=== PATIENT | male | born 1965 | race American Indian/Alaskan Native ===

== ENCOUNTER 2019-11-30 18:06 | Emergency (ER) | payer MEDICARE ==
[~2019-11-30] VITALS: Ht 172.7 cm; Wt 68.0 kg
[~2019-11-30 18:06] MED LIST: BP MED; BUPR150T2 PO; CHLO25 PO; GABA300 PO; HYDACE5 PO; HYDCHL25 PO; LISI20 PO; MULVITMIND PO; TRAZ100 PO; [UNRECOGNIZED DRUG - CODE] PO
== END 2019-12-01 01:19 | disposition home or self-care (01) ==
LOC: ER 18:06
DX: S01.511A Laceration without foreign body of lip, initial encounter (principal); I10 Essential (primary) hypertension; Z79.899 Other long term (current) drug therapy; F17.210 Nicotine dependence, cigarettes, uncomplicated; Y04.0XXA Assault by unarmed brawl or fight, initial encounter
CPT/HCPCS: 12011; 70450; 72125; 99284-25; A9270-GY

== ENCOUNTER 2020-11-27 14:16 | Inpatient (IN) | payer MEDICARE ==
[~2020-11-27] VITALS: Ht 172.7 cm; Wt 87.4 kg
[2020-11-27 15:21] LABS: BASOPHILS PERCENT AUTO 1 % (0-2); EOSINOPHILS ABSOLUTE AUTO 0.33 K/mm3 (0.00-0.68); EOSINOPHILS PERCENT AUTO 4 % (0-6); IMMATURE GRAN ABSOLUTE AUTO 0.01 K/mm3 (0.00-0.10); IMMATURE GRAN PERCENT AUTO 0 % (0-1); LYMPHOCYTES ABSOLUTE AUTO 1.11 K/mm3 (0.84-5.20); LYMPHOCYTES PERCENT AUTO 12 % (21-46); MONOCYTES PERCENT AUTO 7 % (4-13); Mean Corpuscular HGB 32.1 pg (26.0-34.0); Mean Corpuscular HGB Conc 31.8 g/dL (31.5-36.5); Mean Corpuscular Volume 101 fL (80-100); NEUTROPHILS ABSOLUTE AUTO 6.89 K/mm3 (1.96-9.15); NEUTROPHILS PERCENT AUTO 76 % (41-73); Platelet Count 264 K/mm3 (150-400); RDW Coefficient Variation 14.7 % (11.7-14.2); RDW Standard Deviation 54.6 fL (35.1-46.3); Red Blood Cell Count 4.36 M/mm3 (4.30-5.90); White Blood Cell Count 9.04 K/mm3 (4.00-11.30)
[2020-11-27 15:38] LABS: International Normalized Ratio 1.04; Prothrombin Time Results 11.2 Sec (9.7-11.5)
[2020-11-27 15:50] LABS: Albumin, Blood 2.9 g/dL (3.4-5.0); Albumin/Globulin Ratio 0.9 (0.8-1.8); Bilirubin, Total 0.5 mg/dL (0.1-1.0); Bun/Creatinine Ratio 13.8 (12.0-20.0); Calcium, Blood 8.2 mg/dL (8.5-10.1); Creatinine, Blood 3.54 mg/dL (0.60-1.20); Globulin, Blood 3.4 g/dL (2.2-4.0); Total Protein, Blood 6.3 g/dL (6.4-8.2); Troponin I 0.097 ng/mL (0.000-0.040)
--- NOTE | 2020-11-28 00:07 | NUR ---
ADMIT NOTE REPORT FROM DIRK, EMERGENCY RN. PT BROUGHT TO ROOM VIA GURNEY. PT STOOD IN HALLWAY AND AMBULATED TO THE BED, SLIGHTLY UNSTEADY. PT ORIENTED TO ROOM AND UNIT. CALL LIGHT WITHIN REACH.
--- NOTE | 2020-11-28 04:54 | NUR ---
SHIFT SUMMARY PT ADMITTED LAST NIGHT FOR NEW DIAGNOSIS CHF. PT IS FULL CODE. PLAN FOR DIURESIS AND RE-EVALUATION. PT HAS AN ECHO ORDERED FOR TODAY. PT HAD CONTINUED HIGH BP, HX OF HTN WITHOUT MANAGEMENT AND POLYSUBSTANCE ABUSE. PT MEDICATED WITH HYDRALAZINE PER EMAR; IMPROVEMENT IN BP. PT LIVES ALONE. HX OF NONCOMPLIANCE WITH HOME MEDICATIONS. POSSIBLE DEVELOPMENTAL DELAY REPORTED BY FRIEND OVER PHONE TO ER.
--- NOTE | 2020-11-28 05:00 | NUR ---
CTA/PRINTED CIRCUIT LAYOUT TAPER I HAVE ASSESSED THIS PT. I HAVE READ THE PRINTED CIRCUIT LAYOUT TAPER'S DOCUMENTATION AND I AGREE. THE SHIFT SUMMARY IS IN PRINTED CIRCUIT LAYOUT TAPER'S NOTES
[2020-11-28 09:06] LABS: BASOPHILS ABSOLUTE AUTO 0.07 K/mm3 (0.00-0.23); BASOPHILS PERCENT AUTO 1 % (0-2); EOSINOPHILS ABSOLUTE AUTO 0.23 K/mm3 (0.00-0.68); EOSINOPHILS PERCENT AUTO 3 % (0-6); Hematocrit 42.6 % (37.0-53.0); Hemoglobin 13.7 g/dL (13.5-17.5); IMMATURE GRAN ABSOLUTE AUTO 0.02 K/mm3 (0.00-0.10); IMMATURE GRAN PERCENT AUTO 0 % (0-1); LYMPHOCYTES ABSOLUTE AUTO 0.87 K/mm3 (0.84-5.20); LYMPHOCYTES PERCENT AUTO 12 % (21-46); MONOCYTES ABSOLUTE AUTO 0.31 K/mm3 (0.16-1.47); MONOCYTES PERCENT AUTO 4 % (4-13); Mean Corpuscular HGB 32.1 pg (26.0-34.0); Mean Corpuscular HGB Conc 32.2 g/dL (31.5-36.5); Mean Corpuscular Volume 100 fL (80-100); Mean Platelet Volume 10.3 fL (9.1-12.4); NEUTROPHILS ABSOLUTE AUTO 5.68 K/mm3 (1.96-9.15); NEUTROPHILS PERCENT AUTO 79 % (41-73); Platelet Count 254 K/mm3 (150-400); RDW Coefficient Variation 14.6 % (11.7-14.2); RDW Standard Deviation 54.3 fL (35.1-46.3); Red Blood Cell Count 4.27 M/mm3 (4.30-5.90); White Blood Cell Count 7.18 K/mm3 (4.00-11.30)
[2020-11-28 09:38] LABS: Albumin, Blood 2.7 g/dL (3.4-5.0); Albumin/Globulin Ratio 0.8 (0.8-1.8); Bilirubin, Total 0.8 mg/dL (0.1-1.0); Bun/Creatinine Ratio 13.5 (12.0-20.0); Calcium, Blood 8.3 mg/dL (8.5-10.1); Creatinine, Blood 3.77 mg/dL (0.60-1.20); Globulin, Blood 3.3 g/dL (2.2-4.0); Potassium, Blood 3.9 mmol/L (3.5-5.5); Troponin I 0.07 ng/mL (0.000-0.040)
--- NOTE | 2020-11-28 10:09 | NUR ---
Echocardiogram completed.
--- NOTE | 2020-11-28 17:58 | NUR ---
Per admit trigger, I met with Mr. Ryan to offer information about advanced care planning. He has no family or friends locally. Two sisters in [place]. He does not read or write. We completed a POLST reflecting his wishes to be DNR if there is no pulse, breath, and unresponsive. Limited interventions. No intubation. POLST waiting physician signature and fax to [place] registry.
--- NOTE | 2020-11-28 19:43 | NUR ---
SHIFT SUMMARY PT TOOK A SHOWER THIS MORNING. REPORTS INCREASED DYSPNEA WITH ACTIVITY. UP IN CHAIR ON AND OFF THROUGH DAY. DENIES PAIN OR NAUSEA. TRIES TO KEEP FEET ELEVATED. NO WITHDRAWAL SYMPTOMS NOTED THROUGH DAY. ECHO COMPLETED.
--- NOTE | 2020-11-29 04:50 | NUR ---
SHIFT SUMMARY: PATIENT IS A&OX4, REPORTS DRINKING DAILY AND METH USE, BOTH LAST USED 11/27/20. THIS EVENING PATIENT SUDDENLY BECAME ANXIOUS AND SLIGHTLY DISORIENTED WITH SLIGHT TREMORE AND SKIN IS MOIST. SCORING 6 ON THE CIWA SCALE. PATIENT REPORTS DRINKING NIGHTLY TO INDUCE SLEEP, TO TREAT INSOMNIA. LIBRIUM WAS GIVEN WITH GOOD EFFECT. THE NEXT CIWA WAS 4. NEEDS ASSISTANCE OF 1, GAIT IS UNSTEADY. BED ALARM IS ON FOR SAFETY.
[2020-11-29 08:16] LABS: Albumin, Blood 2.9 g/dL (3.4-5.0); Anion Gap 7 mmol/L (6-16); Blood Urea Nitrogen 66 mg/dL (8-24); Bun/Creatinine Ratio 14.5 (12.0-20.0); CO2, Blood 26 mmol/L (21-32); Calcium, Blood 8.5 mg/dL (8.5-10.1); Chloride, Blood 109 mmol/L (98-108); Creatinine, Blood 4.56 mg/dL (0.60-1.20); Glomerular Filtration Rate 14 (60-); Glucose, Blood 96 mg/dL (70-99); Magnesium, Blood 1.9 mg/dL (1.6-2.4); Phosphorus, Blood 5.2 mg/dL (2.5-4.9); Potassium, Blood 4.6 mmol/L (3.5-5.5); Sodium, Blood 142 mmol/L (136-145)
[2020-11-29 08:35] LABS: BASOPHILS ABSOLUTE AUTO 0.09 K/mm3 (0.00-0.23); BASOPHILS PERCENT AUTO 1 % (0-2); EOSINOPHILS ABSOLUTE AUTO 0.18 K/mm3 (0.00-0.68); EOSINOPHILS PERCENT AUTO 2 % (0-6); Hematocrit 45.7 % (37.0-53.0); Hemoglobin 14.6 g/dL (13.5-17.5); IMMATURE GRAN ABSOLUTE AUTO 0.02 K/mm3 (0.00-0.10); IMMATURE GRAN PERCENT AUTO 0 % (0-1); LYMPHOCYTES ABSOLUTE AUTO 1.75 K/mm3 (0.84-5.20); LYMPHOCYTES PERCENT AUTO 19 % (21-46); MONOCYTES ABSOLUTE AUTO 0.57 K/mm3 (0.16-1.47); MONOCYTES PERCENT AUTO 6 % (4-13); Mean Corpuscular HGB 31.5 pg (26.0-34.0); Mean Corpuscular HGB Conc 31.9 g/dL (31.5-36.5); Mean Corpuscular Volume 99 fL (80-100); Mean Platelet Volume 10.6 fL (9.1-12.4); NEUTROPHILS ABSOLUTE AUTO 6.45 K/mm3 (1.96-9.15); NEUTROPHILS PERCENT AUTO 71 % (41-73); Platelet Count 303 K/mm3 (150-400); RDW Coefficient Variation 14.4 % (11.7-14.2); RDW Standard Deviation 51.9 fL (35.1-46.3); Red Blood Cell Count 4.64 M/mm3 (4.30-5.90); White Blood Cell Count 9.06 K/mm3 (4.00-11.30)
[2020-11-29 08:53] LABS: Bun/Creatinine Ratio 14.6 (12.0-20.0); Calcium, Blood 8.5 mg/dL (8.5-10.1); Creatinine, Blood 4.53 mg/dL (0.60-1.20); Potassium, Blood 4.6 mmol/L (3.5-5.5)
[2020-11-29 08:56] LABS: Thyroid Stimulating Hormone 2.33 uIU/mL (0.360-4.800)
--- NOTE | 2020-11-29 19:13 | NUR ---
SHIFT SUMMARY BILL WAS ANXIOUS AND A BIT CONFUSED THIS SHIFT, GOT PO LIBRIUM TWICE FOR MILD WITHDRAWL SYMPTOMS. SBA, BA ON, SET IT OFF SEVERAL TIMES. BLE EDEMA, ELEVATED LEGS IN BED. CONTINENT IN URINAL. HAD A BM IN TOILET. DR DIA CONSULTED AND CAME TO BS. CHANGED TO DNR PER POLST. CALL LIGHT IN REACH, REPORT GIVEN TO NIGHT NURSE
[2020-11-30 04:46] LABS: Hematocrit 45.8 % (37.0-53.0); Hemoglobin 14.5 g/dL (13.5-17.5)
[2020-11-30 05:12] LABS: Albumin, Blood 2.8 g/dL (3.4-5.0); Anion Gap 9 mmol/L (6-16); Blood Urea Nitrogen 74 mg/dL (8-24); Bun/Creatinine Ratio 15.8 (12.0-20.0); CO2, Blood 23 mmol/L (21-32); Calcium, Blood 8.1 mg/dL (8.5-10.1); Chloride, Blood 106 mmol/L (98-108); Creatinine, Blood 4.69 mg/dL (0.60-1.20); Glomerular Filtration Rate 14 (60-); Glucose, Blood 89 mg/dL (70-99); Phosphorus, Blood 5.9 mg/dL (2.5-4.9); Potassium, Blood 4.2 mmol/L (3.5-5.5); Sodium, Blood 138 mmol/L (136-145)
--- NOTE | 2020-11-30 05:41 | NUR ---
PT MEDICATED FOR CIWA OF 6 THIS SHIFT, ANXIOUS, INSISTING TO GO DOWNSTAIRS BY HIMSELF TO VENDING MACHINE. SNACKS GIVEN. PT PUT ON HIS CLOTHES THIS AM BECAUSE HE IS TIRED OF WEARING "A DRESS". REPORT WILL BE GIVEN TO ONCOMING SHIFT.
[2020-11-30 10:01] LABS: SARS-Cov-2 (COVID-19) PCR, MMC NEGATIVE (NEGATIVE)
--- NOTE | 2020-11-30 11:45 | NUR ---
HANDOFF DONE AT BS FOR PT TO GO TO OR FOR HD CATH PLACEMENT. PT EDUCATED ON PROS AND CONS IF HE DECIDES HE WANTS THIS, HE HAS DECIDED THAT HE WANTS TO HAVE DIALYSIS HE ISN'T READY TO
--- NOTE | 2020-11-30 18:37 | NUR ---
SHIFT SUMMARY BILL DECIDED THAT HE DID WANT DIALYSIS AFTER ALL. HAD HD CATH PLACED IN R CHEST WALL. PT LEFT FLOOR AROUND NOON, RETURNED AROUND 2PM. DIALYSIS IN ROOM IMMEDIATELY AFTERWARDS. TOLERATED DIALYSIS WELL. GOT LIBRIUM X1 THIS SHIFT DUE TO ANXIETY AND CONFUSION. DEFINITELY HAS (BASELINE?) CONFUSION AND FORGETFULNESS. CONTINENT IN URINAL. HAD U/S LIVER THIS MORNING. CALL LIGHT IN REACH, BA ON. PT SETS OFF BA REGULARLY. WCTM
[2020-12-01 04:59] LABS: BASOPHILS ABSOLUTE AUTO 0.04 K/mm3 (0.00-0.23); BASOPHILS PERCENT AUTO 0 % (0-2); EOSINOPHILS ABSOLUTE AUTO 0.01 K/mm3 (0.00-0.68); EOSINOPHILS PERCENT AUTO 0 % (0-6); Hematocrit 43.1 % (37.0-53.0); Hemoglobin 14.2 g/dL (13.5-17.5); IMMATURE GRAN ABSOLUTE AUTO 0.04 K/mm3 (0.00-0.10); IMMATURE GRAN PERCENT AUTO 0 % (0-1); LYMPHOCYTES ABSOLUTE AUTO 0.75 K/mm3 (0.84-5.20); LYMPHOCYTES PERCENT AUTO 6 % (21-46); MONOCYTES ABSOLUTE AUTO 0.65 K/mm3 (0.16-1.47); MONOCYTES PERCENT AUTO 5 % (4-13); Mean Corpuscular HGB 31.3 pg (26.0-34.0); Mean Corpuscular HGB Conc 32.9 g/dL (31.5-36.5); Mean Corpuscular Volume 95 fL (80-100); Mean Platelet Volume 10.8 fL (9.1-12.4); NEUTROPHILS ABSOLUTE AUTO 10.51 K/mm3 (1.96-9.15); NEUTROPHILS PERCENT AUTO 88 % (41-73); Platelet Count 282 K/mm3 (150-400); RDW Coefficient Variation 13.7 % (11.7-14.2); RDW Standard Deviation 48.1 fL (35.1-46.3); Red Blood Cell Count 4.53 M/mm3 (4.30-5.90)
--- NOTE | 2020-12-01 05:01 | NUR ---
PT IS ALERT,TIMES OF CONFUSION, CIWA SCORES 4-6, LIBRIUM GIVEN. PT RECIEVED DIALYSIS CATH YESTERDAY. PRESSURE DRESSING TO RIGHT SIDE OF NECK. PT HAS BEEN ANXIOUS THIS SHIFT, WAKING OFTEN AND SETTING OFF BED ALARM.
[2020-12-01 05:34] LABS: Albumin, Blood 2.3 g/dL (3.4-5.0); Anion Gap 9 mmol/L (6-16); Blood Urea Nitrogen 69 mg/dL (8-24); CO2, Blood 23 mmol/L (21-32); Calcium, Blood 7.6 mg/dL (8.5-10.1); Chloride, Blood 105 mmol/L (98-108); Creatinine, Blood 4.31 mg/dL (0.60-1.20); Glomerular Filtration Rate 15 (60-); Glucose, Blood 125 mg/dL (70-99); Magnesium, Blood 1.9 mg/dL (1.6-2.4); Phosphorus, Blood 6.2 mg/dL (2.5-4.9); Potassium, Blood 4.1 mmol/L (3.5-5.5); Sodium, Blood 137 mmol/L (136-145)
[2020-12-01 08:08] LABS: HBSAG SCREEN Negative (Negative); HEP A AB, IGM Negative (Negative); HEP B CORE AB, IGM Negative (Negative); HEP C VIRUS AB 6.9 (0.0-0.9)
--- NOTE | 2020-12-01 12:05 | NUR ---
ARRIVAL TO ROOM 348 RECIEVED REPORT FROM MARTÍN CELESTIN PRIOR TO PATIENT GOING TO DIALYSIS. ARRIVED TO ROOM AFTER DIALYSIS VIA BED WITH ALL BELONGINGS FROM PREVIOUS ROOM. PATIENT IS A&OX4, COOPERATIVE BUT SEEMS EASILY IRRITABLE. PATIENT ORIENTED TO NEW ROOM, CALL LIGHT IN REACH, BED IN LOW POSITION.
--- NOTE | 2020-12-01 18:14 | NUR ---
SHIFT SUMMARY PATIENT IS ALERT BUT HAS PERIODS OF CONFUSION. PATIENT CONTINUES TO BE IRRITTED BY BED ALARM IN PLACE BUT IS REMINDED TO CALL FOR HELP WHEN GETTING UP. DRESSING OVER DIALYSIS PORT IS CLEAN DRY AND INTACT. PATIENT HAS BEEN RESTING THE MAJORITY OF THE SHIFT BUT WAKES EASILY. FAMILY MEMBER AT THE BEDSIDE.
[2020-12-02 05:00] LABS: BASOPHILS ABSOLUTE AUTO 0.07 K/mm3 (0.00-0.23); BASOPHILS PERCENT AUTO 1 % (0-2); EOSINOPHILS ABSOLUTE AUTO 0.18 K/mm3 (0.00-0.68); EOSINOPHILS PERCENT AUTO 2 % (0-6); Hematocrit 41.3 % (37.0-53.0); Hemoglobin 13.4 g/dL (13.5-17.5); IMMATURE GRAN ABSOLUTE AUTO 0.03 K/mm3 (0.00-0.10); IMMATURE GRAN PERCENT AUTO 0 % (0-1); LYMPHOCYTES ABSOLUTE AUTO 2.21 K/mm3 (0.84-5.20); LYMPHOCYTES PERCENT AUTO 23 % (21-46); MONOCYTES ABSOLUTE AUTO 0.84 K/mm3 (0.16-1.47); MONOCYTES PERCENT AUTO 9 % (4-13); Mean Corpuscular HGB 31.2 pg (26.0-34.0); Mean Corpuscular HGB Conc 32.4 g/dL (31.5-36.5); Mean Corpuscular Volume 96 fL (80-100); NEUTROPHILS ABSOLUTE AUTO 6.27 K/mm3 (1.96-9.15); NEUTROPHILS PERCENT AUTO 65 % (41-73); Platelet Count 241 K/mm3 (150-400); RDW Standard Deviation 49.6 fL (35.1-46.3); Red Blood Cell Count 4.29 M/mm3 (4.30-5.90)
--- NOTE | 2020-12-02 05:12 | NUR ---
PAID SEARCH MARKETING ANALYST SUMMARY PATIENT IS A/OX3-4. MOST RECENT CIWA SCORE OF 2. PT HAD PERMACATH PLACED IN RIGHT CHEST YESTERDAY AND C/O MILD DISCOMFORT/ANNOYANCE AROUND HIS RIGHT NECK. PM CARDIAC MEDS HELD D/T SBP <100 AND PULSE <60. THIS AM, PT SBP IMPROVED. PT PULSE UP AND DOWN BETWEEN 32-61. DOCTOR HAKAN NOTIFIED AND TELEMETRY ORDERED. PT DENIES ANY CP OR SOB. VITALS OTHERWISE STABLE. NO APPARENT DISTRESS, BRADYCARDIA IS ASYMPTOMATIC, PT STATES "ITS BECAUSE IM LAYING IN BED, USUALLY I AM UP AND MOVING". CALL LIGHT IN REACH, BED LOW, ALARM ACTIVE. WILL CONTINUE TO MONITOR
--- NOTE | 2020-12-02 05:16 | NUR ---
I AGREE WITH JANAY GALLEGO STUDENT NURSE DOCUMENTATION. CASI THOMAS RN
[2020-12-02 05:24] LABS: Albumin, Blood 2.4 g/dL (3.4-5.0); Albumin/Globulin Ratio 0.8 (0.8-1.8); Bilirubin, Direct 0.1 mg/dL (0.0-0.3); Bilirubin, Indirect 0.2 mg/dL (0.1-0.7); Bilirubin, Total 0.3 mg/dL (0.1-1.0); Bun/Creatinine Ratio 13.4 (12.0-20.0); Calcium, Blood 7.3 mg/dL (8.5-10.1); Creatinine, Blood 4.09 mg/dL (0.60-1.20); Globulin, Blood 2.9 g/dL (2.2-4.0); Magnesium, Blood 2.1 mg/dL (1.6-2.4); Phosphorus, Blood 5.7 mg/dL (2.5-4.9); Potassium, Blood 3.5 mmol/L (3.5-5.5); Total Protein, Blood 5.3 g/dL (6.4-8.2)
--- NOTE | 2020-12-02 06:22 | NUR ---
EARLIER PT VOICED CONCERNS RE DIALYSIS PORT AND OF NECK ACCESS POINT AND DRESSING. AGREED TO SPEAK WITH MD THIS AM. DR DIA IN TO SEE PT. NURSE NOTIFIED MD OF PT CONCERNS. MD ACKNOWLEDGED AND TO ADDRESS IT.
--- NOTE | 2020-12-02 18:31 | NUR ---
ciwa score of 1, a+o, follows directions and stays in bed unless he calls, eager to go back home, reading directions is a challenge for him, nurse reviewed instructions written and given to pt by other staff to assist him to understand and comply, matt metz (states he feels sob but 02 level was above 90 each time he commented even after a walk to the end of the gillespie), will continue to monitor and treat until share bsr with noc nurse and pt
--- NOTE | 2020-12-02 23:47 | NUR ---
I HAVE READ AND AGREE WITH DOCUMENTATION OF JANAY GALLEGO NURSE STUDENT. CASI THOMAS RN
--- NOTE | 2020-12-03 03:14 | NUR ---
WELL SERVICE DERRICK WORKER SUMMARY RESTING QUIETLY WITH FEW INTERRUPTIONS. WITHDRAWL CHECKS REMAIN LOW (LAST ONE WAS "0". VERBALIZED QUESTIONS RE MEDIPORT AND NECK ACCESS POINT - NO NOTED ABNORMALITIES OF SAID AREAS. NO NOTED ACUTE DISTRESS. CALL LIGHT IN REACH
[2020-12-03 05:24] LABS: BASOPHILS ABSOLUTE AUTO 0.06 K/mm3 (0.00-0.23); BASOPHILS PERCENT AUTO 1 % (0-2); EOSINOPHILS ABSOLUTE AUTO 0.37 K/mm3 (0.00-0.68); EOSINOPHILS PERCENT AUTO 5 % (0-6); Hematocrit 42.8 % (37.0-53.0); Hemoglobin 13.5 g/dL (13.5-17.5); IMMATURE GRAN ABSOLUTE AUTO 0.03 K/mm3 (0.00-0.10); IMMATURE GRAN PERCENT AUTO 0 % (0-1); LYMPHOCYTES ABSOLUTE AUTO 1.79 K/mm3 (0.84-5.20); LYMPHOCYTES PERCENT AUTO 22 % (21-46); MONOCYTES ABSOLUTE AUTO 0.85 K/mm3 (0.16-1.47); MONOCYTES PERCENT AUTO 10 % (4-13); Mean Corpuscular HGB 31.6 pg (26.0-34.0); Mean Corpuscular HGB Conc 31.5 g/dL (31.5-36.5); Mean Corpuscular Volume 100 fL (80-100); Mean Platelet Volume 10.9 fL (9.1-12.4); NEUTROPHILS ABSOLUTE AUTO 5.14 K/mm3 (1.96-9.15); NEUTROPHILS PERCENT AUTO 62 % (41-73); Platelet Count 220 K/mm3 (150-400); RDW Standard Deviation 51.8 fL (35.1-46.3); Red Blood Cell Count 4.27 M/mm3 (4.30-5.90); White Blood Cell Count 8.24 K/mm3 (4.00-11.30)
[2020-12-03 05:54] LABS: Albumin, Blood 2.5 g/dL (3.4-5.0); Anion Gap 4 mmol/L (6-16); Blood Urea Nitrogen 39 mg/dL (8-24); Bun/Creatinine Ratio 10.5 (12.0-20.0); CO2, Blood 29 mmol/L (21-32); Calcium, Blood 7.5 mg/dL (8.5-10.1); Chloride, Blood 104 mmol/L (98-108); Creatinine, Blood 3.72 mg/dL (0.60-1.20); Glomerular Filtration Rate 18 (60-); Glucose, Blood 95 mg/dL (70-99); Magnesium, Blood 1.9 mg/dL (1.6-2.4); Phosphorus, Blood 4.4 mg/dL (2.5-4.9); Potassium, Blood 4.4 mmol/L (3.5-5.5); Sodium, Blood 137 mmol/L (136-145)
--- NOTE | 2020-12-03 16:47 | NUR ---
SHIFT SUMMARY NO ACUTE CHANGES NOTED TO PT THIS SHIFT, PT A&O4, ABLE TO MAKE NEEDS KNOWN. PLEASANT AND COOPERATIVE TO CARE. MEDICATED FOR A MILD HEADACHE THIS SHIFT PER EMAR. NO C/O CP, SOB, OR N&V. PT HAD FIRST PART OF STRESS TODAY ORDERED. PT CALM AND RESTED IN BED AT THIS TIME. BED AT LOWEST POSITION. CALL LIGHT WITHIN REACH.
--- NOTE | 2020-12-04 04:04 | NUR ---
CLEANING MANAGER SUMMARY PT A/OX4. ADMITTED FOR ACUTE EXACERBATION OF CHF. PT DID HAVE ELEVATED BP TONIGHT, MEDICATED PER EMAR AND NOW VSS. NPO SINCE 0000. CHEMICAL STRESS TEST IN AM. NO ACUTE CHANGES. PLAN IS DISCHARGE TODAY AFTER DIALYSIS PENDING STRESS TEST. WILL CONTINUE TO MONITOR.
[2020-12-04 05:17] LABS: BASOPHILS ABSOLUTE AUTO 0.06 K/mm3 (0.00-0.23); BASOPHILS PERCENT AUTO 1 % (0-2); EOSINOPHILS ABSOLUTE AUTO 0.34 K/mm3 (0.00-0.68); EOSINOPHILS PERCENT AUTO 4 % (0-6); Hematocrit 41.1 % (37.0-53.0); Hemoglobin 13.1 g/dL (13.5-17.5); IMMATURE GRAN ABSOLUTE AUTO 0.03 K/mm3 (0.00-0.10); IMMATURE GRAN PERCENT AUTO 0 % (0-1); LYMPHOCYTES ABSOLUTE AUTO 1.35 K/mm3 (0.84-5.20); LYMPHOCYTES PERCENT AUTO 17 % (21-46); MONOCYTES ABSOLUTE AUTO 0.79 K/mm3 (0.16-1.47); MONOCYTES PERCENT AUTO 10 % (4-13); Mean Corpuscular HGB 31.8 pg (26.0-34.0); Mean Corpuscular HGB Conc 31.9 g/dL (31.5-36.5); Mean Corpuscular Volume 100 fL (80-100); Mean Platelet Volume 11.2 fL (9.1-12.4); NEUTROPHILS ABSOLUTE AUTO 5.61 K/mm3 (1.96-9.15); NEUTROPHILS PERCENT AUTO 69 % (41-73); Platelet Count 206 K/mm3 (150-400); RDW Coefficient Variation 13.6 % (11.7-14.2); RDW Standard Deviation 50.3 fL (35.1-46.3); Red Blood Cell Count 4.12 M/mm3 (4.30-5.90); White Blood Cell Count 8.18 K/mm3 (4.00-11.30)
--- NOTE | 2020-12-04 05:31 | NUR ---
I AGREE WITH DOCUMENTATION OF GUERO GALLEGO STUDENT NURSE. CASI THOMAS RN
[2020-12-04 05:45] LABS: Albumin, Blood 2.6 g/dL (3.4-5.0); Anion Gap 6 mmol/L (6-16); Blood Urea Nitrogen 47 mg/dL (8-24); Bun/Creatinine Ratio 11.8 (12.0-20.0); CO2, Blood 29 mmol/L (21-32); Calcium, Blood 8.1 mg/dL (8.5-10.1); Chloride, Blood 101 mmol/L (98-108); Creatinine, Blood 3.98 mg/dL (0.60-1.20); Glomerular Filtration Rate 17 (60-); Glucose, Blood 92 mg/dL (70-99); Phosphorus, Blood 4.3 mg/dL (2.5-4.9); Potassium, Blood 4.4 mmol/L (3.5-5.5); Sodium, Blood 136 mmol/L (136-145)
--- NOTE | 2020-12-04 06:24 | NUR ---
PT VOICED CONCERNS RE NECK DISCOMFORT RE SURGICAL SITE. NO NOTED DISTRESS OF AREA, BUT WAS INSTRUCTED THAT MD WOULD ASSESS IT IN THE AM. DR DIA DOING ROUNDS, WAS NOTIFIED OF PT CONCERNS - MD WENT IN TO SEE PT. VERBALIZED NOTHING TO BE CONCERNED ABOUT. SEE MD NOTATIONS FOR DETAILS
--- NOTE | 2020-12-04 17:13 | NUR ---
SHIFT SUMMARY NO ACUTE CHANGES NOTED TO PT THIS SHIFT. A&OX4, ABLE TO MAKE NEEDS KNOWN, PLEASANT AND COOPERATIVE TO CARE. PT MEDICATED FOR A MINOR NECK ACHE PER EMAR. NO C/O CP, SOB, OR N&V. PT HAD SECOND PART OF STRESS TEST THIS SHIFT. PT ALSO HAD DIALYSIS TREATMENT TODAY. PT REQUESTED A HOME WELFARE CHECK D/T PERSONAL CONCERNS.KAMLA RNNAIL PROFESSIONAL PROVIDED ASSISTANCE TO PT IN REGARDS TO HIS CONCERNS. BED AT LOWEST POSITION. CALL LIGHT WITHIN REACH.
[2020-12-05 05:16] LABS: BASOPHILS ABSOLUTE AUTO 0.07 K/mm3 (0.00-0.23); BASOPHILS PERCENT AUTO 1 % (0-2); EOSINOPHILS ABSOLUTE AUTO 0.38 K/mm3 (0.00-0.68); EOSINOPHILS PERCENT AUTO 5 % (0-6); Hematocrit 44.4 % (37.0-53.0); IMMATURE GRAN ABSOLUTE AUTO 0.04 K/mm3 (0.00-0.10); IMMATURE GRAN PERCENT AUTO 1 % (0-1); LYMPHOCYTES ABSOLUTE AUTO 1.23 K/mm3 (0.84-5.20); LYMPHOCYTES PERCENT AUTO 15 % (21-46); MONOCYTES ABSOLUTE AUTO 0.92 K/mm3 (0.16-1.47); MONOCYTES PERCENT AUTO 11 % (4-13); Mean Corpuscular HGB 31.4 pg (26.0-34.0); Mean Corpuscular HGB Conc 31.5 g/dL (31.5-36.5); Mean Corpuscular Volume 100 fL (80-100); Mean Platelet Volume 10.8 fL (9.1-12.4); NEUTROPHILS ABSOLUTE AUTO 5.49 K/mm3 (1.96-9.15); NEUTROPHILS PERCENT AUTO 68 % (41-73); Platelet Count 211 K/mm3 (150-400); RDW Coefficient Variation 13.6 % (11.7-14.2); RDW Standard Deviation 49.9 fL (35.1-46.3); Red Blood Cell Count 4.46 M/mm3 (4.30-5.90); White Blood Cell Count 8.13 K/mm3 (4.00-11.30)
--- NOTE | 2020-12-05 05:21 | NUR ---
SHIFT SUMMARY- PT. A&O, PLEASANT AND COOPEARTIVE WITH CARE. NO S/S OF ALCOHOL WITHDRAWAL NOTED THIS SHIFT. PT. SLEPT T/O THE NIGHT, NO APPARENT DISTRESS NOTED. USES URINAL AT THE BEDSIDE AND ALSO AMBULATES TO BATHROOM PRN. PERFORMED PVR BLADDER SCAN PER ORDER WITH RESULT OF 187. NO COMPLAINTS OF PAIN OR DISCOMFORT DURING THE NIGHT. PT. ANTICIPATING D/C TO HOME TODAY. CALL LIGHT WITHIN REACH AND SIDE RAILS UPX2. WILL CONT TO MONITOR.
[2020-12-05 05:43] LABS: Albumin, Blood 2.8 g/dL (3.4-5.0); Anion Gap 4 mmol/L (6-16); Blood Urea Nitrogen 38 mg/dL (8-24); Bun/Creatinine Ratio 11.4 (12.0-20.0); CO2, Blood 31 mmol/L (21-32); Calcium, Blood 8.4 mg/dL (8.5-10.1); Chloride, Blood 104 mmol/L (98-108); Creatinine, Blood 3.33 mg/dL (0.60-1.20); Glomerular Filtration Rate 20 (60-); Glucose, Blood 100 mg/dL (70-99); Phosphorus, Blood 4.3 mg/dL (2.5-4.9); Potassium, Blood 4.8 mmol/L (3.5-5.5); Sodium, Blood 139 mmol/L (136-145)
[2020-12-05] MEDS ORDERED: ACET325 PO (09:22)
[2020-12-05] MEDS ORDERED: BUME2 PO (09:23)
[2020-12-05] MEDS ORDERED: BENMENLOZ MT (09:23)
[2020-12-05] MEDS ORDERED: Calcium Acetat667 MG PO (09:24)
[2020-12-05] MEDS ORDERED: HYDRA25 PO (09:26)
[2020-12-05] MEDS ORDERED: METO50 PO (09:26)
--- NOTE | 2020-12-05 12:11 | NUR ---
DISCHARGE PT DISCHARGED TO HOME. THIS RN EXPLAINED DISCHARGE INSTRUCTIONS AND MEDICATIONS TO PT AND HE REPORTS HE UNDERSTANDS. MEDICATIONS FAXED TO [facility]. PT TRANSFERRED VIA WHEELCHAIR TO TRANSPORTATION VEHICLE. PT TRANSFERRED TO [facility] FOR INTAKE AND DIALYSIS. BELONGINGS WITH PT.
== END 2020-12-05 10:50 | disposition home or self-care (01) | DRG 673 ==
LOC: ER 14:16 → MEDS 20:01
PROVIDERS: Family Medicine; Internal Medicine; Internal Medicine Nephrology; Physician Assistant; Surgery; ADMIT Internal Medicine
PROC: 02HV33Z Insertion of Infusion Device into Superior Vena Cava, Percutaneous Approach (ICD-10-PCS; 2020-11-30)
PROC: B5181ZA Fluoroscopy of Superior Vena Cava using Low Osmolar Contrast, Guidance (ICD-10-PCS; 2020-11-30)
PROC: 5A1D70Z Performance of Urinary Filtration, Intermittent, Less than 6 Hours Per Day (ICD-10-PCS; 2020-11-30)
PROC: 0JH63XZ Insertion of Tunneled Vascular Access Device into Chest Subcutaneous Tissue and Fascia, Percutaneous Approach (ICD-10-PCS; principal; 2020-11-30 14:30)
DX: N17.0 Acute kidney failure with tubular necrosis (principal); I50.21 Acute systolic (congestive) heart failure; I42.6 Alcoholic cardiomyopathy; I42.7 Cardiomyopathy due to drug and external agent; Q61.3 Polycystic kidney, unspecified; I13.2 Hypertensive heart and chronic kidney disease with heart failure and with stage 5 chronic kidney disease, or end stage renal disease; F17.210 Nicotine dependence, cigarettes, uncomplicated; G62.9 Polyneuropathy, unspecified; Z66 Do not resuscitate; I16.0 Hypertensive urgency; N18.6 End stage renal disease; Z20.822 Contact with and (suspected) exposure to COVID-19; F15.10 Other stimulant abuse, uncomplicated; F10.20 Alcohol dependence, uncomplicated; D63.1 Anemia in chronic kidney disease; E83.39 Other disorders of phosphorus metabolism; E88.09 Other disorders of plasma-protein metabolism, not elsewhere classified; R45.1 Restlessness and agitation; Z91.14 Patient's other noncompliance with medication regimen; Z87.11 Personal history of peptic ulcer disease; Z71.51 Drug abuse counseling and surveillance of drug abuser; Z79.899 Other long term (current) drug therapy
CPT/HCPCS: 36415; 71046; 76705; 76770; 78452; 80048; 80053; 80069; 80074; 82248; 83735; 83880; 84100; 84443; 84484; 84550; 85014; 85018; 85025; 85610; 86317; 93005; 93010; 93017; 93306; 96374; 99285-25; A9270; A9500; C1750; J0360; J0690; J1100; J1644; J1650; J1940; J2250; J2370; J2405; J2704; J2785; J3010; J7120; U0004

== ENCOUNTER 2020-12-31 12:07 | Inpatient (IN) | payer MEDICARE ==
[~2020-12-31] VITALS: Ht 170.2 cm; Wt 80.0 kg
[~2020-12-31 12:07] MED LIST changes: +ACET325 PO; +BENMENLOZ MT; +BUME2 PO; +Calcium Acetat667 MG PO; +HYDRA25 PO; +METO50 PO
[2020-12-31 13:01] LABS: BASOPHILS ABSOLUTE AUTO 0.08 K/mm3 (0.00-0.23); BASOPHILS PERCENT AUTO 1 % (0-2); EOSINOPHILS ABSOLUTE AUTO 0.21 K/mm3 (0.00-0.68); EOSINOPHILS PERCENT AUTO 3 % (0-6); Hematocrit 45.7 % (37.0-53.0); Hemoglobin 14.5 g/dL (13.5-17.5); IMMATURE GRAN ABSOLUTE AUTO 0.01 K/mm3 (0.00-0.10); IMMATURE GRAN PERCENT AUTO 0 % (0-1); LYMPHOCYTES ABSOLUTE AUTO 1.21 K/mm3 (0.84-5.20); LYMPHOCYTES PERCENT AUTO 17 % (21-46); MONOCYTES ABSOLUTE AUTO 0.59 K/mm3 (0.16-1.47); MONOCYTES PERCENT AUTO 8 % (4-13); Mean Corpuscular HGB 30.5 pg (26.0-34.0); Mean Corpuscular HGB Conc 31.7 g/dL (31.5-36.5); Mean Corpuscular Volume 96 fL (80-100); Mean Platelet Volume 10.3 fL (9.1-12.4); NEUTROPHILS PERCENT AUTO 71 % (41-73); Platelet Count 206 K/mm3 (150-400); RDW Coefficient Variation 13.5 % (11.7-14.2); RDW Standard Deviation 48.4 fL (35.1-46.3); Red Blood Cell Count 4.75 M/mm3 (4.30-5.90)
[2020-12-31 13:05] LABS: Calcium, Ionized (POC) 1.11 mmol/L (1.10-1.46); Chloride (POC) 114 mmol/L (98-108); Creatinine (POC) 4.8 mg/dL (0.8-1.3); Glucose (ISTAT POC) 85 mg/dL (70-99); Potassium (POC) 4.5 mmol/L (3.5-5.5); Sodium (POC) 141 mmol/L (135-148); Total CO2 (POC) 15 mmol/L (21-32)
[2020-12-31 13:26] LABS: Albumin, Blood 3.4 g/dL (3.4-5.0); Albumin/Globulin Ratio 0.9 (0.8-1.8); Bilirubin, Total 0.6 mg/dL (0.1-1.0); Bun/Creatinine Ratio 14.6 (12.0-20.0); Calcium, Blood 8.3 mg/dL (8.5-10.1); Creatinine, Blood 4.24 mg/dL (0.60-1.20); Globulin, Blood 3.9 g/dL (2.2-4.0); Potassium, Blood 4.5 mmol/L (3.5-5.5); Total Protein, Blood 7.3 g/dL (6.4-8.2)
[2020-12-31 13:47] LABS: Source, Urine Clean Catch
[2020-12-31 13:50] LABS: Bilirubin, Urine Neg (Neg); Blood, Urine 2+ (Neg); Glucose Qualitative, Urine Neg (Neg); Ketones, Urine Neg (Neg); Leukocyte Esterase, Urine Neg (Neg); Nitrite, Urine Neg (Neg); Protein, Urine 3+ (Neg); Urobilinogen, Urine NORM (Normal)
[2020-12-31 14:01] LABS: Appearance, Urine Clear (Clear); Color, Urine Pale Yellow (P-Yellow)
[2020-12-31 14:02] LABS: Bacteria Mod /hpf; Red Blood Cells, Urine Not Seen /hpf (0-2); Squamous Epithelial Cells Not Seen /hpf (Few); White Blood Cells, Urine 0-2 /hpf (0-5)
[2020-12-31] MEDS ORDERED: METO50 PO (14:03)
[2020-12-31] MEDS ORDERED: BUMETANIDE2 M3 PO (14:03)
[2020-12-31] MEDS ORDERED: HYDRA25 PO (14:04)
[2020-12-31 14:06] LABS: U Amphetamine Screen DETECTED; U Barbituate Screen Not Detected; U Benzodiazapine Screen Not Detected; U Buprenorphine Screen Not Detected; U Cannabinoids Screen DETECTED; U Cocaine Screen Not Detected; U Methadone Screen Not Detected; U Methamphetamine Screen DETECTED; U Opiates Screen Not Detected; U Oxycodone Screen Not Detected; U Phencyclidine Screen Not Detected; U Propoxyphene Screen Not Detected
[2020-12-31 15:16] LABS: SARS-Cov-2 (COVID-19) PCR, MMC NEGATIVE (NEGATIVE)
--- NOTE | 2020-12-31 21:24 | NUR ---
2129 DR DIA INFORMED THIS RN THAT PT WILL NOT GET DIALYSIS TONIGHT BUT IN THE AM.
--- NOTE | 2021-01-01 04:35 | NUR ---
SUMMARY PT HAS NO NEW ISSUES NOTED. PT HAS SLEPT T/O SHIFT. PT IS TO HAVE DIALYSIS THIS AM. PT DENIES PAIN OR SOB. PT CURRENTLY SLEEPING AND IN NO DISTRESS. CALL LIGHT IN REACH.
[2021-01-01 06:08] LABS: Albumin, Blood 3.1 g/dL (3.4-5.0); Anion Gap 7 mmol/L (6-16); Blood Urea Nitrogen 63 mg/dL (8-24); CO2, Blood 22 mmol/L (21-32); Calcium, Blood 8.4 mg/dL (8.5-10.1); Chloride, Blood 110 mmol/L (98-108); Glomerular Filtration Rate 16 (60-); Glucose, Blood 91 mg/dL (70-99); Phosphorus, Blood 6.2 mg/dL (2.5-4.9); Potassium, Blood 5.3 mmol/L (3.5-5.5); Sodium, Blood 139 mmol/L (136-145)
--- NOTE | 2021-01-01 18:53 | NUR ---
SHIFT SUMMARY PT IS AO. PT DENIES PAIN, N/V, SOB. PT IS INDEPENDENT IN ROOM. PLAN IS FOR DIALYSIS TONIGHT AND ESTABLISHING PT WITH DARCIEITA. PT APPETITE IS GOOD. PLAN IS TO GET PT DIALYSIS TONIGHT. PT HAD A VISITOR THIS RACHELLE AND VISITOR RETRIEVED KEYS TO PT'S HOUSE TO TAKE CARE OF THE DOG. PT IS IN ROOM, CALL LIGHT IN REACH, DIALYSIS AT THE BEDSIDE FLUSHING THE PERMACATH.
--- NOTE | 2021-01-01 20:38 | NUR ---
TO ROOM 327 TO EVALUATE FOR DIALYSIS TX PER ORDERS FROM DR DIA. PT HAS HISTORY OF NONCOMPLIANCE, HAD DIALYSIS CVC PLACE NOVEMBER 2020 IN ACUTE SETTING AT THIS FACILITY. PT HAS NOT FOLLOWED UP WITH NEPHROLOGY OR CHRONIC CENTER PLANNED. CATHETER EVALUATION SHOWS ORIGINAL DRESSING FROM SURGICAL PLACEMENT. VERY CRUSTED OVER WITH DRIED BLOOD AT CATHETER INSERTION SITE AND AROUND OCCLUCIVE DRESSING. CLEANED WITH CHLORAPREP AND NEW DRESSING PLACED. UNABLE TO PULL OR PUSH EITHER LUMEN. DARK BLODD NOTED TO CLAMPS, FEELS SOLID. ATTEMPTED TO FLUSH MULTIPLE TIMES. ACTIVASE NOT USED I WAS UNABLE TO GET ANYTHING TO MOVE. DR DIA NOTIFIED. PEANUT SEPARATOR AND PRIMARY RN NOTIFIED OF DR'S ORDERS AND SURGICAL CONSULT FOR LINE REPLACEMENT WITH DR CONDE IN AM. DISCUSSED WITH PATIENT THE IMPORTANCE OF COMPLIANCE WITH HIS TX PLAN AND WEB PRESS OPERATOR. HE STATES HE WILL BE MORE DILIGENT IN THE FUTURE. AUTUMN RESENDIZ
[2021-01-02 05:08] LABS: BASOPHILS ABSOLUTE AUTO 0.06 K/mm3 (0.00-0.23); BASOPHILS PERCENT AUTO 1 % (0-2); EOSINOPHILS ABSOLUTE AUTO 0.38 K/mm3 (0.00-0.68); EOSINOPHILS PERCENT AUTO 5 % (0-6); Hematocrit 48.7 % (37.0-53.0); IMMATURE GRAN ABSOLUTE AUTO 0.01 K/mm3 (0.00-0.10); IMMATURE GRAN PERCENT AUTO 0 % (0-1); LYMPHOCYTES ABSOLUTE AUTO 1.07 K/mm3 (0.84-5.20); LYMPHOCYTES PERCENT AUTO 15 % (21-46); MONOCYTES ABSOLUTE AUTO 0.47 K/mm3 (0.16-1.47); MONOCYTES PERCENT AUTO 6 % (4-13); Mean Corpuscular HGB 30.8 pg (26.0-34.0); Mean Corpuscular HGB Conc 32.9 g/dL (31.5-36.5); Mean Corpuscular Volume 94 fL (80-100); Mean Platelet Volume 10.7 fL (9.1-12.4); NEUTROPHILS ABSOLUTE AUTO 5.38 K/mm3 (1.96-9.15); NEUTROPHILS PERCENT AUTO 73 % (41-73); Platelet Count 235 K/mm3 (150-400); RDW Coefficient Variation 13.4 % (11.7-14.2); RDW Standard Deviation 46.4 fL (35.1-46.3); White Blood Cell Count 7.37 K/mm3 (4.00-11.30)
--- NOTE | 2021-01-02 05:34 | NUR ---
SUMMARY NO NEW ISSUES NOTED. DIALYSIS NURSE TRIED TO ACCESS PT PERMA CATH AND UNABLE. ORDER FOR CONSULT FROM DR CONDE TO ASSESS PT PERMACATH. PT SLEPT T/O SHIFT W/O COMPLAINT. PT CURRENTLY SLEEPING IN NO DISTRESS. CALL LIGHT IN REACH.
[2021-01-02 05:44] LABS: Anion Gap 9 mmol/L (6-16); Blood Urea Nitrogen 69 mg/dL (8-24); Bun/Creatinine Ratio 15.2 (12.0-20.0); CO2, Blood 20 mmol/L (21-32); Chloride, Blood 107 mmol/L (98-108); Creatinine, Blood 4.54 mg/dL (0.60-1.20); Glomerular Filtration Rate 14 (60-); Glucose, Blood 92 mg/dL (70-99); Phosphorus, Blood 5.9 mg/dL (2.5-4.9); Potassium, Blood 4.3 mmol/L (3.5-5.5); Sodium, Blood 136 mmol/L (136-145)
--- NOTE | 2021-01-02 18:26 | NUR ---
SHIFT SUMMARY- PT IS A/O, PLESANT AND COOPERATIVE. HE IS EATING AND DRINKING WELL. HE IS AMBULATING INDEPENDENTLY. HE WENT TO THE SURVEY SUPERVISOR TO HAVE HIS DIALYSIS PORT REPLACED. HIS BED IS IN THE LOW POSITION AND CALL LIGHT IS GABY MAC.
--- NOTE | 2021-01-03 04:35 | NUR ---
SUMMARY PT HAD NO COMPLAINTS. PT NEW CATH SITE IS C/D/I. PT HAS BEEN RESTING AND SLEEPING T/O SHIFT. PT CURRENTLY SLEEPING IN NO DISTRESS. CALL LIGHT IN REACH.
[2021-01-03 05:02] LABS: BASOPHILS ABSOLUTE AUTO 0.07 K/mm3 (0.00-0.23); BASOPHILS PERCENT AUTO 1 % (0-2); EOSINOPHILS ABSOLUTE AUTO 0.29 K/mm3 (0.00-0.68); EOSINOPHILS PERCENT AUTO 3 % (0-6); Hematocrit 46.2 % (37.0-53.0); IMMATURE GRAN ABSOLUTE AUTO 0.03 K/mm3 (0.00-0.10); IMMATURE GRAN PERCENT AUTO 0 % (0-1); LYMPHOCYTES PERCENT AUTO 12 % (21-46); MONOCYTES ABSOLUTE AUTO 0.67 K/mm3 (0.16-1.47); MONOCYTES PERCENT AUTO 8 % (4-13); Mean Corpuscular HGB 30.4 pg (26.0-34.0); Mean Corpuscular HGB Conc 32.5 g/dL (31.5-36.5); Mean Corpuscular Volume 94 fL (80-100); Mean Platelet Volume 10.6 fL (9.1-12.4); NEUTROPHILS ABSOLUTE AUTO 6.45 K/mm3 (1.96-9.15); NEUTROPHILS PERCENT AUTO 76 % (41-73); Platelet Count 214 K/mm3 (150-400); RDW Coefficient Variation 13.5 % (11.7-14.2); RDW Standard Deviation 46.4 fL (35.1-46.3); Red Blood Cell Count 4.94 M/mm3 (4.30-5.90); White Blood Cell Count 8.51 K/mm3 (4.00-11.30)
[2021-01-03 05:40] LABS: Anion Gap 10 mmol/L (6-16); Blood Urea Nitrogen 80 mg/dL (8-24); Bun/Creatinine Ratio 15.4 (12.0-20.0); CO2, Blood 22 mmol/L (21-32); Calcium, Blood 7.9 mg/dL (8.5-10.1); Chloride, Blood 108 mmol/L (98-108); Creatinine, Blood 5.19 mg/dL (0.60-1.20); Glomerular Filtration Rate 12 (60-); Glucose, Blood 94 mg/dL (70-99); Magnesium, Blood 2.1 mg/dL (1.6-2.4); Phosphorus, Blood 6.9 mg/dL (2.5-4.9); Potassium, Blood 4.5 mmol/L (3.5-5.5); Sodium, Blood 140 mmol/L (136-145)
--- NOTE | 2021-01-03 18:40 | NUR ---
SHIFT SUMMARY- PT IS A/O, PLESANT AND COOPERATIVE. HE IS EATING AND DRINKING WELL. HE HAD DIALYSIS THIS MORNING AND TOLERATED WELL. HE IS AMBULATING TO THE RESTROOM. HE HAD A FRIEND VISIT THIS AFTERNOON. HIS BED IS IN THE LOW POSITION AND CALL LIGHT IS WITIN REACH.
--- NOTE | 2021-01-03 19:10 | NUR ---
ASSUMED CARE RECEIVED REPORT FROM MARTÍN MATUTE. PT RESTING, IN NAD. NO ACUTE NEEDS ASSESSED AT THIS TIME. CALL LIGHT AND POSSESSIONS IN REACH.
--- NOTE | 2021-01-03 21:54 | NUR ---
SPOKE TO DR. SHORE REGARDING PT'S C/O CONSTIPATION. ORDERS RECEIVED.
--- NOTE | 2021-01-04 04:24 | NUR ---
UROLOGY TEACHER SUMMARY PT A&OX4, HAND SENIOR FINANCIAL EQUALLY STRONG BILATERALLY. INDEPENDENT IN ROOM. ABLE TO MAKE NEEDS KNOWN APPROPRIATELY. VS REVIEWED,WNL. PT HAS BEEN SLEEPING T/O NIGHT, NO ACUTE CHANGES IN CONDITION TO REPORT OVERNIGHT. HDY PERMACATH TO RCW C/D/I, MINIMAL EDEMA NOTED ABOVE SITE, PT REPORTS "IT FEELS BRUISED" WHEN PALPATED. NO BLEEDING OR OOZING FROM SITE NOTED. PAIN MANAGED WITH PRN TYLENOL, WITH GOOD RELIEF. EDEMA IMPROVED THIS AM. PT DENIES NEEDS AT THIS TIME. CALL LIGHT, POSSESSIONS IN REACH, BED IN LOW POSITION. WILL CONTINUE TO PROVIDE CARE NEEDED UNTIL REPORT GIVEN TO ONCOMING RN.
[2021-01-04 04:47] LABS: Hematocrit 45.5 % (37.0-53.0); Hemoglobin 14.9 g/dL (13.5-17.5)
[2021-01-04 05:11] LABS: Albumin, Blood 3.1 g/dL (3.4-5.0); Anion Gap 7 mmol/L (6-16); Blood Urea Nitrogen 68 mg/dL (8-24); Bun/Creatinine Ratio 13.8 (12.0-20.0); CO2, Blood 26 mmol/L (21-32); Calcium, Blood 8.4 mg/dL (8.5-10.1); Chloride, Blood 105 mmol/L (98-108); Creatinine, Blood 4.94 mg/dL (0.60-1.20); Glomerular Filtration Rate 13 (60-); Glucose, Blood 138 mg/dL (70-99); Magnesium, Blood 2.2 mg/dL (1.6-2.4); Phosphorus, Blood 5.7 mg/dL (2.5-4.9); Potassium, Blood 3.9 mmol/L (3.5-5.5); Sodium, Blood 138 mmol/L (136-145)
[2021-01-04 07:10] LABS: HBSAG SCREEN Negative (Negative); HEP A AB, IGM Negative (Negative); HEP B CORE AB, IGM Negative (Negative); HEP C VIRUS AB 6.6 (0.0-0.9)
--- NOTE | 2021-01-04 18:28 | NUR ---
SHIFT SUMMARY: NO ACUTE EVENTS TO REPORT THIS SHIFT. PT A&O; CALM AND COOPERATIVE WITH CARE. NO C/O PAIN. INDEPENDENT IN ROOM. NO DIALYSIS TODAY. AWAITING ROUTING EQUIPMENT TENDER CONSULT TO ARRANGE OUTPATIENT DIALYSIS. ENEDINA.
--- NOTE | 2021-01-04 19:10 | NUR ---
ASSUMED CARE RECEIVED REPORT FROM MARTÍN BRAND. PT RESTING, IN NAD. NO ACUTE NEEDS ASSESSED AT THIS TIME.
--- NOTE | 2021-01-04 23:45 | NUR ---
DR. DIA IN TO SEE PT. PLAN IS FOR HDY IN THE AM.
--- NOTE | 2021-01-05 04:03 | NUR ---
DRY CELL ASSEMBLY SUPERVISOR SUMMARY PT RESTING AFTER AMBULATING IN HALLWAY, IN NAD. VS REVIEWED,WNL; BP'S STABLE. NO ACUTE EVENTS NOTED OVERNIGHT. HDY PERMACATH TO RCW REMAINS INTACT, SWELLING TO SITE IMPROVED, NO DRAINAGE NOTED. PAIN MANAGED WITH MEDS PER EMAR. PT SLEPT ON AND OFF T/O NIGHT. NO ACUTE NEEDS ASSESSED AT THIS TIME. CALL LIGHT, POSSESSIONS IN REACH, BED IN LOW AND LOCKED POSITION. WILL CONTINUE TO PROVIDE CARE UNTIL REPORT GIVEN TO ONCOMING RN.
[2021-01-05 05:14] LABS: BASOPHILS ABSOLUTE AUTO 0.08 K/mm3 (0.00-0.23); BASOPHILS PERCENT AUTO 1 % (0-2); EOSINOPHILS ABSOLUTE AUTO 0.35 K/mm3 (0.00-0.68); EOSINOPHILS PERCENT AUTO 4 % (0-6); Hematocrit 45.7 % (37.0-53.0); Hemoglobin 15.1 g/dL (13.5-17.5); IMMATURE GRAN ABSOLUTE AUTO 0.02 K/mm3 (0.00-0.10); IMMATURE GRAN PERCENT AUTO 0 % (0-1); LYMPHOCYTES ABSOLUTE AUTO 1.27 K/mm3 (0.84-5.20); LYMPHOCYTES PERCENT AUTO 16 % (21-46); MONOCYTES ABSOLUTE AUTO 0.57 K/mm3 (0.16-1.47); MONOCYTES PERCENT AUTO 7 % (4-13); Mean Corpuscular HGB 31.1 pg (26.0-34.0); Mean Corpuscular Volume 94 fL (80-100); Mean Platelet Volume 10.6 fL (9.1-12.4); NEUTROPHILS ABSOLUTE AUTO 5.67 K/mm3 (1.96-9.15); NEUTROPHILS PERCENT AUTO 71 % (41-73); Platelet Count 207 K/mm3 (150-400); RDW Coefficient Variation 13.3 % (11.7-14.2); RDW Standard Deviation 46.2 fL (35.1-46.3); Red Blood Cell Count 4.85 M/mm3 (4.30-5.90); White Blood Cell Count 7.96 K/mm3 (4.00-11.30)
[2021-01-05 05:51] LABS: Anion Gap 10 mmol/L (6-16); Blood Urea Nitrogen 72 mg/dL (8-24); Bun/Creatinine Ratio 14.3 (12.0-20.0); CO2, Blood 23 mmol/L (21-32); Calcium, Blood 8.3 mg/dL (8.5-10.1); Chloride, Blood 102 mmol/L (98-108); Creatinine, Blood 5.04 mg/dL (0.60-1.20); Glomerular Filtration Rate 13 (60-); Glucose, Blood 153 mg/dL (70-99); Magnesium, Blood 2.2 mg/dL (1.6-2.4); Phosphorus, Blood 5.7 mg/dL (2.5-4.9); Potassium, Blood 3.8 mmol/L (3.5-5.5); Sodium, Blood 135 mmol/L (136-145)
--- NOTE | 2021-01-05 17:58 | NUR ---
SHIFT SUMMARY NO ACUTE CHANGES NOTED TO PT THIS SHIFT. A&OX4, ABLE TO MAKE NEEDS KNOWN, PLEASANT AND COOPERATIVE TO CARE. NO C/O PAIN OR ANY DISCOMFORT. PT HAD DIALYSIS THIS SHIFT. PERMACATH TO RUW AREA INTACT, DRESSING C/D/I. BED AT LOWEST POSITION. CALL LIGHT WITHIN REACH.
--- NOTE | 2021-01-05 19:10 | NUR ---
ASSUMED CARE RECEIVED REPORT FROM MARTÍN KLINE. PT RESTING, IN NAD. NO ACUTE NEEDS ASSESSED AT THIS TIME. CALL LIGHT, POSSESSIONS IN REACH. PT INDEPENDENT.
--- NOTE | 2021-01-06 04:31 | NUR ---
FRAME GATE MORTISER OPERATOR SUMMARY PT A&O, INDEPENDENT IN ROOM. NO ACUTE CHANGES TO REPORT OVERNIGHT, PT SLEPT ON AND OFF T/O. AMBULATED IN HALLWAY. MEDICATED X1 FOR PAIN TO RCW PERMACATH; CARLINE C/D/I, NO BLEEDING FROM SITE NOTED. VS REVIEWED,WNL. NO ACUTE NEEDS ASSESSED AT THIS TIME. CALL LIGHT, POSSESSIONS IN REACH, WILL CONTINUE TO PROVIDE CARE NEEDED UNTIL REPORT GIVEN TO ONCOMING RN.
[2021-01-06 05:23] LABS: BASOPHILS ABSOLUTE AUTO 0.07 K/mm3 (0.00-0.23); BASOPHILS PERCENT AUTO 1 % (0-2); EOSINOPHILS ABSOLUTE AUTO 0.32 K/mm3 (0.00-0.68); EOSINOPHILS PERCENT AUTO 4 % (0-6); Hematocrit 46.5 % (37.0-53.0); Hemoglobin 15.2 g/dL (13.5-17.5); IMMATURE GRAN ABSOLUTE AUTO 0.02 K/mm3 (0.00-0.10); IMMATURE GRAN PERCENT AUTO 0 % (0-1); LYMPHOCYTES ABSOLUTE AUTO 1.41 K/mm3 (0.84-5.20); LYMPHOCYTES PERCENT AUTO 18 % (21-46); MONOCYTES ABSOLUTE AUTO 0.76 K/mm3 (0.16-1.47); MONOCYTES PERCENT AUTO 10 % (4-13); Mean Corpuscular HGB 30.2 pg (26.0-34.0); Mean Corpuscular HGB Conc 32.7 g/dL (31.5-36.5); Mean Corpuscular Volume 92 fL (80-100); Mean Platelet Volume 10.8 fL (9.1-12.4); NEUTROPHILS ABSOLUTE AUTO 5.15 K/mm3 (1.96-9.15); NEUTROPHILS PERCENT AUTO 67 % (41-73); Platelet Count 232 K/mm3 (150-400); RDW Coefficient Variation 13.2 % (11.7-14.2); RDW Standard Deviation 45.1 fL (35.1-46.3); Red Blood Cell Count 5.04 M/mm3 (4.30-5.90); White Blood Cell Count 7.73 K/mm3 (4.00-11.30)
[2021-01-06 05:54] LABS: Albumin, Blood 3.1 g/dL (3.4-5.0); Albumin/Globulin Ratio 0.8 (0.8-1.8); Bilirubin, Direct 0.1 mg/dL (0.0-0.3); Bilirubin, Indirect 0.3 mg/dL (0.1-0.7); Bilirubin, Total 0.4 mg/dL (0.1-1.0); Bun/Creatinine Ratio 11.4 (12.0-20.0); Calcium, Blood 8.7 mg/dL (8.5-10.1); Creatinine, Blood 4.64 mg/dL (0.60-1.20); Globulin, Blood 3.9 g/dL (2.2-4.0); Magnesium, Blood 2.3 mg/dL (1.6-2.4); Phosphorus, Blood 5.6 mg/dL (2.5-4.9); Potassium, Blood 3.7 mmol/L (3.5-5.5)
--- NOTE | 2021-01-06 18:16 | NUR ---
SHIFT SUMMARY PT AxOx4. PATIENT HAD DIALYSIS TODAY. PT WAS VERY EAGER TO LEAVE UPON ARRIVAL BACK TO ROOM FROM DIALYSIS. PT STATED HIS PAI GOW DEALER TOLD HIM HE WOULD BE LEAVING TODAY AND DISCUSSED GOING AMA SEVERAL TIMES, INCLUDING WALKING OUT OF HIS ROOM AND WANDERING THE HALLS. PT IS VERY FRUSTRATED HE WAS NOT DISCHARGED TODAY. THERAPEUTIC COMMUNICATION PROVIDED. PT MORE RELAXED NOW. VITALS REVIEWED. PT CURRENTLY RESTING IN BED WITH CALL LIGHT IN REACH. DENIES ANY NEEDS AT THIS TIME.
[2021-01-07 06:23] LABS: BASOPHILS PERCENT AUTO 1 % (0-2); EOSINOPHILS ABSOLUTE AUTO 0.37 K/mm3 (0.00-0.68); EOSINOPHILS PERCENT AUTO 5 % (0-6); Hematocrit 49.1 % (37.0-53.0); IMMATURE GRAN ABSOLUTE AUTO 0.03 K/mm3 (0.00-0.10); IMMATURE GRAN PERCENT AUTO 0 % (0-1); LYMPHOCYTES ABSOLUTE AUTO 1.78 K/mm3 (0.84-5.20); LYMPHOCYTES PERCENT AUTO 22 % (21-46); MONOCYTES ABSOLUTE AUTO 0.77 K/mm3 (0.16-1.47); MONOCYTES PERCENT AUTO 10 % (4-13); Mean Corpuscular HGB 30.2 pg (26.0-34.0); Mean Corpuscular HGB Conc 32.6 g/dL (31.5-36.5); Mean Corpuscular Volume 93 fL (80-100); Mean Platelet Volume 11.1 fL (9.1-12.4); NEUTROPHILS ABSOLUTE AUTO 5.09 K/mm3 (1.96-9.15); NEUTROPHILS PERCENT AUTO 63 % (41-73); Platelet Count 239 K/mm3 (150-400); RDW Coefficient Variation 13.2 % (11.7-14.2); RDW Standard Deviation 45.1 fL (35.1-46.3); White Blood Cell Count 8.14 K/mm3 (4.00-11.30)
[2021-01-07 06:37] LABS: Albumin, Blood 3.4 g/dL (3.4-5.0); Anion Gap 6 mmol/L (6-16); Blood Urea Nitrogen 51 mg/dL (8-24); CO2, Blood 28 mmol/L (21-32); Calcium, Blood 8.9 mg/dL (8.5-10.1); Chloride, Blood 98 mmol/L (98-108); Creatinine, Blood 5.12 mg/dL (0.60-1.20); Glomerular Filtration Rate 12 (60-); Glucose, Blood 103 mg/dL (70-99); Magnesium, Blood 2.3 mg/dL (1.6-2.4); Potassium, Blood 4.2 mmol/L (3.5-5.5); Sodium, Blood 132 mmol/L (136-145)
--- NOTE | 2021-01-07 07:44 | NUR ---
SHIFT SUMMARY: AOX3, INDEPENDENT. VS WNL, AFEBRILE. MILD EDEMA TO BLE. SOME CRAMPING TO BILATERAL FEET LAST NIGHT. GAVE TYLENOL. PATIENT SLEPT WELL T/O NIGHT. NO ACUTE CHANGES. AWAITING TO BE DISCHARGED TODAY. REPORT GIVEN TO DAYSHIFT. CALL LIGHT IN REACH.
[2021-01-07] MEDS ORDERED: ALBU90OI INH (11:22)
[2021-01-07] MEDS ORDERED: ACET325 PO (11:22)
[2021-01-07] MEDS ORDERED: BISA10S PR (11:23)
[2021-01-07] MEDS ORDERED: DOCU100 PO (11:33)
[2021-01-07] MEDS ORDERED: CLON.1 PO (11:33)
[2021-01-07] MEDS ORDERED: MIRALAX17 GM PO (11:34)
[2021-01-07] MEDS ORDERED: SENN187 PO (11:34)
--- NOTE | 2021-01-07 15:32 | NUR ---
PATIENT DISCHARGE: PATIENT DISCHARGED TO HOME THIS SHIFT. MEDICATION RECONCILIATION COMPLETED; MED LIST FAXED TO [facility] IN [place]. DISCHARGE EDUCATION COMPLETED WITH PATIENT. PATIENT INDEPENDENT; PT REFUSED WHEELCHAIR TRANSPORT TO EXIT; PATIENT DEPARTED MEDICAL FLOOR AT 1532. PATIENT DEPARTED [facility] VIA PRIVATE AUTO.
== END 2021-01-07 15:30 | disposition home or self-care (01) | DRG 291 ==
LOC: ER 12:07 → MEDS 12:08
PROVIDERS: Emergency Medicine; Family Medicine; Internal Medicine Nephrology; Physician Assistant; ADMIT Hospitalist
PROC: 0JH63XZ Insertion of Tunneled Vascular Access Device into Chest Subcutaneous Tissue and Fascia, Percutaneous Approach (ICD-10-PCS; 2021-01-02)
PROC: 02HV33Z Insertion of Infusion Device into Superior Vena Cava, Percutaneous Approach (ICD-10-PCS; 2021-01-02)
PROC: 5A1D70Z Performance of Urinary Filtration, Intermittent, Less than 6 Hours Per Day (ICD-10-PCS; principal; 2021-01-05)
DX: I13.2 Hypertensive heart and chronic kidney disease with heart failure and with stage 5 chronic kidney disease, or end stage renal disease (principal); N18.6 End stage renal disease; I50.23 Acute on chronic systolic (congestive) heart failure; N25.81 Secondary hyperparathyroidism of renal origin; E87.2 Acidosis; N39.0 Urinary tract infection, site not specified; J44.1 Chronic obstructive pulmonary disease with (acute) exacerbation; E87.1 Hypo-osmolality and hyponatremia; I42.8 Other cardiomyopathies; E83.39 Other disorders of phosphorus metabolism; F17.210 Nicotine dependence, cigarettes, uncomplicated; Z20.822 Contact with and (suspected) exposure to COVID-19; Z66 Do not resuscitate; F10.10 Alcohol abuse, uncomplicated; F12.10 Cannabis abuse, uncomplicated; D63.1 Anemia in chronic kidney disease; K04.7 Periapical abscess without sinus; J32.9 Chronic sinusitis, unspecified; F19.10 Other psychoactive substance abuse, uncomplicated; E88.09 Other disorders of plasma-protein metabolism, not elsewhere classified; F15.10 Other stimulant abuse, uncomplicated; Z99.2 Dependence on renal dialysis; Z95.828 Presence of other vascular implants and grafts; Z79.899 Other long term (current) drug therapy; Z91.15 Patient's noncompliance with renal dialysis; Z71.51 Drug abuse counseling and surveillance of drug abuser; Z71.6 Tobacco abuse counseling; Z71.41 Alcohol abuse counseling and surveillance of alcoholic
CPT/HCPCS: 36415; 36558; 36589; 76770; 76937; 77001; 80047; 80053; 80069; 80074; 81001; 82248; 82947; 83735; 84100; 84145; 85014; 85018; 85025; 86317; 87086; 93005; 93010; 94760; 96372; 99285-25; A9270; C1750; C1769; J1644; J7040; U0004

== ENCOUNTER 2021-10-25 07:15 | Inpatient (IN) | payer MEDICARE ==
[~2021-10-25] VITALS: Ht 172.7 cm; Wt 88.0 kg
[~2021-10-25 07:15] MED LIST changes: +ALBU90OI INH; +BISA10S PR; +BUMETANIDE2 M3 PO; +CLON.1 PO; +DOCU100 PO; +MIRALAX17 GM PO; +SENN187 PO
[2021-10-25 07:39] LABS: BASOPHILS ABSOLUTE AUTO 0.04 K/mm3 (0.00-0.23); BASOPHILS PERCENT AUTO 0 % (0-2); EOSINOPHILS ABSOLUTE AUTO 0.05 K/mm3 (0.00-0.68); EOSINOPHILS PERCENT AUTO 1 % (0-6); Hematocrit 36.4 % (37.0-53.0); Hemoglobin 11.2 g/dL (13.5-17.5); IMMATURE GRAN ABSOLUTE AUTO 0.03 K/mm3 (0.00-0.10); IMMATURE GRAN PERCENT AUTO 0 % (0-1); LYMPHOCYTES ABSOLUTE AUTO 0.46 K/mm3 (0.84-5.20); LYMPHOCYTES PERCENT AUTO 4 % (21-46); MONOCYTES PERCENT AUTO 6 % (4-13); Mean Corpuscular HGB 30.4 pg (26.0-34.0); Mean Corpuscular HGB Conc 30.8 g/dL (31.5-36.5); Mean Corpuscular Volume 99 fL (80-100); Mean Platelet Volume 10.4 fL (9.1-12.4); NEUTROPHILS ABSOLUTE AUTO 9.67 K/mm3 (1.96-9.15); NEUTROPHILS PERCENT AUTO 88 % (41-73); Platelet Count 250 K/mm3 (150-400); RDW Coefficient Variation 14.8 % (11.7-14.2); RDW Standard Deviation 53.7 fL (35.1-46.3); Red Blood Cell Count 3.69 M/mm3 (4.30-5.90); White Blood Cell Count 10.95 K/mm3 (4.00-11.30)
[2021-10-25 07:54] LABS: Source, Urine Clean Catch
[2021-10-25 07:56] LABS: Albumin, Blood 2.8 g/dL (3.4-5.0); Albumin/Globulin Ratio 0.8 (0.8-1.8); Bilirubin, Total 0.3 mg/dL (0.1-1.0); Bun/Creatinine Ratio 12.6 (12.0-20.0); Calcium, Blood 5.9 mg/dL (8.5-10.1); Creatinine, Blood 7.38 mg/dL (0.60-1.20); Globulin, Blood 3.3 g/dL (2.2-4.0); Potassium, Blood 5.3 mmol/L (3.5-5.5); Total Protein, Blood 6.1 g/dL (6.4-8.2)
[2021-10-25 08:13] LABS: Bilirubin, Urine Neg (Neg); Blood, Urine 3+ (Neg); Glucose Qualitative, Urine Neg (Neg); Ketones, Urine Neg (Neg); Leukocyte Esterase, Urine 2+ (Neg); Nitrite, Urine Neg (Neg); Protein, Urine 3+ (Neg); Specific Gravity, Urine 1.015 (1.003-1.022); Urobilinogen, Urine NORM (Normal)
[2021-10-25 08:24] LABS: U Amphetamine Screen Not Detected; U Barbituate Screen Not Detected; U Benzodiazapine Screen Not Detected; U Buprenorphine Screen Not Detected; U Cannabinoids Screen Not Detected; U Cocaine Screen Not Detected; U Methadone Screen Not Detected; U Methamphetamine Screen Not Detected; U Opiates Screen Not Detected; U Oxycodone Screen Not Detected; U Phencyclidine Screen Not Detected; U Propoxyphene Screen Not Detected
[2021-10-25 08:25] LABS: Appearance, Urine Clear (Clear); Color, Urine Yellow (P-Yellow)
[2021-10-25 08:28] LABS: Bacteria Few /hpf; Squamous Epithelial Cells Rare /hpf (Few)
--- NOTE | 2021-10-25 18:32 | NUR ---
DIALYSIS WENT TO PT'S ROOM TO DO DIALYSIS. UNABLE TO ASPIRATE THE LUMENS ON EITHER SIDE. THEY ARE BOTH PACKED WITH DRY CLOTTED BLOOD. Janessa KENT CHECKED THEM WELL AND AGREES WE CAN'T USE THEM OR PACK WITH ACTIVASE. CALLED DR DIA WHO WANTED THE FLOOR RN TO CALL HIM. NOTIFIED HER OF HIS REQUEST.
--- NOTE | 2021-10-25 19:31 | NUR ---
SHIFT SUMMARY: NO ACUTE EVENTS. PERMACATH FOUND TO BE CLOTTED OFF WHEN HD RN EVALUATED; SURGERY CONSULT PLACED FOR NEW PERMACATH TOMORROW MORNING. NO EVENTS ON TELEMETRY, SR. 2+ BLE EDEMA. GETTING UP INDEPENDENTLY TO BR, ASKED HIM TO USE URINAL FOR STRICT I&O, HAS BEEN EDUCATED ABOUT THAT AND FLUID RESTRICTION. DENIES PAIN. DYSPNEIC ON EXERTION. KEEPS ASKING FOR SNACKS; EDUCATED ABOUT SALT INTAKE AND VOLUME OVERLOAD. WILL BE NPO AT [place].
[2021-10-26 04:50] LABS: BASOPHILS ABSOLUTE AUTO 0.05 K/mm3 (0.00-0.23); BASOPHILS PERCENT AUTO 1 % (0-2); EOSINOPHILS ABSOLUTE AUTO 0.13 K/mm3 (0.00-0.68); EOSINOPHILS PERCENT AUTO 1 % (0-6); Hematocrit 37.1 % (37.0-53.0); Hemoglobin 11.5 g/dL (13.5-17.5); IMMATURE GRAN ABSOLUTE AUTO 0.03 K/mm3 (0.00-0.10); IMMATURE GRAN PERCENT AUTO 0 % (0-1); LYMPHOCYTES ABSOLUTE AUTO 0.49 K/mm3 (0.84-5.20); LYMPHOCYTES PERCENT AUTO 5 % (21-46); MONOCYTES ABSOLUTE AUTO 0.72 K/mm3 (0.16-1.47); MONOCYTES PERCENT AUTO 7 % (4-13); Mean Corpuscular HGB 30.3 pg (26.0-34.0); Mean Corpuscular Volume 98 fL (80-100); Mean Platelet Volume 10.5 fL (9.1-12.4); NEUTROPHILS ABSOLUTE AUTO 8.96 K/mm3 (1.96-9.15); NEUTROPHILS PERCENT AUTO 86 % (41-73); Platelet Count 249 K/mm3 (150-400); RDW Coefficient Variation 14.7 % (11.7-14.2); White Blood Cell Count 10.38 K/mm3 (4.00-11.30)
[2021-10-26 05:13] LABS: Albumin, Blood 2.8 g/dL (3.4-5.0); Albumin/Globulin Ratio 0.8 (0.8-1.8); Bilirubin, Total 0.4 mg/dL (0.1-1.0); Bun/Creatinine Ratio 13.3 (12.0-20.0); Calcium, Blood 6.2 mg/dL (8.5-10.1); Creatinine, Blood 7.67 mg/dL (0.60-1.20); Globulin, Blood 3.7 g/dL (2.2-4.0); Magnesium, Blood 1.6 mg/dL (1.6-2.4); Phosphorus, Blood 7.3 mg/dL (2.5-4.9); Potassium, Blood 4.5 mmol/L (3.5-5.5); Total Protein, Blood 6.5 g/dL (6.4-8.2)
--- NOTE | 2021-10-26 05:36 | NUR ---
SHIFT SUMMARY: NO ACUTE CHANGES. 500ML VOIDED AFTER BUMEX. CIWA SCORES ARE 3, O AND 0. PATIENT REQUESTED SLEEP AIDE AND TYLENOL FOR A HEAD ACHE. GRANT GLAZIER ARTIST WAS NOTIFIED AND ORDERS FOR TYLENOL AND MELATONIN WERE OBTAINED. MEDS WERE GIVEN WITH GOOD EFFECT.
--- NOTE | 2021-10-26 06:20 | NUR ---
IV PLACEMENT: PATIENT HAS A FIELD START SL IN LEFT AC. NEW SITE WAS ATTEMPTED X2 WITH NO SUCCESS.
[2021-10-26 10:26] LABS: Influenza A, PCR NEGATIVE (NEGATIVE); Influenza B, PCR NEGATIVE (NEGATIVE); Resp Syncytial Virus, PCR NEGATIVE (NEGATIVE); SARS-Cov-2 (COVID-19) PCR, MMC NEGATIVE (NEGATIVE)
--- NOTE | 2021-10-26 17:31 | NUR ---
DAY SHIFT SUMMARY 56 YR OLD MALE PT ADMITED FOR FLUID OVERLOAD. PT WENT FOR PLACEMENT OF NEW PERMACATH TODAY. PERMACATH PLACED AND DIALYSIS PERFORMED. PT ON RA, INDEPENDENT IN ROOM. SHOWERED TODAY. CALL LIGHT WITHIN REACH AND ABLE TO CALL APPROPRIATELY.
[2021-10-27 05:22] LABS: Hematocrit 35.4 % (37.0-53.0); Hemoglobin 11.4 g/dL (13.5-17.5)
[2021-10-27 05:54] LABS: Albumin, Blood 2.6 g/dL (3.4-5.0); Anion Gap 10 mmol/L (6-16); Blood Urea Nitrogen 81 mg/dL (8-24); Bun/Creatinine Ratio 12.8 (12.0-20.0); CO2, Blood 24 mmol/L (21-32); Calcium, Blood 6.6 mg/dL (8.5-10.1); Chloride, Blood 106 mmol/L (98-108); Creatinine, Blood 6.33 mg/dL (0.60-1.20); Glomerular Filtration Rate 9 (60-); Glucose, Blood 132 mg/dL (70-99); Magnesium, Blood 1.7 mg/dL (1.6-2.4); Phosphorus, Blood 7.2 mg/dL (2.5-4.9); Potassium, Blood 4.4 mmol/L (3.5-5.5); Sodium, Blood 140 mmol/L (136-145)
--- NOTE | 2021-10-27 07:54 | NUR ---
SHIFT SUMMARY: PATIENT REPORTED HAND CRAMPS THAT STARTED SUDDENLY AFTER DIALYSIS. TYLENOL AND IV FENTANYL WERE GIVEN PER MAR WITH POOR EFFECT. PATIENT REPORTS ASPERCREAM WORKS FOR HIM AND IS WHAT HE USES AT HOME. DR SHORE WAS NOTIFIED AND ORDER ASPERCREM QID PRN WAS OBTAING. MED WAS GIVE WITH GOOD EFFFECT. PATIENT SCORED 4,9,0 ON ETOH WITHDRAWL SCALE, ATIVAN WAS GIVEN FOR SCOR OF 9 WITH GOOD EFFECT. PATIENT IS COMPLAINING TO DR DIA ABOUT RENAL DIET AND RESTRICTIVE CHOICES. ORDER IS GIVEN TO CHANGE DIET TO REGULAR WITH 1500 FLUID RESTRICTION.
--- NOTE | 2021-10-27 12:23 | NUR ---
1130 AM TODAY. PATIENT HAS CIWA OF 14. TREMORS OBVIOUS FROM DOORWAY OF DIALYSIS ROOM. PATIENT AGITATED AND UNABLE TO HOLD STILL. COMPLAINS OF HEADACHE. HAS FLIGHT OF IDEAS. PATIENT IS DIAPHORETIC CLOTHING IS DAMP. HE COMPLAINS OF PAIN AND CRAMPING TO HIS HANDS. HE REQUESTS NARCOTICS FOR CRAMPING. HE APPEARS AGITATED AND ANXIOUS. PER CIWA PATIENT IS PROVIDED 4MG ATIVAN. RECHECK ON PATIENT IS HE IS SLEEPING SOUNDLY DURING DIALYSIS AND NO FURTHER BEHAVIORS ARE NOTED. SYSTOLIC BP IS 156 AT THIS TIME.
--- NOTE | 2021-10-27 18:04 | NUR ---
SHIFT SUMMARY; PATIENT HAD ELEVATED CIWA JUST PRIOR TO GOING TO DIALYSIS TODAY. AT DIALYSIS HE HAS TROUBLE HOLDING STILL AND IS UNABLE TO COOPERATIVE WITH CARE HE IS TREMULOUS AND ANXIOUS. HE COMPLAINS OF HEADACHE PRIOR TO GOING TO DIALYSIS AND HIS HANDS ARE CRAMPING. CIWA SCORE IS 14. ATIVAN IS PROVIDED IV TO SPIKE AND HE IS ABLE TO RELAX AND DIALSYSIS IS PERFORMED WITH NO FURTHER DIFFICULTIES. RETURNED TO ROOM AND SLEPT FOR AN ADDITIONAL HOUR BEFORE HE WAKES AND IS EATING LUNCH. EDMUNDOMarileeNET OUT OF BED REPEATEDLY THIS AFTERNOON. COMPLAINS THAT "SOMEONE TOOK MY WALLET" THIS RN AND JUAN CARLOS R PROGRAMMER ASSIST PATIENT WITH LOOKING FOR WALLET. DIALYSIS IS CALLED AND NURSING AGRICULTURAL SCIENCES PROFESSOR ALBIN GOES TO DIALYSIS TO CHECK FOR WALLET WITHOUT SUCCESS. SINCE DIALYSIS PATIENTS VITAL SIGNS HAVE BEEN WITHIN NORMAL LIMITS. B/P 128/83 HR 73 NON FEBRILE AT 97.7
--- NOTE | 2021-10-28 04:23 | NUR ---
SHIFT SUMMARY ADMITTED FOR VOLUME OVERLOAD. FULL CODE. PLAN IS FOR DC HOME WHEN READY FOR DC. HE WILL NEED OUTPT DIALYSIS. Q4 CIWAS ARE 2 OR LESS THIS SHIFT. HE IS COOPERATIVE WITH CARE. STRICT I&O'S. 1500 ML FLUID RESTRICTION. DAILY WEIGHTS. TELEMETRY: NSR @ [address] DIA IS RENAL CONSULT. RIGHT CHEST HAS A PORT. RENAL DIET, HE HAS A GOOD APPETITE. 1+ EDEMA BLE. INDEPENDENT - BRP. HE IS ABLE TO MAKE HIS NEEDS KNOWN. RA.
[2021-10-28 05:30] LABS: Hematocrit 33.3 % (37.0-53.0); Hemoglobin 10.4 g/dL (13.5-17.5)
[2021-10-28 05:56] LABS: Albumin, Blood 2.5 g/dL (3.4-5.0); Anion Gap 7 mmol/L (6-16); Blood Urea Nitrogen 60 mg/dL (8-24); CO2, Blood 28 mmol/L (21-32); Calcium, Blood 6.5 mg/dL (8.5-10.1); Chloride, Blood 104 mmol/L (98-108); Creatinine, Blood 5.44 mg/dL (0.60-1.20); Glomerular Filtration Rate 11 (60-); Glucose, Blood 93 mg/dL (70-99); Magnesium, Blood 1.6 mg/dL (1.6-2.4); Phosphorus, Blood 5.1 mg/dL (2.5-4.9); Sodium, Blood 139 mmol/L (136-145)
--- NOTE | 2021-10-28 15:36 | NUR ---
Akua tells me about his drug and alcohol addiction and about how it is killing him. He talks about his poor choice of friends and his inability to take good care of himself. We explore sources of menaing and value, the importance of self-care of spirit, mind and body. We discuss the value of a clean slate and building a support system of people who are where he wants to be in life and character. I hear confession, reinforce helpful attitudes and practices and provide therapeutic listening, gentle certified substance abuse counselor and prayer. Patient responds well and shows signs of catharsis and a new resolve. I will contiue t remain available to patient and family.
--- NOTE | 2021-10-28 16:27 | NUR ---
SHIFT SUMMARY PT ADMITTED FOR FLUID OVERLOAD. AOX4. PT RECIEVED DIALYSIS TODAY AND WAS INFORMED HE WILL NEED OUTPATIENT DIALYSIS. HE HAS A JOSE LUIS PERMA CATHETER. PT HAS +1 BLE. PT HAD TWO FRIENDS THAT VISITED HIM TODAY, CLAIMING THEY LIVED WITH HIM EVEN THOUGH THE PT STATES HE LIVES ALONE. HE ALLEGEDLY LOST HIS WALLET, IT COULD POTENTIALLY BE IN LAUNDR[place]. LAUNDRY WAS ALERTED AND IS GOING TO LET US KNOW IF THEY FIND IT. HE IS ON TELE SR 77. CASE MANAGEMENT JUST SPOKE WITH THE PT AND MENTIONED THE POSSIBILITY OF HOME HEALTH. PT IS ON STRICT 1000ML FLUID RESTRICTION. WILL CONTINUE TO MONITOR VITAL SIGNS UNTIL NOC SHIFT TRANSFER.
--- NOTE | 2021-10-29 03:50 | NUR ---
SHIFT SUMMARY ADMITTED FOR FLUID OVERLOAD. FULL CODE. PLAN IS FOR DC HOME W/HH AND OUTPT DIALYSIS. HE HAS BEEN RECEIVING DIALYSIS HERE. RT CHEST PERMACATH. OLD RIGHT ARM FISTULA. CIWAS Q4 ARE 2 OR LESS. HE IS INDEPENDENT IN THE ROOM. HX OF MULTISUBSTANCE ABUSE AND NONCOMPLIANCE W/MEDS AND DIALYSIS. TELEMETRY: NSR @ [address] DIA IS RENAL CONSULT.
[2021-10-29 05:24] LABS: Hemoglobin 10.6 g/dL (13.5-17.5)
[2021-10-29 05:45] LABS: Albumin, Blood 2.6 g/dL (3.4-5.0); Anion Gap 5 mmol/L (6-16); Blood Urea Nitrogen 49 mg/dL (8-24); CO2, Blood 33 mmol/L (21-32); Calcium, Blood 6.9 mg/dL (8.5-10.1); Chloride, Blood 104 mmol/L (98-108); Creatinine, Blood 4.88 mg/dL (0.60-1.20); Glomerular Filtration Rate 12 (60-); Glucose, Blood 155 mg/dL (70-99); Magnesium, Blood 1.7 mg/dL (1.6-2.4); Phosphorus, Blood 3.5 mg/dL (2.5-4.9); Potassium, Blood 4.1 mmol/L (3.5-5.5); Sodium, Blood 142 mmol/L (136-145)
[2021-10-29 09:11] LABS: HBSAG SCREEN Negative (Negative); HCV AB 6.5 (0.0-0.9); HEP A AB, IGM Negative (Negative); HEP B CORE AB, IGM Negative (Negative); HEPATITIS C QUANTITATION HCV Not Detected IU/mL (.)
--- NOTE | 2021-10-29 19:47 | NUR ---
SHIFT SUMMARY PT A/O X3; PLEASANT AND COOPERATIVE WITH CARE. PT CONTINUES TO WAIT FOR AN OUTPATIENT DIALYSIS CHAIR UPON DISCHARGE. PT ABLE TO AMBULATE WELL ON HIS OWN. CIWAS HAVE BEEN NEGATIVE FOR THE ENTIRE SHIFT. VSS. REPORT GIVEN TO DERRICK RESENDIZ.
--- NOTE | 2021-10-30 05:11 | NUR ---
SHIFT SUMMARY ADMITTED FOR FLUID OVERLOAD. FULL CODE. PLAN IS FOR DC HOME W/HH, OUTPT DIALYSIS. DR. DIA IS CONSULT. HTN NOTED, CALLED HOSPITALIST FOR PRN RX, SEE EMAR. TELEMETRY: NSR @ 92 BPM. OLD RT ARM FISTULA. RT CHEST PORT. BLE EDEMA 1+, IMPROVING. STRICT I&O'S, DAILY WT'S. RA. INDEPENDENT.
[2021-10-30 05:28] LABS: Hematocrit 33.8 % (37.0-53.0); Hemoglobin 10.6 g/dL (13.5-17.5)
--- NOTE | 2021-10-30 05:43 | NUR ---
CALLED HOSPITALIST INFORMED HIM OF PT'S NOTED HTN. NEW MEDICATION PRN IN EMAR FOR HTN
[2021-10-30 05:56] LABS: Albumin, Blood 2.8 g/dL (3.4-5.0); Anion Gap 8 mmol/L (6-16); Blood Urea Nitrogen 59 mg/dL (8-24); Bun/Creatinine Ratio 10.1 (12.0-20.0); CO2, Blood 29 mmol/L (21-32); Chloride, Blood 107 mmol/L (98-108); Creatinine, Blood 5.82 mg/dL (0.60-1.20); Glomerular Filtration Rate 10 (60-); Glucose, Blood 122 mg/dL (70-99); Magnesium, Blood 1.8 mg/dL (1.6-2.4); Potassium, Blood 3.8 mmol/L (3.5-5.5); Sodium, Blood 144 mmol/L (136-145)
--- NOTE | 2021-10-30 16:40 | NUR ---
SHIFT SUMMARY PATIENT IS ALERT AND ORIENTED X3, PLEASANT WITH MILD COGNITIVE DELAY. PATIENT HAD DIALYSIS AT BEDSIDE TODAY. PATIENT COMPLAINED OF COUGH AND SORE THROAT. THROAT LOZENGES ORDERED. APPEARED TO HELP SOME. 1000ML FLUID RESTRICTION STILL IN PLACE. NO ACUTE CHANGES. CALL LIGHT WITHIN REACH. BED IN LOWEST POSITION.
[2021-10-31 05:24] LABS: Hematocrit 31.9 % (37.0-53.0); Hemoglobin 9.8 g/dL (13.5-17.5)
--- NOTE | 2021-10-31 05:29 | NUR ---
PT IS A/OX3. INDEPENDENT IN ROOM. PT ACCIDENTALLY PULLED PIV OUT AND A NEW 20G WAS PLACED IN HIS LEFT FOREARM. PERMACATH DRESSING IS CDI. HE DID NOT REACH HIS FLUID RESTRICTION OF 1000ML. HE DOES USE HIS CALL LIGHT FOR NEEDS. PER PIANO BUILDER: SR/86.
[2021-10-31 05:56] LABS: Albumin, Blood 2.6 g/dL (3.4-5.0); Anion Gap 6 mmol/L (6-16); Blood Urea Nitrogen 43 mg/dL (8-24); Bun/Creatinine Ratio 8.2 (12.0-20.0); CO2, Blood 32 mmol/L (21-32); Calcium, Blood 6.5 mg/dL (8.5-10.1); Chloride, Blood 104 mmol/L (98-108); Creatinine, Blood 5.24 mg/dL (0.60-1.20); Glomerular Filtration Rate 11 (60-); Glucose, Blood 97 mg/dL (70-99); Magnesium, Blood 1.6 mg/dL (1.6-2.4); Phosphorus, Blood 3.4 mg/dL (2.5-4.9); Sodium, Blood 142 mmol/L (136-145)
--- NOTE | 2021-10-31 18:10 | NUR ---
SHIFT SUMMARY PATIENT ALERT AND ORIENTED, PLEASANT AND COOPERATIVE WITH CARE. CALLS APPROPRIATELY. PATIENT MEDICATED X1 WITH PRN HYDRALIZINE. PRN CEPACOL GIVEN. INDEPENDENT IN THE ROOM. PATIENT WORKED WITH OCCUPATIONAL THERAPY. WALKED ABOUT THE CHILDS. THE PATIENT HAD VISITORS TODAY WHICH SEEMED TO HELP MAKE THEM HAPPIER. BED IN LOWEST POSITION. CALL LIGHT WITHIN REACH.
--- NOTE | 2021-11-01 04:37 | NUR ---
SHIFT SUMMARY: PT IS A/OX3. RA. NO TELE. INDEPEDENT W/ FWW. HE HAS TRACE EDEMA BLE. NO C/O PAIN. HE DID NOT REACH HIS FLUID RESTRICTION THIS NOC SHIFT. HE HAS BEEN COMPLAINT WITH ALL CARE AND WE'LL CONTINUE TO MONITOR.
[2021-11-01 05:25] LABS: Hematocrit 33.8 % (37.0-53.0); Hemoglobin 10.3 g/dL (13.5-17.5)
[2021-11-01 05:50] LABS: Albumin, Blood 2.7 g/dL (3.4-5.0); Anion Gap 5 mmol/L (6-16); Blood Urea Nitrogen 52 mg/dL (8-24); Bun/Creatinine Ratio 8.6 (12.0-20.0); CO2, Blood 33 mmol/L (21-32); Calcium, Blood 6.7 mg/dL (8.5-10.1); Chloride, Blood 105 mmol/L (98-108); Creatinine, Blood 6.03 mg/dL (0.60-1.20); Glomerular Filtration Rate 10 (60-); Glucose, Blood 88 mg/dL (70-99); Magnesium, Blood 1.8 mg/dL (1.6-2.4); Phosphorus, Blood 3.4 mg/dL (2.5-4.9); Potassium, Blood 4.1 mmol/L (3.5-5.5); Sodium, Blood 143 mmol/L (136-145)
--- NOTE | 2021-11-01 17:27 | NUR ---
PATIENT HAD DIALYSIS THIS AM. HE STATES THAT NEXT WEEK, HE WILL BE ABLE TO LEAVE A DIALYSIS BED HAS OPENED. HE HAS BEEN IN A PLEASANT MOOD TODAY AND IS VERY POLITE. HE HAS HAD NO COMPLAINTS AND SAYS THAT DIALYSIS HELPED HIM TO FEEL BETTER THAN HE DID.
--- NOTE | 2021-11-02 05:08 | NUR ---
SHIFT SUMMARY PATIENT RESTED ON AND OFF THROGUHOUT NIGHT, VSS ON RA, REPORTING A HEADACHE, PRN TYLENOL ADMINISTERED, DENIES SHORTNESS OF BREATH, REPOISITIONING SELF IN BED, PATIENT UP WALKING THE HALLS AT TIMES, TOLERATING AMBULATION WELL, DIALYSIS PORT TO RIGHT CHEST WALL WNL, PRN COUGH DROP GIVEN PER PATIENT REQUEST
[2021-11-02 05:43] LABS: Hematocrit 34.7 % (37.0-53.0); Hemoglobin 10.5 g/dL (13.5-17.5)
[2021-11-02 06:10] LABS: Albumin, Blood 2.6 g/dL (3.4-5.0); Anion Gap 5 mmol/L (6-16); Blood Urea Nitrogen 42 mg/dL (8-24); Bun/Creatinine Ratio 8.5 (12.0-20.0); CO2, Blood 32 mmol/L (21-32); Calcium, Blood 7.3 mg/dL (8.5-10.1); Chloride, Blood 103 mmol/L (98-108); Creatinine, Blood 4.92 mg/dL (0.60-1.20); Glomerular Filtration Rate 12 (60-); Glucose, Blood 110 mg/dL (70-99); Magnesium, Blood 1.9 mg/dL (1.6-2.4); Phosphorus, Blood 3.7 mg/dL (2.5-4.9); Potassium, Blood 4.4 mmol/L (3.5-5.5); Sodium, Blood 140 mmol/L (136-145)
--- NOTE | 2021-11-02 13:42 | NUR ---
Pt resting in bed with his eyes closed. Pt wakes to gentle verbal stimuli but keeps his eyes closed. Pt denies pain and dyspnea at this time. Pt states being tired. Pt does not engage in conversation well and appears somewhat withdrawn. He does express concerns about needing a ride when he is D/C from the hospital to obtain shoes and clothes. Ended visit to allow Pt to rest. Spoke with Primary RN Radha and discussed case. Palliative Care will remain available.
--- NOTE | 2021-11-02 18:29 | NUR ---
PATIENT HAD SOME SOB TODAY- FEELING LIKE HE "JUST NEEDS SOME FRESH AIR". RT CAME AND PROVIDED A BREATHING TREATMENT. LUNGS DID HAVE TIGHT SOUNDS-WHEEZING. THIS AFTERNOON WHEN I WENT TO BRING HIM MEDICATION HE WASN'T IN HIS ROOM. WE PAGED OVERHEAD FOR HIM TO RETURN, AND HE DID. THE SLUBBER FRAME CHANGER'S THOUGHT HE HAD SOMETHING IN HIS POCKET AND WHEN i ASKED HE SAID "ITS JUST MY MONEY". I ASKED HIM IF HE ATE ANYTHING WHEN HE WAS ON HIS WALK IN THE HALLWAY AND HE SAID "I FOUND A [employer], THAT I ATE". HE WAS IN A BETTER MOOD AFTER HIS 'WALK'. NO OTHER CONCERNS TODAY.
--- NOTE | 2021-11-03 03:54 | NUR ---
SHIFT SUMMARY PATIENT RESTED THROUGHOUT THE SHIFT, VSS ON RA, DENIES SHORTNESS OF BREATH, REPORTING PAIN TO HIS LEFT FOOT STATES IT IS CHRONIC PRN TYLENOL ADMINISTERED, PERMACATH TO RIGHT CHEST WALL WNL, PATIENT UP WALKING IN THE HALLS X1 THIS SHIFT, MINIMAL REQUESTS NOTED
[2021-11-03 05:39] LABS: Hematocrit 34.3 % (37.0-53.0); Hemoglobin 10.5 g/dL (13.5-17.5)
[2021-11-03 06:22] LABS: Albumin, Blood 2.8 g/dL (3.4-5.0); Anion Gap 9 mmol/L (6-16); Blood Urea Nitrogen 59 mg/dL (8-24); Bun/Creatinine Ratio 10.4 (12.0-20.0); CO2, Blood 28 mmol/L (21-32); Calcium, Blood 7.3 mg/dL (8.5-10.1); Chloride, Blood 102 mmol/L (98-108); Creatinine, Blood 5.66 mg/dL (0.60-1.20); Glomerular Filtration Rate 10 (60-); Glucose, Blood 111 mg/dL (70-99); Phosphorus, Blood 4.2 mg/dL (2.5-4.9); Potassium, Blood 4.6 mmol/L (3.5-5.5); Sodium, Blood 139 mmol/L (136-145)
--- NOTE | 2021-11-03 08:46 | NUR ---
pt sitting in bed eating breakfast, a/ox3, pleasant and cooperative with care, follows commands well, denies pain at this time, lungs have ins/exp wheezing t/o, no cough noted, currently on r/a, hrr, 2+ edema noted to left foot and trace to right, he reports much better, iv site is clear and patent, perma cath to right chest wall, btx4, abd flat soft nontender, does void, skin c/w/d, faby uribe, will be having dialysis today at 0900, call light in reach.
--- NOTE | 2021-11-03 18:02 | NUR ---
pt had dialysis this am, doing ok, up in room adlib, states he feels good. no acute changes this shift. call light in reach.
--- NOTE | 2021-11-03 19:30 | NUR ---
RECEIVED BEDSIDE REPORT FROM MARTÍN CHURCH. PT IN BED. NO NEEDS AT THIS TIME. CALL LT IN REACH.
--- NOTE | 2021-11-04 00:42 | NUR ---
PT AWAKE. OUT AMBULATING AT TIMES OR SITTING IN CHAIR IN ROOM. NO NEEDS AT THIS TIME. CALL LT IN REACH.
--- NOTE | 2021-11-04 02:15 | NUR ---
PT RESTING QUIETLY IN BED. CALL LT IN REACH.
--- NOTE | 2021-11-04 04:03 | NUR ---
SHIFT SUMMARY: NO ACUTE CHANGES. PT UP AND DOWN DURING SHIFT. AMBULATING IN CHILDS AT TIMES. NO COMPLAINTS. ON RA. NO TELE. LAST HEMODIALYSIS YESTERDAY, 11/03/21. PLAN IS TO DISCHARGE WHEN A CHAIR IS OPENED UP AT [facility]. WILL CONTINUE TO PROVIDE CARE UNTIL SHIFT REPORT TO ONCOMING NURSE. CALL LT IN REACH.
--- NOTE | 2021-11-04 04:31 | NUR ---
PT RESTING QUIETLY AT THIS TIME. CALL LT IN REACH.
[2021-11-04 06:18] LABS: Hematocrit 33.5 % (37.0-53.0); Hemoglobin 10.1 g/dL (13.5-17.5)
[2021-11-04 06:53] LABS: Albumin, Blood 2.6 g/dL (3.4-5.0); Anion Gap 7 mmol/L (6-16); Blood Urea Nitrogen 47 mg/dL (8-24); Bun/Creatinine Ratio 9.5 (12.0-20.0); CO2, Blood 33 mmol/L (21-32); Calcium, Blood 7.8 mg/dL (8.5-10.1); Chloride, Blood 100 mmol/L (98-108); Creatinine, Blood 4.93 mg/dL (0.60-1.20); Glomerular Filtration Rate 12 (60-); Glucose, Blood 123 mg/dL (70-99); Phosphorus, Blood 4.2 mg/dL (2.5-4.9); Potassium, Blood 4.2 mmol/L (3.5-5.5); Sodium, Blood 140 mmol/L (136-145)
--- NOTE | 2021-11-04 08:00 | NUR ---
pt up in halls this am, a/ox3, pleasant and cooperative with care, follows commands well, denies pain, reports he feels pretty good, lungs have exp wheeze t/o, he feels it's improved, on r/a, no cough noted, hrr, 2+ edema noted to left le, and 1+ to right le, iv site is clear and patent, btx4, abd flat soft nontender, voids without diff, skin c/w/d, maew, gait noted to be steady, up ad lotus, faby, call light in reach.
[2021-11-04] MEDS ORDERED: CALCIUM ACETAT667 MG PO (14:17)
[2021-11-04] MEDS ORDERED: METO5 PO (14:18)
[2021-11-04] MEDS ORDERED: Nicoderm Cq1 EAC1 TOP (14:18)
--- NOTE | 2021-11-04 15:15 | NUR ---
PT DISCHARGED TO HOME, WENT OVER ALL DISCHARGE INSTRUCTIONS, HE VERBALIZED UNDERSTANDING, IV REMOVED INTACT, LEFT VIA TAXI, WHEELCHAIR WITH YARDER IN ATTENDENCE.
== END 2021-11-04 17:18 | disposition home or self-care (01) | DRG 673 ==
LOC: ER 07:15 → MEDS 13:32
PROVIDERS: Emergency Medicine; Internal Medicine Nephrology; Surgery; ADMIT Internal Medicine
PROC: 02PY33Z Removal of Infusion Device from Great Vessel, Percutaneous Approach (ICD-10-PCS; 2021-10-26)
PROC: 02HV33Z Insertion of Infusion Device into Superior Vena Cava, Percutaneous Approach (ICD-10-PCS; 2021-10-26)
PROC: B5181ZA Fluoroscopy of Superior Vena Cava using Low Osmolar Contrast, Guidance (ICD-10-PCS; 2021-10-26)
PROC: 0JH63XZ Insertion of Tunneled Vascular Access Device into Chest Subcutaneous Tissue and Fascia, Percutaneous Approach (ICD-10-PCS; 2021-10-26)
PROC: 5A1D70Z Performance of Urinary Filtration, Intermittent, Less than 6 Hours Per Day (ICD-10-PCS; principal; 2021-10-26 12:15)
DX: T82.49XA Other complication of vascular dialysis catheter, initial encounter (principal); N18.6 End stage renal disease; I42.8 Other cardiomyopathies; I13.0 Hypertensive heart and chronic kidney disease with heart failure and stage 1 through stage 4 chronic kidney disease, or unspecified chronic kidney disease; I50.22 Chronic systolic (congestive) heart failure; N17.9 Acute kidney failure, unspecified; N25.81 Secondary hyperparathyroidism of renal origin; D63.1 Anemia in chronic kidney disease; Z20.822 Contact with and (suspected) exposure to COVID-19; E83.51 Hypocalcemia; E87.70 Fluid overload, unspecified; J06.0 Acute laryngopharyngitis; E87.5 Hyperkalemia; E88.09 Other disorders of plasma-protein metabolism, not elsewhere classified; F15.10 Other stimulant abuse, uncomplicated; Z79.899 Other long term (current) drug therapy; Z99.2 Dependence on renal dialysis; F17.210 Nicotine dependence, cigarettes, uncomplicated; F10.10 Alcohol abuse, uncomplicated
CPT/HCPCS: 0241U; 36415; 71045; 77001; 80053; 80069; 80074; 81001; 83735; 84100; 84484; 84550; 85014; 85018; 85025; 86317; 87086; 93005; 93010; 93306; 94760; 96374; 97110; 97161; 97166; 97530; 97535; 99285-25; A9270; C1750; J0360; J0610; J0690; J1100; J1644; J2060; J2405; J2704; J3010

== ENCOUNTER 2022-10-15 21:01 | Emergency (ER) | payer MEDICARE ==
[~2022-10-15] VITALS: Ht 175.3 cm; Wt 90.7 kg
[~2022-10-15 21:01] MED LIST changes: +CALCIUM ACETAT667 MG PO; +METO5 PO; +Nicoderm Cq1 EAC1 TOP
== END 2022-10-15 22:28 | disposition home or self-care (01) ==
LOC: ER 21:01
DX: S63.287A Dislocation of proximal interphalangeal joint of left little finger, initial encounter (principal); W01.0XXA Fall on same level from slipping, tripping and stumbling without subsequent striking against object, initial encounter; I12.9 Hypertensive chronic kidney disease with stage 1 through stage 4 chronic kidney disease, or unspecified chronic kidney disease; N18.9 Chronic kidney disease, unspecified; Z87.891 Personal history of nicotine dependence; Z79.899 Other long term (current) drug therapy
CPT/HCPCS: 73140

== ENCOUNTER 2023-04-02 17:18 | Inpatient (IN) | payer MEDICARE ==
[~2023-04-02] VITALS: Ht 172.7 cm; Wt 72.0 kg
[2023-04-02 18:06] LABS: Hematocrit 26.7 % (37.0-53.0); Hemoglobin 8.7 g/dL (13.5-17.5); Mean Corpuscular HGB 31.1 pg (26.0-34.0); Mean Corpuscular HGB Conc 32.6 g/dL (31.5-36.5); Mean Corpuscular Volume 95 fL (80-100); Mean Platelet Volume 11.7 fL (9.1-12.4); NRBC ABSOLUTE 0.08 K/mm3 (0.00-0.02); NRBC Auto 0.6 /100 WBC (0.0-0.2); Platelet Count 248 K/mm3 (150-400); RDW Coefficient Variation 15.9 % (11.7-14.2); RDW Standard Deviation 55.4 fL (35.1-46.3); White Blood Cell Count 14.53 K/mm3 (4.00-11.30)
[2023-04-02 18:41] LABS: BASOPHILS PERCENT MAN 0 % (0-2); EOSINOPHILS PERCENT MAN 0 % (0-6); LYMPHOCYTES ABSOLUTE MAN 0.58 K/mm3 (0.84-5.20); LYMPHOCYTES PERCENT MAN 4 % (21-46); MONOCYTES ABSOLUTE MAN 1.16 K/mm3 (0.16-1.47); MONOCYTES PERCENT MAN 8 % (4-13); NEUTROPHILS ABSOLUTE MAN 12.78 K/mm3 (1.96-9.15); SEG NEUTROPHILS PERCENT MAN 88 % (41-73); TOTAL CELLS COUNTED 100
[2023-04-02 18:47] LABS: Albumin, Blood 3.7 g/dL (3.4-5.0); Albumin/Globulin Ratio 1.1 (0.8-1.8); Bilirubin, Total 0.5 mg/dL (0.1-1.0); Bun/Creatinine Ratio 9.5 (12.0-20.0); Globulin, Blood 3.5 g/dL (2.2-4.0); Total Protein, Blood 7.2 g/dL (6.4-8.2)
[2023-04-02 18:55] LABS: Calcium, Blood 5.2 mg/dL (8.5-10.1); Creatinine, Blood 21.9 mg/dL (0.60-1.20); Potassium, Blood 6.8 mmol/L (3.5-5.5)
[2023-04-02 19:34] LABS: Influenza A, PCR NEGATIVE (NEGATIVE); Influenza B, PCR NEGATIVE (NEGATIVE); Resp Syncytial Virus, PCR NEGATIVE (NEGATIVE); SARS-Cov-2 (COVID-19) PCR, MMC NEGATIVE (NEGATIVE)
[2023-04-03] VITALS (28 sets, daily range): BP systolic 98–215; BP diastolic 74–153
[2023-04-03 01:09] LABS: Source, Urine Clean Catch
[2023-04-03 01:19] LABS: Bilirubin, Urine Neg (Neg); Blood, Urine 5+ (Neg); Glucose Qualitative, Urine 1+ (Neg); Ketones, Urine 1+ (Neg); Leukocyte Esterase, Urine 3+ (Neg); Nitrite, Urine Neg (Neg); Protein, Urine 4+ (Neg); Specific Gravity, Urine 1.015 (1.003-1.022); Urobilinogen, Urine NORM (Normal)
[2023-04-03 01:27] LABS: Appearance, Urine Turbid (Clear); Color, Urine Brown (P-Yellow)
[2023-04-03 01:30] LABS: Amorphous Light (0-Heavy); Bacteria Many /hpf; Red Blood Cells, Urine 25-50 /hpf (0-2); Squamous Epithelial Cells Mod /hpf (Few); White Blood Cells, Urine 50-100 /hpf (0-5)
[2023-04-03 01:41] LABS: U Amphetamine Screen DETECTED; U Barbituate Screen Not Detected; U Benzodiazapine Screen Not Detected; U Buprenorphine Screen Not Detected; U Cannabinoids Screen Not Detected; U Cocaine Screen Not Detected; U Methadone Screen Not Detected; U Methamphetamine Screen DETECTED; U Opiates Screen Not Detected; U Oxycodone Screen Not Detected; U Phencyclidine Screen Not Detected; U Propoxyphene Screen Not Detected
--- NOTE | 2023-04-03 05:43 | NUR ---
UPDATE ROUNDING, PT LETHARGIC. MINIMALLY RESPONDS TO VERBAL STIMULI. PT MOVING AROUND, THE RN STERNAL RUBBED PT W/LITTLE RESPONSE. CBG CHECKED, SHOWED 21. RESIDENT AND HOISTING ENGINE OPERATOR NOTIFIED. 1 SYRINGE OF 50 ML DEXTROSE GIVEN. RECHECK OF CBG SHOWED 148. PT A LITTLE MORE RESPONSIVE, FOLLOWING SOME COMMANDS AND RESPONDING TO VERBAL AND TACTILE STIMULI. WILL CONTINUE TO MONITOR AND UPDATE ONCOMING RN
--- NOTE | 2023-04-03 06:28 | NUR ---
SHIFT SUMMARY PT ARRIVED TO PCU AT 0125, PT LETHARGIC BUT ABLE TO VERBALIZE HE IS AT THE HOSPITAL [place] D/T MISSING DIALYSIS. PT FALLING ASLEEP DURING INTERACTION BUT AWAKENS WHEN NAME IS CALLED. PT DENIES CP OR PRESSURE AND SOB; ALTHOUGH PT IS NOTABLY SOB. SPO2 95% ON RA. VSS. DIALYSIS NURSE IN TO START DIALYSIS AT 0200 AND COMPLETED AT 0400. PT VERY LETHARGIC AFTERWARDS, RESPONDING SOME TO VERBAL STIMULI BUT NOTICEABLY MORE OBTUNDED. CBG SHOWED 21; SEE NURSING NOTE. MEDICATIONS GIVEN PER EMAR. PT RECEIVED FULL BED BATH AND CHANGE WHEN ARRIVED TO PCU. ORIENTED TO ROOM. CALL LIGHT IN REACH ALTHOUGH PT NOT USING OR NOT ABLE TO VERBALIZE NEEDS WELL. SEE ADMIT ASSESSMENT FOR OTHER DETAILS. PT NOT ABLE TO PARTICIPATE OR ANSWER MANY ASSESSMENT QUESTIONS D/T AMS. WILL UPDATE ONCOMING RN
[2023-04-03 06:59] LABS: BASOPHILS ABSOLUTE AUTO 0.01 K/mm3 (0.00-0.23); BASOPHILS PERCENT AUTO 0 % (0-2); EOSINOPHILS PERCENT AUTO 0 % (0-6); Hematocrit 27.1 % (37.0-53.0); Hemoglobin 9.4 g/dL (13.5-17.5); IMMATURE GRAN ABSOLUTE AUTO 0.09 K/mm3 (0.00-0.10); IMMATURE GRAN PERCENT AUTO 1 % (0-1); LYMPHOCYTES ABSOLUTE AUTO 0.07 K/mm3 (0.84-5.20); LYMPHOCYTES PERCENT AUTO 1 % (21-46); MONOCYTES ABSOLUTE AUTO 0.42 K/mm3 (0.16-1.47); MONOCYTES PERCENT AUTO 3 % (4-13); Mean Corpuscular HGB 30.9 pg (26.0-34.0); Mean Corpuscular HGB Conc 34.7 g/dL (31.5-36.5); Mean Platelet Volume 11.5 fL (9.1-12.4); NEUTROPHILS ABSOLUTE AUTO 13.63 K/mm3 (1.96-9.15); NEUTROPHILS PERCENT AUTO 96 % (41-73); NRBC ABSOLUTE 0.11 K/mm3 (0.00-0.02); NRBC Auto 0.8 /100 WBC (0.0-0.2); Platelet Count 226 K/mm3 (150-400); RDW Coefficient Variation 15.5 % (11.7-14.2); RDW Standard Deviation 50.7 fL (35.1-46.3); Red Blood Cell Count 3.04 M/mm3 (4.30-5.90); White Blood Cell Count 14.22 K/mm3 (4.00-11.30)
[2023-04-03 07:04] LABS: Mean Corpuscular Volume 89 fL (80-100)
[2023-04-03 07:12] LABS: Magnesium, Blood 1.9 mg/dL (1.6-2.4)
[2023-04-03 07:27] LABS: BASOPHILS PERCENT MAN 0 % (0-2); EOSINOPHILS PERCENT MAN 0 % (0-6); LYMPHOCYTES ABSOLUTE MAN 0.14 K/mm3 (0.84-5.20); LYMPHOCYTES PERCENT MAN 1 % (21-46); MONOCYTES ABSOLUTE MAN 0.42 K/mm3 (0.16-1.47); MONOCYTES PERCENT MAN 3 % (4-13); NEUTROPHILS ABSOLUTE MAN 13.65 K/mm3 (1.96-9.15); SEG NEUTROPHILS PERCENT MAN 96 % (41-73); TOTAL CELLS COUNTED 100
[2023-04-03 08:18] LABS: Albumin, Blood 3.5 g/dL (3.4-5.0); Anion Gap 16 mmol/L (6-16); Blood Urea Nitrogen 132 mg/dL (8-24); Bun/Creatinine Ratio 8.1 (12.0-20.0); CO2, Blood 17 mmol/L (21-32); Calcium, Blood 7.2 mg/dL (8.5-10.1); Chloride, Blood 101 mmol/L (98-108); Glomerular Filtration Rate 3 (60-); Glucose, Blood 68 mg/dL (70-99); Phosphorus, Blood 8.9 mg/dL (2.5-4.9); Potassium, Blood 3.3 mmol/L (3.5-5.5); Sodium, Blood 134 mmol/L (136-145)
[2023-04-03 09:18] LABS: PO2 Arterial 97.1 mmHg (80-100); pH Blood Arterial 7.17 (7.35-7.45)
--- NOTE | 2023-04-03 19:00 | NUR ---
PT SUMMARY: PT HAS BEEN LETHARGIC ALL MORNING ONLY RESPONSIVE TO VERBAL STIMULI ASLEEP MOST OF THE SHIFT, PT WAS MONITORED ALL SHIFT FOR NEURO CHANGES PER DR DIA TO ORDER HEAD CT IF PT NEURO HASNT IMPROVED, AT 1430 PT STARTED WAKING UP ABLE TO STATE NAME KNOWS WHERE HE'S AT, AWARE OF SURROUNDINGS BUT STILL LETHARGIC AND VERY WEAK. CBG Q1 CHECKS PT WAS LOW ON THE 30'S AT THE BEGINNING OF THE SHIFT D10 WITH NAHCO3 GTT ORDERED TO TITRATE UP TO 100MLS/HR TO KEEP CBG >100'S, CURRENTLY AT 75MLS. DR DIA ORDERED TO DIALYZE PT FOR 2-3 HRS BRIDAL STYLIST SALES CONSULTANT CURRENTLY IN THE ROOM RUNNING THE PT. DURING DIALYSIS PT STARTED FEELING NAUSEATED AND RESTLESS IN BED ZOFRAN AND ATIVAN WAS GIVEN CIWA CURRENTLY AT 8. PT REMAINED NPO, ORAL CARE AND SUCTION PRN AT THE BEDSIDE PT KEEPS COUGHING UP PINK/YELLOW SPUTUM THEN PT WOULD SPIT ON HIS BED/GOWN, PT WAS REDIRECTED TO SPIT IN THE SPIT BAG, PT HAS ONE INCONTINENT SMALL VOID THIS MORNING, [facility] PT. VITALS HRR SR 80'S, SBP 140-150'S, SATS ABOVE 93% ON 2L OF O2, AFEBRILE. ABG PH AT 7.17 TREATED WITH 1 AMP OF NAHCO3 AND GTT. NO OTHER CONCERNS AT THIS TIME. PT RESTING IN BED, BED ALARM ON FOR SAFETY, CALL LIGHTS IN REACH WILL REPORT TO ONCOMING SHIFT
[2023-04-04] VITALS (20 sets, daily range): BP systolic 70–137; BP diastolic 45–106
[2023-04-04 04:10] LABS: BASOPHILS ABSOLUTE AUTO 0.02 K/mm3 (0.00-0.23); BASOPHILS PERCENT AUTO 0 % (0-2); EOSINOPHILS PERCENT AUTO 0 % (0-6); Hematocrit 27.7 % (37.0-53.0); Hemoglobin 9.7 g/dL (13.5-17.5); IMMATURE GRAN ABSOLUTE AUTO 0.11 K/mm3 (0.00-0.10); IMMATURE GRAN PERCENT AUTO 1 % (0-1); LYMPHOCYTES ABSOLUTE AUTO 0.11 K/mm3 (0.84-5.20); LYMPHOCYTES PERCENT AUTO 1 % (21-46); MONOCYTES ABSOLUTE AUTO 1.26 K/mm3 (0.16-1.47); MONOCYTES PERCENT AUTO 7 % (4-13); Mean Corpuscular HGB 30.8 pg (26.0-34.0); Mean Corpuscular Volume 88 fL (80-100); Mean Platelet Volume 11.4 fL (9.1-12.4); NEUTROPHILS PERCENT AUTO 92 % (41-73); NRBC ABSOLUTE 0.09 K/mm3 (0.00-0.02); NRBC Auto 0.5 /100 WBC (0.0-0.2); Platelet Count 231 K/mm3 (150-400); RDW Coefficient Variation 15.1 % (11.7-14.2); RDW Standard Deviation 48.4 fL (35.1-46.3); Red Blood Cell Count 3.15 M/mm3 (4.30-5.90)
[2023-04-04 04:35] LABS: Magnesium, Blood 1.8 mg/dL (1.6-2.4)
[2023-04-04 04:42] LABS: Anion Gap 14 mmol/L (6-16); Blood Urea Nitrogen 98 mg/dL (8-24); Bun/Creatinine Ratio 7.7 (12.0-20.0); CO2, Blood 23 mmol/L (21-32); Chloride, Blood 98 mmol/L (98-108); Glomerular Filtration Rate 4 (60-); Glucose, Blood 159 mg/dL (70-99); Phosphorus, Blood 8.3 mg/dL (2.5-4.9); Potassium, Blood 4.1 mmol/L (3.5-5.5); Sodium, Blood 135 mmol/L (136-145)
--- NOTE | 2023-04-04 06:38 | NUR ---
SHIFT SUMMARY PT LETHARGIC MOST OF THE SHIFT, RESPONDS TO TACTILE AND PAIN STIMULI. SPEECH MUMBLED WHEN PT ATTEMPTS TO ANSWER QUESTIONS. PT NOT OPENING EYES FOR MOST OF THE SHIFT. AROUND 0400, PT BECAME MUCH MORE ALERT AND ORIENTED' PT OPENING EYES, ABLE TO CLEARLY ANSWER QUESTIONS, ORIENTED TO PERSON, PLACE AND SELF. UNABLE TO RECALL WHY HE IS AT THE HOSPITAL. PT REORIENTED. VSS; AFEBRILE, RA - 3 L VIA NC D/T OCCASSIONAL DESAT 85 - 88 % WHEN SLEEPING. BP AND HR STABLE. D10 W/SODIUM CHLORIDE INFUSING AT 50 MLS/HR. Q2 CBG 130 - 150'S. PT REPOSITIONING INDEPENDENTLY, OCCASSIONALLY NEEDS BOOSTED. ATTENDS IN PLACE PT IS INCONTINENT AT THIS POINT, CHANGED PRN. PT DID NOT VOID THIS SHIFT. ONE SMALL BM THIS SHIFT. ORAL CARE COMPLETED. WILL UPDATE ONCOMING RN
--- NOTE | 2023-04-04 16:58 | NUR ---
PT SUMMARY: NO ACUTE CHANGE FOR THE SHIFT, PT HAD DIALYSIS TODAY TOOK 2L OUT, PT WAS VERY LETHARGIC AFTER THE TREATMENT SLEPT MOST OF THE SHIFT, ABLE TO WAKE UP WITH VERBAL STIMULI, DIET RESUMED SOFT RENAL DIET ABLE TO TOLERATE. NO COUGHING EPISODES. CBG CHECKS SWITCHED TO PRN NOW LAST WAS 180, D10 GTT DC'D. VITALS HRR SR 70'S, SBP 130'S WAS LOW DURING DIALYSIS AT 80-90'S CAME BACK UP POST TX. SATS ABOVE 90% ON 2L OF O2, AFEBRILE. NO URINE OUTPUT FOR THE SHIFT, CIWA STABLE AT 5. PT FOLLOWING COMMANDS AND ANSWERING QUESTIONS. PHYSICAL THERAPY ORDERED. NO OTHER ISSUES FOR THE SHIFT, WILL REPORT TO ONCOMING SHIFT
--- NOTE | 2023-04-04 17:56 | NUR ---
ASSUMPTION OF CARE THIS RN ASSUMED CARE OF PT AT 1645, REPORT FROM MARTÍN WARNER. PT APPEARS TO BE SLEEPING, BUT AWAKENED WHEN THIS RN WENT INTO ROOM. PT OPENING EYES AND KEEPING THEM OPEN DURING CONVERSATION, PT TRACKING. PT RESPONDING TO QUESTIONS; A&O X3. PT THINKS HE WAS IN "[place]", ABLE TO IDENTIFY HE IS AT [facility], ORIENTED TO SELF AND PERSON. UNABLE TO IDENTIFY MONTH AND YEAR OR SITUATION. PT REORIENTED. VSS. CBG 133. PT DENIES ANY NEEDS AT THIS TIME. CALL LIGHT IN REACH AND PT ORIENTED ON HOW TO USE CALL LIGHT IF HAS ANY NEEDS. PT VERBALIZES UNDERSTANDING. PT SITTING UP IN BED, EATING DINNER. TOLERATING WELL.
[2023-04-05] VITALS: BP 129/96
[2023-04-05 04:27] LABS: BASOPHILS ABSOLUTE AUTO 0.02 K/mm3 (0.00-0.23); BASOPHILS PERCENT AUTO 0 % (0-2); EOSINOPHILS PERCENT AUTO 0 % (0-6); Hematocrit 29.5 % (37.0-53.0); IMMATURE GRAN ABSOLUTE AUTO 0.14 K/mm3 (0.00-0.10); IMMATURE GRAN PERCENT AUTO 1 % (0-1); LYMPHOCYTES ABSOLUTE AUTO 0.13 K/mm3 (0.84-5.20); LYMPHOCYTES PERCENT AUTO 1 % (21-46); MONOCYTES ABSOLUTE AUTO 0.94 K/mm3 (0.16-1.47); MONOCYTES PERCENT AUTO 5 % (4-13); Mean Corpuscular HGB 30.8 pg (26.0-34.0); Mean Corpuscular HGB Conc 33.9 g/dL (31.5-36.5); Mean Corpuscular Volume 91 fL (80-100); Mean Platelet Volume 11.6 fL (9.1-12.4); NEUTROPHILS ABSOLUTE AUTO 16.82 K/mm3 (1.96-9.15); NEUTROPHILS PERCENT AUTO 93 % (41-73); NRBC ABSOLUTE 0.06 K/mm3 (0.00-0.02); NRBC Auto 0.3 /100 WBC (0.0-0.2); Platelet Count 245 K/mm3 (150-400); RDW Coefficient Variation 15.6 % (11.7-14.2); Red Blood Cell Count 3.25 M/mm3 (4.30-5.90); White Blood Cell Count 18.05 K/mm3 (4.00-11.30)
[2023-04-05 04:30] VITALS: BP 143/94
[2023-04-05 04:55] LABS: Magnesium, Blood 2.1 mg/dL (1.6-2.4)
[2023-04-05 05:19] LABS: Albumin, Blood 3.1 g/dL (3.4-5.0); Anion Gap 11 mmol/L (6-16); Blood Urea Nitrogen 71 mg/dL (8-24); Bun/Creatinine Ratio 7.3 (12.0-20.0); CO2, Blood 24 mmol/L (21-32); Calcium, Blood 6.6 mg/dL (8.5-10.1); Chloride, Blood 99 mmol/L (98-108); Creatinine, Blood 9.76 mg/dL (0.60-1.20); Glomerular Filtration Rate 6 (60-); Glucose, Blood 134 mg/dL (70-99); Phosphorus, Blood 7.6 mg/dL (2.5-4.9); Potassium, Blood 4.1 mmol/L (3.5-5.5); Sodium, Blood 134 mmol/L (136-145)
--- NOTE | 2023-04-05 06:57 | NUR ---
SHIFT SUMMARY PT MUCH MORE ALERT THIS SHIFT, PT ORIENTED TO SELF, PERSON AND PLACE. PT TALKATIVE AND LAUGHING AT TIMES. VSS. CBG STABLE. NO EVENTS OVERNIGHT. PT DID REPORT SOME NAUSEA, DECLINED MEDICATION. NO EMESIS. PT STATES OVERALL HE "JUST DOESNT FEEL WELL". PT DID REPORT DESIRE TO STOP DRINKING AND SMOKING. PT STILL COUGHING UP SPUTUM. PT RESTING NOW. CALL LIGHT IN REACH, PT NOT USING IT BUT ABLE TO VERBALIZE HOW TO USE IT. PT NOT EATING MUCH OR DRINKING MUCH WATER, PT ENCOURAGED TO INTAKE MORE. WILL UPDATE ONCOMING RN
[2023-04-05 07:54] VITALS: BP 148/98
[2023-04-05 11:11] VITALS: BP 133/86
[2023-04-05 15:19] VITALS: BP 146/88
--- NOTE | 2023-04-05 17:23 | NUR ---
PT SUMMARY: PT TRANSITIONED TO MED NO TELE. VITALS HAS BEEN STABLE SATS ABOVE 95% ON RA. PT ABLE TO WORK WITH PHYSICAL THERAPIST, SBA FOR TRANSFERS VIA WALKER. PT HAS BEEN UP IN THE RECLINER MSOT OF THE SHIFT, RECEIVED A BED BATH. HAS SMALL AMOUNT OF INCONTINENT VOID, DIALYSIS SCHEDULE FOR TOMORROW PER INSPECTOR OUTSIDE STEAM DISTRIBUTION. PT STILL COUGHING UP PINK YELLOW MUCUS SPITTING ON HIS GOWN AND FLOOR, PT INSTRUCTED TO SPIT IN THE SPIT BAG. PT DENIES ANY PAIN HAS OCCASIONAL LEG CRAMPS THAT GOES AWAY ON ITS OWN. TOLERATING FOOD. SUBASSEMBLY ASSEMBLER WORKING ON GETTING PT BACK ON OUTPT DIALYSIS. NO OTHER ISSUES AT THIS TIME, PT IN BED RESTING CALL LIGHTS IN REACH WILL REPORT TO ONCOMING SHIFT
[2023-04-05 20:00] VITALS: BP 151/102
--- NOTE | 2023-04-05 23:02 | NUR ---
ASSUMPTION OF CARE NOTE THIS RN ASSUMED CARE OF PT AT 190, REPORT FROM MARTÍN WARNER. PT AWAKE IN ROOM, FINISHING HIS DINNER. PT ATE ALL OF HIS TRAY PLUS A SMALL SNACK. PT TOLERATING PO INTAKE WELL, TOLERATING WATER WELL TOO. PT &O X3; UNABLE TO RECALL DATE/TIME AND FULL SITUATION. PT SPEECH MUCH CLEARER AND RESPONSES ARE APPROPRIATE TO CONVERSATION. VSS. PT LS COARSE, WHEEZES THROUGHOUT, BUT BREATHING AND LS MUCH IMPROVED FROM PREVIOUS. PT STILL HAVING PRODUCTIVE COUGH BUT SEEMS TO BE LESSENING SOME. PT NOT PRODUCING URINE; DIALYSIS PT. ATTENDS IN PLACE PT IS INCONTINENT OF STOOL AT THIS TIME; ATTEND DRY. EDUCATION ABOUT DIALYSIS AND IMPORTANCE OF DISCUSSED. PT VERBALIZES UNDERSTANDING. PT DENIES OTHER NEEDS OR CONCERNS AT THIS TIME.
[2023-04-06] VITALS (16 sets, daily range): BP systolic 116–172; BP diastolic 76–110
[2023-04-06 05:39] LABS: Hematocrit 30.4 % (37.0-53.0); Hemoglobin 10.2 g/dL (13.5-17.5)
[2023-04-06 06:12] LABS: Magnesium, Blood 1.9 mg/dL (1.6-2.4)
[2023-04-06 06:24] LABS: Albumin, Blood 3.1 g/dL (3.4-5.0); Anion Gap 11 mmol/L (6-16); Blood Urea Nitrogen 95 mg/dL (8-24); CO2, Blood 25 mmol/L (21-32); Calcium, Blood 6.1 mg/dL (8.5-10.1); Chloride, Blood 94 mmol/L (98-108); Glucose, Blood 105 mg/dL (70-99); Phosphorus, Blood 6.5 mg/dL (2.5-4.9); Potassium, Blood 3.7 mmol/L (3.5-5.5); Sodium, Blood 130 mmol/L (136-145)
[2023-04-06 06:25] LABS: Bun/Creatinine Ratio 8.5 (12.0-20.0); Glomerular Filtration Rate 5 (60-)
--- NOTE | 2023-04-06 06:28 | NUR ---
SHIFT SUMMARY PT REAMINS A&O X3. MUCH MORE INTERACTIVE AND CONVERSANT. VSS. NO EVENTS OVERNIGHT. PT EATING WELL AND TOLERATING PO INTAKE WELL. NO CP OR PRESSURE. NO N/V. PT ON RA THIS SHIFT, SPO2 MAINTAINED >94%. PT AMBULATING INTO RESTROOM W/FWW AND GAIT BELT, PT STEADY ON FEET AND TOLERATING AMBULATING WELL. PT STILL HAS PRODUCTIVE COUGH BUT SEEMS TO BE IMPROVING. WILL UPDATE ONCOMING RN.
[2023-04-06 09:09] LABS: Vancomycin, Random 20.8 ug/mL
--- NOTE | 2023-04-06 09:49 | NUR ---
ASSUMPTION OF CARE ASSUMED CARE AT APPROX 0700. PT AOX3, IRRITABLE THIS MORNING, BUT COOPERATIVE W/ CARE. VSS. MEDICAL STATUS, NO TELEMETRY. ELEVATED BP, DIALYSIS SCHEDULED FOR TODAY. ON RM AIR, SATS >90%. PT TOLERATING PO INTAKE, NO NAUSEA/VOMITING. MORNING MEDICATIONS GIVEN PER EMAR. PT TRANSFERRED TO DIALYSIS AROUND 0830 VIA BED. PT TRANSFERRED TO ROOM ON MEDICAL FLOOR. REPORT GIVEN TO ACCEPTING RN. PERSONAL BELONGINGS TRANSFERRED TO . PT WILL BE TRANSFERRED TO NEW FOLLOWING DIALYSIS COMPLETION.
--- NOTE | 2023-04-06 12:05 | NUR ---
TRANSFER SUMMARY: PT TRANSFERRED FROM PCU TO ROOM 306 AFTER DIALYSIS SESSION. PT ALERT AND ORIENTED X 4, STANDBY ASSIST. PT ORIENTED TO ROOM AND CALL LIGHT. BED ALARM SET AND IN LOW POSITION. PT DENIES ANY PAIN, NAUSEA STATING "I FEEL BETTER NOW". PT REQUESTS A SANDWICH AND ICE WATER. PROVIDED HIS REQUEST. PT HAD LARGE SOFT BROWN BM.
--- NOTE | 2023-04-06 18:17 | NUR ---
SHIFT SUMMARY: PT IS ADMITTED FOR PHARYNGITIS. IS ALERT AND ABLE TO MAKE NEEDS KNOWN. WAS TRANSFERRED TO MEDICAL FLOOR FROM PCU AFTER DIALYSIS. DIALYSIS REPORTED 2L OFF. VITALS STABLE WITH A ELEVATED BP. BUT REVIEW THIS IS BASELINE FOR HIM. DURING CONVERSATION WITH HIM HE STATED THAT HE WANTED SUGAR TO HELP WITH HIS CRAVING FOR ETOH. IV TO LEFT AC INTACT WITH DRESSING CLEAN, DRY AND INTACT. WORKED WITH PT.
[2023-04-07 00:07] LABS: HEP B CORE AB, TOT Negative (Negative)
[2023-04-07 03:08] VITALS: BP 138/100
--- NOTE | 2023-04-07 04:47 | NUR ---
SHIFT SUMMARY JOHNNY WAS ALERT AND ORIENTED TO SELF PLACE AND SITUATION AT THE START OF THE SHIFT. TOWARDS 0345 HE BEGAN TO BECOME AGITATED, PACKING HIS THINGS AND WASHING CLOTHES IN THE SINK. SPENT SOME TIME WITH HIM TO CALM HIM DOWN AND GET HIM BACK INTO BED, HE WAS DIFFICULT TO DIRECT. NO ACUTE CHANGES THIS SHIFT, HE IS CURRENTLY RESTING IN BED AT A LOW POSITION WITH THE BED ALARM ON AND THE CALL LIGHT IN REACH.
[2023-04-07 05:12] LABS: Hematocrit 33.8 % (37.0-53.0); Hemoglobin 11.2 g/dL (13.5-17.5)
[2023-04-07 06:16] LABS: Magnesium, Blood 1.8 mg/dL (1.6-2.4)
[2023-04-07 06:26] LABS: Albumin, Blood 3.1 g/dL (3.4-5.0); Anion Gap 10 mmol/L (6-16); Blood Urea Nitrogen 79 mg/dL (8-24); Bun/Creatinine Ratio 8.7 (12.0-20.0); CO2, Blood 26 mmol/L (21-32); Calcium, Blood 6.2 mg/dL (8.5-10.1); Chloride, Blood 95 mmol/L (98-108); Creatinine, Blood 9.09 mg/dL (0.60-1.20); Glomerular Filtration Rate 6 (60-); Glucose, Blood 102 mg/dL (70-99); Phosphorus, Blood 3.9 mg/dL (2.5-4.9); Potassium, Blood 3.3 mmol/L (3.5-5.5); Sodium, Blood 131 mmol/L (136-145)
--- NOTE | 2023-04-07 06:33 | NUR ---
CRITICAL VALUE MORNING LABS RESULTS SHOW AN CREATINE OF 9.09, REPORT FROM LAB AT 0620, DR. SALTER NOTIFIED AT 0630. CRITICAL VALUE IS AN IMPROVEMENT FROM 11.20 YESTERDAY
[2023-04-07 08:26] VITALS: BP 156/100
[2023-04-07 16:11] VITALS: BP 158/105
--- NOTE | 2023-04-07 17:23 | NUR ---
SHIFT SUMMARY: PT IS ADMITTED FOR PHARYNGITIS. IS ALERT AND ABLE TO MAKE NEEDS KNOWN. IV TO LEFT AC INTACT WITH DRESSING CLEAN, DRY AND INTACT. VITALS STABLE BUT REMAIN WITH A ELEVATED BP AROUND 150/100. TYPEWRITER ASSEMBLER REPORTED CRIT. LAB IN REPORT OF CREATININE 9.09. VALERIE NOTE FOUND NOTIFYING DR. SALTER. DR DIA DID FOLLOW UP NOTE.
--- NOTE | 2023-04-07 17:54 | NUR ---
THIS LN WAS NOTIFIED BY A PCU NURSE THAT PT WAS IN THERE UNIT ABOUT 1745. PT INFORMED THAT NURSE THAT HE WAS LOOKING FOR LICORICE. THIS LN WAS ALSO NOTIFIED THAT PT WAS NOT ABLE TO BE TALKED INTO STAYING ON THE UNIT UNTIL SOMEONE FROM MEDICAL COULD COME HELP HIM AND WAS TOLD THAT HE MIGHT BE HEADED DOWN TO THE VENDING MACHINE. THIS LN FOUND PT AT THE VENDING MACHINE IN THE [place]. PT WAS ABLE TO BE REDIRECTED BACK TO MEDICAL UNIT AFTER HE GOT THE ITEMS HE WANTED.
[2023-04-07 19:49] VITALS: BP 121/83
[2023-04-07 20:09] LABS: HBV IU/ML HBV DNA not detected IU/mL (.)
[2023-04-07] MEDS ORDERED: LOSA50 PO (21:55)
[2023-04-07] MEDS ORDERED: CALCIUM ACETAT667 M2 PO (21:55)
[2023-04-08] VITALS (16 sets, daily range): BP systolic 121–145; BP diastolic 65–106
--- NOTE | 2023-04-08 04:17 | NUR ---
SHIFT SUMMARY JOHNNY WAS ALERT AND FULLY ORIENTED THIS SHIFT. HE WAS COOPERATIVE WITH CARE, AND LESS IMPULSIVE / LABILE COMPARED TO PREVIOUS NIGHT. NO ACUTE CHANGES IN CONDITION THIS SHIFT. PT HAS BEEN INDEPENDENT IN ROOM AND IS CURRENTLY RESTING IN BED AT A LOWERED POSITION WITH THE BED ALARM IN PLACE AND THE CALL LIGHT IN REACH WHICH HE HAS BEEN USING APPROPRIATELY.
[2023-04-08 07:31] LABS: Hematocrit 33.4 % (37.0-53.0); Hemoglobin 10.8 g/dL (13.5-17.5)
[2023-04-08 07:43] LABS: Magnesium, Blood 1.6 mg/dL (1.6-2.4)
[2023-04-08 07:50] LABS: Anion Gap 12 mmol/L (6-16); Blood Urea Nitrogen 92 mg/dL (8-24); CO2, Blood 24 mmol/L (21-32); Chloride, Blood 96 mmol/L (98-108); Glucose, Blood 106 mg/dL (70-99); Phosphorus, Blood 4.7 mg/dL (2.5-4.9); Potassium, Blood 3.5 mmol/L (3.5-5.5); Sodium, Blood 132 mmol/L (136-145)
[2023-04-08 07:52] LABS: Bun/Creatinine Ratio 8.3 (12.0-20.0); Calcium, Blood 5.7 mg/dL (8.5-10.1); Glomerular Filtration Rate 5 (60-)
[2023-04-08 15:12] LABS: HBSAG SCREEN Negative (Negative); HCV AB Reactive (Non Reactive); HEP A AB, IGM Negative (Negative); HEP B CORE AB, IGM Negative (Negative); HEPATITIS C QUANTITATION HCV Not Detected IU/mL (.)
--- NOTE | 2023-04-08 18:32 | NUR ---
SHIFT SUMMARY: JOHNNY IS A&OX4. VSS, NO ACUTE EVENTS THIS SHIFT. PT'S CALCIUM WAS 5.7 THIS AM, CALCIUM REPLACED, LABS ORDERED FOR AM. PT IS A ONE-PERSON STANDBY ASSIST IN THE ROOM. DENIES PAIN, REPORTS TOLERATING PO INTAKE WELL, AND DENIES ANY DIFFICULTIES WITH ELIMINATION. IV TO LEFT FOREARM PATENT, SALINE LOCKED. PERMACATH TO RIGHT UPPER CHEST WALL. PT DID RECEIVE DIALYSIS THIS AM. HE IS SITTING UP IN BED WITH THE CALL LIGHT IN REACH. WCTM UNTIL REPORT IS GIVEN TO ENERGY RATER RN.
[2023-04-09 04:56] VITALS: BP 134/96
[2023-04-09 05:35] LABS: Hematocrit 32.7 % (37.0-53.0); Hemoglobin 10.5 g/dL (13.5-17.5)
[2023-04-09 06:06] LABS: Magnesium, Blood 1.7 mg/dL (1.6-2.4)
[2023-04-09 06:17] LABS: Albumin, Blood 2.8 g/dL (3.4-5.0); Anion Gap 9 mmol/L (6-16); Blood Urea Nitrogen 75 mg/dL (8-24); Bun/Creatinine Ratio 8.4 (12.0-20.0); CO2, Blood 25 mmol/L (21-32); Calcium, Blood 6.3 mg/dL (8.5-10.1); Chloride, Blood 96 mmol/L (98-108); Creatinine, Blood 8.89 mg/dL (0.60-1.20); Glomerular Filtration Rate 6 (60-); Glucose, Blood 99 mg/dL (70-99); Potassium, Blood 3.8 mmol/L (3.5-5.5); Sodium, Blood 130 mmol/L (136-145)
--- NOTE | 2023-04-09 06:23 | NUR ---
SHIFT SUMMARY NO MAJOR EVENTS OVERNIGHT. PT REFUSED TO ALLOW CREAM RIPENER TO REMOVE OLD NICOTINE PATCH, PT ALSO REFUSED PLACEMENT OF A NEW NICOTINE PATCH. NO C/O PAIN. FIRE SAFETY REVIEWED, NO IGNITION SOURCES
[2023-04-09 08:53] VITALS: BP 125/87
[2023-04-09 16:15] VITALS: BP 129/90
--- NOTE | 2023-04-09 17:41 | NUR ---
SHIFT SUMMARY PT IS ALERT AND ORIENTED X4. CALM AND COOPERATIVE. ABLE TO EXPRESS NEEDS. LIKELY TO DISCHARGE TOMORROW, [facility]. NO ACUTE CHANGES. BED IS IN THE LOWEST POSITION WITH CALL LIGHT IN REACH
[2023-04-09 20:05] VITALS: BP 111/80
[2023-04-10] VITALS (20 sets, daily range): BP systolic 91–156; BP diastolic 41–99
--- NOTE | 2023-04-10 04:08 | NUR ---
SHIFT SUMMARY ADMITTED FOR TOXIC METABOLIC ENCEPHALOPATHY. FULL CODE. 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 PLAN IS FOR DC HOME AFTER DIALYSIS, IF OUTPT DIALYSIS IS SET UP. HE IS A&O X4. INDEPENDENT W/FWW. ON RA. ON A RENAL DIET. DIALYSIS CATHETER IN RIGHT CHEST. DR. DIA IS RENAL CONSULT. HE IS COOPERATIVE WITH CARE. NO NEW CONCERNS THIS SHIFT.
[2023-04-10 05:28] LABS: Hematocrit 28.7 % (37.0-53.0); Hemoglobin 9.2 g/dL (13.5-17.5); Mean Corpuscular HGB 30.4 pg (26.0-34.0); Mean Corpuscular HGB Conc 32.1 g/dL (31.5-36.5); Mean Corpuscular Volume 95 fL (80-100); Mean Platelet Volume 11.4 fL (9.1-12.4); Platelet Count 243 K/mm3 (150-400); RDW Coefficient Variation 14.6 % (11.7-14.2); RDW Standard Deviation 50.6 fL (35.1-46.3); Red Blood Cell Count 3.03 M/mm3 (4.30-5.90); White Blood Cell Count 15.32 K/mm3 (4.00-11.30)
[2023-04-10 06:03] LABS: BAND PERCENT MAN 1 % (0-8); BASOPHILS PERCENT MAN 0 % (0-2); EOSINOPHILS PERCENT MAN 2 % (0-6); LYMPHOCYTES ABSOLUTE MAN 1.22 K/mm3 (0.84-5.20); LYMPHOCYTES PERCENT MAN 8 % (21-46); METAMYELOCYTE ABSOLUTE MAN 0.61 K/mm3 (0.00-0.00); METAMYELOCYTE PERCENT MAN 4 % (0-0); MONOCYTES ABSOLUTE MAN 0.61 K/mm3 (0.16-1.47); MONOCYTES PERCENT MAN 4 % (4-13); NEUTROPHILS ABSOLUTE MAN 12.56 K/mm3 (1.96-9.15); SEG NEUTROPHILS PERCENT MAN 81 % (41-73); TOTAL CELLS COUNTED 100
[2023-04-10 06:16] LABS: Magnesium, Blood 1.6 mg/dL (1.6-2.4)
[2023-04-10 06:18] LABS: Albumin, Blood 2.7 g/dL (3.4-5.0); Anion Gap 12 mmol/L (6-16); Blood Urea Nitrogen 108 mg/dL (8-24); CO2, Blood 22 mmol/L (21-32); Chloride, Blood 96 mmol/L (98-108); Glucose, Blood 87 mg/dL (70-99); Phosphorus, Blood 4.7 mg/dL (2.5-4.9); Potassium, Blood 4.2 mmol/L (3.5-5.5); Sodium, Blood 130 mmol/L (136-145)
[2023-04-10 06:27] LABS: Bun/Creatinine Ratio 10.5 (12.0-20.0); Glomerular Filtration Rate 5 (60-)
[2023-04-10] MEDS ORDERED: CALCITRIOL0.5 MC1 PO (15:23)
[2023-04-10] MEDS ORDERED: DOXY100 PO (15:27)
[2023-04-10] MEDS ORDERED: Nicoderm Cq1 EAC1 TOP (15:28)
[2023-04-10] MEDS ORDERED: VISBIOME 112.51 EACH PO (15:28)
--- NOTE | 2023-04-10 18:24 | NUR ---
DISCHARGED HOME. FRIEND AT BEDSIDE. ALERT AND ORIENTED X4. DIALYSIS TODAY. PT HAS INTAKE APPOINTMENT SET AT [facility]. DISCUSSED DISCHARGE INSTRUCTION WITH PT AND FRIEND. NO QUESTIONS OR CONCERNS AT THIS TIME. INDEPENDENT WITH FWW
== END 2023-04-10 18:13 | disposition home or self-care (01) | DRG 871 ==
LOC: ER 17:18 → PCU 17:19 → MEDS 17:19 → PCU 04-03 01:13 → MEDS 04-06 10:01
PROVIDERS: Emergency Medicine; Family Medicine; Hospitalist; Internal Medicine Nephrology; Physician Assistant; ADMIT Internal Medicine
PROC: HZ2ZZZZ Detoxification Services for Substance Abuse Treatment (ICD-10-PCS; principal; 2023-04-02)
PROC: 3E03329 Introduction of Other Anti-infective into Peripheral Vein, Percutaneous Approach (ICD-10-PCS; 2023-04-03)
PROC: 4A033R1 Measurement of Arterial Saturation, Peripheral, Percutaneous Approach (ICD-10-PCS; 2023-04-03)
PROC: 5A1D70Z Performance of Urinary Filtration, Intermittent, Less than 6 Hours Per Day (ICD-10-PCS; 2023-04-04)
DX: A41.02 Sepsis due to Methicillin resistant Staphylococcus aureus (principal); G92.8 Other toxic encephalopathy; N17.0 Acute kidney failure with tubular necrosis; N18.6 End stage renal disease; I13.2 Hypertensive heart and chronic kidney disease with heart failure and with stage 5 chronic kidney disease, or end stage renal disease; E87.1 Hypo-osmolality and hyponatremia; E87.20 Acidosis, unspecified; N39.0 Urinary tract infection, site not specified; I50.20 Unspecified systolic (congestive) heart failure; I42.8 Other cardiomyopathies; Z20.822 Contact with and (suspected) exposure to COVID-19; R65.20 Severe sepsis without septic shock; E87.6 Hypokalemia; J02.8 Acute pharyngitis due to other specified organisms; F10.10 Alcohol abuse, uncomplicated; F15.10 Other stimulant abuse, uncomplicated; D72.828 Other elevated white blood cell count; I34.0 Nonrheumatic mitral (valve) insufficiency; I07.1 Rheumatic tricuspid insufficiency; D63.1 Anemia in chronic kidney disease; E88.09 Other disorders of plasma-protein metabolism, not elsewhere classified; E66.9 Obesity, unspecified; E11.22 Type 2 diabetes mellitus with diabetic chronic kidney disease; E11.649 Type 2 diabetes mellitus with hypoglycemia without coma; E87.5 Hyperkalemia; E83.39 Other disorders of phosphorus metabolism; E83.51 Hypocalcemia; E87.70 Fluid overload, unspecified; F17.210 Nicotine dependence, cigarettes, uncomplicated; Z79.899 Other long term (current) drug therapy; Z91.158 Patient's noncompliance with renal dialysis for other reason; Z99.2 Dependence on renal dialysis; Z71.6 Tobacco abuse counseling; Z23 Encounter for immunization; Z68.29 Body mass index [BMI] 29.0-29.9, adult
CPT/HCPCS: 0241U; 36415; 36600; 70491; 71045; 71260; 80053; 80069; 80074; 80202; 81001; 82330; 82374; 82803; 82947; 83605; 83735; 83970; 84132; 85014; 85018; 85025; 85730; 86317; 86704; 87040; 87081; 87147; 87430; 87517; 93005; 93010; 94760; 94762; 96374-59; 96375-59; 97110; 97116; 97162; 99285-25; A9270; C8929; J0295; J0612; J0881; J1644; J1815; J2060; J2405; J2930; J2997; J3370; J3411; J7050; J7131; J7799; Q9957; Q9967

== ENCOUNTER 2023-05-05 15:23 | Emergency (ER) | payer MEDICARE ==
[~2023-05-05] VITALS: Ht 172.7 cm; Wt 81.7 kg
[~2023-05-05 15:23] MED LIST changes: +CALCITRIOL0.5 MC1 PO; +CALCIUM ACETAT667 M2 PO; +DOXY100 PO; +LOSA50 PO; +VISBIOME 112.51 EACH PO
[2023-05-05] MEDS ORDERED: CYCL10 PO (15:52)
[2023-05-05 17:15] VITALS: BP 105/79
== END 2023-05-05 18:28 | disposition home or self-care (01) ==
LOC: ER 15:23
DX: M62.830 Muscle spasm of back (principal); W18.30XA Fall on same level, unspecified, initial encounter; I10 Essential (primary) hypertension; F17.210 Nicotine dependence, cigarettes, uncomplicated; Z79.899 Other long term (current) drug therapy
CPT/HCPCS: 96372; 99283-25; A9270; J1885

== ENCOUNTER 2023-05-30 08:58 | Inpatient (IN) | payer MEDICARE ==
[2023-05-30] VITALS (12 sets, daily range): BP systolic 111–160; BP diastolic 79–98
[~2023-05-30] VITALS: Ht 172.7 cm; Wt 73.5 kg
[~2023-05-30 08:58] MED LIST changes: +CYCL10 PO
[2023-05-30] MEDS ORDERED: CATAPRES0.1 MG PO (09:25)
[2023-05-30] MEDS ORDERED: LOSA50 PO (09:25)
[2023-05-30 09:35] LABS: BASOPHILS ABSOLUTE AUTO 0.08 K/mm3 (0.00-0.23); BASOPHILS PERCENT AUTO 0 % (0-2); EOSINOPHILS ABSOLUTE AUTO 0.02 K/mm3 (0.00-0.68); EOSINOPHILS PERCENT AUTO 0 % (0-6); Hematocrit 34.9 % (37.0-53.0); IMMATURE GRAN ABSOLUTE AUTO 0.12 K/mm3 (0.00-0.10); IMMATURE GRAN PERCENT AUTO 1 % (0-1); LYMPHOCYTES ABSOLUTE AUTO 0.58 K/mm3 (0.84-5.20); LYMPHOCYTES PERCENT AUTO 3 % (21-46); MONOCYTES ABSOLUTE AUTO 0.76 K/mm3 (0.16-1.47); MONOCYTES PERCENT AUTO 3 % (4-13); Mean Corpuscular HGB 29.3 pg (26.0-34.0); Mean Corpuscular HGB Conc 31.5 g/dL (31.5-36.5); Mean Corpuscular Volume 93 fL (80-100); Mean Platelet Volume 9.1 fL (9.1-12.4); NEUTROPHILS ABSOLUTE AUTO 21.94 K/mm3 (1.96-9.15); NEUTROPHILS PERCENT AUTO 93 % (41-73); Platelet Count 604 K/mm3 (150-400); RDW Standard Deviation 50.4 fL (35.1-46.3); Red Blood Cell Count 3.76 M/mm3 (4.30-5.90)
[2023-05-30 10:03] LABS: Albumin, Blood 3.3 g/dL (3.4-5.0); Anion Gap 13 mmol/L (6-16); Blood Urea Nitrogen 81 mg/dL (8-24); Bun/Creatinine Ratio 7.3 (12.0-20.0); CO2, Blood 23 mmol/L (21-32); Chloride, Blood 98 mmol/L (98-108); Glomerular Filtration Rate 5 (60-); Glucose, Blood 94 mg/dL (70-99); Phosphorus, Blood 7.6 mg/dL (2.5-4.9); Potassium, Blood 6.3 mmol/L (3.5-5.5); Sodium, Blood 134 mmol/L (136-145)
[2023-05-30 10:54] LABS: Influenza A, PCR NEGATIVE (NEGATIVE); Influenza B, PCR NEGATIVE (NEGATIVE); Resp Syncytial Virus, PCR NEGATIVE (NEGATIVE); SARS-Cov-2 (COVID-19) PCR, MMC NEGATIVE (NEGATIVE)
--- NOTE | 2023-05-30 18:04 | NUR ---
SHIFT SUMMARY; ASSUMED CARE FROM ED. TRANSFERS FROM [facility] TO BED WITH SBA. A/A/OX4. L/S DIM T/O. PT STATES HE MISSED DIALYSIS WEDNESDAY AND NOW IS SOB. SPEAKING FULL SENTENCES. DIALYSIS COMPLETED TODAY, TOLERATED WELL. SLEEPY IN AFTERNOON, VSS, USES URINAL AT BEDSIDE AND REPOSITIONS SELF IN BED. WILL CONTINUE TO MONITOR AND TREAT UNTIL CHANGE OF SHIFT.
[2023-05-31] VITALS (23 sets, daily range): BP systolic 81–119; BP diastolic 55–86
[2023-05-31 04:04] LABS: Hematocrit 27.1 % (37.0-53.0); Hemoglobin 8.3 g/dL (13.5-17.5)
[2023-05-31 04:33] LABS: Magnesium, Blood 2.1 mg/dL (1.6-2.4)
[2023-05-31 04:36] LABS: Albumin, Blood 2.5 g/dL (3.4-5.0); Anion Gap 11 mmol/L (6-16); Blood Urea Nitrogen 58 mg/dL (8-24); Bun/Creatinine Ratio 6.6 (12.0-20.0); CO2, Blood 29 mmol/L (21-32); Calcium, Blood 7.9 mg/dL (8.5-10.1); Chloride, Blood 95 mmol/L (98-108); Creatinine, Blood 8.81 mg/dL (0.60-1.20); Glomerular Filtration Rate 6 (60-); Glucose, Blood 109 mg/dL (70-99); Phosphorus, Blood 8.8 mg/dL (2.5-4.9); Potassium, Blood 4.9 mmol/L (3.5-5.5); Sodium, Blood 135 mmol/L (136-145)
--- NOTE | 2023-05-31 06:04 | NUR ---
EOS: A/OX 3-4. PATINET IN A VERY DECLINED MEDICAL EDUCATION, BLOOD CULTURES + BLOOD PRESSURE MINORLY SOFT, CREAT 8.81, PHOS 8.8. Hgb DROPPED FROM 11.0 TO 8.3 K+ 4.9 Mg 2.1 NA 135. PATIENT DENIES CHEST PAIN, HAD A SINGLE EPISODE OF NAUSEA TREATED WITH 4mg OF IV ODANSETRON, NO ISSUES SINCE. CBG 99 AT 0000, RECKING THIS AM. DENIES CHEST PAIN PRESSURE OR SOB. ONLY ENDORSES GENERALIZED ABD PAIN. FEBRILE AT TIMES, REQUIRING TYLENOL 650 Q6. WILL CONTINUE TO MONITOR INTAKE 250mL, NO BM BOWEL CARE MEDS STARTED.
--- NOTE | 2023-05-31 06:20 | NUR ---
SPOKE WITH ROUNDING RECORDER GRAVITY PROSPECTING, DR. DIA, HE WILL BE ORDERING CT ABD WITH CONTRAST, BLOOD CULTURE ORDER TO BE PUT IN BY RN FOR DIALYSIS TO DRAW, ORDERS PLACED, NO FURTHER CONCERNS.
[2023-05-31 11:52] LABS: Vancomycin, Random 15.3 ug/mL
--- NOTE | 2023-05-31 18:10 | NUR ---
SHIFT SUMMARY; ASSUMED CARE AT 0700. A/A/OX4 DURING SHIFT. GENERAL APPEARANCE IMPROVED FROM PREVIOUS SHIFT. ABX PER EMAR, DIALYSIS TODAY. NAPS ON AND OFF IN AFTERNOON BUT EASILY ARROUSABLE. PLEASANT AND COOPERATIVE WITH CARE. NO ACUTE CHANGES, WILL CONTINUE TO MONITOR AND TREAT UNTIL CHANGE OF SHIFT.
--- NOTE | 2023-05-31 21:47 | NUR ---
PT ALERT AND ORIENTED X 3, COOPERATIVE WITH CARE AND ABLE TO MAKE NEEDS KNOWN. PT ON RA AND MAINTAINING 02 SATURATION ABOVE 92%, HE DENIES SOB. HR SR 90'S, BP SOFT AND MD NOTIFIED AND ORDERS PLACED, PT DENIES CHEST PAIN/PRESSURE. PT COMPLAINS OF 5/10 LOWER ABD PAIN, MEDICATED PER EMAR AND PAIN DOWN TO 4/10, PT SAID PAIN IS BETTER WHEN HE ISN'T MOVING AROUND. BILATERAL SEQUENTIAL DEVICES ON BLE, PT TOLERATING WELL. IV TO L AC AND R AC PATENT, FLUSHED, AND SALINE LOCKED. DRESSING TO DIALYSIS PORT OF R CHEST C/D/I. PT SLEEPING IN BED, CALL LIGHT WITHIN REACH.
[2023-06-01] VITALS (27 sets, daily range): BP systolic 90–123; BP diastolic 60–82
[2023-06-01 03:36] LABS: Hematocrit 25.1 % (37.0-53.0); Hemoglobin 7.9 g/dL (13.5-17.5)
[2023-06-01 04:10] LABS: Albumin, Blood 2.1 g/dL (3.4-5.0); Anion Gap 9 mmol/L (6-16); Blood Urea Nitrogen 54 mg/dL (8-24); Bun/Creatinine Ratio 7.9 (12.0-20.0); CO2, Blood 26 mmol/L (21-32); Calcium, Blood 7.6 mg/dL (8.5-10.1); Chloride, Blood 99 mmol/L (98-108); Creatinine, Blood 6.84 mg/dL (0.60-1.20); Glomerular Filtration Rate 9 (60-); Glucose, Blood 127 mg/dL (70-99); Magnesium, Blood 2.1 mg/dL (1.6-2.4); Phosphorus, Blood 7.1 mg/dL (2.5-4.9); Potassium, Blood 5.2 mmol/L (3.5-5.5); Sodium, Blood 134 mmol/L (136-145)
--- NOTE | 2023-06-01 04:38 | NUR ---
SHIFT SUMMARY PT CONTINUES TO BE ALERT AND ORIENTED X 3, COOPERATIVE WITH CARE AND ABLE TO MAKE NEEDS KNOWN. PT ON RA AND MAINTAINING 02 SATURATION ABOVE 92%, DENIES SOB. HR 80'S-90'S, SOFT BP THROUGHOUT SHIFT, MD WAS NOTIFIED AND ORDERS GIVEN, PT MEDICATED PER EMAR, PT DENIES CHEST PAIN/PRESSURE/DIZZINESS. PT'S ABDOMEN CONTINUES TO BE DISTENDED, CONTINUES TO HAVE LOWER ABD PAIN WHICH WORSENS WHEN HE MOVES AROUND. PT GAVE HIMSELF A BATH WITH BATH WIPES. IV TO L FA AND R AC PATENT, FLUSHED, AND SALINE LOCKED. PT HAS BEEN SLEEPING THE MAJORITY OF THE NIGHT, CALL LIGHT WITHIN REACH.
[2023-06-01 06:49] LABS: Percent Saturation 7.4 % (20.0-50.0)
[2023-06-01 12:32] LABS: U Amphetamine Screen Not Detected; U Barbituate Screen Not Detected; U Benzodiazapine Screen Not Detected; U Buprenorphine Screen Not Detected; U Cannabinoids Screen Not Detected; U Cocaine Screen Not Detected; U Methadone Screen Not Detected; U Methamphetamine Screen Not Detected; U Opiates Screen Not Detected; U Oxycodone Screen Not Detected; U Phencyclidine Screen Not Detected
[2023-06-01 15:31] LABS: BASOPHILS ABSOLUTE AUTO 0.06 K/mm3 (0.00-0.23); BASOPHILS PERCENT AUTO 0 % (0-2); EOSINOPHILS ABSOLUTE AUTO 0.32 K/mm3 (0.00-0.68); EOSINOPHILS PERCENT AUTO 2 % (0-6); Hematocrit 25.5 % (37.0-53.0); Hemoglobin 7.9 g/dL (13.5-17.5); IMMATURE GRAN ABSOLUTE AUTO 0.06 K/mm3 (0.00-0.10); IMMATURE GRAN PERCENT AUTO 0 % (0-1); LYMPHOCYTES ABSOLUTE AUTO 0.46 K/mm3 (0.84-5.20); LYMPHOCYTES PERCENT AUTO 3 % (21-46); MONOCYTES ABSOLUTE AUTO 0.57 K/mm3 (0.16-1.47); MONOCYTES PERCENT AUTO 4 % (4-13); Mean Corpuscular HGB 28.9 pg (26.0-34.0); Mean Corpuscular Volume 93 fL (80-100); Mean Platelet Volume 9.7 fL (9.1-12.4); NEUTROPHILS ABSOLUTE AUTO 11.97 K/mm3 (1.96-9.15); NEUTROPHILS PERCENT AUTO 89 % (41-73); Platelet Count 450 K/mm3 (150-400); RDW Coefficient Variation 14.9 % (11.7-14.2); RDW Standard Deviation 50.6 fL (35.1-46.3); Red Blood Cell Count 2.73 M/mm3 (4.30-5.90); White Blood Cell Count 13.44 K/mm3 (4.00-11.30)
--- NOTE | 2023-06-01 17:06 | NUR ---
SHIFT SUMMARY; ASSUMED CARE AT 0700, A/A/OX4, PLEASANT AND COOPERATIVE WITH CARE. DIALYSIS TODAY AND PERMICATH PULLED AFTER DIALYSIS. DRESSING TO LEFT CHEST WALL C/D/I. ABX PER EMAR. MOVES SELF ON GURNEY, SAT IN RECLINER FOR DINNER, VSS, PLAN FOR NPO AFTER MIDNIGHT FOR POSSIBLE NEW PERMICATH TOMORROW. WILL CONTINUE TO MONTIOR AND TREAT UNTIL CHANGE OF SHIFT.
--- NOTE | 2023-06-01 22:23 | NUR ---
ASSUMPTION OF CARE THIS RN ASSUMED CARE AT APPROX 1915. PATIENT IS ALERT AND ORIENTED X4. CAN BE FORGETFUL AT TIMES. IS ABLE TO COMMUNICATE NEEDS EFFECTIVELY. COOPERATIVE WITH CARE. IS A STAND BY ASSIST WITH FWW TO RESTROOM. SMALL UNMEASURED VOID. SMALL BM. REPORTS SOME DIFFICULTY WITH PASSING BM, REQUESTING CUP OF COFFEE. DECAF COFFEE PROVIDED. VSS. TELEMETRY SHOWING SINUS 90's. BP STABLE. DENIES CHEST PAIN OR PRESSURE. ON ROOM AIR, SATS >90%. PERMACATH REMOVED TODAY, 06/01. TEGADERM DRESSING OVER R UPPER CHEST SITE, IS C/D/I. NO DRAINAGE NOTED. CALL LIGHT IN REACH.
[2023-06-02 02:27] LABS: Hematocrit 26.1 % (37.0-53.0); Hemoglobin 8.2 g/dL (13.5-17.5)
[2023-06-02 02:50] LABS: Albumin, Blood 2.1 g/dL (3.4-5.0); Anion Gap 11 mmol/L (6-16); Blood Urea Nitrogen 58 mg/dL (8-24); Bun/Creatinine Ratio 8.4 (12.0-20.0); CO2, Blood 26 mmol/L (21-32); Calcium, Blood 7.8 mg/dL (8.5-10.1); Chloride, Blood 96 mmol/L (98-108); Creatinine, Blood 6.87 mg/dL (0.60-1.20); Glomerular Filtration Rate 9 (60-); Glucose, Blood 107 mg/dL (70-99); Magnesium, Blood 2.1 mg/dL (1.6-2.4); Phosphorus, Blood 5.6 mg/dL (2.5-4.9); Potassium, Blood 4.9 mmol/L (3.5-5.5); Sodium, Blood 133 mmol/L (136-145)
[2023-06-02 03:54] VITALS: BP 108/76
--- NOTE | 2023-06-02 04:07 | NUR ---
SHIFT SUMMARY NO ACUTE CHANGES SINCE PREVIOUS ASSUMPTION OF CARE NOTE. PATIENT SLEPT THROUGHOUT, EASILY AROUSABLE TO VERBAL STIMULI. ABLE TO REPOSITION HIMSELF IN BED. VS REMAIN STABLE. TELEMETRY CONTINUING TO SHOW SINUS 90's. BP STABLE. REMAINS ON ROOM AIR, SATS >90%. X1 SMALL UNMEASURED VOID THIS SHIFT, IS A DIALYSIS PATIENT. X1 BM THIS SHIFT. HAS BEEN NPO SINCE MIDNIGHT FOR POSSIBLE PERMACATH PLACEMENT. PERMACATH REMOVAL SITE REMAINS WNL, TEGADERM DRESSING C/D/I WITHOUT DRAINAGE. CALL LIGHT IN REACH. WILL REPORT TO ONCOMING RN.
--- NOTE | 2023-06-02 08:30 | NUR ---
INITIAL ASSESSMENT: Patient is lying in bed after taking a shower. He is alert and oriented x3. He denies pain at this time. HRR, SR in the 80s, blood pressure is 125 systolic-midodrine held per MD orders. LS DIM T/O, his biox is high 90s on RA. BT+, pt states he is having some slight abd pain. PPP, trace edema to BLE. Dr. Martinez and Darrel have rounded on the patient, he will have a perma cath placed once his second set of blood cultures come back. Patient has been down graded to medical status. AM meds given with a sip of water. Patient denies needs at this time. Call light in reach.
[2023-06-02 15:28] VITALS: BP 103/71
--- NOTE | 2023-06-02 16:23 | NUR ---
NOTE PT REPORT RECEIVED FROM SABI RESENDIZ. PT RESTING WITH EYES CLOSED AND EASY BREATHING. CONTINUE CARE.
[2023-06-02 19:47] VITALS: BP 110/73
[2023-06-03 00:21] VITALS: BP 129/77
[2023-06-03 05:10] VITALS: BP 140/92
[2023-06-03 05:48] LABS: Magnesium, Blood 2.2 mg/dL (1.6-2.4)
--- NOTE | 2023-06-03 05:54 | NUR ---
SHIFT SUMMARY NOC PT A/O X 4. PLEASANT AND COOPERATIVE WITH CARE. PT HAD PERM CATH IN [facility] REMOVED ON 06/01/23 FOR SUSPECTED INFECTION, BLOOD CULTURES ARE PENDING WITH NO GROWTH ON FIRST DAY PT RECEIVING UNASYN FOR COVERAGE.PT ON 1L FLUID RESTRICTION. PT HGB 8.2 YESTERDAY. PT ABLE TO AMBULATED IN HALLWAY WITH FWW INDEPENDENTLY. PT IS CURRENTLY RESTING WITH BED IN LOWEST POSITION, AND CALL LIGHT WITHIN REACH.
[2023-06-03 06:00] LABS: Albumin, Blood 2.2 g/dL (3.4-5.0); Anion Gap 10 mmol/L (6-16); Blood Urea Nitrogen 74 mg/dL (8-24); Bun/Creatinine Ratio 8.2 (12.0-20.0); CO2, Blood 27 mmol/L (21-32); Chloride, Blood 95 mmol/L (98-108); Creatinine, Blood 9.04 mg/dL (0.60-1.20); Glomerular Filtration Rate 6 (60-); Glucose, Blood 114 mg/dL (70-99); Phosphorus, Blood 6.4 mg/dL (2.5-4.9); Potassium, Blood 5.2 mmol/L (3.5-5.5); Sodium, Blood 132 mmol/L (136-145)
[2023-06-03 07:16] VITALS: BP 142/84
[2023-06-03 15:33] VITALS: BP 129/83
--- NOTE | 2023-06-03 17:21 | NUR ---
SHIFT SUMMARY PT AOX4, SBA TO THE BR WITH THE FWW. C/O LLQ PAIN, PROVIDER NOTIFIED. NEW ORDERS OBTAINED AND MEDICATED PER THE EMAR. FLUID RESTRICTION OF 1000 STILL INTACT, PT IS COMPLIANT. HE CALLS WELL AND MAKES HIS NEEDS KNOWN. WAITING ON NEGATIVE CULTURES FOR A NEW PERMA CATH PLACEMENT. CALL LIGHT WITHIN REACH, BED IN THE LOWEST POSITION. WILL REPORT TO ONCOMING NURSE.
[2023-06-03 19:13] VITALS: BP 118/81
--- NOTE | 2023-06-04 00:05 | NUR ---
HOSPITALIST NOTIFIED. HOSPITALIST CALLED-PATIENT C/O SOB, AND PAIN IN THE ABDOMEN-ABDOMEN IS DISTENDED AND FIRM TO PALPATION, EXPIRATORY WHEEZES HEARD IN LUNGS. DOCTOR JOIE ADVISED HE WILL PUT IN ORDER FOR PAIN MED, AND TO MONITOR ABDOMINAL DISTENTION-IF IT BECOMES RIGID IN ONE TO TWO HOURS TO NOTIFY HOSPITALIST.
[2023-06-04 00:20] VITALS: BP 115/82
[2023-06-04 03:29] VITALS: BP 138/94
--- NOTE | 2023-06-04 04:21 | NUR ---
SHIFT SUMMARY PATIENT HAS HAD ABDOMINAL PAIN TONIGHT THAT HAS BEEN HARD TO CONTROL, NEW ORDER FOR PAIN MEDS-SEE EMAR. PATIENT ABDOMEN IS DISTENDED, TENDER WITH GUARDING TO THE LOWER/UNDER SIDE OF ABDOMEN. PATIENT DOWN FOR CT OF ABDOMEN THIS MORNING. PATIENT USING THE URINAL INDEPENDENTLY, UP TO THE BATHROOM WITH 1 PERSON SBA AND FWW. PATIENT IS PLEASANT, AND COOPERATIVE WITH CARE. PATIENT IS ABLE TO MAKE HIS NEEDS KNOWN, AND CALLS APPROPRIATELY. BED IS LOCKED IN THE LOWEST POSITION WITH CALL LIGHT IN REACH.
[2023-06-04 05:21] LABS: Hematocrit 27.5 % (37.0-53.0); Hemoglobin 8.6 g/dL (13.5-17.5)
[2023-06-04 05:56] LABS: Magnesium, Blood 2.4 mg/dL (1.6-2.4)
[2023-06-04 06:00] LABS: Albumin, Blood 2.2 g/dL (3.4-5.0); Anion Gap 13 mmol/L (6-16); Blood Urea Nitrogen 87 mg/dL (8-24); Bun/Creatinine Ratio 8.4 (12.0-20.0); CO2, Blood 25 mmol/L (21-32); Calcium, Blood 8.2 mg/dL (8.5-10.1); Chloride, Blood 96 mmol/L (98-108); Glomerular Filtration Rate 5 (60-); Glucose, Blood 97 mg/dL (70-99); Phosphorus, Blood 7.9 mg/dL (2.5-4.9); Potassium, Blood 5.1 mmol/L (3.5-5.5); Sodium, Blood 134 mmol/L (136-145)
[2023-06-04 08:19] VITALS: BP 152/91
[2023-06-04 15:05] VITALS: BP 117/75
--- NOTE | 2023-06-04 18:12 | NUR ---
SHIFT SUMMARY PT AOX4, INDENPENDENTIN THE ROOM. MEDICATED FOR PAIN PER THE EMAR, PT STATES MORE RELIEF TODAY THAN YESTERDAY. PLAN IS FOR NEW PERMA CATH PLACEMENT ON WEDNESDAY. PT IS COMPLIANT WITH FLUID RESTRICTION. CALL LIGHT WITHIN REACH, BED IN THE LOWEST POSITION. WILL REPORT TO ONCOMING NURSE.
[2023-06-04 19:59] VITALS: BP 143/89
[2023-06-05 00:38] VITALS: BP 152/93
[2023-06-05 03:02] VITALS: BP 143/91
[2023-06-05 05:10] LABS: Hematocrit 26.5 % (37.0-53.0); Hemoglobin 8.1 g/dL (13.5-17.5)
--- NOTE | 2023-06-05 05:11 | NUR ---
SHIFT SUMMARY NO ACUTE CHANGES. PATIENT IS A/O X4. PATIENT C/O PAIN-MEDICATED PER EMAR. PATIENT SLEEPING ON AND OFF T/O SHIFT, INDEPENDENT IN ROOM. CALLS APPROPRIATELY AND ABLE TO MAKE NEEDS KNOWN. PATIENT IS LOOKING FORWARD TO PLACEMENT OF NEW DIALYSIS CATHETER ON WEDNESDAY AND TO GET BACK TO HIS NORMAL ROUTINE. PATIENT IS COOPERATIVE WITH CARE. BED IS LOCKED IN THE LOWEST POSITION WITH CALL LIGHT IN REACH. NO S/S OF DISTRESS NOTED.
[2023-06-05 05:48] LABS: Magnesium, Blood 2.5 mg/dL (1.6-2.4)
[2023-06-05 06:01] LABS: Albumin, Blood 2.2 g/dL (3.4-5.0); Anion Gap 16 mmol/L (6-16); Blood Urea Nitrogen 101 mg/dL (8-24); Bun/Creatinine Ratio 8.5 (12.0-20.0); CO2, Blood 21 mmol/L (21-32); Calcium, Blood 8.1 mg/dL (8.5-10.1); Chloride, Blood 96 mmol/L (98-108); Glomerular Filtration Rate 4 (60-); Glucose, Blood 90 mg/dL (70-99); Phosphorus, Blood 8.6 mg/dL (2.5-4.9); Potassium, Blood 5.5 mmol/L (3.5-5.5); Sodium, Blood 133 mmol/L (136-145)
[2023-06-05 07:52] VITALS: BP 145/90
[2023-06-05 16:12] VITALS: BP 147/93
--- NOTE | 2023-06-05 19:31 | NUR ---
SHIFT SUMMARY PATIENT WITH PAIN TODAY, MEDICATED AT REQUEST OF PATIENT PER EMAR. HE REPORTS NO BM TODAY OR YESTERDAY BUT STATES HE IS PASSING GAS. ABDOMEN DISTENDED. PAIN MEDICATIONS RELIEVED PAIN DOWN TO 4/10. BED IN LOW POSITION. CALL LIGHT IN REACH. PATIENT CALLS APPROPRIATELY.
[2023-06-05 20:00] VITALS: BP 130/89
--- NOTE | 2023-06-06 02:21 | NUR ---
SHIFT SUMMERY, PT RESTING IN BED, PT SLEEPING INTERMITANTLY. AWAKE MUCH OF THE TIME WATCHING TV. PT CALM AND COOPERATIVE. CALL LIGHT IN REACH.
[2023-06-06 02:55] VITALS: BP 123/81
[2023-06-06 05:55] LABS: Hematocrit 26.8 % (37.0-53.0); Hemoglobin 8.4 g/dL (13.5-17.5)
[2023-06-06 07:02] LABS: Magnesium, Blood 2.3 mg/dL (1.6-2.4)
[2023-06-06 07:20] LABS: Albumin, Blood 2.2 g/dL (3.4-5.0); Anion Gap 18 mmol/L (6-16); Blood Urea Nitrogen 112 mg/dL (8-24); CO2, Blood 21 mmol/L (21-32); Calcium, Blood 8.3 mg/dL (8.5-10.1); Chloride, Blood 94 mmol/L (98-108); Glucose, Blood 96 mg/dL (70-99); Potassium, Blood 5.2 mmol/L (3.5-5.5); Sodium, Blood 133 mmol/L (136-145)
[2023-06-06 07:21] LABS: Bun/Creatinine Ratio 8.7 (12.0-20.0); Glomerular Filtration Rate 4 (60-); Phosphorus, Blood 10.5 mg/dL (2.5-4.9)
[2023-06-06 07:41] VITALS: BP 143/93
[2023-06-06 15:34] VITALS: BP 156/94
--- NOTE | 2023-06-06 18:03 | NUR ---
PT IS AOX4 AND COOPERTIVE OF CARE. NO ACUTE CHANGES. PT IN AMBULATING AROUND WITH WALKER IN ROOM. ABLE TO MAKE NEEDS KNOWN. NO DISTRESS NOTED AT THIS TIME WILL CONTINUE TO MONITOR.
[2023-06-06 19:58] VITALS: BP 127/81
[2023-06-06 23:22] VITALS: BP 154/91
[2023-06-07] VITALS (12 sets, daily range): BP systolic 125–161; BP diastolic 85–98
--- NOTE | 2023-06-07 04:05 | NUR ---
SHIFT SUMMARY PATIENT IS ALERT AND ORIENTED. PATIENT HAS HAD NO ACUTE EVENTS THIS SHIFT. VITAL SIGNS REVIEWED. PATIENT HAS BEEN IND IN ROOM WITH WALKER. PATIENT IS ABLE TO MAKE NEEDS KNOWN. PATIENT HAS TOLERATING FLUID RESTRICTION WELL. PATIENT HAS NOT COMPLAINED OF PAIN, NAUSEA, SOB OR VOMITTING. BED IN LOCKED AND LOWEST POSITION. CALL LIGHT IN PLACE. WILL MONITOR UNTIL SHIFT CHANGE.
[2023-06-07 05:01] LABS: Hematocrit 26.2 % (37.0-53.0); Hemoglobin 8.2 g/dL (13.5-17.5)
[2023-06-07 05:28] LABS: Magnesium, Blood 2.5 mg/dL (1.6-2.4)
[2023-06-07 06:11] LABS: Albumin, Blood 2.3 g/dL (3.4-5.0); Anion Gap 16 mmol/L (6-16); Blood Urea Nitrogen 116 mg/dL (8-24); CO2, Blood 24 mmol/L (21-32); Calcium, Blood 7.9 mg/dL (8.5-10.1); Chloride, Blood 96 mmol/L (98-108); Glucose, Blood 119 mg/dL (70-99); Potassium, Blood 4.9 mmol/L (3.5-5.5); Sodium, Blood 136 mmol/L (136-145)
[2023-06-07 06:14] LABS: Bun/Creatinine Ratio 8.7 (12.0-20.0); Glomerular Filtration Rate 4 (60-); Phosphorus, Blood 11.2 mg/dL (2.5-4.9)
--- NOTE | 2023-06-07 18:35 | NUR ---
SUMMARY- AAOX4, X1 ASSIST TO BSC W/WALKER. PT DID WELL IN DIALYSIS THIS EVENING. PT WAS IRRITABLE AND ASKED TO LEAVE AMA THIS MORNING, BUT CALMED DOWN AND WAS COOPERATIVE WITH CARE LATER THIS AFTERNOON. NO COMPLAINTS OF PAIN THIS SHIFT.
[2023-06-08] VITALS (16 sets, daily range): BP systolic 85–139; BP diastolic 60–97
--- NOTE | 2023-06-08 04:26 | NUR ---
SHIFT SUMMARY JOHNNY IS ALERT AND ORIENTED X3-4 AT START OF SHIFT AND IS COOPERATIVE WITH CARE. PT DENIES SOB, AND C/P/PRESSURE. PT HAD NO COMPLAINTS TONIGHT AND MOOD SEEMS IMPROVED FROM WHAT WAS REPORTED AT SHIFT CHANGE. NO ACUTE EVENTS TONIGHT, NO NOTABLE CHANGES IN CONDITION. PT IS ABLE TO AMBULATE WITH SUPERVISION. PT RESTING IN BED AT LOWEST POSITION WITH CALL LIGHT IN REACH.
[2023-06-08 05:45] LABS: Hematocrit 27.3 % (37.0-53.0); Hemoglobin 8.5 g/dL (13.5-17.5)
[2023-06-08 06:40] LABS: Magnesium, Blood 2.2 mg/dL (1.6-2.4)
[2023-06-08 06:51] LABS: Albumin, Blood 2.3 g/dL (3.4-5.0); Anion Gap 13 mmol/L (6-16); Blood Urea Nitrogen 77 mg/dL (8-24); Bun/Creatinine Ratio 7.5 (12.0-20.0); CO2, Blood 25 mmol/L (21-32); Calcium, Blood 8.2 mg/dL (8.5-10.1); Chloride, Blood 99 mmol/L (98-108); Glomerular Filtration Rate 5 (60-); Glucose, Blood 99 mg/dL (70-99); Sodium, Blood 137 mmol/L (136-145)
[2023-06-08 06:52] LABS: Phosphorus, Blood 8.9 mg/dL (2.5-4.9)
[2023-06-08] MEDS ORDERED: LEVFLO500 PO (13:49)
[2023-06-08] MEDS ORDERED: MIDO5 PO (13:52)
[2023-06-08] MEDS ORDERED: ENTRESTO 24 MG1 EACH PO (13:53)
--- NOTE | 2023-06-08 16:21 | NUR ---
1405- PT WAS DISCHARGED IN STABLE CONDITION. PT IS TAKING THE BUS TO GET PRESCRIPTIONS AND A RIDE HOME. PT VERBALIZED HE IS GOING TO TAKE THE BUS TO GET TO ALL OF HIS FOLLOW-UP APPOINTMENTS AND DIALYSIS. PT LEFT WITH ALL BELONGINGS.
== END 2023-06-08 14:05 | disposition home or self-care (01) | DRG 314 ==
LOC: ER 08:58 → PCU 11:28 → MEDS 05-31 10:36 → PCU 05-31 10:36 → MEDS 06-02 10:36
PROVIDERS: Family Medicine; Internal Medicine; Internal Medicine Nephrology; Student in an Organized Health Care Education/Training Program; ADMIT Internal Medicine
PROC: 0JPV3XZ Removal of Tunneled Vascular Access Device from Upper Extremity Subcutaneous Tissue and Fascia, Percutaneous Approach (ICD-10-PCS; principal; 2023-06-01)
PROC: 05PYX3Z Removal of Infusion Device from Upper Vein, External Approach (ICD-10-PCS; 2023-06-01)
PROC: 5A1D70Z Performance of Urinary Filtration, Intermittent, Less than 6 Hours Per Day (ICD-10-PCS; 2023-06-03)
PROC: 0JH63XZ Insertion of Tunneled Vascular Access Device into Chest Subcutaneous Tissue and Fascia, Percutaneous Approach (ICD-10-PCS; 2023-06-07)
PROC: 02HV33Z Insertion of Infusion Device into Superior Vena Cava, Percutaneous Approach (ICD-10-PCS; 2023-06-07)
PROC: B5181ZA Fluoroscopy of Superior Vena Cava using Low Osmolar Contrast, Guidance (ICD-10-PCS; 2023-06-07)
DX: T82.7XXA Infection and inflammatory reaction due to other cardiac and vascular devices, implants and grafts, initial encounter (principal); A41.9 Sepsis, unspecified organism; N18.6 End stage renal disease; I13.2 Hypertensive heart and chronic kidney disease with heart failure and with stage 5 chronic kidney disease, or end stage renal disease; E87.1 Hypo-osmolality and hyponatremia; I50.22 Chronic systolic (congestive) heart failure; Y84.1 Kidney dialysis as the cause of abnormal reaction of the patient, or of later complication, without mention of misadventure at the time of the procedure; E87.5 Hyperkalemia; D63.1 Anemia in chronic kidney disease; E83.39 Other disorders of phosphorus metabolism; E88.09 Other disorders of plasma-protein metabolism, not elsewhere classified; F10.11 Alcohol abuse, in remission; N28.89 Other specified disorders of kidney and ureter; E66.9 Obesity, unspecified; K42.9 Umbilical hernia without obstruction or gangrene; E11.22 Type 2 diabetes mellitus with diabetic chronic kidney disease; B95.2 Enterococcus as the cause of diseases classified elsewhere; K57.30 Diverticulosis of large intestine without perforation or abscess without bleeding; F17.210 Nicotine dependence, cigarettes, uncomplicated; Y90.0 Blood alcohol level of less than 20 mg/100 ml; F15.91 Other stimulant use, unspecified, in remission; Z98.890 Other specified postprocedural states; Z11.52 Encounter for screening for COVID-19; Z79.4 Long term (current) use of insulin; Z99.2 Dependence on renal dialysis; Z79.899 Other long term (current) drug therapy; Z86.14 Personal history of Methicillin resistant Staphylococcus aureus infection; Z68.27 Body mass index [BMI] 27.0-27.9, adult
CPT/HCPCS: 0241U; 36415; 36558; 36589; 71046; 71260; 74176; 74177; 76937; 77001; 80069; 80202; 82533; 82728; 82947; 83540; 83550; 83605; 83735; 83880; 84484; 85014; 85018; 85025; 85379; 87040; 87070; 87077; 87186; 93005; 93010; 93308; 93321; 94644; 94664; 96374; 96375; 99152; 99153; 99285-25; A9270; C1750; C1769; C1894; J0295; J0878; J0881; J1644; J1815; J2250; J2405; J2543; J2916; J3010; J3370; J7030; J7040; J7050; J7799; Q9967

== ENCOUNTER 2024-03-06 12:20 | Emergency (ER) | payer MEDICARE ==
[~2024-03-06] VITALS: Ht 172.7 cm; Wt 79.4 kg
[~2024-03-06 12:20] MED LIST changes: +AMOX-CLAV 250-1 EACH PO; +Acetaminophen650 M1 PO; +B-COMPLEX WITH1 EACH PO; +CATAPRES0.1 MG PO; +ENTRESTO 24 MG1 EACH PO; +LEVFLO500 PO; +LOKELMA10 GM PO; +METO25ER PO; +MIDO5 PO
[2024-03-06] MEDS ORDERED: Alteplase Recombinant 2 MG / Vial IV ONE ×2 (12:35→13:00)
--- NOTE | 2024-03-06 13:57 | NUR ---
PUBLICATIONS EDITOR CALLED IN TO ER 27 FOR PT WITH NON FUNCTIONING DIALYSIS CATHETER. INSTILLED CATHFLOW/ACTIVASE INTO EACH LUMEN IN EFFORT TO REGAIN PATENCEY. NEW DISINFECTING CAPS APPLIED TO EACH LUMEN. SOLUTION TO DWELL UNTIL NEXT DIALYSIS TREATMENT.
[2024-03-06 14:25] VITALS: BP 163/107
== END 2024-03-06 14:25 | disposition home or self-care (01) ==
LOC: ER 12:20
DX: T82.49XA Other complication of vascular dialysis catheter, initial encounter (principal); I13.2 Hypertensive heart and chronic kidney disease with heart failure and with stage 5 chronic kidney disease, or end stage renal disease; N18.6 End stage renal disease; I50.20 Unspecified systolic (congestive) heart failure; F17.210 Nicotine dependence, cigarettes, uncomplicated; Y73.8 Miscellaneous gastroenterology and urology devices associated with adverse incidents, not elsewhere classified; Z79.899 Other long term (current) drug therapy
CPT/HCPCS: 36593; 99283; J2997

== ENCOUNTER 2024-03-20 12:52 | Inpatient (IN) | payer MEDICARE ==
[~2024-03-20] VITALS: Ht 172.7 cm; Wt 73.2 kg
[2024-03-20] VITALS (13 sets, daily range): BP systolic 166–216; BP diastolic 102–136
[2024-03-20 15:32] LABS: BASOPHILS ABSOLUTE AUTO 0.06 K/mm3 (0.00-0.23); BASOPHILS PERCENT AUTO 1 % (0-2); EOSINOPHILS ABSOLUTE AUTO 0.25 K/mm3 (0.00-0.68); EOSINOPHILS PERCENT AUTO 5 % (0-6); Hematocrit 41.6 % (37.0-53.0); Hemoglobin 14.2 g/dL (13.5-17.5); IMMATURE GRAN ABSOLUTE AUTO 0.01 K/mm3 (0.00-0.10); IMMATURE GRAN PERCENT AUTO 0 % (0-1); LYMPHOCYTES ABSOLUTE AUTO 0.62 K/mm3 (0.84-5.20); LYMPHOCYTES PERCENT AUTO 12 % (21-46); MONOCYTES ABSOLUTE AUTO 0.49 K/mm3 (0.16-1.47); MONOCYTES PERCENT AUTO 10 % (4-13); Mean Corpuscular HGB 31.5 pg (26.0-34.0); Mean Corpuscular HGB Conc 34.1 g/dL (31.5-36.5); Mean Corpuscular Volume 92 fL (80-100); Mean Platelet Volume 10.2 fL (9.1-12.4); NEUTROPHILS ABSOLUTE AUTO 3.69 K/mm3 (1.96-9.15); NEUTROPHILS PERCENT AUTO 72 % (41-73); Platelet Count 239 K/mm3 (150-400); RDW Coefficient Variation 14.6 % (11.7-14.2); RDW Standard Deviation 49.6 fL (35.1-46.3); Red Blood Cell Count 4.51 M/mm3 (4.30-5.90); White Blood Cell Count 5.12 K/mm3 (4.00-11.30)
[2024-03-20 15:59] LABS: Albumin/Globulin Ratio 0.8 (0.8-1.8); Bilirubin, Total 0.5 mg/dL (0.1-1.0); Bun/Creatinine Ratio 5.5 (12.0-20.0); Calcium, Blood 6.4 mg/dL (8.5-10.1); Creatinine, Blood 19.8 mg/dL (0.60-1.20); Potassium, Blood 4.9 mmol/L (3.5-5.5)
[2024-03-20] MEDS ORDERED: Ondansetron HCl 2 MG / ML 2ML Vial IV PRN (18:15)
[2024-03-20] MEDS ORDERED: Acetaminophen 325 MG TABLET PO PRN (18:15)
[2024-03-20] MEDS ORDERED: Alteplase Recombinant 2 MG / Vial IV PRN (20:00)
[2024-03-20] MEDS ORDERED: Sacubitril/Valsartan 24 MG-26 MG Tab PO SCH (21:00)
[2024-03-20] MEDS ORDERED: CloNIDine 0.1 MG Tab PO SCH (21:00)
[2024-03-20] MEDS ORDERED: CloNIDine 0.1 MG Tab PO ONE (23:15)
[2024-03-21] VITALS (15 sets, daily range): BP systolic 113–180; BP diastolic 85–131
[2024-03-21 04:20] LABS: Hematocrit 44.7 % (37.0-53.0); Hemoglobin 14.8 g/dL (13.5-17.5)
[2024-03-21 05:01] LABS: Magnesium, Blood 2.9 mg/dL (1.6-2.4)
[2024-03-21 05:10] LABS: Albumin, Blood 3.1 g/dL (3.4-5.0); Anion Gap 22 mmol/L (3-11); Blood Urea Nitrogen 92 mg/dL (8-24); Bun/Creatinine Ratio 5.5 (12.0-20.0); CO2, Blood 21 mmol/L (21-32); Calcium, Blood 7.8 mg/dL (8.5-10.1); Chloride, Blood 97 mmol/L (98-108); Glomerular Filtration Rate 3 (60-); Glucose, Blood 95 mg/dL (70-99); Phosphorus, Blood 11.3 mg/dL (2.5-4.9); Potassium, Blood 5.2 mmol/L (3.5-5.5); Sodium, Blood 135 mmol/L (136-145)
--- NOTE | 2024-03-21 07:43 | NUR ---
SHIFT SUMMARY: "TIBURCIO" IS A&OX4. BLOOD PRESSURE ELEVATED, DR. DIA AWARE. PT REPORTS THAT HE HAS CONSISTENTLY HIGH BLOOD PRESSURE. HE WAS TOLERATING PO INTAKE WELL UNTIL BEING MADE NPO AT 0230 IN CASE PT IS TAKEN FOR A PERMACATH REPLACEMENT. CONSULT WAS SENT FOR DR. CONDE. HE IS INDEPENDENT IN THE ROOM. PT REPORTS THAT HE STILL MAKES URINE AND HAD A BOWEL MOVEMENT YESTERDAY. TELE SR IN THE 80'S. HE UP TO THE SHOWER, PERMACATH AND IV TO RIGHT HAND COVERED. REPORT WAS GIVEN TO DAY SHIFT RN.
[2024-03-21] MEDS ORDERED: Alteplase Recombinant 2 MG / Vial IV PRN (08:05)
[2024-03-21] MEDS ORDERED: Sevelamer Carbonate 800 MG Tab PO SCH (08:30)
[2024-03-21] MEDS ORDERED: Calcium Acetate 667 MG Gel Cap PT SCH (08:30)
[2024-03-21] MEDS ORDERED: CloNIDine 0.1 MG Tab PO SCH (09:00)
[2024-03-21] MEDS ORDERED: Metoprolol Succinate 25 MG TABCR PO SCH (09:00)
[2024-03-21] MEDS ORDERED: Sodium Zirconium Cyclosilicate 10 GM Packet PO SCH (09:00)
[2024-03-21] MEDS ORDERED: Heparin Sodium,Porcine 5,000 UNIT/0.5 ML SDV SC SCH (09:00)
[2024-03-21] MEDS ORDERED: Heparin Sodium 1000 Units/ML 10ML MDV ONE (11:33)
[2024-03-21] MEDS ORDERED: NS 250 ML IV ONE (11:33)
[2024-03-21] MEDS ORDERED: NS 500 ML IV ONE (11:57)
[2024-03-21] MEDS ORDERED: Midazolam HCl 1MG / ML 2ML Vial ONE ×2 (11:57→12:18)
[2024-03-21] MEDS ORDERED: FentaNYL Citrate 50 MCG/ML 2 ML Injection ONE ×2 (11:57→12:18)
[2024-03-21] MEDS ORDERED: Heparin Sodium 10,000 Units/ML 1ML MDV ONE (12:08)
--- NOTE | 2024-03-21 13:00 | NUR ---
RETURN FROM HEART CENTER PT RETURNED FROM HEART CENTER AT 1300. PT ABLE TO TRANSFER FROM WHEELCHAIR INTO BED, BUT VERY LETHARGIC STILL. PT FALLS ASLEEP WHILE TALKING. VS TAKEN. SATING AT 88% WHILE SLEEPING. PT PLACED ON 2L O2 VIA NC. AFTER APPROX 30 MNUTES PT WAS MORE AWAKE AND O2 WAS REMOVED. MAINTAINING SATS ON HIS OWN. NO BLEEDING AT INSERTION SITE OR BRUISING AROUND PERMACATH AT THIS TIME.
--- NOTE | 2024-03-21 18:23 | NUR ---
SHIFT SUMMARY PT WENT TO DIALYSIS TODAY. FROM THERE HE WENT TO THE HEART CENTER FOR PERMACATH REPLACEMENT. DIALYSIS NURSE NOTIFIED OF RETURN AND STATES THEY WILL TREAT AGAIN TOMORROW WITH DIALYSIS. PT INITIALLY HAD NO BLEEDING AT INSERTION SITE. THIS AFTERNOON SITE STARTED TO BLEED SLIGHTLY. PRESSURE DRESSING APPLIED OVERTOP OF PERMACATH DRESSING. PT HAD ONE EPISODE OF EMESIS AFTER DRINKING COFFEE TODAY. NO FURTHER COMPLAINTS AFTER ZOFRAN ADMINISTERED. TOLERATING FOOD WELL THIS EVENING. NO OTHER ACUTE CHANGES IN ASSESSMENT AT THIS TIME. VS REVIEWED. CALL LIGHT IN REACH.
--- NOTE | 2024-03-21 20:25 | NUR ---
CALLED HOSPITALIST REGARDING PT'S PERMACATH WITH SCANT BLEEDING. RECEIVED ORDER TO HOLD HS DOSE OF HEPARIN. ALSO REPORTED THAT PT HAD COMPLAINED OF A SORE TOOTH WHICH NEEDED TO BE EXTRACTED. ASKED PT IF HE SEES A DENTIST, PT STATES HE HAS HAD APPOINTMENTS BUT HAS NEVER ATTENDED THEM. PT PULLED TOOTH, SCANT PINK SPUTUM AFTERWARDS. PT SHOWED THIS RN THE TOOTH, IT APPEARED TO BE A PARTIAL TOOTH. PT STATED THAT THE REST OF THE TOOTH HAD ROTTED AWAY. ENCOURAGED PT TO SEEK DENTAL CARE AND OFFERED VISIT FROM IN-HOUSE DENTAL HYGENIST. ORDER PLACED.
[2024-03-22] VITALS (12 sets, daily range): BP systolic 125–178; BP diastolic 59–114
[2024-03-22 04:53] LABS: BASOPHILS ABSOLUTE AUTO 0.03 K/mm3 (0.00-0.23); BASOPHILS PERCENT AUTO 1 % (0-2); EOSINOPHILS ABSOLUTE AUTO 0.22 K/mm3 (0.00-0.68); EOSINOPHILS PERCENT AUTO 4 % (0-6); Hemoglobin 15.8 g/dL (13.5-17.5); IMMATURE GRAN ABSOLUTE AUTO 0.03 K/mm3 (0.00-0.10); IMMATURE GRAN PERCENT AUTO 1 % (0-1); LYMPHOCYTES ABSOLUTE AUTO 0.63 K/mm3 (0.84-5.20); LYMPHOCYTES PERCENT AUTO 12 % (21-46); MONOCYTES ABSOLUTE AUTO 0.65 K/mm3 (0.16-1.47); MONOCYTES PERCENT AUTO 13 % (4-13); Mean Corpuscular HGB Conc 32.9 g/dL (31.5-36.5); Mean Corpuscular Volume 94 fL (80-100); Mean Platelet Volume 10.9 fL (9.1-12.4); NEUTROPHILS ABSOLUTE AUTO 3.61 K/mm3 (1.96-9.15); NEUTROPHILS PERCENT AUTO 70 % (41-73); Platelet Count 238 K/mm3 (150-400); RDW Coefficient Variation 14.6 % (11.7-14.2); RDW Standard Deviation 50.8 fL (35.1-46.3); Red Blood Cell Count 5.09 M/mm3 (4.30-5.90); White Blood Cell Count 5.17 K/mm3 (4.00-11.30)
--- NOTE | 2024-03-22 05:21 | NUR ---
SHIFT SUMMARY: "TIBURCIO" IS A&OX4. VSS, BP ELEVATED BUT CONSISTENT WITH TREND. HE IS TOLERATING PO INTAKE WELL, IS INDEPENDENT IN THE ROOM, AND REPORTS ADEQUATE PAIN MANAGEMENT WITH MEDICATION PER SEP. NEW PERMACATH SITE WITH DRIED BLOOD, NO NEW DRAINAGE VISUALIZED THIS MORNING. NO EVENTS OVERNIGHT ON TELEMETRY. ENCOURAGED PT TO MEET WITH DENTAL HYGENIST, ORDER PLACED. EDUCATED ON IMPORTANCE OF ORAL HEALTH. HE IS LYING IN BED WITH THE CALL LIGHT IN REACH, BED IN LOWEST POSITION. IV TO RIGHT HAND PATENT. WILL GIVE REPORT TO DAY SHIFT RN.
[2024-03-22 05:34] LABS: Magnesium, Blood 2.9 mg/dL (1.6-2.4)
[2024-03-22 05:47] LABS: Albumin, Blood 3.1 g/dL (3.4-5.0); Albumin/Globulin Ratio 0.7 (0.8-1.8); Bilirubin, Total 0.4 mg/dL (0.1-1.0); Calcium, Blood 8.2 mg/dL (8.5-10.1); Globulin, Blood 4.2 g/dL (2.2-4.0); Potassium, Blood 5.1 mmol/L (3.5-5.5); Total Protein, Blood 7.3 g/dL (6.4-8.2)
[2024-03-22 05:48] LABS: Bun/Creatinine Ratio 6.2 (12.0-20.0); Creatinine, Blood 13.8 mg/dL (0.60-1.20); Phosphorus, Blood 9.6 mg/dL (2.5-4.9)
[2024-03-22] MEDS ORDERED: Anticoagulant Sod Citrate Soln 3 ML SYR INJ PRN (07:55)
[2024-03-22] MEDS ORDERED: HydrALAZINE HCl 20 MG / ML 1ML Vial IV PRN (08:20)
[2024-03-22] MEDS ORDERED: Calcium Acetat667 MG PO (13:51)
--- NOTE | 2024-03-22 15:34 | NUR ---
DISCHARGE SUMMARY: PT AOX4 IN GOOD MOOD AND AFFECT. PT TAKEN DOWN TO PT ENTRANCE IN WHEELCHAIR WITH BELONGINGS. TAXI WAITING FOR HIM WHEN WE ARRIVED. TRANSFERRED INTO CAR NO COMPLICTIONS. REVIEWED MEDICATIONS, TEACHINGS, AND TOLD TO MAKE A FOLLOW UP APPOINTMENT WITH DR. DIA.
--- NOTE | 2024-03-22 17:26 | NUR ---
THIS ROLLER SHOP SUPERVISOR HAS REVIEWED AND AGREES WITH ALL NOTES AND ASSESSMENTS BY MARTÍN QUAN.
== END 2024-03-22 15:44 | disposition home or self-care (01) | DRG 981 ==
LOC: ER 12:52 → ERHOLD 12:53 → MEDS 12:53 → ENPENDDIS 03-22 15:21 → MEDS 03-22 15:44
PROVIDERS: Hospitalist; Internal Medicine Nephrology; Student in an Organized Health Care Education/Training Program; ADMIT Student in an Organized Health Care Education/Training Program
PROC: B5181ZZ Fluoroscopy of Superior Vena Cava using Low Osmolar Contrast (ICD-10-PCS; principal; 2024-03-21)
PROC: 027V3ZZ Dilation of Superior Vena Cava, Percutaneous Approach (ICD-10-PCS; 2024-03-21)
PROC: 03723ZZ Dilation of Innominate Artery, Percutaneous Approach (ICD-10-PCS; 2024-03-21)
PROC: 02HV33Z Insertion of Infusion Device into Superior Vena Cava, Percutaneous Approach (ICD-10-PCS; 2024-03-21)
PROC: 02PY33Z Removal of Infusion Device from Great Vessel, Percutaneous Approach (ICD-10-PCS; 2024-03-21)
DX: T82.41XA Breakdown (mechanical) of vascular dialysis catheter, initial encounter (principal); N18.6 End stage renal disease; I13.2 Hypertensive heart and chronic kidney disease with heart failure and with stage 5 chronic kidney disease, or end stage renal disease; E87.20 Acidosis, unspecified; E87.1 Hypo-osmolality and hyponatremia; I50.22 Chronic systolic (congestive) heart failure; E87.5 Hyperkalemia; E83.39 Other disorders of phosphorus metabolism; E83.51 Hypocalcemia; E88.09 Other disorders of plasma-protein metabolism, not elsewhere classified; D63.1 Anemia in chronic kidney disease; F10.20 Alcohol dependence, uncomplicated; F17.210 Nicotine dependence, cigarettes, uncomplicated; Z99.2 Dependence on renal dialysis; Z98.890 Other specified postprocedural states; Z79.899 Other long term (current) drug therapy
CPT/HCPCS: 36415; 36581; 75827; 80053; 80069; 83735; 84100; 85014; 85018; 85025; 93005; 93010; 99152; 99153; 99285-25; A9270; C1725; C1750; C1769; C1894; G0378; J1644; J2250; J2405; J2997; J3010; J7040; J7050; Q9967

== ENCOUNTER 2024-05-28 08:17 | Observation (INO) | payer MEDICARE ==
[~2024-05-28] VITALS: Ht 172.7 cm; Wt 77.5 kg
[2024-05-28] VITALS (14 sets, daily range): BP systolic 102–204; BP diastolic 70–128
[2024-05-28 08:45] LABS: BASOPHILS ABSOLUTE AUTO 0.08 K/mm3 (0.00-0.23); BASOPHILS PERCENT AUTO 1 % (0-2); EOSINOPHILS ABSOLUTE AUTO 0.24 K/mm3 (0.00-0.68); EOSINOPHILS PERCENT AUTO 3 % (0-6); Hemoglobin 10.7 g/dL (13.5-17.5); IMMATURE GRAN ABSOLUTE AUTO 0.04 K/mm3 (0.00-0.10); IMMATURE GRAN PERCENT AUTO 0 % (0-1); LYMPHOCYTES ABSOLUTE AUTO 0.81 K/mm3 (0.84-5.20); LYMPHOCYTES PERCENT AUTO 9 % (21-46); MONOCYTES ABSOLUTE AUTO 0.62 K/mm3 (0.16-1.47); MONOCYTES PERCENT AUTO 7 % (4-13); Mean Corpuscular HGB 31.6 pg (26.0-34.0); Mean Corpuscular HGB Conc 32.4 g/dL (31.5-36.5); Mean Corpuscular Volume 97 fL (80-100); Mean Platelet Volume 9.5 fL (9.1-12.4); NEUTROPHILS ABSOLUTE AUTO 7.76 K/mm3 (1.96-9.15); NEUTROPHILS PERCENT AUTO 81 % (41-73); Platelet Count 293 K/mm3 (150-400); RDW Coefficient Variation 14.6 % (11.7-14.2); RDW Standard Deviation 52.5 fL (35.1-46.3); Red Blood Cell Count 3.39 M/mm3 (4.30-5.90); White Blood Cell Count 9.55 K/mm3 (4.00-11.30)
[2024-05-28 09:27] LABS: Albumin, Blood 3.4 g/dL (3.4-5.0); Albumin/Globulin Ratio 0.9 (0.8-1.8); Bilirubin, Total 0.6 mg/dL (0.1-1.0); Bun/Creatinine Ratio 7.4 (12.0-20.0); Creatinine, Blood 8.46 mg/dL (0.60-1.20); Globulin, Blood 3.8 g/dL (2.2-4.0); Potassium, Blood 6.2 mmol/L (3.5-5.5); Total Protein, Blood 7.2 g/dL (6.4-8.2)
[2024-05-28] MEDS ORDERED: Furosemide 10 MG / ML 2ML Vial IV ONE (09:30)
[2024-05-28] MEDS ORDERED: Sodium Zirconium Cyclosilicate 10 GM Packet PO ONE (09:35)
[2024-05-28] MEDS ORDERED: Ondansetron HCl 2 MG / ML 2ML Vial IV PRN (10:20)
[2024-05-28] MEDS ORDERED: HydrALAZINE HCl 20 MG / ML 1ML Vial IV PRN (10:25)
[2024-05-28] MEDS ORDERED: FLU VACC TS2024-25(6MOS UP)/PF 45 MCG/0.5 ML SYRINGE IM SCH (10:25)
[2024-05-28] MEDS ORDERED: Sodium Zirconium Cyclosilicate 10 GM Packet PO SCH ×2 (10:34→14:00)
[2024-05-28] MEDS ORDERED: Thiamine HCl 100 MG Tab PO SCH (11:00)
[2024-05-28] MEDS ORDERED: Metoprolol Succinate 25 MG TABCR PO SCH (11:00)
[2024-05-28] MEDS ORDERED: Sacubitril/Valsartan 24 MG-26 MG Tab PO SCH (11:00)
[2024-05-28] MEDS ORDERED: Folic Acid 1 MG TAB PO SCH (11:00)
--- NOTE | 2024-05-28 11:41 | NUR ---
DIALYSIS NOTE PT ARRIVED TO MULTI TX ROOM FOR DIALYSIS VIA GURNEY, REPORT RECIEVED SHABBIR SEE-MARTÍN. DR. [place] AT BEDSIDED. DISCUSSED ORDERS AND HTN. OK TO START TX WITH HTN. WILL CONT TO MONITOR AND NOTIFY MD IF HTN DOES NOT IMPROVE WITH DIALYSIS.
[2024-05-28] MEDS ORDERED: Calcium Acetate 667 MG Gel Cap PO SCH (12:30)
[2024-05-28] MEDS ORDERED: Albuterol 2.5 MG/3 ML VIAL INH PRN (12:40)
[2024-05-28] MEDS ORDERED: PredniSONE 20 MG Tab PO SCH (13:00)
[2024-05-28] MEDS ORDERED: HydrALAZINE HCl 25 MG Tab PO SCH (14:00)
[2024-05-28] MEDS ORDERED: ChlordiazePOXIDE 25 MG Cap PO PRN ×3 (14:35→19:50)
--- NOTE | 2024-05-28 18:38 | NUR ---
ADMISSION/SHIFT SUMMARY: RECEIVED REPORTS FROM ER, RN REGARDING PATIENT CONDITION AND IN DIALYSIS. THIS RN RECEIVED A CALL FROM [facility] LPN AT AROUND 1330'S THAT PATIENT'S DONE c DIALYSIS. THIS RN AND MOP WORKEREMILY Olsen WENT DOWN TO DIALYSIS DEPARTMENT AND BROUGHT PATIENT TO UNIT VIA GURNEY. PATIENT ARRIVES TO ROOM AT 1358. PATIENT TRANSFERRED TO BED c 1 ASSIST. ADMISSION, MEDIC, AND SKIN ASSESSMENT c 2 RN'S VERIFIED COMPLETED. PATIENT A/OX3, CALM, PLEASANT AND COOPERATIVE c CARE. PATIENT REPORTS DRINKS A PINT OF WHISKEY, SMOKE 1/2-1 PACK OF CIGARETTE AND USES 100 GM OF METH MIXED IN COFFEE DAILY. PATIENT REPORTS LAST ALCOHOL INTAKE AND METH USED WAS 05/25/24. NOTIFIED DR. MARCELLUS bangura THIS ISSUES. DR. GERMAIN PLACED ORDER FOR CIWA ASSESSMENT, LIBRIUM AND NICOTINE PATCH. PATIENT HYPERTENSIVE, MEDICATED c SCHEDULED PO AND PRN IV BP MEDS PER EMAR c MOD EFFECT. PATIENT CIWA ASSESSMENT SCORE OF 8, MEDICATED c PO LIBRIUM. 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 BED ALARM ON FOR SAFETY. CALL LIGHT IN REACH.
--- NOTE | 2024-05-28 19:27 | NUR ---
ADDITIONAL NOTE: PATIENT ON TELE NSR HR IN THE HIGH 70'S BPM.
[2024-05-28] MEDS ORDERED: LORazepam 2 MG/ML 1ML Injection IV PRN ×2 (19:45→19:50)
[2024-05-28] MEDS ORDERED: AmLODIPine Besylate 5 MG Tab PO SCH (21:00)
[2024-05-28] MEDS ORDERED: CloNIDine 0.1 MG Tab PO SCH (21:00)
[2024-05-29] VITALS (13 sets, daily range): BP systolic 103–156; BP diastolic 62–103
--- NOTE | 2024-05-29 06:09 | NUR ---
SUMMARY: PT A/OX3 BUT WAS CONFUSED TO DATE W/REMINDERS PROVIDED PRN. HE HAS BED ALARM ON FOR IMPULSIVITY AND HAS URGENCY TO EOB TO USE URINAL. PT IS ON DIALYSIS W/PERMCATH PRESENT TO [facility] AND HAD LOW UO THIS SHIFT. CIWA WAS INITIALLY 8 BUT WAS 15 UPON REASSESSMENT. PT WAS TREMULOUS, MILDLY ANXIOUS, RESTLESS/FIGITY, C/O WORSENING VALLEJO AND WAS SLIGLTY DIAPHORETIC. LIBRIUM 100MG PO PRN RECEIVED AND PT ENDORSED FEELING "MUCH BETTER AND SLEEPING GREAT", CIWA NOW 5. PT ALSO REMAINS HYPERTENSIVE. HS SCHEDULED MEDS WERE PROVIDED FOR MILD IMPROVEMENT TO SBP 170'S BUT PRN HYDRALAZINE WAS REQUIRED THIS AM FOR SBP>180, AWAITING EFFECT. HE HAS SCATTERED SCABS AND PINPOINT SORES IN VARIOUS STAGES OF HEALING THAT PT CONTRIBUTES TO POSSIBLE HOME FLEE INFESTATION. HE COULDN'T R/O BEDBUGS/LICE ETC SO STICKY MAT WAS PLACED AT HIS DOORWAY AND ADDITIONAL PRECAUTIONS IMPLEMENTED. HE ALSO SHOWERED BEFORE BED W/NEW GOWN AND LINENS PROVIDED. NO ACUTE CHANGES. HE'S NSR ON TELE AND 70'S-80'S BPM. WCTM AND REPORT TO DAY RN.
[2024-05-29 07:03] LABS: BASOPHILS ABSOLUTE AUTO 0.03 K/mm3 (0.00-0.23); BASOPHILS PERCENT AUTO 0 % (0-2); EOSINOPHILS PERCENT AUTO 0 % (0-6); Hematocrit 33.3 % (37.0-53.0); Hemoglobin 10.9 g/dL (13.5-17.5); IMMATURE GRAN ABSOLUTE AUTO 0.03 K/mm3 (0.00-0.10); IMMATURE GRAN PERCENT AUTO 0 % (0-1); LYMPHOCYTES ABSOLUTE AUTO 0.51 K/mm3 (0.84-5.20); LYMPHOCYTES PERCENT AUTO 4 % (21-46); MONOCYTES ABSOLUTE AUTO 0.57 K/mm3 (0.16-1.47); MONOCYTES PERCENT AUTO 5 % (4-13); Mean Corpuscular HGB 31.5 pg (26.0-34.0); Mean Corpuscular HGB Conc 32.7 g/dL (31.5-36.5); Mean Corpuscular Volume 96 fL (80-100); Mean Platelet Volume 9.6 fL (9.1-12.4); NEUTROPHILS PERCENT AUTO 90 % (41-73); Platelet Count 329 K/mm3 (150-400); RDW Coefficient Variation 14.6 % (11.7-14.2); RDW Standard Deviation 51.8 fL (35.1-46.3); Red Blood Cell Count 3.46 M/mm3 (4.30-5.90); White Blood Cell Count 11.74 K/mm3 (4.00-11.30)
[2024-05-29 07:06] LABS: Albumin, Blood 3.6 g/dL (3.4-5.0); Anion Gap 17 mmol/L (3-11); Blood Urea Nitrogen 63 mg/dL (8-24); Bun/Creatinine Ratio 8.7 (12.0-20.0); CO2, Blood 24 mmol/L (21-32); Calcium, Blood 11.7 mg/dL (8.5-10.1); Chloride, Blood 94 mmol/L (98-108); Creatinine, Blood 7.26 mg/dL (0.60-1.20); Glomerular Filtration Rate 8 (60-); Glucose, Blood 114 mg/dL (70-99); Magnesium, Blood 2.4 mg/dL (1.6-2.4); Phosphorus, Blood 5.9 mg/dL (2.5-4.9); Potassium, Blood 5.1 mmol/L (3.5-5.5); Sodium, Blood 130 mmol/L (136-145)
[2024-05-29] MEDS ORDERED: Anticoagulant Sod Citrate Soln 3 ML SYR INJ PRN (07:50)
[2024-05-29] MEDS ORDERED: Sevelamer Carbonate 800 MG Tab PO SCH (08:30)
[2024-05-29] MEDS ORDERED: Empagliflozin 10 MG TAB PO SCH (09:00)
[2024-05-29] MEDS ORDERED: Sodium Zirconium Cyclosilicate 10 GM Packet PO SCH (09:00)
[2024-05-29] MEDS ORDERED: Heparin Sodium 5000 Units/ML 1ML MDV SC SCH (09:00)
[2024-05-29] MEDS ORDERED: Metoprolol Succinate 50 MG TABCR PO SCH (09:00)
[2024-05-29] MEDS ORDERED: Nicotine 21 MG PATCH TOP SCH (09:00)
[2024-05-29] MEDS ORDERED: FOLI1 PO (12:00)
[2024-05-29] MEDS ORDERED: HYDRA25 PO (12:00)
[2024-05-29] MEDS ORDERED: PRED20 PO (12:01)
[2024-05-29] MEDS ORDERED: ALBU90OI INH (12:01)
--- NOTE | 2024-05-29 12:51 | NUR ---
DISCHARGE REVIEWDD WITH PT. HE VERBALIZED UNDERSTANDING MEDS AND INST. STATES WILL HAVE C HELP WITH MED BOX. TELE REMOVED. IV PULLED ITACT. ARRANGING TARPORT
--- NOTE | 2024-05-29 15:32 | NUR ---
pt transprt here at 1525 wheeled to door by aide.
== END 2024-05-29 15:25 | disposition home health service (06) ==
LOC: ER 08:17 → MEDS 08:18 → ENPENDDIS 05-29 11:00 → MEDS 05-29 15:25
PROVIDERS: Emergency Medicine; ADMIT Internal Medicine
DX: I13.2 Hypertensive heart and chronic kidney disease with heart failure and with stage 5 chronic kidney disease, or end stage renal disease (principal); N18.6 End stage renal disease; I50.23 Acute on chronic systolic (congestive) heart failure; D63.1 Anemia in chronic kidney disease; E87.5 Hyperkalemia; N25.0 Renal osteodystrophy; E83.39 Other disorders of phosphorus metabolism; E87.22 Chronic metabolic acidosis; J44.1 Chronic obstructive pulmonary disease with (acute) exacerbation; J96.01 Acute respiratory failure with hypoxia; K21.9 Gastro-esophageal reflux disease without esophagitis; F17.210 Nicotine dependence, cigarettes, uncomplicated; Z99.2 Dependence on renal dialysis; Z79.899 Other long term (current) drug therapy
CPT/HCPCS: 36415; 71045; 80053; 80069; 83735; 83880; 84484; 85025; 93005; 93010; 94640; 94664; 94760; 96372; 96374; 96375; 96376; 99285-25; A9270; G0257; G0378; J0360; J1644; J1940; J7512

== ENCOUNTER 2024-06-08 07:44 | Emergency (ER) | payer OTHER, MEDICARE ==
[~2024-06-08] VITALS: Ht 172.7 cm; Wt 90.7 kg
[~2024-06-08 07:44] MED LIST changes: +FOLI1 PO; +PRED20 PO
[2024-06-08] MEDS ORDERED: HYDROmorphone HCl 2 MG Tab PO ONE (08:10)
[2024-06-08] MEDS ORDERED: Robaxin750 MG PO (09:35)
[2024-06-08] MEDS ORDERED: RX Prepack 6 Tabs Oxycodone 5mg UD ONE (09:35)
[2024-06-08] MEDS ORDERED: Methocarbamol 500 MG Tab PO ONE (10:10)
[2024-06-08 10:39] VITALS: BP 172/99
== END 2024-06-08 10:40 | disposition home or self-care (01) ==
LOC: ER 07:44
DX: S30.0XXA Contusion of lower back and pelvis, initial encounter (principal); I13.0 Hypertensive heart and chronic kidney disease with heart failure and stage 1 through stage 4 chronic kidney disease, or unspecified chronic kidney disease; N18.6 End stage renal disease; I50.20 Unspecified systolic (congestive) heart failure; F17.210 Nicotine dependence, cigarettes, uncomplicated; W01.0XXA Fall on same level from slipping, tripping and stumbling without subsequent striking against object, initial encounter; Z79.899 Other long term (current) drug therapy; Z79.52 Long term (current) use of systemic steroids; Z88.8 Allergy status to other drugs, medicaments and biological substances
CPT/HCPCS: 72100; 99283-25; A9270

== ENCOUNTER 2024-06-09 06:42 | Emergency (ER) | payer MEDICARE ==
[~2024-06-09] VITALS: Ht 172.7 cm; Wt 77.1 kg
[~2024-06-09 06:42] MED LIST changes: +Robaxin750 MG PO
[2024-06-09] MEDS ORDERED: Methocarbamol 500 MG Tab PO ONE (08:20)
[2024-06-09] MEDS ORDERED: Acetaminophen 325 MG TABLET PO ONE (08:20)
[2024-06-09 08:26] VITALS: BP 186/117
== END 2024-06-09 09:38 | disposition home or self-care (01) ==
LOC: ER 06:42
DX: S39.012A Strain of muscle, fascia and tendon of lower back, initial encounter (principal); I12.0 Hypertensive chronic kidney disease with stage 5 chronic kidney disease or end stage renal disease; N18.6 End stage renal disease; W18.30XA Fall on same level, unspecified, initial encounter; Z79.52 Long term (current) use of systemic steroids; Z79.899 Other long term (current) drug therapy
CPT/HCPCS: 99283; A9270

== ENCOUNTER 2024-06-11 15:03 | Inpatient (IN) | payer MEDICARE ==
[~2024-06-11] VITALS: Ht 175.3 cm; Wt 79.1 kg
[2024-06-11] VITALS (12 sets, daily range): BP systolic 108–172; BP diastolic 22–105
[2024-06-11] MEDS ORDERED: MethylPREDNISolone Sod Succ 125 MG Vial IV ONE (16:05)
[2024-06-11] MEDS ORDERED: CloNIDine 0.1 MG Tab PO ONE (16:15)
[2024-06-11 16:56] LABS: BASOPHILS ABSOLUTE AUTO 0.09 K/mm3 (0.00-0.23); BASOPHILS PERCENT AUTO 0 % (0-2); EOSINOPHILS ABSOLUTE AUTO 0.06 K/mm3 (0.00-0.68); EOSINOPHILS PERCENT AUTO 0 % (0-6); Hematocrit 35.8 % (37.0-53.0); Hemoglobin 11.8 g/dL (13.5-17.5); IMMATURE GRAN ABSOLUTE AUTO 0.09 K/mm3 (0.00-0.10); IMMATURE GRAN PERCENT AUTO 0 % (0-1); LYMPHOCYTES ABSOLUTE AUTO 0.39 K/mm3 (0.84-5.20); LYMPHOCYTES PERCENT AUTO 2 % (21-46); MONOCYTES ABSOLUTE AUTO 1.13 K/mm3 (0.16-1.47); MONOCYTES PERCENT AUTO 5 % (4-13); Mean Corpuscular HGB 32.6 pg (26.0-34.0); Mean Corpuscular Volume 99 fL (80-100); Mean Platelet Volume 10.1 fL (9.1-12.4); NEUTROPHILS ABSOLUTE AUTO 19.99 K/mm3 (1.96-9.15); NEUTROPHILS PERCENT AUTO 92 % (41-73); Platelet Count 329 K/mm3 (150-400); RDW Coefficient Variation 14.8 % (11.7-14.2); Red Blood Cell Count 3.62 M/mm3 (4.30-5.90); White Blood Cell Count 21.75 K/mm3 (4.00-11.30)
[2024-06-11 17:28] LABS: Albumin, Blood 2.7 g/dL (3.4-5.0); Albumin/Globulin Ratio 0.5 (0.8-1.8); Bilirubin, Total 1.1 mg/dL (0.1-1.0); Bun/Creatinine Ratio 9.8 (12.0-20.0); Globulin, Blood 5.1 g/dL (2.2-4.0); Potassium, Blood 6.7 mmol/L (3.5-5.5); Total Protein, Blood 7.8 g/dL (6.4-8.2)
[2024-06-11] MEDS ORDERED: Anticoagulant Sod Citrate Soln 3 ML SYR INJ PRN (18:00)
[2024-06-11] MEDS ORDERED: CALCIUM GLUC IN NACL, ISO-OSM 100 ML IV ONE (18:00)
[2024-06-11] MEDS ORDERED: Albuterol 2.5 MG/3 ML VIAL INH PRN (18:15)
[2024-06-11] MEDS ORDERED: Albuterol 2.5 MG/3 ML VIAL INH ONE (19:00)
[2024-06-11] MEDS ORDERED: FLU VACC TS2024-25(6MOS UP)/PF 45 MCG/0.5 ML SYRINGE IM ONE (20:00)
[2024-06-11] MEDS ORDERED: Sacubitril/Valsartan 24 MG-26 MG Tab PO SCH (21:00)
[2024-06-11] MEDS ORDERED: CloNIDine 0.1 MG Tab PO SCH (21:00)
[2024-06-11] MEDS ORDERED: HydrALAZINE HCl 25 MG Tab PO SCH (21:00)
[2024-06-11] MEDS ORDERED: CefTRIAXone Sodium 1,000 MG in NS 100 ML IV SCH (21:35)
[2024-06-11] MEDS ORDERED: Azithromycin 500 MG in NS 250 ML IV SCH (21:36)
[2024-06-11 21:49] LABS: PCO2 Venous 37.2 mmHg (38-42); pH Blood Venous 7.43 (7.34-7.37)
[2024-06-11 21:50] LABS: Base Excess Venous 0.6 mmol/L
[2024-06-12] VITALS (18 sets, daily range): BP systolic 110–174; BP diastolic 71–117
[2024-06-12 04:03] LABS: Hematocrit 33.2 % (37.0-53.0); Hemoglobin 10.9 g/dL (13.5-17.5); Mean Corpuscular HGB 31.5 pg (26.0-34.0); Mean Corpuscular HGB Conc 32.8 g/dL (31.5-36.5); Mean Corpuscular Volume 96 fL (80-100); Mean Platelet Volume 10.2 fL (9.1-12.4); Platelet Count 310 K/mm3 (150-400); RDW Coefficient Variation 14.7 % (11.7-14.2); RDW Standard Deviation 52.5 fL (35.1-46.3); Red Blood Cell Count 3.46 M/mm3 (4.30-5.90); White Blood Cell Count 17.12 K/mm3 (4.00-11.30)
[2024-06-12 04:52] LABS: Magnesium, Blood 2.5 mg/dL (1.6-2.4)
[2024-06-12 05:02] LABS: Albumin, Blood 2.6 g/dL (3.4-5.0); Anion Gap 21 mmol/L (3-11); Blood Urea Nitrogen 101 mg/dL (8-24); Bun/Creatinine Ratio 10.5 (12.0-20.0); CO2, Blood 21 mmol/L (21-32); Calcium, Blood 8.1 mg/dL (8.5-10.1); Chloride, Blood 94 mmol/L (98-108); Creatinine, Blood 9.64 mg/dL (0.60-1.20); Glomerular Filtration Rate 6 (60-); Glucose, Blood 183 mg/dL (70-99); Phosphorus, Blood 9.2 mg/dL (2.5-4.9); Potassium, Blood 5.8 mmol/L (3.5-5.5); Sodium, Blood 130 mmol/L (136-145)
--- NOTE | 2024-06-12 06:32 | NUR ---
ARRIVAL TO PCU/END OF SHIFT SUMMARY PT ARRIVED TO PCU 5 FROM DIALYSIS AT 2114 AND WAS ABLE TO AMBULATE WITH MOD ASSISTANCE TO PCU BED. ADMIT FOR HYPERKALEMIA. HE IS A/O X4 BUT CHALLENGING TO UNDERSTAND AT TIMES. HE C/O BACK PAIN FROM FALL A FEW DAYS AGO; HE STATES THAT THE PAIN IS IMPROVING AND HAS NOT BEEN TAKING PAIN MEDS AT HOME FOR IT; HE STATES THAT HIS MOBILITY IS SLOWLY IMPROVING SINCE BACK INJURY. SPO2 >95% ON RA. AFEBRILE. NSR WITH RATE IN 80'S. BP SOFT DURING DIALYSIS; SBP 150-160'S POST DIALYSIS; SCHEDULED MEDS GIVEN AFTER DIALYSIS. PT TOLERATING PO INTAKE WELL; ABD ROUND AND FIRM, PT STATED THIS IS NORMAL. DIALYSIS REMOVED 3.1L BEFORE ARRIVAL; PLAN FOR DIALYSIS AGAIN TODAY; PERMACATH TO RT CHEST WALL NOTED; NO URINE OUTPUT THIS SHIFT. DR DIA NOTIFIED OF CRITICAL LABS THIS AM. WILL REPORT TO AM RN WHEN AVAILABLE.
[2024-06-12] MEDS ORDERED: Anticoagulant Sod Citrate Soln 3 ML SYR INJ PRN (07:30)
[2024-06-12] MEDS ORDERED: Calcium Acetate 667 MG Gel Cap PO SCH (08:30)
--- NOTE | 2024-06-12 08:30 | NUR ---
UPDATE PT TAKEN TO DIALYSIS FOR TREATMENT. WILL AWAIT RETURN
[2024-06-12] MEDS ORDERED: Folic Acid 1 MG TAB PO SCH (09:00)
[2024-06-12] MEDS ORDERED: CalcitrioL 0.5 MCG Cap PO SCH (09:00)
[2024-06-12] MEDS ORDERED: Vitamin B Cmplx/Vit C/Folic Ac 1 Tab PO SCH (09:00)
[2024-06-12] MEDS ORDERED: Sodium Zirconium Cyclosilicate 10 GM Packet PO PRN (09:00)
[2024-06-12] MEDS ORDERED: Sodium Zirconium Cyclosilicate 10 GM Packet PO SCH (09:00)
[2024-06-12] MEDS ORDERED: Metoprolol Succinate 50 MG TABCR PO SCH (09:00)
[2024-06-12] MEDS ORDERED: Heparin Sodium 5000 Units/ML 1ML MDV SC SCH (09:00)
--- NOTE | 2024-06-12 11:15 | NUR ---
UPDATE PT RETURNED FROM DIALYSIS. BP ELEVATED. HR REMAINS NSR. PT DENIES ANY PAIN. CALL LIGHT IN REACH
[2024-06-12] MEDS ORDERED: Vancomycin HCL 1,500 MG in NS 250 ML IV ONE (14:50)
--- NOTE | 2024-06-12 16:55 | NUR ---
UPDATE PT REMAINS ALERT AND ORIENTED. PT REPORTS FEELING "SLEEPY" SINCE DIALYSIS. BP STABLE. HR REMAINS NSR 60'S. O2 SATS REMAIN ABOVE 90% ON RA. PT DENIES ANY PAIN AT REST, BUT STATES DISCOMFORT TO BACK DURING AMBULATION. PT UP TO BATHROOM NEEDED TO VOID WITH FWW. BED ASSIGNMENT PROVIDED TO MEDICAL FLOOR. REPORT GIVEN TO MARIBETH. PT TO BE TAKEN TO MEDICAL FLOOR VIA
--- NOTE | 2024-06-12 18:35 | NUR ---
PT TRANSFERED FROM PCU 5 TO ROOM 342. PT NOTED TO BE A&OX4 AND SBA WITH FWW. PT NOTED TO BE DIFFICULT TO UNDERSTAND AT TIMES. PT BP NOTED BE SLOWLY COMING DOWN. IT WAS REPORTED TO THIS NURSE THAT PHYSICANS ARE AWARE OF PT BP AND THAT DR DIA AND DR JIANG ARE NOT CONCERNED D/T PT HAS CHRONICLY HIGH BP AND PT GETTING DIAYLISIS.
[2024-06-12] MEDS ORDERED: NS 250 ML BAG XX PRN (20:55)
[2024-06-13] VITALS (15 sets, daily range): BP systolic 136–174; BP diastolic 84–105
[2024-06-13] MEDS ORDERED: Acetaminophen 325 MG TABLET PO PRN (02:45)
--- NOTE | 2024-06-13 03:57 | NUR ---
A&Ox4 w/some confusion noted, vss (remains hypertensive), medicated x1 for c/o 01/18 back pain, also using Kpad, has only napped intermittently this shift req freq snacks, ambulated in gillespie w/cover making machine operator, awake watching tv at this time w/call light in reach, will cont to monitor until report given to oncoming nurse.
[2024-06-13 06:03] LABS: Hematocrit 34.9 % (37.0-53.0); Hemoglobin 11.3 g/dL (13.5-17.5)
[2024-06-13 06:55] LABS: Magnesium, Blood 2.6 mg/dL (1.6-2.4)
[2024-06-13] MEDS ORDERED: Anticoagulant Sod Citrate Soln 3 ML SYR INJ PRN (07:15)
[2024-06-13 07:34] LABS: Albumin, Blood 2.7 g/dL (3.4-5.0); Anion Gap 18 mmol/L (3-11); Blood Urea Nitrogen 101 mg/dL (8-24); CO2, Blood 25 mmol/L (21-32); Calcium, Blood 8.6 mg/dL (8.5-10.1); Chloride, Blood 95 mmol/L (98-108); Creatinine, Blood 8.41 mg/dL (0.60-1.20); Glomerular Filtration Rate 7 (60-); Glucose, Blood 95 mg/dL (70-99); Phosphorus, Blood 9.1 mg/dL (2.5-4.9); Potassium, Blood 5.4 mmol/L (3.5-5.5); Sodium, Blood 133 mmol/L (136-145); Vancomycin, Random 29.2 ug/mL
[2024-06-13] MEDS ORDERED: OxyCODONE HCL 5 MG TAB PO PRN (11:30)
[2024-06-13] MEDS ORDERED: Acetaminophen 500 MG Tab PO SCH (16:00)
--- NOTE | 2024-06-13 18:24 | NUR ---
PATIENT A/OX4, UP WITH FWW AND SBA. WENT DOWN FOR DIALYSIS TODAY. VSS, ON RA. REPORTS BACK PAIN CONTROLLED WITH TYLENOL. FLEXERIL ORDERED FOR TONIGHT. PATIENT TOLERATING DIET. CALM AND COOPERATIVE WITH CARE. NO NEW CONCERNS THIS SHIFT.
[2024-06-13] MEDS ORDERED: Cyclobenzaprine HCl 10 MG Tab PO SCH (21:00)
[2024-06-14 02:34] VITALS: BP 163/96
--- NOTE | 2024-06-14 05:22 | NUR ---
A&O w/forgetfulness, VSS (remains hypertensive), medicated x2 for c/o back pain w/5 oxy and used Kpad intermittently, patient walked a lap in gillespie to help relieve pain, sleeping at this time, call light in reach, will cont to monitor until report given to oncoming nurse.
[2024-06-14 06:48] LABS: Hematocrit 36.2 % (37.0-53.0); Hemoglobin 11.7 g/dL (13.5-17.5); Mean Corpuscular HGB 31.4 pg (26.0-34.0); Mean Corpuscular HGB Conc 32.3 g/dL (31.5-36.5); Mean Corpuscular Volume 97 fL (80-100); Mean Platelet Volume 9.8 fL (9.1-12.4); Platelet Count 340 K/mm3 (150-400); RDW Coefficient Variation 14.6 % (11.7-14.2); RDW Standard Deviation 52.6 fL (35.1-46.3); Red Blood Cell Count 3.73 M/mm3 (4.30-5.90); White Blood Cell Count 10.54 K/mm3 (4.00-11.30)
[2024-06-14 07:17] VITALS: BP 163/103
[2024-06-14 07:18] LABS: Magnesium, Blood 2.4 mg/dL (1.6-2.4)
[2024-06-14 07:21] LABS: Anion Gap 18 mmol/L (3-11); Blood Urea Nitrogen 86 mg/dL (8-24); Bun/Creatinine Ratio 10.9 (12.0-20.0); CO2, Blood 26 mmol/L (21-32); Calcium, Blood 8.8 mg/dL (8.5-10.1); Chloride, Blood 94 mmol/L (98-108); Creatinine, Blood 7.86 mg/dL (0.60-1.20); Glomerular Filtration Rate 7 (60-); Glucose, Blood 92 mg/dL (70-99); Potassium, Blood 4.9 mmol/L (3.5-5.5); Sodium, Blood 133 mmol/L (136-145); Vancomycin, Random 20.5 ug/mL
[2024-06-14 07:23] LABS: Phosphorus, Blood 8.3 mg/dL (2.5-4.9)
[2024-06-14 14:07] VITALS: BP 160/93
[2024-06-14 15:59] VITALS: BP 190/104
[2024-06-14 16:28] VITALS: BP 178/107
--- NOTE | 2024-06-14 17:08 | NUR ---
SHIFT SUMMARY PT A/OX4, UP WITH SBA AND FWW TODAY TO SHOWER. PHOSPHORUS 8.3 ON THIS MORNINGS LABS. PT REPORTS LITTLE BACK PAIN THROUGHOUT THIS SHIFT UNTIL THIS EVENING, PT MEDICATED X1 WITH PRN OXYCODONE PER SEP. TELE D/C'D THIS AFTERNOON, PRIOR TO DISCONTINUATION PT REMAINED IN NORMAL SINUS RYTHYM IN THE 60'S.
[2024-06-14 19:54] VITALS: BP 171/95
[2024-06-15] VITALS (16 sets, daily range): BP systolic 126–187; BP diastolic 84–121
--- NOTE | 2024-06-15 06:24 | NUR ---
SHIFT SUMMARY PT ALERT AND ORIENTED TIMES 4. PT WAS RECEPTIVE TO CARE TONIGHT. PT HAD MULTIPLE EMESIS AND HIGH ANXIETY. PT REQUESTED PAIN MEDICATION AND ANXIETY MEDICATION ALONG WITH ZOFRAN. PT TOOK SHOWER THIS MORNING.. PT APPEARED TO SLEEP ON AND OFF THROUGH NIGHT. BED IN LOW POSITION, CALL LIGHT WITHIN REACH, RAILS TIMES 2.
[2024-06-15] MEDS ORDERED: Anticoagulant Sod Citrate Soln 3 ML SYR INJ PRN (07:25)
[2024-06-15 09:00] LABS: Hematocrit 31.3 % (37.0-53.0); Hemoglobin 10.3 g/dL (13.5-17.5)
[2024-06-15 09:18] LABS: Magnesium, Blood 2.3 mg/dL (1.6-2.4)
[2024-06-15 09:21] LABS: Albumin, Blood 2.7 g/dL (3.4-5.0); Anion Gap 21 mmol/L (3-11); Blood Urea Nitrogen 107 mg/dL (8-24); CO2, Blood 23 mmol/L (21-32); Calcium, Blood 8.9 mg/dL (8.5-10.1); Chloride, Blood 91 mmol/L (98-108); Creatinine, Blood 9.69 mg/dL (0.60-1.20); Glomerular Filtration Rate 6 (60-); Glucose, Blood 108 mg/dL (70-99); Phosphorus, Blood 10.1 mg/dL (2.5-4.9); Potassium, Blood 5.9 mmol/L (3.5-5.5); Sodium, Blood 129 mmol/L (136-145); Vancomycin, Random 17.3 ug/mL
[2024-06-15] MEDS ORDERED: Vancomycin HCL 1,000 MG in NS 250 ML IV SCH (12:00)
[2024-06-15] MEDS ORDERED: Empagliflozin 10 MG TAB PO SCH (16:00)
--- NOTE | 2024-06-15 17:40 | NUR ---
SHIFT SUMMARY: PATIENT HAD DIALYSIS TODAY AND GOT 2.8 L REMOVED; TOLERATED WELL, SLEPT THE ENTIRE TIME AND WAS ASLEEP WHEN HE RETURNED TO THE UNIT. PATIENT C/O BILATERAL HIP PAIN; DR. RHODES AWARE. PATIENT IS A&OX4, MAKES NEEDS KNOWN, AND IS A 1 PERSON ASSIST WITH THE FWW. PATIENT IS ON A 1 L FLUID RESTRICTION AND HAS HAD MINIMAL FLUID INTAKE TODAY ALONG WITH OLIGURIA. PENDING BLOOD CULTURES. PATIENT IN BED, RESTING, RESPONSES TO VERBAL STIMULI CALL LIGHT WITHIN REACH, BED ALARM SET NO SIGNS OR SYMPTOMS OF DISTRESS, PLAN OF CARE ONGOING.
[2024-06-15] MEDS ORDERED: Methyl Salicylate/Menth/Camph 57 GM TUBE TOP PRN (18:45)
[2024-06-16] VITALS (14 sets, daily range): BP systolic 123–194; BP diastolic 72–116
[2024-06-16 06:21] LABS: Hematocrit 34.3 % (37.0-53.0); Hemoglobin 11.3 g/dL (13.5-17.5)
[2024-06-16 07:07] LABS: Magnesium, Blood 2.3 mg/dL (1.6-2.4)
[2024-06-16 07:21] LABS: Anion Gap 16 mmol/L (3-11); Blood Urea Nitrogen 96 mg/dL (8-24); Bun/Creatinine Ratio 10.4 (12.0-20.0); CO2, Blood 24 mmol/L (21-32); Calcium, Blood 9.3 mg/dL (8.5-10.1); Chloride, Blood 96 mmol/L (98-108); Creatinine, Blood 9.24 mg/dL (0.60-1.20); Glomerular Filtration Rate 6 (60-); Glucose, Blood 97 mg/dL (70-99); Phosphorus, Blood 9.5 mg/dL (2.5-4.9); Potassium, Blood 5.4 mmol/L (3.5-5.5); Sodium, Blood 131 mmol/L (136-145)
[2024-06-16] MEDS ORDERED: Anticoagulant Sod Citrate Soln 3 ML SYR INJ PRN (07:25)
[2024-06-16] MEDS ORDERED: Sodium Zirconium Cyclosilicate 10 GM Packet PO SCH (09:00)
[2024-06-16] MEDS ORDERED: Sacubitril/Valsartan 49 MG/51 MG Tab PO SCH (09:00)
[2024-06-16] MEDS ORDERED: CloNIDine 0.1 MG Tab PO SCH (09:00)
--- NOTE | 2024-06-16 14:07 | NUR ---
DIALYSIS NURSE TO PT RM TO DRAW BLOOD CULTURES FOR LAB TEST FROM DIALYSIS CATHETER AT APPROX 1345PM PER NEPHROLOGY REQUEST. CULTURES DRAWN AND SENT TO LAB, PENDING RESULTS.
--- NOTE | 2024-06-16 19:38 | NUR ---
report received verified. pt a/o very drowsy but appropriate, pt fed self and was taken to dialysis.
--- NOTE | 2024-06-16 19:39 | NUR ---
1100 pt back from dialysis and did well, enc to get out of bed to chair for a while, pt was up 30 min thrn wanted to return to sleep. uneventful day pt slept and would call if needing anything. pt explained that he was having trouble walking and didnt feel safe going home, pt said a snf was probably the safest place for him to be. notified.
[2024-06-16] MEDS ORDERED: Polyethylene Glycol 3350 119 GM PO PRN (22:55)
--- NOTE | 2024-06-16 22:56 | NUR ---
DR CALLED: PT REQUESTED SOMETHING TO HELP HIM HAVE A BM. DR ORDERED MIRALAX ONCE A DAY NEEDED PRN. DOCUSATE ORDERED 100MG TWICE DAILY.
[2024-06-17] VITALS (16 sets, daily range): BP systolic 106–171; BP diastolic 58–102
[2024-06-17] MEDS ORDERED: Docusate Sodium/Senna 1 Tab PO ONE (00:40)
--- NOTE | 2024-06-17 04:11 | NUR ---
SHIFT SUMMARY: PT IS A 58 YO FULL CODE WHO WAS ADMITTED FOR HYPERKALEMIA/FLUID OVERLOAD. PT HAD DIALYSIS THE LAST 2 DAYS AND IS IN ESRD. PT HAS BEEN RESTING BUT DID HAVE HIS SON BENJAMIN VISIT AT THE BEG OF SHIFT. PT HAS NOT AMBULATED FOR ME TONIGHT AND HAS ONLY HAD LITTLE OUTPUT IN THE BEDSIDE URINAL. PT REQUESTED A STOOL SOFTNER AND SAYS HE HAS NOT HAD A BM SINCE ADMISSION, I CALLED THE DOCTOR AND GOT AN ORDER FOR DOCUSATE AND MIRALAX IF NEEDED. PT HAS HAD SOME ICE CHIPS AND WAS EDUCATED ON THE FLUID RESTRICTION. PT GETS SLIGHTLY MORE CONFUSED AT NIGHT TIME AND IS HARD TO UNDERSTAND (WORD SALAD), BED ALARM SET FOR SAFETY AND RECENT AT HOME FALL .PT IS ON STRICT I&O'S W/FLUID RESTR-OF 1,000ML. PT HAD SOME PAIN MEDS FOR SORE HIPS AND BACK. PT COOPERATIVE WITH CARE AND HAS CALL LIGHT IN REACH.
[2024-06-17 04:58] LABS: Hematocrit 29.9 % (37.0-53.0); Hemoglobin 9.7 g/dL (13.5-17.5)
[2024-06-17 05:32] LABS: Magnesium, Blood 2.3 mg/dL (1.6-2.4)
[2024-06-17 05:44] LABS: Albumin, Blood 2.6 g/dL (3.4-5.0); Anion Gap 13 mmol/L (3-11); Blood Urea Nitrogen 85 mg/dL (8-24); CO2, Blood 26 mmol/L (21-32); Calcium, Blood 8.9 mg/dL (8.5-10.1); Chloride, Blood 99 mmol/L (98-108); Glucose, Blood 96 mg/dL (70-99); Potassium, Blood 5.6 mmol/L (3.5-5.5); Sodium, Blood 132 mmol/L (136-145); Vancomycin, Random 23.9 ug/mL
[2024-06-17 05:48] LABS: Bun/Creatinine Ratio 9.7 (12.0-20.0); Creatinine, Blood 8.78 mg/dL (0.60-1.20); Glomerular Filtration Rate 6 (60-); Phosphorus, Blood 9.5 mg/dL (2.5-4.9)
[2024-06-17] MEDS ORDERED: Anticoagulant Sod Citrate Soln 3 ML SYR INJ PRN (07:30)
[2024-06-17] MEDS ORDERED: Alteplase Recombinant 2 MG / Vial IV PRN ×2 (07:35→08:10)
[2024-06-17] MEDS ORDERED: Docusate Sodium/Senna 1 Tab PO SCH (09:00)
[2024-06-17] MEDS ORDERED: Sodium Zirconium Cyclosilicate 10 GM Packet PO SCH (09:00)
[2024-06-17] MEDS ORDERED: Vancomycin HCL 500 MG in NS 250 ML IV ONE (15:00)
--- NOTE | 2024-06-17 17:22 | NUR ---
REPORT RECEIVED DIALYSIS NURSE AT BEDSIDE GIULIA CORADO ADMINISTERED PT TO HAVE DIALYSIS TODAY. CALL LIGHT WITHIN REACH NO CHANGE
--- NOTE | 2024-06-17 17:23 | NUR ---
PT BACK FROM HD SLEEPY AND RELAXED IN BED CALL LIGHT WITHIN REACH.
--- NOTE | 2024-06-17 17:24 | NUR ---
VANCO ADMINISTERED PT JOSELO WELL NEW IV WAS STARTED TO LEFT FA, WILL CONT TO MONITOR
[2024-06-18] VITALS (16 sets, daily range): BP systolic 118–171; BP diastolic 79–109
--- NOTE | 2024-06-18 04:41 | NUR ---
SHIFT SUMMARY PATIENT HAD NO ACUTE CHANGES. AXOX 3 WITH GARBLE SPEECH AT TIMES. ONE ASSIST FWW/GB TO BSC. DENIES CHEST PAIN, SOB, AND N/V. REPORTED HIP PAIN X ONE AND OXYCODONE 5 MG GIVEN PER EMAR. DIALYSIS PORT RU CHEST. PIV INTACT. IV ABX INFUSED. FLUID RESTRICTION 1,000 mL. SLEPT ON/OFF. CALL LIGHT IN REACH. BED IN LOWEST POSITION. WILL CONTINUE TO MONITOR UNTIL DAY SHIFT NURSE ASSUMES CARE.
[2024-06-18 05:49] LABS: Hematocrit 31.1 % (37.0-53.0); Hemoglobin 9.8 g/dL (13.5-17.5)
[2024-06-18 06:45] LABS: Magnesium, Blood 2.2 mg/dL (1.6-2.4)
[2024-06-18 07:07] LABS: Albumin, Blood 2.6 g/dL (3.4-5.0); Anion Gap 14 mmol/L (3-11); Blood Urea Nitrogen 67 mg/dL (8-24); CO2, Blood 26 mmol/L (21-32); Chloride, Blood 100 mmol/L (98-108); Creatinine, Blood 7.46 mg/dL (0.60-1.20); Glomerular Filtration Rate 8 (60-); Glucose, Blood 95 mg/dL (70-99); Potassium, Blood 4.9 mmol/L (3.5-5.5); Sodium, Blood 135 mmol/L (136-145); Vancomycin, Random 26.6 ug/mL
[2024-06-18 07:10] LABS: Phosphorus, Blood 8.3 mg/dL (2.5-4.9)
[2024-06-18] MEDS ORDERED: Anticoagulant Sod Citrate Soln 3 ML SYR INJ PRN (07:55)
[2024-06-18] MEDS ORDERED: Nicotine 14 MG PATCH TOP ONE (15:05)
--- NOTE | 2024-06-18 19:37 | NUR ---
SHIFT SUMMARY PT A&OX4. PT ADMITTED DUE TO HYPERKALEMIA. PT HAD DIALYSIS THIS AM. PT VSS. PT REPORTS CHRONIC BACK PAIN, PAIN MANAGED PER EMAR. PT AMBULATES WITH FWW AND GB. PT FOLLOWED FLUID RESTRICTION. PT EATS ADEQUATE. PT BED IN LOWEST POSITION, CALL LIGHT IN REACH, CALLS APPROPRIATE. NO ACUTE CHANGES NOTED IN SHIFT.
[2024-06-19] VITALS (16 sets, daily range): BP systolic 132–161; BP diastolic 81–106
--- NOTE | 2024-06-19 04:12 | NUR ---
SHIFT SUMMARY PATIENT HAD NO ACUTE CHANGES. AXOX 4 AND ONE ASSIST FWW/GB TO BSC. USES URINAL AT BEDSIDE. PIV INTACT. IV ABX INFUSED. SCHEDULE TYLENOL 1,000 MG FOR BACK/HIP PAIN. DENIES CHEST PAIN, SOB, AND N/V. VSS/AFEBRILE. SLEPT ON/OFF. CALL LIGHT IN REACH. BED IN LOWEST POSITION. WILL CONTINUE TO MONITOR UNTIL DAY SHIFT NURSE ASSUMES CARE.
[2024-06-19 05:21] LABS: Hematocrit 30.7 % (37.0-53.0); Hemoglobin 9.7 g/dL (13.5-17.5)
[2024-06-19 06:00] LABS: Magnesium, Blood 2.1 mg/dL (1.6-2.4)
[2024-06-19 06:36] LABS: Albumin, Blood 2.7 g/dL (3.4-5.0); Anion Gap 13 mmol/L (3-11); Blood Urea Nitrogen 71 mg/dL (8-24); Bun/Creatinine Ratio 9.2 (12.0-20.0); CO2, Blood 27 mmol/L (21-32); Calcium, Blood 9.4 mg/dL (8.5-10.1); Chloride, Blood 96 mmol/L (98-108); Glomerular Filtration Rate 7 (60-); Glucose, Blood 141 mg/dL (70-99); Phosphorus, Blood 8.8 mg/dL (2.5-4.9); Potassium, Blood 4.2 mmol/L (3.5-5.5); Sodium, Blood 132 mmol/L (136-145); Vancomycin, Random 20.8 ug/mL
[2024-06-19] MEDS ORDERED: Anticoagulant Sod Citrate Soln 3 ML SYR INJ PRN (07:25)
[2024-06-19] MEDS ORDERED: Vancomycin HCL 1,250 MG in NS 250 ML IV SCH (12:00)
[2024-06-19] MEDS ORDERED: Vancomycin HCL 500 MG in NS 250 ML IV ONE (12:20)
[2024-06-19] MEDS ORDERED: MIRALAX17 GM PO (13:36)
[2024-06-19] MEDS ORDERED: Colace100 MG PO (13:36)
--- NOTE | 2024-06-19 14:31 | NUR ---
PT DISCHARGED DC INSTRUCTIONS GIVEN TO THE PT BY SEFERINO LAY PRIOR TO DC, THE PT WAS TRANSFERED VIA WHEELCHAIR TO THE FRONT TO MEET HIS RIDE WITH DIAL A RIDE. BELONGINGS RELEASED TO THE PATIENT
--- NOTE | 2024-06-19 14:44 | NUR ---
PT WAS DISHCARGED WITH INSTRUCTIONS. PT HAS NO QUESTIONS OR CONCERNS WITH FOLLOW UP APPOINTMENT.
== END 2024-06-19 14:23 | disposition home health service (06) | DRG 871 ==
LOC: ER 15:03 → PCU 15:04 → ER 18:59 → PCU 18:59 → MEDS 06-12 13:20 → PCU 06-12 13:21 → MEDS 06-12 17:03
PROVIDERS: Emergency Medicine; Internal Medicine; Internal Medicine Nephrology; Nurse Practitioner Acute Care; ADMIT Student in an Organized Health Care Education/Training Program
PROC: 5A1D70Z Performance of Urinary Filtration, Intermittent, Less than 6 Hours Per Day (ICD-10-PCS; principal; 2024-06-11)
PROC: 3E03329 Introduction of Other Anti-infective into Peripheral Vein, Percutaneous Approach (ICD-10-PCS; 2024-06-11)
DX: A40.8 Other streptococcal sepsis (principal); I50.23 Acute on chronic systolic (congestive) heart failure; N18.6 End stage renal disease; I13.2 Hypertensive heart and chronic kidney disease with heart failure and with stage 5 chronic kidney disease, or end stage renal disease; E87.1 Hypo-osmolality and hyponatremia; E87.20 Acidosis, unspecified; E11.22 Type 2 diabetes mellitus with diabetic chronic kidney disease; E87.5 Hyperkalemia; D63.1 Anemia in chronic kidney disease; F10.20 Alcohol dependence, uncomplicated; G89.29 Other chronic pain; M54.9 Dorsalgia, unspecified; F17.210 Nicotine dependence, cigarettes, uncomplicated; N25.0 Renal osteodystrophy; E83.41 Hypermagnesemia; E83.39 Other disorders of phosphorus metabolism; Z79.52 Long term (current) use of systemic steroids
CPT/HCPCS: 36415; 71045; 74177; 80053; 80069; 80202; 82803; 83605; 83735; 84145; 85014; 85018; 85025; 85027; 85651; 87040; 87077; 87184; 93306; 94760; 96372; 96374-59; 96375; 96376; 97116; 97161; 97530; 99285-25; A9270; G0378; J0456; J0696; J1644; J2919; J2997; J3370; J7050; Q9967

== ENCOUNTER 2024-07-09 13:02 | Inpatient (IN) | payer MEDICARE ==
[2024-07-09] VITALS (27 sets, daily range): BP systolic 94–1085; BP diastolic 72–108
[~2024-07-09] VITALS: Ht 165.1 cm; Wt 74.3 kg
[~2024-07-09 13:02] MED LIST changes: +Colace100 MG PO; +Etomidate 2MG / ML 10ML Vial IV ONE; +Ketamine HCl 100 MG / ML 5ML Vial IM ONE; +LORazepam 2 MG/ML 1ML Injection IV ONE; +Lidocaine HCl 1% 5 ML SYR INFIL ONE
[2024-07-09 13:15] LABS: Base Excess Venous -7.9 mmol/L; PCO2 Venous 49.4 mmHg (38-42)
[2024-07-09 13:17] LABS: pH Blood Venous 7.21 (7.34-7.37)
[2024-07-09 13:18] LABS: Bicarbonate Venous 18.4 mmol/L (24.0-30.0)
[2024-07-09 13:23] LABS: BASOPHILS ABSOLUTE AUTO 0.06 K/mm3 (0.00-0.23); BASOPHILS PERCENT AUTO 1 % (0-2); EOSINOPHILS ABSOLUTE AUTO 0.06 K/mm3 (0.00-0.68); EOSINOPHILS PERCENT AUTO 1 % (0-6); Hematocrit 27.5 % (37.0-53.0); Hemoglobin 8.8 g/dL (13.5-17.5); IMMATURE GRAN ABSOLUTE AUTO 0.05 K/mm3 (0.00-0.10); IMMATURE GRAN PERCENT AUTO 1 % (0-1); LYMPHOCYTES ABSOLUTE AUTO 0.67 K/mm3 (0.84-5.20); LYMPHOCYTES PERCENT AUTO 7 % (21-46); MONOCYTES ABSOLUTE AUTO 0.92 K/mm3 (0.16-1.47); MONOCYTES PERCENT AUTO 9 % (4-13); Mean Corpuscular HGB 31.7 pg (26.0-34.0); Mean Corpuscular Volume 99 fL (80-100); Mean Platelet Volume 9.6 fL (9.1-12.4); NEUTROPHILS ABSOLUTE AUTO 8.23 K/mm3 (1.96-9.15); NEUTROPHILS PERCENT AUTO 82 % (41-73); Platelet Count 418 K/mm3 (150-400); RDW Coefficient Variation 15.4 % (11.7-14.2); RDW Standard Deviation 56.5 fL (35.1-46.3); Red Blood Cell Count 2.78 M/mm3 (4.30-5.90); White Blood Cell Count 9.99 K/mm3 (4.00-11.30)
[2024-07-09] MEDS ORDERED: Famotidine 10 MG/ML 2ML Vial IV ONE (13:25)
[2024-07-09] MEDS ORDERED: DiphenhydrAMINE HCl 50 MG/ML 1ML Vial IV ONE (13:25)
[2024-07-09] MEDS ORDERED: MetroNIDAZOLE 500MG/NS 100 ml 100 ML IV ONE (13:30)
[2024-07-09] MEDS ORDERED: Cefepime HCl 2,000 MG in NS 100 ML IV ONE (13:30)
[2024-07-09 13:41] LABS: D-Dimer, Quantitative 4.1 mg/L FEU (0.00-0.52); International Normalized Ratio 1.02; Prothrombin Time Results 10.9 Sec (9.7-11.5)
[2024-07-09] MEDS ORDERED: EPINEPhrine HCl 1 MG/ML 1ML Amp IM ONE ×2 (13:50→15:25)
[2024-07-09 13:52] LABS: Albumin, Blood 3.7 g/dL (3.4-5.0); Albumin/Globulin Ratio 0.8 (0.8-1.8); Bilirubin, Total 0.5 mg/dL (0.1-1.0); Bun/Creatinine Ratio 6.7 (12.0-20.0); Creatinine, Blood 16.1 mg/dL (0.60-1.20); Globulin, Blood 4.7 g/dL (2.2-4.0); Total Protein, Blood 8.4 g/dL (6.4-8.2)
[2024-07-09] MEDS ORDERED: EpiNEPhrine 1 MG/1 ML 1ML Vial IM ONE ×2 (13:55→15:25)
[2024-07-09] MEDS ORDERED: EPINEPHrine HCL 11.25 MG/0.5 ML VIAL INH ONE ×2 (14:10→15:25)
[2024-07-09] MEDS ORDERED: Glucagon 1 MG/KIT VIAL IV ONE ×2 (14:15→15:25)
[2024-07-09] MEDS ORDERED: Glucagon, Human Recombinant 1 MG/Vial IV ONE (14:25)
[2024-07-09] MEDS ORDERED: Nitroglycerin/D5W 250 ML IV SCH (15:20)
[2024-07-09] MEDS ORDERED: Glycopyrrolate 0.2 MG/ML 1MLVIAL IV ONE (15:40)
[2024-07-09] MEDS ORDERED: propofoL 100 ML IV ONE ×2 (16:01→18:24)
[2024-07-09] MEDS ORDERED: propofoL 100 ML IV SCH ×2 (16:15→19:25)
[2024-07-09] MEDS ORDERED: fentaNYL citrate 1,000 MCG in NS 80 ML IV SCH (16:15)
[2024-07-09] MEDS ORDERED: Lidocaine HCl 4% 5 ML SDA INH ONE (16:40)
[2024-07-09] MEDS ORDERED: FentaNYL Citrate 50 MCG/ML 2 ML Injection ONE (17:13)
[2024-07-09 17:27] LABS: Base Excess Venous -11.9 mmol/L; Bicarbonate Venous 15.5 mmol/L (24.0-30.0); PCO2 Venous 41.9 mmHg (38-42)
[2024-07-09] MEDS ORDERED: LORazepam 2 MG/ML 1ML Injection IV ONE (17:35)
[2024-07-09] MEDS ORDERED: FentaNYL Citrate 50 MCG/ML 2 ML Injection IV ONE (17:40)
[2024-07-09 17:42] LABS: Source, Urine Foley catheter
[2024-07-09] MEDS ORDERED: Albuterol 2.5 MG/3 ML VIAL INH PRN (17:50)
[2024-07-09] MEDS ORDERED: Ipratropium/Albuterol SulF 2.5-0.5MG/3 ML Amp INH SCH (17:50)
[2024-07-09] MEDS ORDERED: LORazepam 2 MG/ML 1ML Injection IV PRN (17:50)
[2024-07-09 18:00] LABS: Appearance, Urine Clear (Clear); Bilirubin, Urine Neg (Neg); Blood, Urine 1+ (Neg); Color, Urine Yellow (P-Yellow); Glucose Qualitative, Urine 2+ (Neg); Ketones, Urine Neg (Neg); Leukocyte Esterase, Urine Neg (Neg); Nitrite, Urine Neg (Neg); Protein, Urine 3+ (Neg); Specific Gravity, Urine 1.005 (1.003-1.022); Urobilinogen, Urine NORM (Normal)
[2024-07-09] MEDS ORDERED: PredniSONE 20 MG Tab PT SCH (18:00)
[2024-07-09] MEDS ORDERED: Vancomycin HCL 1,000 MG in NS 250 ML IV ONE (18:00)
[2024-07-09] MEDS ORDERED: Loratadine 5 MG/5 ML 5MLUDC PT SCH (18:00)
[2024-07-09 18:02] LABS: Bacteria Few /hpf; Squamous Epithelial Cells Rare /hpf (Few)
[2024-07-09] MEDS ORDERED: Anticoagulant Sod Citrate Soln 3 ML SYR INJ PRN (18:55)
[2024-07-09] MEDS ORDERED: FLU VACC TS2024-25(6MOS UP)/PF 45 MCG/0.5 ML SYRINGE IM ONE (20:00)
[2024-07-09] MEDS ORDERED: Cetylpyridinium Chloride 1 EA MISC MT SCH (20:00)
[2024-07-09 20:06] LABS: U Amphetamine Screen DETECTED; U Barbituate Screen Not Detected; U Benzodiazapine Screen Not Detected; U Buprenorphine Screen Not Detected; U Cannabinoids Screen Not Detected; U Cocaine Screen Not Detected; U Methadone Screen Not Detected; U Methamphetamine Screen DETECTED; U Opiates Screen Not Detected; U Oxycodone Screen Not Detected; U Phencyclidine Screen Not Detected
[2024-07-09] MEDS ORDERED: Lactobacil 2-S.Thermo-Bifido 1 1 Cap PT SCH (21:00)
--- NOTE | 2024-07-09 22:00 | NUR ---
ARRIVAL TO ICU PT ARRIVED TO ICU AT 1850 VIA ED BED AT SHIFT CHANGE. HE IS INTUBATED AND SEDATED. PROPOFOL INFUSING AT 60MCG/KG/MIN AND FENTANYL INFUSING AT 150MCG/HR; RASS -3. VENT SETTINGS AC/VC 18/450/5/30%. AFEBRILE. HR 80'S. SBP 150'S. OG TO LIS. DIALYSIS CURRENTLY ONGOING. RT SIDED FACIAL SWELLING NOTED. PERMACATH TO RT SUBCLAVIAN NOTED. SEE ADMISSION ASSESSMENT FOR FULL ASSESSMENT.
[2024-07-09 22:02] LABS: Base Excess Venous 3.7 mmol/L; Bicarbonate Venous 27.3 mmol/L (24.0-30.0); pH Blood Venous 7.42 (7.34-7.37)
[2024-07-09] MEDS ORDERED: Midazolam HCl 1MG / ML 2ML Vial IV PRN (23:40)
[2024-07-10] VITALS (61 sets, daily range): BP systolic 72–154; BP diastolic 54–100
[2024-07-10] MEDS ORDERED: MetroNIDAZOLE 500MG/NS 100 ml 100 ML IV SCH
[2024-07-10] MEDS ORDERED: Hydrogen Peroxide 1.5 % Solution MT SCH
[2024-07-10] MEDS ORDERED: Darbepoetin Alfa in Polysorbat 25 MCG/0.42 ML Syringe SC SCH (01:00)
[2024-07-10 03:20] LABS: Base Excess Venous 0.9 mmol/L; Bicarbonate Venous 24.9 mmol/L (24.0-30.0); PCO2 Venous 41.6 mmHg (38-42)
[2024-07-10 03:33] LABS: BASOPHILS PERCENT AUTO 0 % (0-2); EOSINOPHILS PERCENT AUTO 0 % (0-6); Hematocrit 23.2 % (37.0-53.0); Hemoglobin 7.6 g/dL (13.5-17.5); IMMATURE GRAN ABSOLUTE AUTO 0.02 K/mm3 (0.00-0.10); IMMATURE GRAN PERCENT AUTO 0 % (0-1); LYMPHOCYTES ABSOLUTE AUTO 0.18 K/mm3 (0.84-5.20); LYMPHOCYTES PERCENT AUTO 4 % (21-46); MONOCYTES ABSOLUTE AUTO 0.13 K/mm3 (0.16-1.47); MONOCYTES PERCENT AUTO 3 % (4-13); Mean Corpuscular HGB 31.8 pg (26.0-34.0); Mean Corpuscular HGB Conc 32.8 g/dL (31.5-36.5); Mean Corpuscular Volume 97 fL (80-100); Mean Platelet Volume 9.9 fL (9.1-12.4); NEUTROPHILS ABSOLUTE AUTO 4.19 K/mm3 (1.96-9.15); NEUTROPHILS PERCENT AUTO 93 % (41-73); Platelet Count 402 K/mm3 (150-400); RDW Coefficient Variation 15.3 % (11.7-14.2); RDW Standard Deviation 54.1 fL (35.1-46.3); Red Blood Cell Count 2.39 M/mm3 (4.30-5.90); White Blood Cell Count 4.52 K/mm3 (4.00-11.30)
[2024-07-10 04:05] LABS: Magnesium, Blood 2.3 mg/dL (1.6-2.4)
[2024-07-10 04:08] LABS: Alanine Aminotransfer (ALT/SGP 11 U/L (12-78); Albumin/Globulin Ratio 0.7 (0.8-1.8); Alk Phos 61 U/L (50-136); Anion Gap 17 mmol/L (3-11); Aspartate Aminotrans (AST/SGOT 10 U/L (12-37); Bilirubin, Total 0.4 mg/dL (0.1-1.0); Blood Urea Nitrogen 66 mg/dL (8-24); Bun/Creatinine Ratio 6.3 (12.0-20.0); CO2, Blood 24 mmol/L (21-32); Calcium, Blood 8.6 mg/dL (8.5-10.1); Chloride, Blood 102 mmol/L (98-108); Globulin, Blood 4.1 g/dL (2.2-4.0); Glomerular Filtration Rate 5 (60-); Glucose, Blood 117 mg/dL (70-99); Phosphorus, Blood 8.6 mg/dL (2.5-4.9); Sodium, Blood 138 mmol/L (136-145); Total Protein, Blood 7.1 g/dL (6.4-8.2); Vancomycin, Random 22.1 ug/mL
--- NOTE | 2024-07-10 07:18 | NUR ---
END OF SHIFT SUMMARY NO ACUTE EVENTS OVERNIGHT. HE CONT TO BE SEDATED WITH PROPOFOL INFUSING AT 60MCG/KG/MIN AND FENTANYL INFUSING AT 125MCG/HR; RASS -2; FOLLOWING SIMPLE DIRECTIONS OCCATIONALLY AND OPENING EYES TO VOICE. VENT SETTINGS AC/VC 16/450/5/30%. AFEBRILE. HR 70-80'S. SBP 130'S. OG TO LIS. COTTRELL IN PLACE WITH SMALL AMOUNT OF OUTPUT; DIALYSIS ABLE TO TAKE 2.5L OFF. FACIAL SWELLING MILDLY IMPROVED. REPORT GIVEN TO AM RN.
[2024-07-10] MEDS ORDERED: Anticoagulant Sod Citrate Soln 3 ML SYR INJ PRN (07:35)
--- NOTE | 2024-07-10 07:45 | NUR ---
ASSUMED CARE BEDSIDE REPORT FROM MARIBETH RESENDIZ AT 0700. PT INTUBATED AND SEDATED. VENT SETTINGS AC/VC 16/450/5/30%. LUNGS CLEAR. SCANT SECRETIONS FROM ETT. PROPOFOL AND FENTANYL FOR PAIN AND SEDATION. RASS -4, WITHDRAWS FROM PAINFUL STIMULI, DOES NOT FOLLOW COMMANDS. CPOT 0-1, OCCASIONAL GRIMACING. SR, RATE 80'S. BP STABLE. PLAN FOR DIALYSIS THIS SHIFT, PERMACATH TO RIGHT CHEST WALL, DRESSING C/D/I. ABD OBESE, SOFT, NON TENDER, BT X 4. OGT CLAMPED AFTER MED ADMINSTRATION. COTTRELL PATENT, DRAINING TO GRAVITY. PIV X 3. WILL CONTINUE PLAN OF CARE.
[2024-07-10] MEDS ORDERED: Pantoprazole Sodium 40 MG Injection IV SCH (09:00)
[2024-07-10] MEDS ORDERED: Heparin Sodium 5000 Units/ML 1ML MDV SC SCH (09:00)
[2024-07-10] MEDS ORDERED: Ipratropium/Albuterol SulF 2.5-0.5MG/3 ML Amp INH PRN (11:10)
[2024-07-10] MEDS ORDERED: NS 250 ML IV PRN (12:50)
[2024-07-10] MEDS ORDERED: Docusate Sodium 100 MG UDC PT PRN (13:30)
[2024-07-10] MEDS ORDERED: Bisacodyl 10 MG Supp PR PRN (13:30)
[2024-07-10] MEDS ORDERED: Vancomycin HCL 750 MG in NS 250 ML IV ONE (14:00)
--- NOTE | 2024-07-10 17:27 | NUR ---
SHIFT SUMMARY NO ACUTE CHANGES THIS SHIFT. REMAINS INTUBATED AND SEDATED. VENT SETTINGS UNCHANGED, AV/VC 16/450/5/30%. LUNGS CLEAR. SCANT SECRETIONS FROM ETT. PROPOFOL AND FENTANYL GTT FOR PAIN AND SEDATION. RASS -4, OK PER DR SAMUEL D/T DIFFICULT INTUBATION. GRIMACES c CARE. DOES NOT FOLLOW COMMANDS. CPOT 0. SR, RATE 60'S. BP STABLE. DIALYSIS COMPLETE THIS SHIFT. 2151 ML OFF. PERMACATH TO RIGHT CHEST WALL. PIV X 3. COTTRELL PATENT, DRAINING TO GRAVITY. TUBE FEEDS STARTED, VHP AT 25 ML/HR, GOAL 45 ML/HR. TOLERATING WELL. WILL CONTINUE PLAN OF CARE UNTIL REPORT TO ONCOMING NURSE.
[2024-07-10] MEDS ORDERED: Cefepime HCl 1,000 MG in NS 100 ML IV SCH (18:00)
--- NOTE | 2024-07-10 20:46 | NUR ---
ASSUMED CARE AT 1900 PT LAYING IN BED INTUBATED AND SEDATED. PT SEDATED WITH PROPOFOL INFUSING AT 60MCG/KG/MIN AND FENTANYL INFUSING AT 125MCG/HR; WHEN SEDATION TURNED DOWN PT IS RESPONSIVE TO VERBAL STIMULI BUT DOES NOT ANSWER Y/N QUESTION. VENT SETTINGS AC/VC 16/450/5/30%. AFEBRILE. HR 70'S. SBP 140'S. VHP INFUSING VIA OG AT 20ML/HR (GOAL 45ML/HR) WITH 30ML WATER FLUSHES Q4HR. COTTRELL IN PLACE WITH MINIMAL OUTPUT; DIALYSIS EARLIER TODAY. PERMACATH NOTED TO RT SUBCLAVIAN, DRESSING C/D/I. FACIAL SWELLING IMPROVED FROM LAST NIGHT. SEE SHIFT ASSESSMENT FOR FULL ASSESSMENT.
[2024-07-11] VITALS (58 sets, daily range): BP systolic 11–143; BP diastolic 63–747
[2024-07-11 03:32] LABS: BASOPHILS PERCENT AUTO 0 % (0-2); EOSINOPHILS PERCENT AUTO 0 % (0-6); Hematocrit 26.1 % (37.0-53.0); Hemoglobin 8.3 g/dL (13.5-17.5); IMMATURE GRAN ABSOLUTE AUTO 0.02 K/mm3 (0.00-0.10); IMMATURE GRAN PERCENT AUTO 0 % (0-1); LYMPHOCYTES ABSOLUTE AUTO 0.17 K/mm3 (0.84-5.20); LYMPHOCYTES PERCENT AUTO 3 % (21-46); MONOCYTES ABSOLUTE AUTO 0.42 K/mm3 (0.16-1.47); MONOCYTES PERCENT AUTO 7 % (4-13); Mean Corpuscular HGB 31.8 pg (26.0-34.0); Mean Corpuscular HGB Conc 31.8 g/dL (31.5-36.5); Mean Corpuscular Volume 100 fL (80-100); Mean Platelet Volume 9.7 fL (9.1-12.4); NEUTROPHILS ABSOLUTE AUTO 5.13 K/mm3 (1.96-9.15); NEUTROPHILS PERCENT AUTO 89 % (41-73); NRBC ABSOLUTE 0.02 K/mm3 (0.00-0.02); NRBC Auto 0.3 /100 WBC (0.0-0.2); Platelet Count 418 K/mm3 (150-400); RDW Coefficient Variation 16.2 % (11.7-14.2); RDW Standard Deviation 59.1 fL (35.1-46.3); Red Blood Cell Count 2.61 M/mm3 (4.30-5.90); White Blood Cell Count 5.74 K/mm3 (4.00-11.30)
[2024-07-11 04:00] LABS: Magnesium, Blood 2.4 mg/dL (1.6-2.4)
[2024-07-11 04:10] LABS: Anion Gap 17 mmol/L (3-11); Blood Urea Nitrogen 59 mg/dL (8-24); Bun/Creatinine Ratio 6.5 (12.0-20.0); CO2, Blood 25 mmol/L (21-32); Calcium, Blood 8.4 mg/dL (8.5-10.1); Chloride, Blood 98 mmol/L (98-108); Creatinine, Blood 9.08 mg/dL (0.60-1.20); Glomerular Filtration Rate 6 (60-); Glucose, Blood 142 mg/dL (70-99); Potassium, Blood 5.2 mmol/L (3.5-5.5); Sodium, Blood 135 mmol/L (136-145)
--- NOTE | 2024-07-11 06:44 | NUR ---
END OF SHIFT SUMMARY NO ACUTE EVENTS OVERNIGHT. PT CONT TO BE SEDATED WITH PROPOFOL INFUSING AT 60MCG/KG/MIN AND FENTANYL INFUSING AT 125MCG/HR; RASS -2 TO -3. VENT SETTINGS AC/VC 16/450/5/30%. AFEBRILE. HR 60-70'S. SBP 120'S. VHP INFUSING VIA OG AT 45ML/HR (GOAL) WITH 30ML FLUSHES Q4HR; NO BM. SCANT AMOUNT OF URINE OUTPUT THIS SHIFT. PERMACATH TO RT SUBCLAVIAN DRESSING C/D/I. WILL REPORT TO AM RN WHEN AVAILABLE.
--- NOTE | 2024-07-11 08:00 | NUR ---
[place] of care: Resting comfortably on 60 mcgs/kg/min of propofol & 125 mcgs/hr of fentanyl. RASS of -2. R pupil 3/brisk, L pupil 5/brisk but slightly irregular in shape - Dr. Flores made aware. He moves all extremities to painful stimuli but does not follow commands at this time. In normal sinus rhythm with stable blood pressures. Oxygen saturations in high 90s on ACVC 16/450/5/30% with clear lung sounds. Coronel catheter secure & patent. PIV x2 infusing. R chest permcath. TF infusing at goal rate of 45cc/hr. Plans for HD treatment this morning. Will continue to monitor.
[2024-07-11] MEDS ORDERED: Anticoagulant Sod Citrate Soln 3 ML SYR INJ PRN (08:10)
[2024-07-11] MEDS ORDERED: Albumin (Human) 12.5gm/250ml 250 ML IV SCH (08:15)
[2024-07-11] MEDS ORDERED: Albumin (Human) 25gm/100ml 100 ML IV PRN (08:20)
--- NOTE | 2024-07-11 17:24 | NUR ---
End of shift summary: Propofol & fentanyl remain at 60 mcgs/kg/min & 125 mcgs/hr respectively. Per Dr. Flores, target a RASS of -3 to -4. Patient arouses to painful stimuli but is otherwise sedate. In SB-NSR between 50 & 70 bpm. Blood pressures stable. Remains on ACVC 12/530/5/30%. Clear lung sounds. HD done today with 2L off. Zero urine output from head catheter. TF infusing at goal. Will continue with plan of care.
[2024-07-11] MEDS ORDERED: Ampicillin Sod/Sulbactam Sod 3 GM in NS 100 ML IV SCH (18:00)
--- NOTE | 2024-07-11 22:12 | NUR ---
ASSUMED CARE AT 1900 PT LAYING IN BED INTUBATED AND SEDATED. HE IS SEDATED WITH PROPOFOL INFUSING AT 60MCG/KG/MIN AND FENTANYL INFUSING AT 125MCG/MIN; RASS -3. VENT SETTINGS AC/VC 12/530/5/30%. AFEBRILE. HR 60'S. SBP 130'S. VHP INFUISNG VIA OG AT 45ML/HR (GOAL) WITH 30ML WATER FLUSHES Q4HR; NO BM, PRN DOCUSATE SODIUM GIVEN. COTTRELL REMOVED D/T NO URINE OUTPUT IN 24HR. PERMACATH TO RT SUBCLAVIAN NOTED WITH DRESSING C/D/I. FACIAL SWELLING CONT TO IMPROVE SINCE PREVIOUS SHIFTS. SEE SHIFT ASSESSMENT FOR FULL ASSESSMENT.
[2024-07-12] VITALS (66 sets, daily range): BP systolic 73–131; BP diastolic 57–94
[2024-07-12 04:05] LABS: Bun/Creatinine Ratio 8.1 (12.0-20.0); Calcium, Blood 8.6 mg/dL (8.5-10.1); Creatinine, Blood 7.64 mg/dL (0.60-1.20); Potassium, Blood 4.8 mmol/L (3.5-5.5)
--- NOTE | 2024-07-12 06:15 | NUR ---
END OF SHIFT SUMMARY NO ACUTE EVENTS OVERNIGHT. HE CONT TO BE SEDATED WITH PROPOFOL INFUSING AT 60MCG/KG/MIN AND FENTANYL INFUSING AT 125MCG/HR; RASS -3; HE WAS ABLE TO ANSWER MINIMAL Y/N QUESTIONS DURING BED BATH. VENT SETTINGS AC/VC 12/530/5/30%. AFEBRILE. HR 60'S. SBP 120'S. TUBE FEED INFUSING VIA OG AT GOAL; NO BM THIS SHIFT. NO URINE OUTPUT. PERMACATH TO RT SUBCLAVIAN NOTED WITH DRESSING C/D/I. WILL REPORT TO AM RN WHEN AVAILABLE.
[2024-07-12] MEDS ORDERED: Anticoagulant Sod Citrate Soln 3 ML SYR INJ PRN (07:55)
--- NOTE | 2024-07-12 18:33 | NUR ---
Summary. Pt continues ventilated and sedated. No acute changes this shift. Dialysis completed during shift. Bronch this afternoon with Dr. Flores. VS stable, see chart for further details.
--- NOTE | 2024-07-12 20:52 | NUR ---
THIS RN ASSUMED CARE OF PT AT 1900. PT IS SEDATED AND INTUBATED ON 60 PROP AND 100 FENT, PT DOES WITHDRAWL TO PAIN, PT IS NOT FOLLOWING COMMANDS, PROVIDER WANTED PT RASS -3 PER DAY SHIFT RN JEREMY. PT HEART RATE IS SINUS RHYTHM IN THE 70s, BLOOD PRESSURE STABLE AT 94/67, UNABLE TO DETERMINE CHEST PAIN DUE TO SEDATION. PT SOUNDS CLEAR OVER DIMINSHED, ON THE VENTILATOR ACVC TV 530, PEEP 5 AND FIO2 30%. PT IS ANURIC GETTING DIALYSIS DAILY. NO OTHER INTERVENTIONS AT THIS TIME, PLAN OF CARE CONTINUED.
[2024-07-13] VITALS (54 sets, daily range): BP systolic 88–194; BP diastolic 63–160
[2024-07-13 03:27] LABS: BASOPHILS ABSOLUTE AUTO 0.02 K/mm3 (0.00-0.23); BASOPHILS PERCENT AUTO 0 % (0-2); EOSINOPHILS ABSOLUTE AUTO 0.14 K/mm3 (0.00-0.68); EOSINOPHILS PERCENT AUTO 2 % (0-6); Hematocrit 30.9 % (37.0-53.0); Hemoglobin 9.7 g/dL (13.5-17.5); IMMATURE GRAN ABSOLUTE AUTO 0.13 K/mm3 (0.00-0.10); IMMATURE GRAN PERCENT AUTO 2 % (0-1); LYMPHOCYTES ABSOLUTE AUTO 1.14 K/mm3 (0.84-5.20); LYMPHOCYTES PERCENT AUTO 13 % (21-46); MONOCYTES ABSOLUTE AUTO 0.84 K/mm3 (0.16-1.47); MONOCYTES PERCENT AUTO 10 % (4-13); Mean Corpuscular HGB 31.8 pg (26.0-34.0); Mean Corpuscular HGB Conc 31.4 g/dL (31.5-36.5); Mean Corpuscular Volume 101 fL (80-100); Mean Platelet Volume 9.6 fL (9.1-12.4); NEUTROPHILS ABSOLUTE AUTO 6.58 K/mm3 (1.96-9.15); NEUTROPHILS PERCENT AUTO 74 % (41-73); NRBC ABSOLUTE 0.08 K/mm3 (0.00-0.02); NRBC Auto 0.9 /100 WBC (0.0-0.2); Platelet Count 391 K/mm3 (150-400); RDW Coefficient Variation 16.5 % (11.7-14.2); RDW Standard Deviation 60.5 fL (35.1-46.3); Red Blood Cell Count 3.05 M/mm3 (4.30-5.90); White Blood Cell Count 8.85 K/mm3 (4.00-11.30)
[2024-07-13 04:13] LABS: Bun/Creatinine Ratio 8.1 (12.0-20.0); Calcium, Blood 9.3 mg/dL (8.5-10.1); Creatinine, Blood 7.3 mg/dL (0.60-1.20); Potassium, Blood 4.5 mmol/L (3.5-5.5)
--- NOTE | 2024-07-13 05:44 | NUR ---
PT SUMMARY PT IS STILL INTUBATED AND SEDATED. NO NEW ACUTE EVENTS TO REPORT OVERNIGHT. PT WILL BE DIALYZED AGAIN TODAY PER DR. DIA. PLAN OF CARE CONTINUED.
--- NOTE | 2024-07-13 12:33 | NUR ---
DR. SAMUEL IN TO SEE PT. PT EXTUBATED TO 6L NC AND QUICKLY TURNED DOWN TO 4L NC. PT IS ABLE TO VERBALIZE "HAPPY NEW YEAR" IN HOARSE VOICE. FOLLOWING SIMPLE COMMANDS TO MOVE EXTREMITIES AND IS CLEARING SECRETIONS.
--- NOTE | 2024-07-13 18:29 | NUR ---
Summary. Pt extubated at approximately 1228 to 02 via NC with good effect. Initially pt more somnolent and confused but he has cleared up over the afternoon quite a bit. Pt restless in bed, staff in room often to assist with repositioning. Heat pad given to pt for comfort. Currently on 02 via NC, oriented to self/surroundings. See chart for further details.
--- NOTE | 2024-07-13 22:52 | NUR ---
PT HAS PULLED OFF HIS CARDIAC MONITORING LEADS, OXYIMETER, OXYGEN, AND BLOOD PRESSURE CUFF MULTIPLE TIMES. HAS ALSO PULLED OUT 2 IV'S. IS NOT REDIRECTABLE. HAVE ADMINISTERED 1 MG ATIVAN WITHOUT RELIEF TO RESTLESSNESS. HAVE PLACED PT IN SOFT WRIST RESTRAINTS TO PROTECT PT FROM PULLING AT VITAL LINES AND TUBES. PT IS VERBAL ALTHOUGH IS VERY GARBLED IN SPEECH. DOES NOT FOLLOW CONVERSATION. WILL MONITOR AND EVALUATE ABILITY TO REMOVE RESTRAINTS EARLY ABLE.
[2024-07-14] VITALS (33 sets, daily range): BP systolic 78–209; BP diastolic 55–130
[2024-07-14] MEDS ORDERED: dexmedeTOMIDine 100 ML IV SCH (03:50)
[2024-07-14] MEDS ORDERED: OLANZapine 10 MG Vial IM PRN (03:50)
[2024-07-14] MEDS ORDERED: FentaNYL Citrate 50 MCG/ML 2 ML Injection IV PRN ×2 (03:50→13:00)
[2024-07-14] MEDS ORDERED: FentaNYL Citrate 50 MCG/ML 2 ML Injection ONE (03:52)
--- NOTE | 2024-07-14 03:53 | NUR ---
CALL MADE TO DR SAMUEL CONCERNING PT'S CONTINUED CONFUSION AND AGITATION. PT HAS BEEN WORKING VERY HARD TO PULL AT RESTRAINTS. PT IMPULSIVE AND NOT REDIRECTABLE. PT AT HARM OF HARMING HIS ARMS/SHOULDERS WITH AGGRESSIVE NATURE OF PULLING AT RESTRAINTS. ORDERS RECEIVED.
[2024-07-14 04:22] LABS: Hematocrit 31.6 % (37.0-53.0); Hemoglobin 10.1 g/dL (13.5-17.5)
[2024-07-14 04:50] LABS: Magnesium, Blood 2.8 mg/dL (1.6-2.4)
[2024-07-14 05:24] LABS: Anion Gap 23 mmol/L (3-11); Blood Urea Nitrogen 77 mg/dL (8-24); CO2, Blood 19 mmol/L (21-32); Calcium, Blood 10.2 mg/dL (8.5-10.1); Chloride, Blood 96 mmol/L (98-108); Glucose, Blood 96 mg/dL (70-99); Sodium, Blood 133 mmol/L (136-145)
[2024-07-14 05:25] LABS: Bun/Creatinine Ratio 8.6 (12.0-20.0); Glomerular Filtration Rate 6 (60-); Phosphorus, Blood 9.5 mg/dL (2.5-4.9)
--- NOTE | 2024-07-14 06:52 | NUR ---
PT CONTINUES TO BE VERY AGITATED AND RESTLESS. PULLS AGGRESSIVELY AGAINST RESTRAINTS. PT STARTED ON PRECEDEX DRIP AT 0.3 MCG'S/KG/HOUR. PENDING RESULTS. PT HAS, THROUGHOUT THE SHIFT REMOVED HIS MONITORING EQUIPMENT OFTEN, AND RESTRAINTS WERE PLACED. PT HAS PULLED A TOTAL OF 3 IV'S THIS NIGHT. NEW IV'S STARTED. DR DIA COMES IN TO SEE PT AND STATES PLAN IS FOR DIALYSIS TODAY. WILL CONTINUE TO MONITOR PT, AND WILL REPORT OFF TO ONCOMING RN.
[2024-07-14] MEDS ORDERED: HydrALAZINE HCl 20 MG / ML 1ML Vial IV PRN (07:25)
[2024-07-14] MEDS ORDERED: Anticoagulant Sod Citrate Soln 3 ML SYR INJ PRN (07:25)
[2024-07-14] MEDS ORDERED: Haloperidol Lactate Inj. 5 MG/ML Injection IV PRN (13:00)
[2024-07-14] MEDS ORDERED: Folic Acid 1 MG in NS 50 ML IV SCH (14:00)
[2024-07-14] MEDS ORDERED: Thiamine HCl 100 MG in NS 50 ML IV SCH (14:00)
[2024-07-14] MEDS ORDERED: Heparin Sodium 5000 Units/ML 1ML MDV SC SCH (16:00)
--- NOTE | 2024-07-14 18:40 | NUR ---
Summary. Pt mentation improved this shift. Restraints DC'd, precedex DC'd, pt medicated for pain with good success, no other meds needed for agitation or restlessness. Pt able to be redirected verbally this afternoon. This evening pt oriented to self/surroundings/place. Dialysis completed today. Tolerating PO intake at this time. See chart for further details.
[2024-07-14] MEDS ORDERED: Gabapentin 300 MG Cap PO SCH (21:00)
[2024-07-14] MEDS ORDERED: HYDROcodone 7.5MG-APAP 325MG /15ML UDC PO SCH (21:00)
[2024-07-15] VITALS (18 sets, daily range): BP systolic 81–178; BP diastolic 59–113
[2024-07-15 04:08] LABS: Hematocrit 31.8 % (37.0-53.0); Hemoglobin 9.8 g/dL (13.5-17.5)
[2024-07-15 05:06] LABS: Magnesium, Blood 2.8 mg/dL (1.6-2.4)
[2024-07-15 05:22] LABS: Albumin, Blood 3.6 g/dL (3.4-5.0); Anion Gap 20 mmol/L (3-11); Blood Urea Nitrogen 63 mg/dL (8-24); Bun/Creatinine Ratio 7.2 (12.0-20.0); CO2, Blood 21 mmol/L (21-32); Calcium, Blood 9.9 mg/dL (8.5-10.1); Chloride, Blood 98 mmol/L (98-108); Creatinine, Blood 8.76 mg/dL (0.60-1.20); Glomerular Filtration Rate 6 (60-); Glucose, Blood 93 mg/dL (70-99); Phosphorus, Blood 9.3 mg/dL (2.5-4.9); Potassium, Blood 4.7 mmol/L (3.5-5.5); Sodium, Blood 134 mmol/L (136-145)
--- NOTE | 2024-07-15 05:36 | NUR ---
SHIFT SUMMARY: PT REMAINS A&OX2. VSS ON RA. PT WAXING AND WEENING WITH MENTATION. UPON INITIAL ASSESSMENT PATIENT WAS ABLE TO HAVE A CONVERSATION WITH ME AND ANSWER QUESTIONS APPROPRIATELY. OCCASIONALLY PT WOULD AWAKE AND BE INCREASINGLY CONFUSED BUT SNAP BACK OUT OF IT ONCE AWOKEN PROPERLY. PT GIVEN HYDRALAZINE ONCE PRN FOR INCREASED BP. PT GIVEN PRN FENTANYL PER MAR FOR PAIN AND SEDATION. PT RESPONDING WELL WITH ONLY PRN IV FENTANYL GIVEN AND OFF PRECEDEX DRIP. PT KEPT ON KVO AT THIS TIME. PT HAD SMALL BM SMEARS THROUGHOUT SHIFT. PT GIVEN JELLO THROUGHOUT THE NIGHT WITH ASSISTANCE BY THIS NURSE. DOING WELL WITH PO INTAKE. PTS BED ALARM REMAINS ON WITH CALL GOODE WITHIN REACH. NO FURTHER QUESTIONS OR CONCERNS AT THIS TIME.
[2024-07-15] MEDS ORDERED: Anticoagulant Sod Citrate Soln 3 ML SYR INJ PRN (07:45)
[2024-07-15] MEDS ORDERED: Calcium Acetate 667 MG Gel Cap PO SCH (08:30)
[2024-07-15] MEDS ORDERED: Sevelamer Carbonate 800 MG Tab PO SCH (08:30)
[2024-07-15] MEDS ORDERED: PyridOXINE HCL 50 MG TAB PO SCH (09:00)
[2024-07-15] MEDS ORDERED: Alteplase Recombinant 2 MG / Vial IV PRN (10:00)
--- NOTE | 2024-07-15 13:54 | NUR ---
ASSUMPTION OF CARE RECEIVED REPORT FROM TRENCH PIPE LAYER HELPER GRANT. PT TRANFERED TO PCU BY BED, PT WAS SLID OVER FROM ICU BED TO PCU BED. PT ALERT, ORIETNED TO NAME, , PLACE. HE IS UNABLE TO RECALL WHAT BROUGHT HIM IN HE STATED "I JUST WOKE UP HERE." HR IN 80'S-90'S, SINUS RHYTHM, DENIES P/PRESSURE, NUMB/TINGLING, SBP STABLE. O2 >92% ON RA, DENIES SOB. PT HAS A DIALYISIS PORT AND PER REPORT RECEIVED DIALYSIS TODAY AND WILL RECEIVE AGIAN TOMORROW. DR DIA FOLLOWING PT DAILY. PT HAD SMALL BM UPON ARRIVAL TO UNIT. PER REPORT PT DOES NOT PRODUCE URINE. PT CHANGED, RESTING IN BED. HE DENIES ANY QUESTIONS AT THIS TIME WILL MONITOR PT.
--- NOTE | 2024-07-15 18:17 | NUR ---
SHIFT SUMMARY PT A&O X3. PT ABLE TO STATE NAME/, PLACE, CONFUSED ON YEAR. HR IN THE 90'S, SR, DENIES CP/PRESSURE, NUMB/TINGLING, SBP ELEVATED, PER PT HE REPORTS HIS BP IS ALWAYS ELEVATED, MEDICATED PER EMAR. O2 >92% ON RA, DENIES SOB. PT PULLED OUT HIS IV, WRAPPED WITH GAUZE AND COBAN. PT UP IN CHAIR WITH PT. PT HAD A WATERY BM THIS SHIFT. +BS, FIRM ON PALPATION, HE REPORTS SOME PAIN BUT DENIES N/V. PT RESTING IN BED AT THIS TIME. HE DENIES ANY QUESTIONS OR CONCERNS AT THIS TIME. WILL MONITOR PT AND REPORT TO HARD CANDY SPINNER RN.
[2024-07-16] VITALS (16 sets, daily range): BP systolic 95–175; BP diastolic 54–115
--- NOTE | 2024-07-16 04:20 | NUR ---
SHIFT SUMMARY NEURO: A/OX4. SLURRED SPEECH R/T SWELLING. GENERALIZED WEAKNESS. EQUAL STRENGTH. CARDIAC: HTN SYSTOLIC 170'S. PULSES PRESENT LUNGS: DIMINISHED THROUGHOUT. ON RA. 2LNC INTERMITTENTLY WHILE SLEEPING. GI/:PT REPORTS NO URINE MINIMAL URINE OUTPUT AT BASELINE. NO BM
[2024-07-16 04:26] LABS: Hematocrit 31.3 % (37.0-53.0); Hemoglobin 9.9 g/dL (13.5-17.5)
[2024-07-16 04:55] LABS: Magnesium, Blood 2.6 mg/dL (1.6-2.4)
[2024-07-16 05:37] LABS: Albumin, Blood 3.6 g/dL (3.4-5.0); Anion Gap 19 mmol/L (3-11); Blood Urea Nitrogen 54 mg/dL (8-24); Bun/Creatinine Ratio 6.4 (12.0-20.0); CO2, Blood 22 mmol/L (21-32); Calcium, Blood 9.6 mg/dL (8.5-10.1); Chloride, Blood 96 mmol/L (98-108); Creatinine, Blood 8.44 mg/dL (0.60-1.20); Glomerular Filtration Rate 7 (60-); Glucose, Blood 90 mg/dL (70-99); Potassium, Blood 4.5 mmol/L (3.5-5.5); Sodium, Blood 132 mmol/L (136-145)
[2024-07-16] MEDS ORDERED: Anticoagulant Sod Citrate Soln 3 ML SYR INJ PRN (08:00)
[2024-07-16] MEDS ORDERED: HYDROcodone 5-APAP 325 TAB PO PRN (10:10)
--- NOTE | 2024-07-16 18:36 | NUR ---
SHIFT SUMMARY PT A&O X4, ABLE TO MAKE NEEDS KNOWN, OBEYS COMMANDS, ABLE TO AMBULATE SBA TO BRP WITH FWW. CONTINUOUS SPO2, PT ON RA, SPO2 GREATER THAN 90%, PT REPORTING IMPROVED WORK OF BREATHING COMPARED TO YESTERDAY 07/10. CONTINUOUS TELE MONITORING, HR 80-120 S, SINUS RHYTHM, PT DENIES CHEST P/P T/O THIS SHIFT, BP ELEVATED BUT NOT WITHIN PERAMETERS FOR ORDERS OF ANTIHYPERTENSIVES. BOWEL TONES PRESENT IN ALL 4Q, REPORTING NAUSEA AFTER DIYASSIS/DENIES NEED FOR MEDICATION/THIS RN GAVE CRACKERS AND PT REPORTS THE CRACKERS HELPED WITH THE NAUSEA, PT HAD BM THIS SHIFT. NO VOID THIS SHIFT, DIALYSIS PT. DR. JIANG ROUNDED ON PT THIS AM, PLAN OF CARE ONGOING. PT TO DIALYSIS THIS SHIFT.
[2024-07-17] VITALS (14 sets, daily range): BP systolic 136–205; BP diastolic 88–132
[2024-07-17 04:03] LABS: Hematocrit 33.9 % (37.0-53.0); Hemoglobin 10.5 g/dL (13.5-17.5)
[2024-07-17 04:32] LABS: Magnesium, Blood 2.8 mg/dL (1.6-2.4)
[2024-07-17 04:36] LABS: Albumin, Blood 3.7 g/dL (3.4-5.0); Anion Gap 15 mmol/L (3-11); Blood Urea Nitrogen 45 mg/dL (8-24); Bun/Creatinine Ratio 6.4 (12.0-20.0); CO2, Blood 26 mmol/L (21-32); Calcium, Blood 9.9 mg/dL (8.5-10.1); Chloride, Blood 96 mmol/L (98-108); Creatinine, Blood 7.08 mg/dL (0.60-1.20); Glomerular Filtration Rate 8 (60-); Glucose, Blood 95 mg/dL (70-99); Phosphorus, Blood 8.2 mg/dL (2.5-4.9); Potassium, Blood 4.2 mmol/L (3.5-5.5); Sodium, Blood 133 mmol/L (136-145)
--- NOTE | 2024-07-17 06:27 | NUR ---
SHIFT SUMMARY- NO ACUTE CHANGES
[2024-07-17] MEDS ORDERED: Acetaminophen 500 MG Tab PO PRN (17:10)
[2024-07-17] MEDS ORDERED: Polyethylene Glycol 3350 17 gm PO PRN (17:20)
[2024-07-17] MEDS ORDERED: Metoprolol Succinate 50 MG TABCR PO SCH (17:31)
[2024-07-17] MEDS ORDERED: Vitamin B Complex 1 EA Softgel PO SCH (18:00)
--- NOTE | 2024-07-17 18:04 | NUR ---
SHIFT SUMMARY PT A&O X4, ABLE TO MAKE NEEDS KNOWN, OBEYS COMMANDS, ABLE TO AMBULATE SBA TO BRP WITH FWW, PUPILS ARE UNEVEN/UNCHANGED FROM PRIOR SHIFT/PUPILS EQUALLY REACTIVE. CONTINUOUS SPO2, PT ON RA, SPO2 GREATER THAN 90%, PT REPORTING IMPROVED WORK OF BREATHING COMPARED TO YESTERDAY 07/10. CONTINUOUS TELE MONITORING DC D THIS SHIFT, HR 80-100 S, SINUS RHYTHM, PT DENIES CHEST P/P T/O THIS SHIFT, BP ELEVATED REQUIRING PRN HYDRAZINE/ SBP CAME DOWN TO 150 S. BOWEL TONES PRESENT IN ALL 4Q, PT HAD BM THIS SHIFT, SPEECH THERAPY UPDATED ORDERS, NOW ON PUREE DIET AND TAKING MEDICATIONS WITH APPLE SAUCE. NO VOID THIS SHIFT, DIALYSIS PT. PT REPORTING LOWER BACK PAIN MEDICATED PER ORDERS. DR. BEYER ROUNDED ON PT THIS AM, PLAN OF CARE ONGOING.
[2024-07-17] MEDS ORDERED: Sacubitril/Valsartan 24 MG-26 MG Tab PO SCH (21:00)
[2024-07-17] MEDS ORDERED: CloNIDine 0.1 MG Tab PO SCH (21:00)
[2024-07-18] VITALS (17 sets, daily range): BP systolic 72–158; BP diastolic 36–107
[2024-07-18 04:27] LABS: Hematocrit 32.6 % (37.0-53.0); Hemoglobin 10.1 g/dL (13.5-17.5)
[2024-07-18 05:04] LABS: Magnesium, Blood 2.5 mg/dL (1.6-2.4)
[2024-07-18 05:15] LABS: Albumin, Blood 3.1 g/dL (3.4-5.0); Anion Gap 18 mmol/L (3-11); Blood Urea Nitrogen 61 mg/dL (8-24); CO2, Blood 22 mmol/L (21-32); Calcium, Blood 9.3 mg/dL (8.5-10.1); Chloride, Blood 98 mmol/L (98-108); Creatinine, Blood 8.69 mg/dL (0.60-1.20); Glomerular Filtration Rate 6 (60-); Glucose, Blood 93 mg/dL (70-99); Phosphorus, Blood 9.5 mg/dL (2.5-4.9); Sodium, Blood 133 mmol/L (136-145)
--- NOTE | 2024-07-18 05:31 | NUR ---
SHIFT SUMMARY PT REMAINS A&OX3. PT FORGETFUL THROUGHOUT NIGHT. EASILY REORIENTED. AT ONE POINT THROUGHOUT NIGHT PT WANTED TO LEAVE BUT WAS ENCOURAGED TO STAY THROUGHOUT NIGHT. PT CONTINUES TO BE ON 1000FR. CONTINUES TO BE ANURIC. NO BM THROUGHOUT NIGHT. PTs VSS ON RA. PT WAS HYPERTENSIVE AT START OF SHIFT WITH SBP >170. PRN HYDRALAZINE GIVEN WITH GOOD EFFECT. PT VERY WEAK ON FEET. 1-2 PERSON ASSIST WITH FWW WHEN AMBULATING NEEDED. NO FURTHER QUESTIONS OR CONCERNS AT THIS TIME. BED ALARM SET WITH CALL GOODE WITHIN REACH.
[2024-07-18] MEDS ORDERED: Anticoagulant Sod Citrate Soln 3 ML SYR INJ PRN (07:00)
[2024-07-18] MEDS ORDERED: Sevelamer Carbonate 800 MG Tab PO SCH (08:30)
[2024-07-18] MEDS ORDERED: Calcium Acetate 667 MG Gel Cap PO SCH (08:30)
[2024-07-18] MEDS ORDERED: Sodium Zirconium Cyclosilicate 10 GM Packet PO SCH (09:00)
[2024-07-18] MEDS ORDERED: Metoprolol Succinate 50 MG TABCR PO SCH (09:00)
[2024-07-18] MEDS ORDERED: Folic Acid 1 MG TAB PO SCH (09:00)
[2024-07-18] MEDS ORDERED: CalcitrioL 0.5 MCG Cap PO SCH (09:00)
[2024-07-18] MEDS ORDERED: Thiamine HCl 100 MG Tab PO SCH (09:00)
[2024-07-18] MEDS ORDERED: AMOCLA875 PO (12:23)
[2024-07-18] MEDS ORDERED: GABA300 PO (12:23)
[2024-07-18] MEDS ORDERED: PROBIOTIC1 EA13 PO (12:24)
[2024-07-18] MEDS ORDERED: SEVELAMER HCL PO (12:24)
--- NOTE | 2024-07-18 13:00 | NUR ---
HYPOTENSIVE DURING DIALYSIS, OK PER DR. DIA, NON SYMPTOMATIC.
== END 2024-07-18 12:56 | disposition home or self-care (01) | DRG 208 ==
LOC: ER 13:02 → ERHOLD 16:56 → PCU 16:56 → ICUE 16:56 → PCU 07-15 13:35
PROVIDERS: Internal Medicine Critical Care Medicine; Internal Medicine Nephrology; Nurse Practitioner Acute Care; Student in an Organized Health Care Education/Training Program; ADMIT Student in an Organized Health Care Education/Training Program
PROC: 5A1945Z Respiratory Ventilation, 24-96 Consecutive Hours (ICD-10-PCS; principal; 2024-07-09)
PROC: 0BH17EZ Insertion of Endotracheal Airway into Trachea, Via Natural or Artificial Opening (ICD-10-PCS; 2024-07-09)
PROC: 5A1D70Z Performance of Urinary Filtration, Intermittent, Less than 6 Hours Per Day (ICD-10-PCS; 2024-07-09)
DX: J96.01 Acute respiratory failure with hypoxia (principal); G92.8 Other toxic encephalopathy; N18.6 End stage renal disease; K12.2 Cellulitis and abscess of mouth; I42.9 Cardiomyopathy, unspecified; I50.22 Chronic systolic (congestive) heart failure; I13.2 Hypertensive heart and chronic kidney disease with heart failure and with stage 5 chronic kidney disease, or end stage renal disease; Q61.3 Polycystic kidney, unspecified; E87.1 Hypo-osmolality and hyponatremia; E87.4 Mixed disorder of acid-base balance; J96.02 Acute respiratory failure with hypercapnia; K04.7 Periapical abscess without sinus; E87.5 Hyperkalemia; K21.9 Gastro-esophageal reflux disease without esophagitis; F10.20 Alcohol dependence, uncomplicated; D63.1 Anemia in chronic kidney disease; E11.22 Type 2 diabetes mellitus with diabetic chronic kidney disease; F15.10 Other stimulant abuse, uncomplicated; Z99.2 Dependence on renal dialysis; Z79.899 Other long term (current) drug therapy; Z91.199 Patient's noncompliance with other medical treatment and regimen due to unspecified reason; E83.39 Other disorders of phosphorus metabolism; R45.1 Restlessness and agitation; E83.41 Hypermagnesemia
CPT/HCPCS: 31500; 36415; 36593; 51702; 70491; 71045; 71260; 80048; 80053; 80069; 80202; 81001; 82140; 82803; 82947; 83605; 83735; 83880; 84100; 84484; 85014; 85018; 85025; 85379; 85610; 87040; 92610; 93005; 93010; 94002; 94003; 94640; 94664; 94760; 94762; 96365-59; 96366-59; 96368; 96372-59; 96375-59; 97110; 97116; 97161; 97530; 99285-25; A9270; J0171; J0295; J0360; J0692; J0881; J1200; J1610; J1644; J2003; J2060; J2250; J2470; J2704; J2997; J3010; J3370; J3411; J7050; J7512; P9047; Q9967

== ENCOUNTER 2024-07-24 09:50 | Inpatient (IN) | payer MEDICARE ==
[2024-07-24] VITALS (13 sets, daily range): BP systolic 143–200; BP diastolic 99–144
[~2024-07-24] VITALS: Ht 172.7 cm; Wt 72.5 kg
[~2024-07-24 09:50] MED LIST changes: +AMOCLA875 PO; -Etomidate 2MG / ML 10ML Vial IV ONE; -Ketamine HCl 100 MG / ML 5ML Vial IM ONE; -LORazepam 2 MG/ML 1ML Injection IV ONE; -Lidocaine HCl 1% 5 ML SYR INFIL ONE; -METO25ER PO; +METO50ER PO; +PROBIOTIC1 EA13 PO; +SEVELAMER HCL PO
[2024-07-24] MEDS ORDERED: HYDROcodone 5-APAP 325 TAB PO ONE (10:15)
[2024-07-24 10:40] LABS: CORONAVIRUS COVID-19 AG Negative (NEGATIVE); INFLUENZA A AG Negative (NEGATIVE); INFLUENZA B AG Negative (NEGATIVE)
[2024-07-24 10:53] LABS: BASOPHILS ABSOLUTE AUTO 0.08 K/mm3 (0.00-0.23); BASOPHILS PERCENT AUTO 1 % (0-2); EOSINOPHILS ABSOLUTE AUTO 0.14 K/mm3 (0.00-0.68); EOSINOPHILS PERCENT AUTO 1 % (0-6); Hematocrit 32.3 % (37.0-53.0); Hemoglobin 10.2 g/dL (13.5-17.5); IMMATURE GRAN ABSOLUTE AUTO 0.04 K/mm3 (0.00-0.10); IMMATURE GRAN PERCENT AUTO 0 % (0-1); LYMPHOCYTES ABSOLUTE AUTO 0.55 K/mm3 (0.84-5.20); LYMPHOCYTES PERCENT AUTO 5 % (21-46); MONOCYTES ABSOLUTE AUTO 0.61 K/mm3 (0.16-1.47); MONOCYTES PERCENT AUTO 5 % (4-13); Mean Corpuscular HGB 31.5 pg (26.0-34.0); Mean Corpuscular HGB Conc 31.6 g/dL (31.5-36.5); Mean Corpuscular Volume 100 fL (80-100); Mean Platelet Volume 9.1 fL (9.1-12.4); NEUTROPHILS ABSOLUTE AUTO 10.79 K/mm3 (1.96-9.15); NEUTROPHILS PERCENT AUTO 88 % (41-73); Platelet Count 408 K/mm3 (150-400); RDW Coefficient Variation 14.7 % (11.7-14.2); RDW Standard Deviation 54.1 fL (35.1-46.3); Red Blood Cell Count 3.24 M/mm3 (4.30-5.90); White Blood Cell Count 12.21 K/mm3 (4.00-11.30)
[2024-07-24 11:34] LABS: Albumin, Blood 3.5 g/dL (3.4-5.0); Albumin/Globulin Ratio 0.9 (0.8-1.8); Bilirubin, Total 0.4 mg/dL (0.1-1.0); Bun/Creatinine Ratio 8.2 (12.0-20.0); Creatinine, Blood 11.5 mg/dL (0.60-1.20); Globulin, Blood 4.1 g/dL (2.2-4.0); Potassium, Blood 5.1 mmol/L (3.5-5.5); Total Protein, Blood 7.6 g/dL (6.4-8.2)
[2024-07-24] MEDS ORDERED: CloNIDine 0.1 MG Tab PO ONE (11:50)
[2024-07-24] MEDS ORDERED: Amoxicillin/Clavulanate K 875 MG Tab PO ONE (11:50)
[2024-07-24] MEDS ORDERED: Sacubitril/Valsartan 24 MG-26 MG Tab PO ONE (11:50)
[2024-07-24] MEDS ORDERED: Magnesium Hydroxide Conc 10 ML UDC PO PRN (12:50)
[2024-07-24] MEDS ORDERED: Ondansetron 4 MG TAB PO PRN (12:50)
[2024-07-24] MEDS ORDERED: FLU VACC TS2024-25(6MOS UP)/PF 45 MCG/0.5 ML SYRINGE IM SCH (12:50)
[2024-07-24] MEDS ORDERED: TraZODone HCl 50 MG Tab PO PRN (12:50)
[2024-07-24] MEDS ORDERED: Bisacodyl 10 MG Supp PR PRN (12:55)
[2024-07-24] MEDS ORDERED: HydrALAZINE HCl 20 MG / ML 1ML Vial IV PRN (13:00)
[2024-07-24 13:21] LABS: Source, Urine Clean Catch
[2024-07-24 13:28] LABS: Appearance, Urine Clear (Clear); Bilirubin, Urine Neg (Neg); Blood, Urine 1+ (Neg); Color, Urine Yellow (P-Yellow); Glucose Qualitative, Urine 2+ (Neg); Ketones, Urine Neg (Neg); Leukocyte Esterase, Urine 1+ (Neg); Nitrite, Urine Neg (Neg); Protein, Urine 3+ (Neg); Urobilinogen, Urine NORM (Normal)
[2024-07-24 13:58] LABS: Bacteria Few /hpf; Red Blood Cells, Urine 0-2 /hpf (0-2); Squamous Epithelial Cells Rare /hpf (Few)
[2024-07-24] MEDS ORDERED: Anticoagulant Sod Citrate Soln 3 ML SYR INJ PRN (14:50)
--- NOTE | 2024-07-24 16:44 | NUR ---
RECIEVED REPORT FROM [facility] IN ED, PT IN DIALYSIS CURRENTLY. UNSURE IF PT WILL COME STRAIGHT TO ROOM 325 AFTER DIALYSIS OR RETURN TO ED THEN MED FLOOR. WILL AWAITE INSTRUCTIONS.
[2024-07-24] MEDS ORDERED: Calcium Acetate 667 MG Gel Cap PO SCH (17:30)
[2024-07-24] MEDS ORDERED: Sevelamer Carbonate 800 MG Tab PO SCH (17:30)
[2024-07-24] MEDS ORDERED: Amoxicillin/Clavulanate K 500 MG Tab PO SCH (18:00)
--- NOTE | 2024-07-24 18:44 | NUR ---
SHIFT SUMMARY/TRANSFER 1755-PT ARRIVED AOX3/4, COOPERATIVE, ABLE TO MAKE NEEDS KNOWN. PT IS ON 1000ML RESTRICTION PER DIA TELEPHONE ORDER. PT REQUIRED 2 PERSON ASSIST INTO BED AFTER COMING FROM DIALYSIS. ENDORSES CHRONIC BACK PAIN, PT REPORTS TAKING 8 500MG TYLENOL A DAY AT HOME. 2 RN SKIN CHECK PERFORMED BY THIS RN AND LAWANDA RESENDIZ. IV RIGHT AC PATENT. PT NOT ON FLUIDS CURRENTLY. BED ALARM ON. BED IN LOWEST POSITION, CALL LIGHT WITHIN REACH.
[2024-07-24] MEDS ORDERED: Famotidine 20 MG Tab PO SCH (21:00)
[2024-07-24] MEDS ORDERED: Metoprolol Tartrate 25 MG Tab PO SCH (21:00)
[2024-07-24] MEDS ORDERED: Sacubitril/Valsartan 24 MG-26 MG Tab PO SCH (21:00)
[2024-07-25] VITALS (19 sets, daily range): BP systolic 89–171; BP diastolic 50–113
--- NOTE | 2024-07-25 05:02 | NUR ---
SHIFT SUMMARY: PT AOX4 PLEASANT AND AGREAABLE IN CARE. SOME MUMBLING AND GROANING BUT LUNG SOUNDS ARE WITHIN BASELINE. UPSET ABOUT FLUID RESTRICTION BUT UNDERSTANDNING. DENIES ANY SOB OR CP. NO ACUTE EVENTS OVER NIGHT. PT RESTING IN BED, BED IN LOWEST POSITION, CALL LIGHT IN REACH. CONTINUING CARE.
[2024-07-25 05:14] LABS: BASOPHILS PERCENT AUTO 1 % (0-2); EOSINOPHILS ABSOLUTE AUTO 0.23 K/mm3 (0.00-0.68); EOSINOPHILS PERCENT AUTO 2 % (0-6); Hemoglobin 10.8 g/dL (13.5-17.5); IMMATURE GRAN ABSOLUTE AUTO 0.03 K/mm3 (0.00-0.10); IMMATURE GRAN PERCENT AUTO 0 % (0-1); LYMPHOCYTES ABSOLUTE AUTO 0.65 K/mm3 (0.84-5.20); LYMPHOCYTES PERCENT AUTO 6 % (21-46); MONOCYTES ABSOLUTE AUTO 0.66 K/mm3 (0.16-1.47); MONOCYTES PERCENT AUTO 6 % (4-13); Mean Corpuscular HGB 31.7 pg (26.0-34.0); Mean Corpuscular HGB Conc 31.8 g/dL (31.5-36.5); Mean Corpuscular Volume 100 fL (80-100); Mean Platelet Volume 9.3 fL (9.1-12.4); NEUTROPHILS ABSOLUTE AUTO 8.61 K/mm3 (1.96-9.15); NEUTROPHILS PERCENT AUTO 84 % (41-73); Platelet Count 415 K/mm3 (150-400); RDW Coefficient Variation 14.8 % (11.7-14.2); Red Blood Cell Count 3.41 M/mm3 (4.30-5.90); White Blood Cell Count 10.28 K/mm3 (4.00-11.30)
[2024-07-25] MEDS ORDERED: Ondansetron 4 MG TAB PO PRN (05:50)
[2024-07-25 06:06] LABS: Magnesium, Blood 2.4 mg/dL (1.6-2.4)
[2024-07-25 06:17] LABS: Albumin, Blood 3.1 g/dL (3.4-5.0); Albumin/Globulin Ratio 0.8 (0.8-1.8); Bilirubin, Total 0.4 mg/dL (0.1-1.0); Bun/Creatinine Ratio 7.9 (12.0-20.0); Calcium, Blood 9.6 mg/dL (8.5-10.1); Creatinine, Blood 9.26 mg/dL (0.60-1.20); Globulin, Blood 4.1 g/dL (2.2-4.0); Phosphorus, Blood 8.6 mg/dL (2.5-4.9); Potassium, Blood 4.8 mmol/L (3.5-5.5); Total Protein, Blood 7.2 g/dL (6.4-8.2)
[2024-07-25] MEDS ORDERED: Anticoagulant Sod Citrate Soln 3 ML SYR INJ PRN (07:35)
[2024-07-25] MEDS ORDERED: Heparin Sodium 5000 Units/ML 1ML MDV SC SCH (09:00)
[2024-07-25] MEDS ORDERED: CloNIDine 0.1 MG Tab PO SCH ×2 (09:00→21:00)
[2024-07-25] MEDS ORDERED: Sacubitril/Valsartan 49 MG/51 MG Tab PO SCH (09:00)
[2024-07-25] MEDS ORDERED: Sodium Zirconium Cyclosilicate 10 GM Packet PO SCH (09:00)
[2024-07-25] MEDS ORDERED: OxyCODONE HCL 5 MG TAB PO PRN (10:00)
[2024-07-25] MEDS ORDERED: Acetaminophen 325 MG TABLET PO PRN (10:00)
--- NOTE | 2024-07-25 16:42 | NUR ---
SHIFT SUMMARY PT AOX4, COOPERATIVE, ABLE TO MAKE NEEDS KNOWN. HAD DIALYSIS AT 0830, HAS BEEN SLEEPING OFF AND ON SINCE THEN. DID EXPRESS BACK PAIN IN THE AM, MEDICATED PER EMAR ONCE FOR THE SHIFT. TELE ACTIVE. BED IN LOWEST POSITION, CALL LIGHT WITHIN REACH.
[2024-07-25] MEDS ORDERED: Metoprolol Tartrate 25 MG Tab PO SCH (21:00)
[2024-07-26] VITALS (19 sets, daily range): BP systolic 72–156; BP diastolic 32–110
--- NOTE | 2024-07-26 04:23 | NUR ---
SHIFT SUMMARY: PT AOX3-4 CAN ANSWER QUESTIONS APPROPRIATELY BUT HAS SOME CONFUSION. STATES HE FEELS WEAK BUT IS ABLE TO MOVE SELF IN BED. BACK PAIN TREATED PER EMR. PT SLEPT REALLY HARD THROUGH MAJORITY OF THE NIGHT, TOSSING AND TURNING A LOT, RIPPING OFF TELE AND PULSE OX BUT STILL ASLEEP. TOLERATING FLUID RESTRICTION WELL. PT SLEEPING IN BED, BED IN LOWEST POSITION, CALL LIGHT IN REACH. CONTINUING CARE.
[2024-07-26 05:13] LABS: Hematocrit 35.5 % (37.0-53.0); Hemoglobin 11.1 g/dL (13.5-17.5)
[2024-07-26 05:39] LABS: Magnesium, Blood 2.7 mg/dL (1.6-2.4)
[2024-07-26 06:17] LABS: Albumin, Blood 3.1 g/dL (3.4-5.0); Anion Gap 16 mmol/L (3-11); Blood Urea Nitrogen 67 mg/dL (8-24); Bun/Creatinine Ratio 7.5 (12.0-20.0); CO2, Blood 25 mmol/L (21-32); Calcium, Blood 9.4 mg/dL (8.5-10.1); Chloride, Blood 101 mmol/L (98-108); Creatinine, Blood 8.91 mg/dL (0.60-1.20); Glomerular Filtration Rate 6 (60-); Glucose, Blood 149 mg/dL (70-99); Phosphorus, Blood 8.6 mg/dL (2.5-4.9); Potassium, Blood 4.5 mmol/L (3.5-5.5); Sodium, Blood 137 mmol/L (136-145)
[2024-07-26] MEDS ORDERED: Anticoagulant Sod Citrate Soln 3 ML SYR INJ PRN (07:20)
[2024-07-26] MEDS ORDERED: Albuterol HFA200 ACT/6.7 GM INH INH PRN (12:55)
[2024-07-26 13:49] LABS: Percent Saturation 24.1 % (20.0-50.0)
[2024-07-26] MEDS ORDERED: Iron Dextran 50 MG / ML 2ML Vial IV ONE (16:20)
[2024-07-26] MEDS ORDERED: NS 250 ML IV PRN (16:50)
[2024-07-26] MEDS ORDERED: Iron Dextran 975 MG in NS 250 ML IV ONE (17:30)
--- NOTE | 2024-07-26 18:25 | NUR ---
SHIFT SUMMARY PT A&OX2 W/ CONFUSION, VSS, DID NOT AMB THIS SHIFT, IS TOLERATING PO, VOIDING URINE, AND PAIN MANAGED PER EMAR. PT HAD DIALYSIS THIS AM. UPON RETURNING TO THE FLOOR, PT WAS HYPOTENSIVE BUT ASYMPTOMATIC. THIS RN NOTIFIED AND BP MEDS HELD. BP IMPROVED AT NEXT VITALS CHECK. IRON LAB LOW, IRON INFUSING PER ORDER. NO OTHER ACUTE CHANGES. CALL LIGHT WITHIN REACH AND PT ABLE TO MAKE NEEDS KNOWN.
[2024-07-27] VITALS (14 sets, daily range): BP systolic 96–157; BP diastolic 50–107
--- NOTE | 2024-07-27 04:29 | NUR ---
Pt A&O x3, did not know what date was. VS slight increase in B/P this am. Pt with 1000ml fluid restriction does comply. Pt with oliguria, no output this shift. tele NSR. Pt c/o back pain and was medicated with oxicodone 5mg. Awaiting labs to determine if will go to HD today 07/27. Pt slept well between cares this shift.
[2024-07-27 06:06] LABS: Hematocrit 36.7 % (37.0-53.0); Hemoglobin 11.4 g/dL (13.5-17.5)
[2024-07-27 06:47] LABS: Magnesium, Blood 2.6 mg/dL (1.6-2.4)
[2024-07-27 06:55] LABS: Albumin, Blood 3.4 g/dL (3.4-5.0); Anion Gap 16 mmol/L (3-11); Blood Urea Nitrogen 60 mg/dL (8-24); Bun/Creatinine Ratio 7.4 (12.0-20.0); CO2, Blood 25 mmol/L (21-32); Calcium, Blood 9.7 mg/dL (8.5-10.1); Chloride, Blood 99 mmol/L (98-108); Glomerular Filtration Rate 7 (60-); Glucose, Blood 112 mg/dL (70-99); Phosphorus, Blood 7.9 mg/dL (2.5-4.9); Potassium, Blood 4.8 mmol/L (3.5-5.5); Sodium, Blood 135 mmol/L (136-145)
[2024-07-27] MEDS ORDERED: CalcitrioL 0.5 MCG Cap PO SCH (09:00)
[2024-07-27] MEDS ORDERED: Vitamin B Complex 1 EA Softgel PO SCH (09:00)
[2024-07-27] MEDS ORDERED: Anticoagulant Sod Citrate Soln 3 ML SYR INJ PRN (09:35)
--- NOTE | 2024-07-27 14:40 | NUR ---
THIS RN WENT INTO PT'S ROOM TO PROVIDE DISCHARGE INSTRUCTIONS. PT STATED THAT HE WAS NOT GOING TO SIGN HIS DISCHARGE PAPERWORK. PT STATED, "MY BACK HURTS. YOU WANT TO DISCHARGE ME WHEN I CAN'T WALK." PT WALKED 100 FT W/ JUSTIN RN AND PHARMACOLOGY PROFESSOR LAURIE W/ A GARYW PRIOR TO THIS DISCUSSION AND TOLERATED IT WELL, NO UNSTEADY GATE NOTED. PT MEDICATED FOR PAIN THIS AM PRIOR TO DIALYSIS, BUT DENIED PAIN T/O SHIFT UP UNTIL DISCHARGE.
--- NOTE | 2024-07-27 16:48 | NUR ---
THIS RN ASSISTED PT FOR ANOTHER WALK IN THE HALLWAY PER PT REQUEST. PT AMB W/ A FWW APPROX 200 FT AND TOLERATED IT WELL.
--- NOTE | 2024-07-27 17:54 | NUR ---
SHIFT SUMMARY PT APPEALED D/C, AWARE. PT A&OX3, FORGETFUL, VSS, AMB W/ SBA, TOLERATING PO, AND PAIN MANAGED PER EMAR. PT HAD DIALYSIS TODAY. NO OTHER ACUTE CHANGES. CALL LIGHT WITHIN REACH AND PT ABLE TO MAKE NEEDS KNOWN.
[2024-07-28] VITALS (19 sets, daily range): BP systolic 76–147; BP diastolic 48–98
--- NOTE | 2024-07-28 04:16 | NUR ---
Pt slept well this shift,, A&O x3, but did have some delusional type behaviors and mumbling nonsensical things, not able to understand. Pt remains on fluid restriction of 1000ml's, Pt monitored closely d/t will try to go above limit. denies pain this shift. Tele NSR, Permcath in rt. chest HD on , did have HD on 07/27. Pt up ad lotus with FWW ambulates short distances without problems. Plan to d/c 07/28.
[2024-07-28 05:52] LABS: Hemoglobin 11.5 g/dL (13.5-17.5)
[2024-07-28 06:07] LABS: Albumin, Blood 3.5 g/dL (3.4-5.0); Anion Gap 16 mmol/L (3-11); Blood Urea Nitrogen 53 mg/dL (8-24); Bun/Creatinine Ratio 6.7 (12.0-20.0); CO2, Blood 28 mmol/L (21-32); Calcium, Blood 10.2 mg/dL (8.5-10.1); Chloride, Blood 97 mmol/L (98-108); Creatinine, Blood 7.93 mg/dL (0.60-1.20); Glomerular Filtration Rate 7 (60-); Glucose, Blood 107 mg/dL (70-99); Magnesium, Blood 2.6 mg/dL (1.6-2.4); Phosphorus, Blood 7.9 mg/dL (2.5-4.9); Potassium, Blood 4.7 mmol/L (3.5-5.5); Sodium, Blood 136 mmol/L (136-145)
[2024-07-28] MEDS ORDERED: Anticoagulant Sod Citrate Soln 3 ML SYR INJ PRN (08:35)
--- NOTE | 2024-07-28 14:29 | NUR ---
DISCHARGE NOTE PT DISCHARGED HOME AT 1420. PT PROVIDED W/ VERBAL AND WRITTEN INSTRUCTIONS AND REPORTED UNDERSTANDING. PT A&OX4, VSS, AMB IND, TOLERATING PO, VOIDING, AND PAIN MANAGED PER EMAR. BELONGINGS WERE RETURNED, FWW GIVEN, AND PT ESCOURTED OUT VIA W/C BY JONATHAN GUILLEN.
== END 2024-07-28 14:38 | disposition home or self-care (01) | DRG 640 ==
LOC: ER 09:50 → ERHOLD 12:48 → MEDS 12:48 → ENPENDDIS 07-27 16:12 → MEDS 07-28 14:38
PROVIDERS: Internal Medicine; Internal Medicine Nephrology; Student in an Organized Health Care Education/Training Program; ADMIT Hospitalist
PROC: 5A1D70Z Performance of Urinary Filtration, Intermittent, Less than 6 Hours Per Day (ICD-10-PCS; principal; 2024-07-24)
DX: E87.70 Fluid overload, unspecified (principal); N18.6 End stage renal disease; I13.2 Hypertensive heart and chronic kidney disease with heart failure and with stage 5 chronic kidney disease, or end stage renal disease; I50.22 Chronic systolic (congestive) heart failure; I42.8 Other cardiomyopathies; Q44.6 Cystic disease of liver; E87.20 Acidosis, unspecified; Z99.2 Dependence on renal dialysis; M54.9 Dorsalgia, unspecified; Z91.158 Patient's noncompliance with renal dialysis for other reason; G89.29 Other chronic pain; D63.1 Anemia in chronic kidney disease; K21.9 Gastro-esophageal reflux disease without esophagitis; F17.210 Nicotine dependence, cigarettes, uncomplicated; E87.5 Hyperkalemia; E87.1 Hypo-osmolality and hyponatremia; N28.1 Cyst of kidney, acquired; Z79.899 Other long term (current) drug therapy
CPT/HCPCS: 36415; 71045; 71250; 80053; 80069; 80320; 81001; 82728; 83540; 83550; 83690; 83735; 84100; 85014; 85018; 85025; 87086; 87428-QW; 93005; 93010; 94762; 99285-25; A9270; J0360; J1644; J1750; J7050

== ENCOUNTER 2024-10-09 10:29 | Observation (INO) | payer MEDICARE ==
[~2024-10-09] VITALS: Ht 172.7 cm; Wt 73.0 kg
[2024-10-09] VITALS (13 sets, daily range): BP systolic 148–191; BP diastolic 91–121
[2024-10-09] MEDS ORDERED: Acetaminophen 500 MG Tab PO ONE (11:15)
[2024-10-09] MEDS ORDERED: Sacubitril/Valsartan 24 MG-26 MG Tab PO ONE (13:20)
[2024-10-09] MEDS ORDERED: Metoprolol Succinate 25 MG TABCR PO ONE (13:20)
[2024-10-09] MEDS ORDERED: OxyCODONE HCL 5 MG TAB PO ONE (13:20)
[2024-10-09 13:42] LABS: Bun/Creatinine Ratio 5.7 (12.0-20.0); Calcium, Blood 8.3 mg/dL (8.5-10.1); Creatinine, Blood 11.9 mg/dL (0.60-1.20); Potassium, Blood 6.9 mmol/L (3.5-5.5)
[2024-10-09] MEDS ORDERED: Calcium Gluconate 10% 2,000 MG in NS 50 ML IV ONE (13:45)
[2024-10-09] MEDS ORDERED: Insulin Regular 100 Unit/ML 1ML Dose IV ONE (13:50)
[2024-10-09] MEDS ORDERED: Dextrose 50% 50 ML Syringe IV ONE (13:50)
[2024-10-09] MEDS ORDERED: Dextrose 50% 50 ML Vial IV ONE (13:55)
[2024-10-09] MEDS ORDERED: CALCIUM GLUC IN NACL, ISO-OSM 100 ML IV ONE (14:20)
[2024-10-09] MEDS ORDERED: FLU VACC TS2024-25(6MOS UP)/PF 45 MCG/0.5 ML SYRINGE IM ONE (15:00)
[2024-10-09] MEDS ORDERED: Dextrose 50% 50 ML Vial IV STA (15:09)
[2024-10-09 18:44] LABS: Hematocrit 41.2 % (37.0-53.0); Hemoglobin 13.6 g/dL (13.5-17.5)
--- NOTE | 2024-10-09 19:12 | NUR ---
PT ARRIVED TO MEDICAL FLOOR AT 182, HE WAS TRANSFERRED FROM [facility] TO MEDICAL FLOOR BED WITH 2 PERSON ASSISTANCE AND A SLIDE SHEET.
--- NOTE | 2024-10-09 19:38 | NUR ---
PT IS A&O X3-4. HE CAN STATE WHERE HE IS, AND HIS NAME/. HE'S UNABLE TO NAME THE MEDICATIONS THAT HE TAKES AT HOME. HIS SPEECH IS GARBLED AT TIMES, BUT IF YOU LISTEN SLOWLY AND PATIENTLY YOU CAN UNDERSTAND AFTER A FEW TRIES. LUNGS SOUND CONGESTED. HE HAS SCATTERED CUTS/SCABS ON HIS SKIN. CONTINENT OF URINE. BEDREST ORDERED. BP IS 186/112, THEN RECHECK AT 176/92. HE REPORTS PAIN TO HIS LOWER BACK AND LEFT HIP/LEG. HE IS PRESENTLY FLOATED ON THREE PILLOWS IN BED. HE REPORTS THAT HE'S FATIGUED, AND TIRED. RN WILL GIVE REPORT TO ONCOMING NURSE.
[2024-10-09] MEDS ORDERED: METO25 PO (19:59)
[2024-10-09] MEDS ORDERED: Heparin Sodium,Porcine 5,000 UNIT/0.5 ML SDV SC SCH (21:00)
[2024-10-09] MEDS ORDERED: FentaNYL Citrate 50 MCG/ML 2 ML Injection IV PRN (21:45)
[2024-10-09] MEDS ORDERED: Metoprolol Tartrate 25 MG Tab PO SCH (21:45)
[2024-10-09] MEDS ORDERED: Nicotine 21 MG PATCH TOP SCH (21:45)
[2024-10-09] MEDS ORDERED: HydrALAZINE HCl 25 MG Tab PO SCH (21:45)
[2024-10-09] MEDS ORDERED: HYDROmorphone HCl/Pf 1MG SYR IV ONE (23:55)
[2024-10-10] VITALS (24 sets, daily range): BP systolic 91–177; BP diastolic 66–123
--- NOTE | 2024-10-10 02:16 | NUR ---
PT HAS HAD PERSISTANT HYPERTENSION SINCE BEGINNING OF SHIFT (SBP 170'S-180'S W/DBP 90'S-100'S). HE'S ALSO C/O OF CONSTANT LOW BACK, HIP AND L.LEG PAIN WHENEVER AWAKE. MADE AWARE AND FENTANYL 25-50 MCG Q4P WAS RX'D AND RECEIVED FOR NO RELIEF AND HYPERTENSION WORSENED. HE WAS NOTIFIED AGAIN AND DILAUDID 1MG IV X1 WAS RX'D AND RECEIVED FOR IMPROVED PAIN CONTROL BUT BP CONTINUED TO WORSEN. MADE AWARE AND HE PLANNED TO EVALUATE PT'S CHART AND PLACE NEW ORDERS. HE WAS ALSO UPDATED TO TRENDING CBG'S THAT HAD INITIALLY IMPROVED AFTER PT HAD A SNACK BUT HAVE SINCE BEGUN DROPPING AGAIN. MOST RECENT CBG 99. WILL AWAIT AND IMPLEMENT NEW ORDERS.
[2024-10-10] MEDS ORDERED: HydrALAZINE HCl 20 MG / ML 1ML Vial IV PRN (02:25)
--- NOTE | 2024-10-10 04:00 | NUR ---
HYDRALAZINE 10-20 MG RX'D Q6H PRN BY FOR SBP>170. 1ST DOSE RECEIVED, AWAITING EFFECT.
--- NOTE | 2024-10-10 05:30 | NUR ---
SUMMARY: PT A/OX3 AND IS ABLE TO SPECIFY NEEDS TO STAFF IN ROOM. BED ALARM IS ON FOR POSSIBLE IMPULSIVITY AND RECENT FALLS PRECEEDING ADMIT. HE REPORTS INCREASED WEAKNESS AND INABILITY TO WT.BEAR LATELY R/T LOW BACK, HIP AND L.LEG PAIN S/P FALL X1 MONTH AGO. IMAGING WAS WNL. MADE AWARE W/PRN FENTANYL AND X1 DILAUDID RECEIVED FOR MODERATE RELIEF. HE ATTEMPTED BSC USE BUT PASSED FLATUS ONLY AND WAS A 2PMAX ASSIST W/DIFFICULTY WT.BEARING, BEDREST IN PROGRESS SINCE. CBG'S HAVE BEEN SLIGHLTY LOW (70'S-100'S) AFTER MEDS WERE RECEIVED FOR HYPERKALEMIA ON DAY SHIFT W/SNACK PROVIDED PRN TONIGHT, AM LABS PENDING. HYPERTENSION PERSISTED T/O NOCTE DESPITE IMPROVED PAIN CONTROL AND PRN HYDRALAZINE WAS RX'D AND RECIEVED FOR GOOD EFFECT, BP NOW 124/84. HD CATH IS INTACT TO [facility] CONSULTING FOR ESRD. HE HAS SCATTERED SCABS AND EXCORITATIONS TO EXT'S AND WAS VISUALLY HALLUCINATING THAT THERE WERE "BUGS CRAWLING OUT OF THEM". NO ACUTE CHANGES, VSS/AFEBRILE. WILL REPORT TO DAY RN.
--- NOTE | 2024-10-10 06:39 | NUR ---
NEW ORDER RECEIVED BY FOR CLONIDINE 0.1MG PO BID.
[2024-10-10 06:49] LABS: Hematocrit 44.3 % (37.0-53.0); Hemoglobin 14.3 g/dL (13.5-17.5)
[2024-10-10 07:14] LABS: Magnesium, Blood 2.2 mg/dL (1.6-2.4)
[2024-10-10] MEDS ORDERED: Albuterol HFA200 ACT/6.7 GM INH INH PRN (07:40)
[2024-10-10] MEDS ORDERED: Acetaminophen 325 MG TABLET PO PRN (07:40)
[2024-10-10 08:03] LABS: Albumin, Blood 3.4 g/dL (3.4-5.0); Anion Gap 22 mmol/L (3-11); Blood Urea Nitrogen 50 mg/dL (8-24); Bun/Creatinine Ratio 5.5 (12.0-20.0); CO2, Blood 23 mmol/L (21-32); Calcium, Blood 8.8 mg/dL (8.5-10.1); Chloride, Blood 89 mmol/L (98-108); Creatinine, Blood 9.12 mg/dL (0.60-1.20); Glomerular Filtration Rate 6 (60-); Glucose, Blood 70 mg/dL (70-99); Phosphorus, Blood 10.7 mg/dL (2.5-4.9); Potassium, Blood 6.5 mmol/L (3.5-5.5); Sodium, Blood 127 mmol/L (136-145)
[2024-10-10] MEDS ORDERED: Dextrose 50% 50 ML Syringe IV ONE (08:25)
[2024-10-10] MEDS ORDERED: Sevelamer Carbonate 800 MG Tab PO SCH (08:30)
[2024-10-10] MEDS ORDERED: Calcium Acetate 667 MG Gel Cap PO SCH (08:30)
[2024-10-10] MEDS ORDERED: Sodium Zirconium Cyclosilicate 10 GM Packet PO SCH (09:00)
[2024-10-10] MEDS ORDERED: CalcitrioL 0.5 MCG Cap PO SCH (09:00)
[2024-10-10] MEDS ORDERED: Enoxaparin 40 MG/0.4 ML SYR SC SCH (09:00)
[2024-10-10] MEDS ORDERED: CloNIDine 0.1 MG Tab PO SCH (09:00)
[2024-10-10] MEDS ORDERED: Sacubitril/Valsartan 24 MG-26 MG Tab PO SCH (09:00)
--- NOTE | 2024-10-10 19:24 | NUR ---
SHIFT SUMMARY PT A&OX4. POOR HISTORIAN THOUGH. PT ADMITTED DUE TO ERSD NEEDING DIALYSIS. PT HAD DIALYSIS THIS AM. PT HAD CRITICAL LABS REPORTED TO THIS RN, NO NEW ORDERS DUE TO [facility] AND GETTING DIALYSIS THIS AM. PT EATS ADEQUATE. CALLED DR. RHODES TO CLARIFIED IF THEY WANT HIM ON TELE DUE TO INCREASED POTASSIUM, NO NEW ORDERS AT THIS TIME. PT CONT OF URINE AND BM, PT VOIDS RARELY DUE TO ESRD. PT HAS LOW BACK PAIN, MEDICATED PER EMAR. PT HAS HD CATH, C/D/I. PT WORKED WITH PHYSICAL THERAPY TODAY. PT IS A 2 P MAX ASSIST. VSS. NOTIFIED MEAGAN THIS AM THAT PT BLOOD SUGAR WAS 65, BLOOD SUGAR STABLE WITH FOOD, DID NOT GIVE D50. PLAN IS PT GETS MRI TOMORROW, TOLD NIGHT RN THAT MRI FORM NEEDS COMPLETED. BED IN LOWEST POSITION, CALL LIGHT IN REACH.
[2024-10-11] VITALS (17 sets, daily range): BP systolic 93–151; BP diastolic 59–100
--- NOTE | 2024-10-11 04:33 | NUR ---
SHIFT SUMMARY: PT AOX4 WITH SOME FORGETFULLNESS. EASILY REORIENTED. PT COMPLAINS OF PAIN IN L LEG SAYING ITS CRAMPING AND LOCKING UP HIS BACK AND HIPS. HAD TO HAVE AN URGENT BOWEL MOVEMENT, REQ BEDPAN, WAS ABLE TO LIFT HIPS UP AND HAD A SMALL BM. LATER IN THE NIGHT GOT ON BSC WITH ASSISTANCE AND HAD ANOTHER SMALL BM. STILL COMPLAINED OF PAIN ON MOVEMENT BUT NOT BAD ON REST. CBGS HAVE BEEN STABLE AND PT TOLERATING DIET AND MEDICATIONS WELL. NO ACUTE EVENTS OVERNIGHT. PT IN BED SLEEPING, BED IN LOWEST POSITION, CALL LIGHT IN REACH. CONTINUING CARE.
[2024-10-11 05:21] LABS: Hematocrit 41.8 % (37.0-53.0); Hemoglobin 13.9 g/dL (13.5-17.5)
[2024-10-11] MEDS ORDERED: Vitamin B Cmplx/Vit C/Folic Ac 1 Tab PO SCH (06:00)
[2024-10-11 06:08] LABS: Magnesium, Blood 2.2 mg/dL (1.6-2.4)
[2024-10-11 06:09] LABS: Albumin, Blood 3.3 g/dL (3.4-5.0); Anion Gap 15 mmol/L (3-11); Blood Urea Nitrogen 45 mg/dL (8-24); Bun/Creatinine Ratio 6.1 (12.0-20.0); CO2, Blood 25 mmol/L (21-32); Calcium, Blood 9.5 mg/dL (8.5-10.1); Chloride, Blood 92 mmol/L (98-108); Creatinine, Blood 7.38 mg/dL (0.60-1.20); Glomerular Filtration Rate 8 (60-); Glucose, Blood 97 mg/dL (70-99); Phosphorus, Blood 9.5 mg/dL (2.5-4.9); Potassium, Blood 5.2 mmol/L (3.5-5.5); Sodium, Blood 127 mmol/L (136-145)
--- NOTE | 2024-10-11 16:46 | NUR ---
SHIFT SUMMARY PT AOX4, COOPERATIVE, ABLE TO MAKE NEEDS KNOWN. PT HAS NOT BEEN OUT OF BED FOR SHIFT, THOUGH WAS TOLD IN REPORT PT IS 2 PERSON ASSIST. USES URINAL APPROPRIATELY, NO MENTION OF BM YET. HAD DIALYSIS TODAY, TOOK 1.5 LITERS WITH BP OF 124/86. WAS SUPPOSED TO HAVE MRI TODAY BUT WAS HELD OFF UNTIL FOR INFO ABOUT PREVIOUS STENT PLACMENT INFO WAS FOUND, WAS NOT FOUND YET. PT SUPPOSED TO DC TODAY AFTER MRI RESULTS COME THROUGH. BED IN LOWEST POSITION, CALL LIGHT WITHIN REACH.
[2024-10-12] VITALS (13 sets, daily range): BP systolic 91–140; BP diastolic 50–104
--- NOTE | 2024-10-12 04:12 | NUR ---
shift summary Alet, oriented w/pleasant affect. appreciative demeanor, reports pain is "not too bad" when asked on multiple rounds. took 4 po meds at hs for heart/BP. BP remains stable throughout shift. LCTA, No edema. Oliguric. CBG at hs was 116 and received an hs snack. Rt chest dialysi ports dsg CDI and site WNL. Has used call light approriate except tried to get OOB w/o calling once setting off bed alarm.
[2024-10-12] MEDS ORDERED: Gabapentin 100 MG Cap PO SCH (09:00)
[2024-10-12] MEDS ORDERED: Apixaban 5 MG Tab PO SCH (09:34)
[2024-10-12] MEDS ORDERED: ELIQUIS2.5 MG PO (11:19)
[2024-10-12] MEDS ORDERED: GABA100 PO (11:20)
[2024-10-12] MEDS ORDERED: NICO21TP TOP (11:20)
[2024-10-12] MEDS ORDERED: LOKELMA10 GM PO (11:20)
[2024-10-12] MEDS ORDERED: MULVITA PO (11:21)
[2024-10-12 11:46] LABS: HEPATITIS B SURFACE ANTIBODY 61.12 IU/L
[2024-10-12 12:02] LABS: HEPATITIS B SURFACE ANTIGEN Negative (Negative)
[2024-10-12 12:57] LABS: HBV CORE ANTIBODIES,TOTAL Negative (Negative)
--- NOTE | 2024-10-12 15:14 | NUR ---
report received verified, pt is a/o x4 very pleasent and knows he will be leaving today after dialysis. pain to lower back and hip 02/18 and has been medicated. 930 to dialysis 1130 pt returned a/o, minimal pain, 1400 pt discharged to [facility] and report given
[2024-10-12] MEDS ORDERED: Sodium Zirconium Cyclosilicate 10 GM Packet PO SCH (21:00)
== END 2024-10-12 14:30 ==
LOC: ER 10:29 → MEDS 10:30 → ERHOLD 10:30 → MEDS 18:22
PROVIDERS: Emergency Medicine; Internal Medicine Nephrology; ADMIT Internal Medicine
DX: E87.70 Fluid overload, unspecified (principal); E87.1 Hypo-osmolality and hyponatremia; E87.5 Hyperkalemia; E11.649 Type 2 diabetes mellitus with hypoglycemia without coma; E83.39 Other disorders of phosphorus metabolism; M54.16 Radiculopathy, lumbar region; E88.09 Other disorders of plasma-protein metabolism, not elsewhere classified; I13.0 Hypertensive heart and chronic kidney disease with heart failure and stage 1 through stage 4 chronic kidney disease, or unspecified chronic kidney disease; E11.22 Type 2 diabetes mellitus with diabetic chronic kidney disease; N18.6 End stage renal disease; I50.22 Chronic systolic (congestive) heart failure; D63.1 Anemia in chronic kidney disease; I82.C29 Chronic embolism and thrombosis of unspecified internal jugular vein; K21.9 Gastro-esophageal reflux disease without esophagitis; F17.210 Nicotine dependence, cigarettes, uncomplicated; Z79.899 Other long term (current) drug therapy
CPT/HCPCS: 36415; 71045; 72192; 73502; 80048; 80069; 82947; 83735; 85014; 85018; 86704; 87340; 93005; 93010; 94760; 96374; 96375; 96376; 97110; 97161; 97530; 99285-25; A9270; G0257; G0378; J0360; J0612; J1171; J1644; J1815; J3010; J7799

== ENCOUNTER 2024-10-13 10:21 | Observation (INO) | payer MEDICARE ==
[~2024-10-13] VITALS: Ht 172.7 cm; Wt 62.6 kg
[~2024-10-13 10:21] MED LIST changes: +ELIQUIS2.5 MG PO; +GABA100 PO; +METO25 PO; +MULVITA PO; +NICO21TP TOP
[2024-10-13] MEDS ORDERED: Ketorolac Tromethamine 30mg Vial IM ONE (11:10)
[2024-10-13] MEDS ORDERED: Ketorolac Tromethamine 30mg Vial IV ONE (13:40)
[2024-10-13 15:09] LABS: BASOPHILS ABSOLUTE AUTO 0.11 K/mm3 (0.00-0.23); BASOPHILS PERCENT AUTO 1 % (0-2); EOSINOPHILS ABSOLUTE AUTO 0.31 K/mm3 (0.00-0.68); EOSINOPHILS PERCENT AUTO 4 % (0-6); Hematocrit 42.1 % (37.0-53.0); Hemoglobin 13.5 g/dL (13.5-17.5); IMMATURE GRAN ABSOLUTE AUTO 0.02 K/mm3 (0.00-0.10); IMMATURE GRAN PERCENT AUTO 0 % (0-1); LYMPHOCYTES PERCENT AUTO 11 % (21-46); MONOCYTES PERCENT AUTO 8 % (4-13); Mean Corpuscular HGB 30.1 pg (26.0-34.0); Mean Corpuscular HGB Conc 32.1 g/dL (31.5-36.5); Mean Corpuscular Volume 94 fL (80-100); Mean Platelet Volume 9.1 fL (9.1-12.4); NEUTROPHILS ABSOLUTE AUTO 6.49 K/mm3 (1.96-9.15); NEUTROPHILS PERCENT AUTO 76 % (41-73); Platelet Count 344 K/mm3 (150-400); RDW Coefficient Variation 15.9 % (11.7-14.2); RDW Standard Deviation 54.6 fL (35.1-46.3); Red Blood Cell Count 4.49 M/mm3 (4.30-5.90); White Blood Cell Count 8.53 K/mm3 (4.00-11.30)
[2024-10-13 15:36] LABS: C-REACTIVE PROTEIN, EXT RANGE 2.39 mg/dL (0.000-0.300)
[2024-10-13 15:48] LABS: Albumin, Blood 3.1 g/dL (3.4-5.0); Albumin/Globulin Ratio 0.8 (0.8-1.8); Bilirubin, Total 0.3 mg/dL (0.1-1.0); Bun/Creatinine Ratio 7.1 (12.0-20.0); Calcium, Blood 9.9 mg/dL (8.5-10.1); Creatinine, Blood 7.19 mg/dL (0.60-1.20); Globulin, Blood 3.9 g/dL (2.2-4.0); Potassium, Blood 6.1 mmol/L (3.5-5.5)
[2024-10-13] MEDS ORDERED: Piperacillin/Tazobactam Sod 3.375 GM in NS 100 ML IV ONE (21:45)
[2024-10-13] MEDS ORDERED: Dextrose 50% 50 ML Syringe IV ONE (21:50)
[2024-10-13] MEDS ORDERED: Albuterol 2.5 MG/3 ML VIAL INH SCH (21:50)
[2024-10-13] MEDS ORDERED: Sodium Zirconium Cyclosilicate 10 GM Packet PO ONE (21:50)
[2024-10-13] MEDS ORDERED: Insulin Regular 100 Unit/ML 1ML Dose IV ONE (21:50)
[2024-10-13] MEDS ORDERED: Dextrose 50% 50 ML Vial IV ONE (21:55)
[2024-10-13] MEDS ORDERED: Vancomycin HCL 1,750 MG in NS 500 ML IV ONE (22:00)
[2024-10-13] MEDS ORDERED: Vancomycin HCL 1,500 MG in NS 250 ML IV ONE (22:15)
[2024-10-14] VITALS (14 sets, daily range): BP systolic 115–208; BP diastolic 96–149
[2024-10-14] MEDS ORDERED: Ondansetron 4 MG TAB PO PRN (02:00)
[2024-10-14] MEDS ORDERED: Acetaminophen 325 MG TABLET PO PRN (02:10)
[2024-10-14] MEDS ORDERED: HYDROmorphone HCl/Pf 1MG SYR IV PRN (02:20)
[2024-10-14] MEDS ORDERED: FentaNYL 25 MCG Patch TOP SCH (02:20)
[2024-10-14] MEDS ORDERED: Methylprednisolone 4 MG Tab PO ONE (03:00)
--- NOTE | 2024-10-14 03:15 | NUR ---
ADMISSION REPORT RECEIVED FROM ER NURSE. PATIENT ARRIVES TO PCU, SLID OVER TO PCU BED WITH ASSISTANCE OF STAFF. ER NURSE WHEELED PATIENT'S PERSONAL WHEELCHAIR TO BEDSIDE. PATIENT ALERT, TALKATIVE, ANSWERS MOST QUESTIONS. HYPERTENSIVE ON ARRIVAL, PATIENT STATES "YEAH, I RUN PRETTY HIGH ALL THE TIME". ON RA, SPO2 >90%. NO TELE ORDER. PATIENT REPORTING THAT HE SEES DR. DIA OUTPATIENT AND MISSED HIS WEDNESDAY DIALYSIS APPOINTMENT D/T BEING IN ER. NEPHROLOGY CONSULT ORDERED. PATIENT STATES HE RARELY MAKES URINE. PATIENT WITH SCABS ON ARMS, PATIENT STATES "FLEA BITES" AND "THE FLEAS LAID EGGS IN MY ARMS AND THEY ARE CRAWLING OUT OF MY SKIN". PATIENT ORIENTED TO ROOM AND CALL LIGHT SYSTEM. BED ALARM ON FOR SAFETY.
[2024-10-14 03:40] LABS: BASOPHILS PERCENT AUTO 1 % (0-2); EOSINOPHILS ABSOLUTE AUTO 0.23 K/mm3 (0.00-0.68); EOSINOPHILS PERCENT AUTO 3 % (0-6); Hematocrit 42.4 % (37.0-53.0); Hemoglobin 13.5 g/dL (13.5-17.5); IMMATURE GRAN ABSOLUTE AUTO 0.02 K/mm3 (0.00-0.10); IMMATURE GRAN PERCENT AUTO 0 % (0-1); LYMPHOCYTES ABSOLUTE AUTO 0.76 K/mm3 (0.84-5.20); LYMPHOCYTES PERCENT AUTO 8 % (21-46); MONOCYTES ABSOLUTE AUTO 0.58 K/mm3 (0.16-1.47); MONOCYTES PERCENT AUTO 6 % (4-13); Mean Corpuscular HGB 29.9 pg (26.0-34.0); Mean Corpuscular HGB Conc 31.8 g/dL (31.5-36.5); Mean Corpuscular Volume 94 fL (80-100); Mean Platelet Volume 9.5 fL (9.1-12.4); NEUTROPHILS ABSOLUTE AUTO 7.34 K/mm3 (1.96-9.15); NEUTROPHILS PERCENT AUTO 81 % (41-73); Platelet Count 350 K/mm3 (150-400); RDW Coefficient Variation 15.9 % (11.7-14.2); RDW Standard Deviation 54.4 fL (35.1-46.3); Red Blood Cell Count 4.52 M/mm3 (4.30-5.90); White Blood Cell Count 9.03 K/mm3 (4.00-11.30)
[2024-10-14 04:08] LABS: C-REACTIVE PROTEIN, EXT RANGE 2.57 mg/dL (0.000-0.300)
[2024-10-14 04:13] LABS: Albumin, Blood 3.4 g/dL (3.4-5.0); Albumin/Globulin Ratio 0.9 (0.8-1.8); Bilirubin, Total 0.4 mg/dL (0.1-1.0); Bun/Creatinine Ratio 6.6 (12.0-20.0); Calcium, Blood 9.7 mg/dL (8.5-10.1); Creatinine, Blood 8.58 mg/dL (0.60-1.20); Globulin, Blood 3.9 g/dL (2.2-4.0); Total Protein, Blood 7.3 g/dL (6.4-8.2)
--- NOTE | 2024-10-14 07:25 | NUR ---
ASSUMPTION NOTE: THIS RN TO ASSUME CARE OF PATIENT. PATIENT IS RESTING IN BED, SNORING, EVEN & UNLABORED RESPIRATIONS, EASILY AROUSABLE BUT DOSES BACK OFF DURING CONVERSATION. PATIENT DENIED ANY CHEST PAIN OR FEELING SHORT OF BREATH. HAS CALL LIGHT WITHIN REACH & BED IN LOWEST POSITION.
[2024-10-14] MEDS ORDERED: Insulin Human Lispro 100 Units/ML 3ML Syringe SC SCH (07:30)
[2024-10-14] MEDS ORDERED: OxyCODONE HCL 5 MG TAB PO PRN (07:50)
--- NOTE | 2024-10-14 08:40 | NUR ---
DIALYSIS: PATIENT WAS TRANSPORTED TO DIALYSIS.
[2024-10-14] MEDS ORDERED: Apixaban 5 MG Tab PO SCH ×4 (09:00)
[2024-10-14] MEDS ORDERED: Sodium Zirconium Cyclosilicate 10 GM Packet PO SCH ×2 (09:00)
[2024-10-14] MEDS ORDERED: Docusate Sodium 100 MG Cap PO SCH (09:00)
[2024-10-14] MEDS ORDERED: Lactobacil 2-S.Thermo-Bifido 1 1 Cap PO SCH (09:00)
[2024-10-14] MEDS ORDERED: Heparin Sodium 5000 Units/ML 1ML MDV SC SCH (09:00)
[2024-10-14] MEDS ORDERED: Famotidine 20 MG Tab PO SCH (09:00)
[2024-10-14] MEDS ORDERED: Enoxaparin 40 MG/0.4 ML SYR SC SCH (09:00)
[2024-10-14] MEDS ORDERED: Calcium Acetat667 MG PO (10:19)
[2024-10-14] MEDS ORDERED: DOCU100 PO (11:25)
[2024-10-14] MEDS ORDERED: ELIQUIS5 M2 PO (11:25)
[2024-10-14] MEDS ORDERED: FENTANYL1 EA10 TOP (11:26)
[2024-10-14] MEDS ORDERED: MEDROL PO (11:39)
[2024-10-14] MEDS ORDERED: OXYC5 PO (11:40)
[2024-10-14] MEDS ORDERED: OMEP20ER PO (11:41)
[2024-10-14] MEDS ORDERED: CATAPRES0.1 MG PO (11:41)
--- NOTE | 2024-10-14 11:41 | NUR ---
MD CALLED: THIS RN CALLED MD REGARDING PATIENTS BLOOD PRESURE BEING ELEVATED, WILL BE ADDING HOME MEDICATIONS IN THE MEANTIME. PLAN [facility] WITH THE CORRY BOOTH 1PM.
[2024-10-14] MEDS ORDERED: Sacubitril/Valsartan 24 MG-26 MG Tab PO SCH (12:00)
--- NOTE | 2024-10-14 16:41 | NUR ---
SHIFT SUMMARY: PATIENT IS ALERT AND ORIENTED, SLOW TO RESPOND AND OCCASIONALLY WILL GIVE THE INCORRECT ANSWER AND THEN WITH TIME IS ABLE TO CORRECT HIMSELF. IS SATTING >92% ON ROOM AIR, EVEN & UNLABORED RESPIRATIONS AT REST. PATIENT DID GET DIALYSIS TODAY AND WAS ABLE TO TOLERATE THE SESSION. PLAN IS TO DISCHARGE TODAY TO [facility], AWAITING RIDE. WENT OVER DISCHARGE INSTRUCTIONS & PATIENT AWARE THAT [facility] MEDICATION[facility]ONG WITH THE HARD SCRIPT FOR HIS PAIN MEDICATIONS. DENYING ANY NEEDS AT THIS TIME BUT IS AWAITING TRANSPORT FOR DISCHARGE.
--- NOTE | 2024-10-14 17:17 | NUR ---
DISCHARGE NOTE: PATIENT LEFT VIA WHEELCHAIR WITH ALL PERSONAL BELONGINGS TO [facility]. IV WAS TAKEN OUT AND WRAPPED WITH COBAND & GAUZE.
[2024-10-14] MEDS ORDERED: Metoprolol Tartrate 25 MG Tab PO SCH (21:00)
[2024-10-14] MEDS ORDERED: CloNIDine 0.1 MG Tab PO SCH (21:00)
[2024-10-15] MEDS ORDERED: Methylprednisolone 4 MG Tab PO ONE ×2 (02:30→09:00)
[2024-10-16] MEDS ORDERED: Methylprednisolone 4 MG Tab PO ONE (09:00)
[2024-10-17] MEDS ORDERED: Methylprednisolone 4 MG Tab PO ONE (09:00)
[2024-10-18] MEDS ORDERED: Methylprednisolone 4 MG Tab PO ONE (09:00)
[2024-10-19] MEDS ORDERED: Methylprednisolone 4 MG Tab PO ONE (09:00)
== END 2024-10-14 17:15 | disposition home or self-care (01) ==
LOC: ER 10:21 → PCU 10:22 → ERHOLD 10:22 → ER 10:22 → PCU 10:22 → ER 10-14 01:59 → PCU 10-14 01:59 → ERHOLD 10-14 01:59 → PCU 10-14 01:59 → ERHOLD 10-14 03:13 → PCU 10-14 03:13
PROVIDERS: Emergency Medicine; Student in an Organized Health Care Education/Training Program; ADMIT Internal Medicine
DX: M54.16 Radiculopathy, lumbar region (principal); I13.2 Hypertensive heart and chronic kidney disease with heart failure and with stage 5 chronic kidney disease, or end stage renal disease; E11.22 Type 2 diabetes mellitus with diabetic chronic kidney disease; N18.6 End stage renal disease; I50.22 Chronic systolic (congestive) heart failure; D63.1 Anemia in chronic kidney disease; N25.81 Secondary hyperparathyroidism of renal origin; K21.9 Gastro-esophageal reflux disease without esophagitis; F17.210 Nicotine dependence, cigarettes, uncomplicated; Z99.2 Dependence on renal dialysis; Z79.01 Long term (current) use of anticoagulants; Z79.4 Long term (current) use of insulin; Z79.899 Other long term (current) drug therapy; Z59.00 Homelessness unspecified
CPT/HCPCS: 36415; 72100; 72148; 80053; 82947; 83605; 85025; 85651; 86140; 87040; 94644; 94664; 94762; 96372-59; 96374; 97110; 97161; 97530; 99285-25; A9270; G0257; G0378; J1815; J1885; J2543; J3370; J7040; J7050; J7509; J7799

== ENCOUNTER → 2024-10-25 | Outpatient (CLI) | payer MEDICARE ==
[~2024-10-25] MED LIST changes: +ELIQUIS5 M2 PO; +FENTANYL1 EA10 TOP; +MEDROL PO; +OMEP20ER PO; +OXYC5 PO
== END ==
LOC: LAB DAV 11:00 → LAB SHORT 11:00
DX: N18.6 End stage renal disease (principal)
CPT/HCPCS: 84132

== ENCOUNTER 2024-10-29 23:52 | Observation (INO) | payer MEDICARE ==
[~2024-10-29] VITALS: Ht 172.7 cm; Wt 77.1 kg
[2024-10-30] VITALS (22 sets, daily range): BP systolic 119–171; BP diastolic 76–103
[2024-10-30] MEDS ORDERED: MethylPREDNISolone Sod Succ 125 MG Vial IV ONE (00:05)
[2024-10-30] MEDS ORDERED: EpiNEPhrine 1 MG/1 ML 1ML Vial IM ONE (00:05)
[2024-10-30] MEDS ORDERED: Tranexamic Acid 100 ML IV ONE (00:05)
[2024-10-30] MEDS ORDERED: EPINEPhrine HCl 1 MG/ML 1ML Amp IM ONE (00:05)
[2024-10-30 00:24] LABS: BASOPHILS ABSOLUTE AUTO 0.07 K/mm3 (0.00-0.23); BASOPHILS PERCENT AUTO 1 % (0-2); EOSINOPHILS ABSOLUTE AUTO 0.49 K/mm3 (0.00-0.68); EOSINOPHILS PERCENT AUTO 6 % (0-6); Hematocrit 30.2 % (37.0-53.0); Hemoglobin 9.8 g/dL (13.5-17.5); IMMATURE GRAN ABSOLUTE AUTO 0.03 K/mm3 (0.00-0.10); IMMATURE GRAN PERCENT AUTO 0 % (0-1); LYMPHOCYTES ABSOLUTE AUTO 0.72 K/mm3 (0.84-5.20); LYMPHOCYTES PERCENT AUTO 9 % (21-46); MONOCYTES ABSOLUTE AUTO 0.71 K/mm3 (0.16-1.47); MONOCYTES PERCENT AUTO 9 % (4-13); Mean Corpuscular HGB 29.8 pg (26.0-34.0); Mean Corpuscular HGB Conc 32.5 g/dL (31.5-36.5); Mean Corpuscular Volume 92 fL (80-100); Mean Platelet Volume 9.3 fL (9.1-12.4); NEUTROPHILS ABSOLUTE AUTO 5.76 K/mm3 (1.96-9.15); NEUTROPHILS PERCENT AUTO 74 % (41-73); Platelet Count 310 K/mm3 (150-400); RDW Coefficient Variation 15.2 % (11.7-14.2); RDW Standard Deviation 51.7 fL (35.1-46.3); Red Blood Cell Count 3.29 M/mm3 (4.30-5.90); White Blood Cell Count 7.78 K/mm3 (4.00-11.30)
[2024-10-30 01:06] LABS: Bun/Creatinine Ratio 9.3 (12.0-20.0); Calcium, Blood 9.3 mg/dL (8.5-10.1); Creatinine, Blood 8.85 mg/dL (0.60-1.20); Potassium, Blood 5.2 mmol/L (3.5-5.5)
[2024-10-30] MEDS ORDERED: Ondansetron HCl 2 MG / ML 2ML Vial IV PRN (02:50)
[2024-10-30] MEDS ORDERED: NS 1,000 ML IV SCH (02:50)
[2024-10-30] MEDS ORDERED: Famotidine 10 MG/ML 2ML Vial IV SCH (03:00)
--- NOTE | 2024-10-30 05:41 | NUR ---
SHIFT SUMMARY PT ADMITTED AT 0310 TO ROOM 347 FOR ANGIOEDEMA. FACE APPEARS SOMEWHAT SWOLLEN, BUT PT STATES HIS FACE ALWAYS SWELLS WHEN HE HAS HAD A LOT OF PO FLUIDS AND IT GETS CLOSE TO DIALYSIS TIME. PT A&O X4, BUT CONVERSATIONALLY IS VERY TALKATIVE WITH FLIGHTS OF IDEAS. PT HAS PERMACATH TO ANTERIOR CHEST WALL, DRSG C/D/I. DR. DIA NOTIFIED OF ADMIT AND ASKED THAT THE DIALYSIS NURSE BE NOTIFIED AFTER 0630- THIS RN CALLED AIR CARGO SPECIALIST SUPERVISOR WHO WILL NOTIFY DIALYSIS NURSE. PT CURRENTLY RESTING IN BED. BED ALARM ON, BED IN LOWEST POSITION, CALL LIGHT WITHIN REACH, SIDERAILS UP X2.
[2024-10-30 06:07] LABS: BASOPHILS ABSOLUTE AUTO 0.04 K/mm3 (0.00-0.23); BASOPHILS PERCENT AUTO 0 % (0-2); EOSINOPHILS ABSOLUTE AUTO 0.03 K/mm3 (0.00-0.68); EOSINOPHILS PERCENT AUTO 0 % (0-6); Hematocrit 30.6 % (37.0-53.0); IMMATURE GRAN ABSOLUTE AUTO 0.03 K/mm3 (0.00-0.10); IMMATURE GRAN PERCENT AUTO 0 % (0-1); LYMPHOCYTES ABSOLUTE AUTO 0.17 K/mm3 (0.84-5.20); LYMPHOCYTES PERCENT AUTO 2 % (21-46); MONOCYTES ABSOLUTE AUTO 0.11 K/mm3 (0.16-1.47); MONOCYTES PERCENT AUTO 1 % (4-13); Mean Corpuscular HGB Conc 32.7 g/dL (31.5-36.5); Mean Corpuscular Volume 92 fL (80-100); Mean Platelet Volume 9.6 fL (9.1-12.4); NEUTROPHILS ABSOLUTE AUTO 9.04 K/mm3 (1.96-9.15); NEUTROPHILS PERCENT AUTO 96 % (41-73); Platelet Count 325 K/mm3 (150-400); RDW Coefficient Variation 15.1 % (11.7-14.2); RDW Standard Deviation 50.5 fL (35.1-46.3); Red Blood Cell Count 3.33 M/mm3 (4.30-5.90); White Blood Cell Count 9.42 K/mm3 (4.00-11.30)
[2024-10-30] MEDS ORDERED: Acetaminophen 325 MG TABLET PO PRN (06:30)
[2024-10-30 06:45] LABS: Albumin, Blood 2.9 g/dL (3.4-5.0); Albumin/Globulin Ratio 0.9 (0.8-1.8); Bilirubin, Total 0.4 mg/dL (0.1-1.0); Bun/Creatinine Ratio 8.8 (12.0-20.0); Creatinine, Blood 9.38 mg/dL (0.60-1.20); Globulin, Blood 3.2 g/dL (2.2-4.0); Potassium, Blood 5.8 mmol/L (3.5-5.5); Total Protein, Blood 6.1 g/dL (6.4-8.2)
[2024-10-30] MEDS ORDERED: Albuterol HFA200 ACT/6.7 GM INH INH PRN (06:45)
--- NOTE | 2024-10-30 07:30 | NUR ---
ATTEMPTED TO CALL BOOKKEEPER ASSISTANT, DID NOT SPRINKLER FITTER HELPER, WILL TRY AGAIN AT 0800.
[2024-10-30] MEDS ORDERED: Carvedilol 3.125 MG Tab PO SCH (08:00)
[2024-10-30] MEDS ORDERED: Calcium Acetate 667 MG Gel Cap PO SCH (08:30)
[2024-10-30] MEDS ORDERED: Sevelamer Carbonate 800 MG Tab PO SCH (08:30)
[2024-10-30] MEDS ORDERED: DiphenhydrAMINE HCl 50 MG/ML 1ML Vial IV SCH (09:00)
[2024-10-30] MEDS ORDERED: CloNIDine 0.1 MG Tab PO SCH (09:00)
[2024-10-30] MEDS ORDERED: Heparin Sodium,Porcine 5,000 UNIT/0.5 ML SDV SC SCH (09:00)
[2024-10-30] MEDS ORDERED: Docusate Sodium 100 MG Cap PO SCH (09:00)
[2024-10-30] MEDS ORDERED: MethylPREDNISolone Sod Succ 125 MG Vial IV SCH (09:00)
[2024-10-30] MEDS ORDERED: Sodium Zirconium Cyclosilicate 10 GM Packet PO SCH (09:00)
[2024-10-30] MEDS ORDERED: Metoprolol Tartrate 25 MG Tab PO SCH (09:00)
[2024-10-30] MEDS ORDERED: Omeprazole 20 MG CapCR PO SCH (09:00)
[2024-10-30] MEDS ORDERED: Apixaban 5 MG Tab PO SCH (09:00)
--- NOTE | 2024-10-30 16:07 | NUR ---
SHIFT SUMMARY PT AOX4, COOPERATIVE, ABLE TO MAKE NEEDS KNOWN. PT DOES HAVE FLIGHT OF IDEAS HOWEVER THAT IS HIS ATTITUDE/DEMEANER, HE IS A BIT OF A JOKESTER; HE WAS TALKING ABOUT RUNNING TO [employer]" BEFORE HIS DIALYSIS APPOINTMENT. PT DOES HAVE BED ALARM ACTIVE, WHICH ALARMED ONCE THIS SHIFT. ON RENAL DIET. WELDER EXPERIMENTAL REPORTED REMOVING 3 LITERS OF FLUID OFF. TAKES MEDICATIONS AND FOOD APPROPRIATELY. HAS BEEN SLEEPING ALOT SINCE GETTING BACK FROM DIALYSIS. BED IN LOWEST POSITION, CALL LIGHT WITHIN REACH.
[2024-10-31] VITALS (13 sets, daily range): BP systolic 141–182; BP diastolic 82–112
--- NOTE | 2024-10-31 03:09 | NUR ---
SHIFT SUMMARY PATIENT HAS BEEN AWAKE MOST OF THE NIGHT. HE STATES THAT HE IS USUALLY AWAKE AT HOME UNTIL 4 0'CLOCK IN THE MORNING. HE IS WATCHING TELEVISION. PATIENT IS ORIENTED X4. HE IS VERY TALKATIVE. PATIENT HAS HIS CALL LIGHT WITHIN REACH AND HAS BEEN INSTRUCTED TO CALL WITH ANY REQUESTS OR NEEDS. BED ALARM IS SET. SAFETY PRECAUTIONS ARE BEING MAINTAINED.
[2024-10-31 06:21] LABS: Hematocrit 28.8 % (37.0-53.0); Hemoglobin 9.4 g/dL (13.5-17.5)
[2024-10-31 06:51] LABS: Albumin, Blood 3.1 g/dL (3.4-5.0); Anion Gap 14 mmol/L (3-11); Blood Urea Nitrogen 66 mg/dL (8-24); Bun/Creatinine Ratio 9.1 (12.0-20.0); CO2, Blood 30 mmol/L (21-32); Calcium, Blood 8.6 mg/dL (8.5-10.1); Chloride, Blood 89 mmol/L (98-108); Creatinine, Blood 7.29 mg/dL (0.60-1.20); Glomerular Filtration Rate 8 (60-); Glucose, Blood 118 mg/dL (70-99); Magnesium, Blood 2.2 mg/dL (1.6-2.4); Phosphorus, Blood 7.7 mg/dL (2.5-4.9); Potassium, Blood 4.3 mmol/L (3.5-5.5); Sodium, Blood 129 mmol/L (136-145)
--- NOTE | 2024-10-31 07:19 | NUR ---
nursing note NOTIFIED MD THAT PATIENT IS SPITTING UP BLOOD. NO NEW ORDERS AT THIS TIME.
--- NOTE | 2024-10-31 10:51 | NUR ---
RETURNED FROM DIALYSIS, 3 LITERS REMOVED.
[2024-10-31] MEDS ORDERED: CARV6.25 PO (12:27)
--- NOTE | 2024-10-31 13:35 | NUR ---
DISCHARGE PT AOX4, COOPERATIVE, ABLE TO MAKE NEEDS KNOWN. PT IS 1 PERSON ASSIST WITH FWW. THIS RN WENT OVER DC PAPERWORK WITH PT AND TOOK OUT IV. THIS RN AND CASE MANAGMENT ATTEMPTED MULTIPLE TIMES TO GIVE PT RESOURCES FOR [facility], PT WAS VERY RESISTANT, ARGUEMENTATIVE, AND WAS YELLING TO "STAY OUT OF MY BUSINESS". STRIPER SPRAY GUN TOOK PT DOWN TO BIRTHPLACE FOR TAXI WHILE THIS RN WAS ON LUNCH. THIS RN CALLED [facility] NURSE, TALKED TO "NEDRA" EXPLAINED THAT PT BELIEVES HE HAS PLACE AT [facility] TO LIVE FOREVER, UV RN EXPLAINED THAT PT WAS ONLY THERE FOR REHAB.
== END 2024-10-31 13:30 | disposition home health service (06) ==
LOC: ER 23:52 → MEDS 23:53 → ERHOLD 23:53 → MEDS 10-30 02:43
PROVIDERS: Emergency Medicine; Internal Medicine Nephrology; ADMIT Internal Medicine
DX: T78.3XXA Angioneurotic edema, initial encounter (principal); I13.0 Hypertensive heart and chronic kidney disease with heart failure and stage 1 through stage 4 chronic kidney disease, or unspecified chronic kidney disease; N18.6 End stage renal disease; I50.22 Chronic systolic (congestive) heart failure; D63.1 Anemia in chronic kidney disease; E11.22 Type 2 diabetes mellitus with diabetic chronic kidney disease; E87.1 Hypo-osmolality and hyponatremia; E87.5 Hyperkalemia; M54.9 Dorsalgia, unspecified; F10.20 Alcohol dependence, uncomplicated; K21.9 Gastro-esophageal reflux disease without esophagitis; Z79.899 Other long term (current) drug therapy; Z99.2 Dependence on renal dialysis
CPT/HCPCS: 36415; 80048; 80053; 80069; 83735; 85014; 85018; 85025; 94760; 96372-59; 96374; 96375; 96376; 97116; 97161; 99285-25; A9270; G0257; G0378; J0171; J1200; J2919; J7030

== ENCOUNTER 2024-11-04 15:56 | Inpatient (IN) | payer MEDICARE, OTHER ==
[2024-11-04] VITALS (8 sets, daily range): BP systolic 161–218; BP diastolic 82–132
[~2024-11-04] VITALS: Ht 172.7 cm; Wt 73.4 kg
[~2024-11-04 15:56] MED LIST changes: +CARV6.25 PO
[2024-11-04 16:25] LABS: BASOPHILS ABSOLUTE AUTO 0.06 K/mm3 (0.00-0.23); BASOPHILS PERCENT AUTO 1 % (0-2); EOSINOPHILS ABSOLUTE AUTO 0.05 K/mm3 (0.00-0.68); EOSINOPHILS PERCENT AUTO 0 % (0-6); Hematocrit 30.7 % (37.0-53.0); Hemoglobin 10.1 g/dL (13.5-17.5); IMMATURE GRAN ABSOLUTE AUTO 0.05 K/mm3 (0.00-0.10); IMMATURE GRAN PERCENT AUTO 0 % (0-1); LYMPHOCYTES ABSOLUTE AUTO 0.64 K/mm3 (0.84-5.20); LYMPHOCYTES PERCENT AUTO 5 % (21-46); MONOCYTES ABSOLUTE AUTO 0.63 K/mm3 (0.16-1.47); MONOCYTES PERCENT AUTO 5 % (4-13); Mean Corpuscular HGB 30.1 pg (26.0-34.0); Mean Corpuscular HGB Conc 32.9 g/dL (31.5-36.5); Mean Corpuscular Volume 91 fL (80-100); Mean Platelet Volume 9.7 fL (9.1-12.4); NEUTROPHILS ABSOLUTE AUTO 10.87 K/mm3 (1.96-9.15); NEUTROPHILS PERCENT AUTO 88 % (41-73); Platelet Count 373 K/mm3 (150-400); RDW Coefficient Variation 15.7 % (11.7-14.2); RDW Standard Deviation 51.4 fL (35.1-46.3); Red Blood Cell Count 3.36 M/mm3 (4.30-5.90)
[2024-11-04] MEDS ORDERED: MethylPREDNISolone Sod Succ 125 MG Vial IV ONE (16:50)
[2024-11-04] MEDS ORDERED: DiphenhydrAMINE HCl 50 MG/ML 1ML Vial IV ONE (16:50)
[2024-11-04 17:00] LABS: Magnesium, Blood 2.9 mg/dL (1.6-2.4)
[2024-11-04 17:20] LABS: Albumin, Blood 3.8 g/dL (3.4-5.0); Bilirubin, Total 0.6 mg/dL (0.1-1.0); Bun/Creatinine Ratio 9.1 (12.0-20.0); Calcium, Blood 8.8 mg/dL (8.5-10.1); Creatinine, Blood 13.2 mg/dL (0.60-1.20); Globulin, Blood 3.9 g/dL (2.2-4.0); Phosphorus, Blood 11.4 mg/dL (2.5-4.9); Potassium, Blood 6.1 mmol/L (3.5-5.5); Total Protein, Blood 7.7 g/dL (6.4-8.2)
[2024-11-04 18:33] LABS: CORONAVIRUS COVID-19 AG Negative (NEGATIVE); INFLUENZA A AG Negative (NEGATIVE); INFLUENZA B AG Negative (NEGATIVE)
[2024-11-04] MEDS ORDERED: DiphenhydrAMINE HCl 50 MG/ML 1ML Vial IV PRN (19:55)
[2024-11-04] MEDS ORDERED: Heparin Sodium 5000 Units/ML 1ML MDV SC SCH (21:00)
[2024-11-04] MEDS ORDERED: Acetaminophen 325 MG TABLET PO PRN (21:10)
[2024-11-04] MEDS ORDERED: OxyCODONE HCL 5 MG TAB PO PRN (21:15)
[2024-11-04] MEDS ORDERED: CloNIDine 0.1 MG Tab PO SCH (22:00)
[2024-11-04] MEDS ORDERED: Carvedilol 6.25 MG Tab PO SCH (22:00)
[2024-11-04] MEDS ORDERED: Sodium Zirconium Cyclosilicate 10 GM Packet PO SCH (22:00)
--- NOTE | 2024-11-04 22:34 | NUR ---
PT ARRIVED TO THE UNIT AT 2154 ON A GURNEY. SLIDE OVER TO PUC BED BY 4 STAFF MEMBERS. PATIENT IS RAMMBLING AND NOT MAKING MUCH SENSE, HE IS THRASHING AROUND IN BED AND CANNOT REMAIN STILL. TAKES SEVERAL ATTEMPTS TO GET A BLOOD PRESSURE ON HIM WHICH IS 208/120. PT IS A POOR HISTORIAN. HE IS UNABLE TO UPDATE MEDICATIONS AND SAID HIS FRIEND HAS A LIST AT HOME. HE ENDORSES USING MARIJUANA "SOMETIMES" AND TO SMOKING CIGARETTES DAILY. HE DENIES CURRENT ETOH USE. HE CANNOT EXPLAIN TO ME WHY HE MISSED DIALYSIS OR THE EVENTS THAT LEAD HIM TO THE HOSPITAL TODAY. HE CAN HOWEVER ANSWER ORIENTATION QUESTIONS COORECTLY. PT TAKEN IN HIS BED TO DIALYSIS AT 2229, PT IS CURRENTLY THERE NOW.
[2024-11-05] VITALS (27 sets, daily range): BP systolic 144–217; BP diastolic 88–140
[2024-11-05] MEDS ORDERED: MethylPREDNISolone Sod Succ 125 MG Vial IV SCH
[2024-11-05 05:18] LABS: Hematocrit 29.7 % (37.0-53.0); Hemoglobin 9.6 g/dL (13.5-17.5); Mean Corpuscular HGB 29.1 pg (26.0-34.0); Mean Corpuscular HGB Conc 32.3 g/dL (31.5-36.5); Mean Corpuscular Volume 90 fL (80-100); Mean Platelet Volume 9.4 fL (9.1-12.4); Platelet Count 355 K/mm3 (150-400); RDW Coefficient Variation 15.6 % (11.7-14.2); RDW Standard Deviation 51.3 fL (35.1-46.3); White Blood Cell Count 5.95 K/mm3 (4.00-11.30)
[2024-11-05 05:59] LABS: Magnesium, Blood 2.6 mg/dL (1.6-2.4)
[2024-11-05 06:13] LABS: Albumin, Blood 3.6 g/dL (3.4-5.0); Anion Gap 18 mmol/L (3-11); Blood Urea Nitrogen 82 mg/dL (8-24); Bun/Creatinine Ratio 8.3 (12.0-20.0); CO2, Blood 23 mmol/L (21-32); Calcium, Blood 8.6 mg/dL (8.5-10.1); Chloride, Blood 95 mmol/L (98-108); Creatinine, Blood 9.87 mg/dL (0.60-1.20); Glomerular Filtration Rate 5 (60-); Glucose, Blood 116 mg/dL (70-99); Phosphorus, Blood 8.9 mg/dL (2.5-4.9); Potassium, Blood 5.4 mmol/L (3.5-5.5); Sodium, Blood 131 mmol/L (136-145)
--- NOTE | 2024-11-05 06:16 | NUR ---
shift summary Pt is A+O x4 will answer question aprt, does take him awhile to answer at times. Pt is very sleepy but arousable to touch and verbal stimuls. Pt moves self in bed. Bed alarm on for safety. Pt has been scratching self all night, arrived to unit with old scratch topete on arms and legs, while scratching he accidently pulled up his IV. Lien changed and new IV placed. Critical Creatinine this am of 9.87 which is down from 13.20 and Phosphorus of 8.9 which is down from 11.4. Remains hypertensive see (vitals) denies chest pain or pressure. call light in reach.
[2024-11-05] MEDS ORDERED: Apixaban 5 MG Tab PO SCH (09:00)
[2024-11-05] MEDS ORDERED: CloNIDine 0.1 MG Tab PO SCH (14:00)
[2024-11-05] MEDS ORDERED: Carvedilol 6.25 MG Tab PO SCH (17:00)
--- NOTE | 2024-11-05 17:57 | NUR ---
SHIFT SUMMARY: PT A&OX4 BUT ANXIOUS AND DISORGANIZED MUMBLED SPEECH. MOVES SELF IN BED. MAINTAINING >92% ON RA WHILE AWAKE. DESAT TO 80S WHILE SLEEPING AND APPLIED 2L NC. PT EDUCATED TO WEAR NC WHILE HE SLEEPS. PT VERBALIZED UNDERSTANDING AND MAINTAINED >92% WHILE SLEEPING. SBP 180S-200S. DR. DIA NOTIFIED AND ADJUSTED BP MEDS PER EMAR. DIALIZED TODAY. PT NONCOMPLIANT WITH HOME MEDS AND DIALYSIS. BED LOW AND LOCKED. BED ALARM ON AND CALL LIGHT WITHIN REACH.
--- NOTE | 2024-11-05 19:19 | NUR ---
CARE ASSUMED NOW FOR THIS PATIENT. REPORT RECEIVED FROM ANGIE RESENDIZ DAY SHIFT. PATIENT TRIES TO PARTICIPATE IN BEDSIDE REPORT. APPEARS COMFORTABLE. CONTINUE CARE
--- NOTE | 2024-11-05 21:20 | NUR ---
PATIENT TRANSFERED TO ROOM 363 NOW. REPORT GIVEN TO RN. PATIENT IS AWARE OF ROOM CHANGE.
--- NOTE | 2024-11-05 23:09 | NUR ---
PT RECIEVED FROM PCU, ORIENTED TO AND CALL LIGHT IN REACH. PT C/O LOWER BACK PAIN DURING THIS SHIFT AND GIVEN PAIN MEDICATION RX, PT NOW SLEEPING
[2024-11-06] VITALS (19 sets, daily range): BP systolic 144–211; BP diastolic 92–115
[2024-11-06 05:15] LABS: Magnesium, Blood 2.5 mg/dL (1.6-2.4)
[2024-11-06 05:27] LABS: Albumin, Blood 3.3 g/dL (3.4-5.0); Anion Gap 16 mmol/L (3-11); Blood Urea Nitrogen 66 mg/dL (8-24); Bun/Creatinine Ratio 8.5 (12.0-20.0); CO2, Blood 29 mmol/L (21-32); Calcium, Blood 8.3 mg/dL (8.5-10.1); Chloride, Blood 92 mmol/L (98-108); Creatinine, Blood 7.72 mg/dL (0.60-1.20); Glomerular Filtration Rate 7 (60-); Glucose, Blood 120 mg/dL (70-99); Phosphorus, Blood 8.6 mg/dL (2.5-4.9); Potassium, Blood 3.9 mmol/L (3.5-5.5); Sodium, Blood 133 mmol/L (136-145)
--- NOTE | 2024-11-06 05:48 | NUR ---
PT HAS SLEPT T/O MOST OF PARAMJIT NIGHT. A&O, TALKATIVE. C/O PAIN T/O SHIFT, PAIN MEDICATIONS GIVEN RX. PT FELL ASLEEP AFTER PAIN MEDICATION, AWAKENS EASILY TO NAME. PT REPORTS WANTING TO GO HOME TODAY AFTER BREAKFAST. NO ACUTE CHANGES NOTED DURING THIS SHIFT.
--- NOTE | 2024-11-06 17:55 | NUR ---
SHIFT SUMMARY PT A&OX4. PT ADMITTED DUE TO ANGIOEDEMA. PT REPORTS NO CHEST PAIN/SOB. PT REPORTS CHRONIC BACK PAIN. PAIN MANAGED PER EMAR. PT HAS HAD CONSISTENT HYPERTENSION. PT HAD DIALYSIS TODAY. PT IS A SBA W FWW. DR. JIANG PUT IN PT/OT EVAL ORDERS. PT CONT OF URINE AND BM, ATTENDS IN PLACE CHANGED PRN. PT RECEIVED SHOWER TODAY. PT EATS ADEQUATE. PT IN BED, BED IN LOWEST POSITION, CALL LIGHT IN REACH.
[2024-11-07] VITALS (14 sets, daily range): BP systolic 115–182; BP diastolic 82–113
[2024-11-07 05:02] LABS: Hematocrit 33.4 % (37.0-53.0); Hemoglobin 10.6 g/dL (13.5-17.5)
[2024-11-07 05:18] LABS: Albumin, Blood 3.3 g/dL (3.4-5.0); Anion Gap 13 mmol/L (3-11); Blood Urea Nitrogen 51 mg/dL (8-24); Bun/Creatinine Ratio 8.2 (12.0-20.0); CO2, Blood 30 mmol/L (21-32); Calcium, Blood 8.6 mg/dL (8.5-10.1); Chloride, Blood 92 mmol/L (98-108); Creatinine, Blood 6.21 mg/dL (0.60-1.20); Glomerular Filtration Rate 10 (60-); Glucose, Blood 92 mg/dL (70-99); Magnesium, Blood 2.2 mg/dL (1.6-2.4); Phosphorus, Blood 6.1 mg/dL (2.5-4.9); Potassium, Blood 3.7 mmol/L (3.5-5.5); Sodium, Blood 131 mmol/L (136-145)
--- NOTE | 2024-11-07 05:37 | NUR ---
PT HAS SLEPT T/O MOST OF THIS SHIFT. ASKING FOR SNACKS. NO ACUTE CHANGES NOTED.
--- NOTE | 2024-11-07 16:59 | NUR ---
SHIFT SUMMARY PATIENT A/OX4, ABLE TO MAKE NEEDS KNOWN. COOPERATIVE WITH CARE. DIALYSIS PORT TO RIGHT UPPER CHEST, DRESSING CDI. PATIENT WITH DIALYSIS THIS AM, HYPERTENSIVE AND BLOOD PRESSURE MEDS HELD FOR DIALYSIS. UPON RETURN TO ROOM 363 PATIENT REMAINED HYPERTENSIVE AND SCHEDULED MORNING COREG ADMINSITERED PER SEP. BLOOD PRESSURE DECREASED TO 130s SYSTOLIC. PATIENT PARTICIPATED IN PHYSICAL THERAPY THIS EVENING. COMPLAINING OF LOWER BACK PAIN, MEDICATED WITH OXYCODONE TWICE THIS SHIFT, PER SEP. NEW ORDER FOR PALLIATIVE CARE CONSULT PLACED BY DR. CORMIER, PALLIATIVE CARE NOTIFIED VIA [employer]. NO OTHER CONCERNS AT THIS TIME, WILL CONTINUE TO MONITOR.
[2024-11-08] VITALS (20 sets, daily range): BP systolic 121–210; BP diastolic 78–990
[2024-11-08 05:03] LABS: BASOPHILS ABSOLUTE AUTO 0.02 K/mm3 (0.00-0.23); BASOPHILS PERCENT AUTO 0 % (0-2); EOSINOPHILS ABSOLUTE AUTO 0.19 K/mm3 (0.00-0.68); EOSINOPHILS PERCENT AUTO 2 % (0-6); Hematocrit 31.2 % (37.0-53.0); Hemoglobin 10.1 g/dL (13.5-17.5); IMMATURE GRAN ABSOLUTE AUTO 0.03 K/mm3 (0.00-0.10); IMMATURE GRAN PERCENT AUTO 0 % (0-1); LYMPHOCYTES ABSOLUTE AUTO 0.84 K/mm3 (0.84-5.20); LYMPHOCYTES PERCENT AUTO 10 % (21-46); MONOCYTES ABSOLUTE AUTO 0.87 K/mm3 (0.16-1.47); MONOCYTES PERCENT AUTO 11 % (4-13); Mean Corpuscular HGB 29.8 pg (26.0-34.0); Mean Corpuscular HGB Conc 32.4 g/dL (31.5-36.5); Mean Corpuscular Volume 92 fL (80-100); Mean Platelet Volume 9.8 fL (9.1-12.4); NEUTROPHILS ABSOLUTE AUTO 6.09 K/mm3 (1.96-9.15); NEUTROPHILS PERCENT AUTO 76 % (41-73); Platelet Count 332 K/mm3 (150-400); RDW Coefficient Variation 15.6 % (11.7-14.2); RDW Standard Deviation 52.5 fL (35.1-46.3); Red Blood Cell Count 3.39 M/mm3 (4.30-5.90); White Blood Cell Count 8.04 K/mm3 (4.00-11.30)
[2024-11-08 05:44] LABS: Bun/Creatinine Ratio 8.3 (12.0-20.0); Calcium, Blood 8.8 mg/dL (8.5-10.1); Creatinine, Blood 6.13 mg/dL (0.60-1.20); Potassium, Blood 3.7 mmol/L (3.5-5.5)
--- NOTE | 2024-11-08 06:12 | NUR ---
SHIFT SUMMARY NO ACUTE CHANGES TO REPORT OVERNIGHT. PT HAS RESTED, RESP E/U ON RA. VITALS STABLE. PT APPETITE GOOD. PLAN OF CARE UNCHANGED. AWAITING DISCHARGE PLANS AT THIS TIME. BED IN LOWEST POSITION, CALL LIGHT WITHIN REACH.
--- NOTE | 2024-11-08 06:33 | NUR ---
HTN PT HYPERTENSIVE THIS AM SBP [address] SALTER CALLED AND NOTIFIED. RECEIVED ORDER FOR X1 PO HYDRALYZINE.
[2024-11-08] MEDS ORDERED: HydrALAZINE HCl 25 MG Tab PO ONE (06:35)
--- NOTE | 2024-11-08 08:00 | NUR ---
CALLED DR DIA- PT RECIEVEING LOKELMA BID AND DIALYSIS. POTASSIUM LEVEL HAS BEEN TRENDING DOWN. TODAY POTASSIUM WAS 3.7. DR DIA AWARE. OK TO HOLD THIS AM'S DOSE AND GIVE THE EVENING DOSE. TOMORROW WILL RESUME WITH THE BID DOSING. AM DOSE HELD.
--- NOTE | 2024-11-08 10:25 | NUR ---
CALLED DR CROMIER- PT REQUESTING NICOTIENE REPLACEMENT HE STATES HE SMOKES A HALF A PACK A DAY. LEFT A MESSAGE WAITING FOR A CALL BACK.
[2024-11-08] MEDS ORDERED: Nicotine 14 MG PATCH TOP SCH (11:30)
--- NOTE | 2024-11-08 11:30 | NUR ---
SPOKE TO DR CORMIER SPOKE TO DR CORMIER ON MORNING ROUNDS AND RECIEVED AN ORDER FOR NICOTIENE PATCH.
[2024-11-08 17:34] LABS: HEPATITIS B SURFACE ANTIBODY 30.31 IU/L
[2024-11-08 17:47] LABS: HEPATITIS B SURFACE ANTIGEN Negative (Negative)
[2024-11-08 18:06] LABS: HBV CORE ANTIBODIES,TOTAL Negative (Negative)
--- NOTE | 2024-11-08 19:16 | NUR ---
PT ALERT, ORIENTED, DOESNT ALWAYS USE HIS CALL LIGHT BEFORE GETTING OUT OF BED. BED ALARM ON AT ALL TIMES. PRN PAIN MEDS GIVEN X1 WITH GOOD RELIEF. GOOD PO INTAKE. PT HAD 3 LITERS OF FLUID REMOVED DURING DIALYSIS (PER REPORT). PT NOT MAKING URINE. PTS ALEC HELD THIS AM PER MD ORDERS. DENIES ANY UNMET NEEDS
[2024-11-09] VITALS (14 sets, daily range): BP systolic 81–182; BP diastolic 48–111
--- NOTE | 2024-11-09 03:30 | NUR ---
SHIFT SUMMARY NO ACUTE EVENTS DURING THIS SHIFT. MEDICATED PER EMAR FOR 7/10 BACK PAIN PER PT REPORT. PT IS A/O X4, COOPERATIVE WITH CARE AND ABLE TO MAKE HIS NEEDS KNOWN. BED AT THE LOWEST POSITION, CALL LIGHT WITHIN REACH.
[2024-11-09 06:00] LABS: Albumin, Blood 3.1 g/dL (3.4-5.0); Anion Gap 13 mmol/L (3-11); Blood Urea Nitrogen 57 mg/dL (8-24); Bun/Creatinine Ratio 9.1 (12.0-20.0); CO2, Blood 30 mmol/L (21-32); Calcium, Blood 8.9 mg/dL (8.5-10.1); Chloride, Blood 89 mmol/L (98-108); Creatinine, Blood 6.29 mg/dL (0.60-1.20); Glomerular Filtration Rate 9 (60-); Glucose, Blood 102 mg/dL (70-99); Phosphorus, Blood 6.1 mg/dL (2.5-4.9); Potassium, Blood 3.6 mmol/L (3.5-5.5); Sodium, Blood 128 mmol/L (136-145)
[2024-11-09] MEDS ORDERED: OxyCODONE HCL 5 MG TAB PO STA (09:42)
--- NOTE | 2024-11-09 14:24 | NUR ---
ASSUMED CARE OF PT, 0830 DIALYSIS. 1100 PT BACK FROM DIALYSIS AND WANTS TO LEAVE. TRANSPORT TO FACILITY SET UP FOR 1400, PT AT BEDSIDE ANXIOUS AND READY TO LEAVE. 1300 IV DCED, PT FINISHING LUNCH, 1400 TAXI DOWNSTAIRS FOR PT. PT TAKEN TO TAXI
[2024-12-03] MEDS ORDERED: LORA10ER PO (11:39)
== END 2024-11-09 13:59 | DRG 915 ==
LOC: ER 15:56 → PCU 15:57 → MEDS 11-05 16:25 → PCU 11-05 16:25 → MEDS 11-05 21:08 → ENPENDDIS 11-08 15:30 → MEDS 11-09 13:59
PROVIDERS: Internal Medicine; Internal Medicine Nephrology; Student in an Organized Health Care Education/Training Program; ADMIT Internal Medicine
PROC: 5A1D70Z Performance of Urinary Filtration, Intermittent, Less than 6 Hours Per Day (ICD-10-PCS; principal; 2024-11-04)
DX: T78.3XXA Angioneurotic edema, initial encounter (principal); N18.6 End stage renal disease; E87.1 Hypo-osmolality and hyponatremia; I13.2 Hypertensive heart and chronic kidney disease with heart failure and with stage 5 chronic kidney disease, or end stage renal disease; I50.22 Chronic systolic (congestive) heart failure; Q61.3 Polycystic kidney, unspecified; Q44.6 Cystic disease of liver; I82.C29 Chronic embolism and thrombosis of unspecified internal jugular vein; D63.1 Anemia in chronic kidney disease; K21.9 Gastro-esophageal reflux disease without esophagitis; G89.4 Chronic pain syndrome; E11.22 Type 2 diabetes mellitus with diabetic chronic kidney disease; F17.210 Nicotine dependence, cigarettes, uncomplicated; E87.5 Hyperkalemia; E87.8 Other disorders of electrolyte and fluid balance, not elsewhere classified; F10.20 Alcohol dependence, uncomplicated; M54.9 Dorsalgia, unspecified; Z60.2 Problems related to living alone; F12.90 Cannabis use, unspecified, uncomplicated; R62.7 Adult failure to thrive; Z91.158 Patient's noncompliance with renal dialysis for other reason; Z79.899 Other long term (current) drug therapy; Z79.01 Long term (current) use of anticoagulants; Z79.51 Long term (current) use of inhaled steroids; Z79.891 Long term (current) use of opiate analgesic; Z99.2 Dependence on renal dialysis; Z98.890 Other specified postprocedural states; Z68.25 Body mass index [BMI] 25.0-25.9, adult; Y84.9 Medical procedure, unspecified as the cause of abnormal reaction of the patient, or of later complication, without mention of misadventure at the time of the procedure
CPT/HCPCS: 36415; 71045; 80048; 80053; 80069; 83036; 83735; 84100; 85014; 85018; 85025; 85027; 86704; 87340; 87428-QW; 93005; 93010; 96374; 96375; 96376; 97116; 97161; 99285-25; A9270; G0378; J1200; J2919

== ENCOUNTER 2025-01-09 03:05 | Emergency (ER) | payer MEDICARE, OTHER ==
[~2025-01-09] VITALS: Ht 170.2 cm; Wt 81.7 kg
[~2025-01-09 03:05] MED LIST changes: +LORA10ER PO
[2025-01-09 03:33] LABS: BASOPHILS ABSOLUTE AUTO 0.05 K/mm3 (0.00-0.23); BASOPHILS PERCENT AUTO 1 % (0-2); EOSINOPHILS ABSOLUTE AUTO 0.37 K/mm3 (0.00-0.68); EOSINOPHILS PERCENT AUTO 6 % (0-6); Hematocrit 25.5 % (37.0-53.0); Hemoglobin 8.0 g/dL (13.5-17.5); IMMATURE GRAN ABSOLUTE AUTO 0.01 K/mm3 (0.00-0.10); IMMATURE GRAN PERCENT AUTO 0 % (0-1); LYMPHOCYTES ABSOLUTE AUTO 0.82 K/mm3 (0.84-5.20); LYMPHOCYTES PERCENT AUTO 13 % (21-46); MONOCYTES ABSOLUTE AUTO 0.49 K/mm3 (0.16-1.47); MONOCYTES PERCENT AUTO 8 % (4-13); Mean Corpuscular HGB Conc 31.4 g/dL (31.5-36.5); Mean Corpuscular Volume 93 fL (80-100); NEUTROPHILS ABSOLUTE AUTO 4.76 K/mm3 (1.96-9.15); NEUTROPHILS PERCENT AUTO 73 % (41-73); NRBC ABSOLUTE 0.00 K/mm3 (0.00-0.02); NRBC Auto 0.0 /100 WBC (0.0-0.2); Platelet Count 275 K/mm3 (150-400); RDW Coefficient Variation 15.4 % (11.7-14.2); RDW Standard Deviation 51.8 fL (35.1-46.3)
[2025-01-09 04:05] LABS: Alanine Aminotransfer (ALT/SGP 11.0 U/L (12-78); Albumin, Blood 3.3 g/dL (3.4-5.0); Albumin/Globulin Ratio 0.9 (0.8-1.8); Anion Gap 9.0 mmol/L (3-11); Aspartate Aminotrans (AST/SGOT 10.0 U/L (12-37); Bilirubin, Total 0.3 mg/dL (0.1-1.0); Blood Urea Nitrogen 55.0 mg/dL (8-24); CO2, Blood 35.0 mmol/L (21-32); Calcium, Blood 8.7 mg/dL (8.5-10.1); Chloride, Blood 97.0 mmol/L (98-108); Creatinine, Blood 6.21 mg/dL (0.60-1.20); Globulin, Blood 3.7 g/dL (2.2-4.0); Glucose, Blood 113.0 mg/dL (70-99); Potassium, Blood 4.6 mmol/L (3.5-5.5); Sodium, Blood 136.0 mmol/L (136-145); Total Protein, Blood 7.0 g/dL (6.4-8.2)
[2025-01-09 08:20] VITALS: BP 162/71
== END 2025-01-09 09:30 | disposition home or self-care (01) ==
LOC: ER 03:05
PROVIDERS: Emergency Medicine
DX: I13.2 Hypertensive heart and chronic kidney disease with heart failure and with stage 5 chronic kidney disease, or end stage renal disease (principal); E11.22 Type 2 diabetes mellitus with diabetic chronic kidney disease; N18.6 End stage renal disease; I50.20 Unspecified systolic (congestive) heart failure; K21.9 Gastro-esophageal reflux disease without esophagitis; Z99.2 Dependence on renal dialysis; F17.210 Nicotine dependence, cigarettes, uncomplicated; L29.9 Pruritus, unspecified; Z79.899 Other long term (current) drug therapy; Z79.01 Long term (current) use of anticoagulants; Z88.8 Allergy status to other drugs, medicaments and biological substances
CPT/HCPCS: 80053; 85025; 93005; 93010; 99284-25; A9270

== ENCOUNTER 2025-02-21 16:10 | Inpatient (IN) | payer MEDICARE, OTHER ==
[~2025-02-21] VITALS: Ht 170.2 cm; Wt 77.5 kg
[2025-02-21 16:48] LABS: BASOPHILS ABSOLUTE AUTO 0.07 K/mm3 (0.00-0.23); BASOPHILS PERCENT AUTO 1 % (0-2); EOSINOPHILS ABSOLUTE AUTO 0.06 K/mm3 (0.00-0.68); EOSINOPHILS PERCENT AUTO 1 % (0-6); Hematocrit 34.5 % (37.0-53.0); Hemoglobin 11.1 g/dL (13.5-17.5); IMMATURE GRAN ABSOLUTE AUTO 0.03 K/mm3 (0.00-0.10); IMMATURE GRAN PERCENT AUTO 0 % (0-1); LYMPHOCYTES ABSOLUTE AUTO 0.66 K/mm3 (0.84-5.20); LYMPHOCYTES PERCENT AUTO 8 % (21-46); MONOCYTES ABSOLUTE AUTO 0.59 K/mm3 (0.16-1.47); MONOCYTES PERCENT AUTO 7 % (4-13); Mean Corpuscular HGB Conc 32.2 g/dL (31.5-36.5); Mean Corpuscular Volume 90 fL (80-100); NEUTROPHILS ABSOLUTE AUTO 6.94 K/mm3 (1.96-9.15); NEUTROPHILS PERCENT AUTO 83 % (41-73); NRBC ABSOLUTE 0.00 K/mm3 (0.00-0.02); NRBC Auto 0.0 /100 WBC (0.0-0.2); Platelet Count 338 K/mm3 (150-400); RDW Coefficient Variation 15.8 % (11.7-14.2); RDW Standard Deviation 51.9 fL (35.1-46.3)
[2025-02-21 17:11] LABS: Alanine Aminotransfer (ALT/SGP 11.0 U/L (12-78); Albumin, Blood 3.3 g/dL (3.4-5.0); Albumin/Globulin Ratio 0.8 (0.8-1.8); Anion Gap 22.0 mmol/L (3-11); Aspartate Aminotrans (AST/SGOT 10.0 U/L (12-37); Bilirubin, Total 0.5 mg/dL (0.1-1.0); Blood Urea Nitrogen 132.0 mg/dL (8-24); CO2, Blood 21.0 mmol/L (21-32); Calcium, Blood 7.5 mg/dL (8.5-10.1); Chloride, Blood 96.0 mmol/L (98-108); Creatinine, Blood 19.2 mg/dL (0.60-1.20); Globulin, Blood 4.2 g/dL (2.2-4.0); Glucose, Blood 107.0 mg/dL (70-99); Potassium, Blood 6.2 mmol/L (3.5-5.5); Sodium, Blood 133.0 mmol/L (136-145); Total Protein, Blood 7.5 g/dL (6.4-8.2)
[2025-02-21] MEDS ORDERED: Calcium Gluconate 10% 100 MG/ML INJ IV ONE (17:25)
[2025-02-21] MEDS ORDERED: Insulin Regular 100 Unit/ML 1ML Dose IV ONE (17:35)
[2025-02-21 18:40] LABS: pH Blood Venous 7.23 (7.34-7.37)
[2025-02-21] MEDS ORDERED: Albuterol 2.5 MG/3 ML VIAL INH PRN (18:55)
[2025-02-21] MEDS ORDERED: Ondansetron HCl 2 MG / ML 2ML Vial IV PRN (19:05)
[2025-02-21] MEDS ORDERED: Darbepoetin (Pharmacy Consult) SC SCH (20:05)
[2025-02-21 22:15] VITALS: BP 208/125
--- NOTE | 2025-02-21 22:43 | NUR ---
ADMISSION PATIENT ARRIVED TO PCU 08 VIA STRETCHER. PATIENT ALERT AND ORIENTED X4. REPORTS LIVING AT A [facility] FAC[facility] ON [address] BUT DOESN'T KNOW THE NAME OF THE PLACE. PATIENT WAS ABLE TO STAND AND TRANSFER TO HIS BED. HAD NO COMPLAINTS OF ANY PAIN OR SHORTNESS OF BREATH. DENIES NUMBNESS/TINGLING.
[2025-02-21 23:13] VITALS: BP 204/129
[2025-02-21 23:45] VITALS: BP 197/121
[2025-02-22] VITALS (24 sets, daily range): BP systolic 87–193; BP diastolic 58–138
[2025-02-22] MEDS ORDERED: LOKELMA10 GM PO (00:22)
[2025-02-22 04:01] LABS: BASOPHILS ABSOLUTE AUTO 0.07 K/mm3 (0.00-0.23); BASOPHILS PERCENT AUTO 1 % (0-2); EOSINOPHILS ABSOLUTE AUTO 0.33 K/mm3 (0.00-0.68); EOSINOPHILS PERCENT AUTO 4 % (0-6); Hematocrit 34.8 % (37.0-53.0); Hemoglobin 11.3 g/dL (13.5-17.5); IMMATURE GRAN ABSOLUTE AUTO 0.02 K/mm3 (0.00-0.10); IMMATURE GRAN PERCENT AUTO 0 % (0-1); LYMPHOCYTES ABSOLUTE AUTO 0.92 K/mm3 (0.84-5.20); LYMPHOCYTES PERCENT AUTO 12 % (21-46); MONOCYTES ABSOLUTE AUTO 0.63 K/mm3 (0.16-1.47); MONOCYTES PERCENT AUTO 8 % (4-13); Mean Corpuscular HGB Conc 32.5 g/dL (31.5-36.5); Mean Corpuscular Volume 89 fL (80-100); NEUTROPHILS ABSOLUTE AUTO 5.74 K/mm3 (1.96-9.15); NEUTROPHILS PERCENT AUTO 74 % (41-73); NRBC ABSOLUTE 0.00 K/mm3 (0.00-0.02); NRBC Auto 0.0 /100 WBC (0.0-0.2); Platelet Count 308 K/mm3 (150-400); RDW Coefficient Variation 16.0 % (11.7-14.2); RDW Standard Deviation 51.8 fL (35.1-46.3)
[2025-02-22 04:34] LABS: Magnesium, Blood 2.2 mg/dL (1.6-2.4)
[2025-02-22 04:44] LABS: Alanine Aminotransfer (ALT/SGP 10.0 U/L (12-78); Albumin, Blood 3.0 g/dL (3.4-5.0); Albumin/Globulin Ratio 0.7 (0.8-1.8); Anion Gap 18.0 mmol/L (3-11); Aspartate Aminotrans (AST/SGOT 13.0 U/L (12-37); Bilirubin, Total 0.6 mg/dL (0.1-1.0); Blood Urea Nitrogen 90.0 mg/dL (8-24); CO2, Blood 25.0 mmol/L (21-32); Calcium, Blood 7.4 mg/dL (8.5-10.1); Chloride, Blood 95.0 mmol/L (98-108); Creatinine, Blood 14.6 mg/dL (0.60-1.20); Globulin, Blood 4.2 g/dL (2.2-4.0); Glucose, Blood 124.0 mg/dL (70-99); Phosphorus, Blood 7.5 mg/dL (2.5-4.9); Potassium, Blood 4.6 mmol/L (3.5-5.5); Sodium, Blood 133.0 mmol/L (136-145); Total Protein, Blood 7.2 g/dL (6.4-8.2)
--- NOTE | 2025-02-22 05:13 | NUR ---
SHIFT SUMMARY PATIENT ALERT AND ORIENTED X4. VERY DROWSY. HAD DIALYSIS, TOLERATED IT WELL. PATIENT MEDICATED PER EMAR FOR BODY ACHES. ON ROOM AIR WITH SPO2 >90%. PATIENT HYPERTENSIVE. WILL CONTINUE TO MONITOR. CALL LIGHT WITHIN REACH.
--- NOTE | 2025-02-22 09:45 | NUR ---
PT CURRENTLY IN DIALYSIS AT THIS TIME, BLOOD PRESSURE ELEVATED THIS MORNING AT 60-170'S, THE REST OF THE VITALS STABLE. MORNING MEDS GIVEN WITH NO ISSUES, LOKELMA HELD DUE TO RECENT K 4.6. DR JIANG IS AWARE, TYLENOL GIVEN FOR HEADACHE, SBP RIGHT NOW IN DIALYSIS 120'S. PT HAS BEEN ALERT AND ORIENTED X3, STILL POOR HISTORIAN COULDNT REMEMBER HOW HE MISSED HIS DIALYSIS PT REPORTED HE WENT VISITED A FRIEND AND TOOK HIM AWHILE TO COME BACK TO THE CARE HOME. PT TRANSITIONED TO MEDICAL STATUS NO TELE. PT TRANSFERRING TO RM 305. REPORT GIVEN TO ALIREZA MELENDREZ RN. ALL BELONGINGS SENT WITH THE PT.
--- NOTE | 2025-02-22 18:04 | NUR ---
PT WAS PCU TRANSFER. THIS NURSE AGREES WITH PREVIOUS NURSE ASSESSMENT
[2025-02-23] VITALS (15 sets, daily range): BP systolic 90–179; BP diastolic 55–105
[2025-02-23 04:36] LABS: Hematocrit 32.7 % (37.0-53.0); Hemoglobin 10.1 g/dL (13.5-17.5)
[2025-02-23 05:09] LABS: Magnesium, Blood 2.0 mg/dL (1.6-2.4)
[2025-02-23 05:12] LABS: Albumin, Blood 2.9 g/dL (3.4-5.0); Anion Gap 14 mmol/L (3-11); Blood Urea Nitrogen 74 mg/dL (8-24); CO2, Blood 25 mmol/L (21-32); Calcium, Blood 7.7 mg/dL (8.5-10.1); Chloride, Blood 99 mmol/L (98-108); Creatinine, Blood 11.50 mg/dL (0.60-1.20); Glucose, Blood 87 mg/dL (70-99); Phosphorus, Blood 7.4 mg/dL (2.5-4.9); Potassium, Blood 4.8 mmol/L (3.5-5.5); Sodium, Blood 133 mmol/L (136-145)
--- NOTE | 2025-02-23 06:41 | NUR ---
PATIENT SLEPT WELL. SOUTH IN ROOM: PLAN TODAY DIALYSIS THEN PLACEMENT TO [facility] OR [place].
[2025-02-23] MEDS ORDERED: NS IV SCH (10:00)
[2025-02-23] MEDS ORDERED: ALTEPLASE IV SCH (10:00)
[2025-02-23] MEDS ORDERED: Alteplase Recombinant 2 MG / Vial IV PRN (10:05)
--- NOTE | 2025-02-23 18:20 | NUR ---
PATIENT RESTING IN BED, CALL LIGHT WITHIN REACH. ASKING FOR ASSISTANCE WHEN NEEDED. CONTINUES TO REST. WAITING FOR PLACEMENT AND VERBALIZED HE THOUGHT HE WOULD BE HERE THRU THE WEEKEND.
--- NOTE | 2025-02-23 23:43 | NUR ---
FLUID RESTRICTION? Patient is here needing hemodialysis. This RN inquired about any possible fluid restrictions in place at home. Patient verbalized that he is supposed to be on 32oz fluid restriction daily. This equates to roughly 960cc or 1 Liter of fluid restriction. There isn't any fluid restrictions ordered and diet is actually a regular diet instead of the usual renal diet. Will relay this to primary RN as I am only temporarily covering Danielle Calderon, Primary RN's break.
[2025-02-24] VITALS (18 sets, daily range): BP systolic 140–209; BP diastolic 71–146
[2025-02-24] MEDS ORDERED: HydrALAZINE HCl 20 MG / ML 1ML Vial IV PRN (03:45)
[2025-02-24] MEDS ORDERED: Menthol 1 EA Adhesive Patch TOP PRN (03:45)
[2025-02-24 05:59] LABS: Hematocrit 31.6 % (37.0-53.0); Hemoglobin 10.0 g/dL (13.5-17.5)
[2025-02-24 06:22] LABS: Magnesium, Blood 1.9 mg/dL (1.6-2.4)
[2025-02-24 06:29] LABS: Albumin, Blood 3.0 g/dL (3.4-5.0); Anion Gap 13 mmol/L (3-11); Blood Urea Nitrogen 57 mg/dL (8-24); CO2, Blood 26 mmol/L (21-32); Calcium, Blood 7.9 mg/dL (8.5-10.1); Chloride, Blood 99 mmol/L (98-108); Creatinine, Blood 9.50 mg/dL (0.60-1.20); Glucose, Blood 89 mg/dL (70-99); Phosphorus, Blood 6.8 mg/dL (2.5-4.9); Potassium, Blood 4.5 mmol/L (3.5-5.5); Sodium, Blood 133 mmol/L (136-145)
--- NOTE | 2025-02-24 07:26 | NUR ---
SHIFT SUMMARY PT LYING IN BED RESTING COMFORTABLY. ASKED FOR TYLENOL FOR PAIN COVERAGE. PT MEDICATED PER EMAR. PT BP INCREASED TO 205/96. DOCTOR CALLED. IV HYDRALAZINE ORDERED WELL PO ULTRAM AND TOPICAL ICYHOT PATCHES. PT BP STILL 205/100 AN HOUR AFTER HYDRALAZINE DOSE. PT STATES HIS PAIN FEELS LIKE IT IS IN HIS BONES FROM HIS RIGHT HIP TO HIS RIGHT ANKLE. DOCTOR ORDERED ONE TIME 5MG DOSE OXY. PT MEDICATED AND COLORING FOR DISTRACTION. PT STATES THIS IS WORKING FOR HIM.
[2025-02-24] MEDS ORDERED: DiphenhydrAMINE HCl 50 MG/ML 1ML Vial IV ONE (08:50)
--- NOTE | 2025-02-24 19:14 | NUR ---
SHIFT SUMMARY PATIENT A/OX4, ABLE TO MAKE NEEDS KNOWN. PLEASANT AND COOPERATIVE WITH CARE. PATIENT WITH DIALYSIS THIS MORNING, BLOOD PRESSURE MEDICATIONS HELD FOR DIALYSIS. UPON PATIENT'S RETRUN PATIENT WIHT BP 200s/100s, SCHEDULED MEDICATIONS ADMINISTERED AND BP RETURNED TO NORMAL. PATIENT COMPLAINNG OF RLE PAIN, DR. JIANG ORDER PRN OXY WHICH HAS BEEN EFFECTIVE IN MANAGING PATIENT'S PAIN. DR. DIA PLACED PATIENT ON 1L FLUID RESRICTION THIS MORNING. DIET CHANGED TO RENAL DIET. NO OTHER CONCERNS AT THIS TIME, WILL CONTINUE TO MONITOR.
--- NOTE | 2025-02-25 06:54 | NUR ---
SHIFT SUMMARY PT BP UNDER CONTROL THIS SHIFT AT 162/88. PT NEW PAIN CONTROL REGIMEN BEGINNING TO HELP CONTROL HIS PAIN EFFECTIVELY. PT FINALLY FELL ASLEEP SOUNDLY APPROX 0340. THIS RN HOLDING HIS 0600 OMEPRAZOLE, HE HAS NOT SLEPT COMFORTABLY AND SOUNDLY FOR 2 DAYS. WILL PASS ON TO DAY SHIFT.
[2025-02-25 07:18] VITALS: BP 182/104
[2025-02-25 08:12] LABS: Hematocrit 31.0 % (37.0-53.0); Hemoglobin 9.7 g/dL (13.5-17.5)
--- NOTE | 2025-02-25 08:14 | NUR ---
ASSUMED CARE OF PT- BEDSIDE REPORT COMPLETED WITH NIGHT RN. PT IV WAS NOT PRESENT AT THE TIME OF BEDSIDE REPORT. PER NIGHT RN IT WAS THERE AT 0400 WHEN THE PT RECIEVED PRN HYDRALIZINE FOR HTN. ROLLED PT AND LACATED THE IV INTACT IN THE BED. PT CURRENTLY HAS NO IV ACCESS. BP ELEVATED 180'S SBP THIS MORNING. ADMINISTERED PO SCHEDULED 0900 MEDS AT 0800. WILL RECHECK BP. WILL SPEAK TO DR ABOUT NEED FOR IV ACCESS PRIOR TO REPLACING. PER REPORT THE IV HYDRALIZINE WAS INEFFECTIVE FOR THE PT.
[2025-02-25] MEDS ORDERED: Calcium Acetate 667 MG Gel Cap PO SCH (08:30)
[2025-02-25 09:08] VITALS: BP 131/83
[2025-02-25 09:14] LABS: Albumin, Blood 3.2 g/dL (3.4-5.0); Anion Gap 13 mmol/L (3-11); Blood Urea Nitrogen 62 mg/dL (8-24); CO2, Blood 27 mmol/L (21-32); Calcium, Blood 8.4 mg/dL (8.5-10.1); Chloride, Blood 96 mmol/L (98-108); Glucose, Blood 109 mg/dL (70-99); Magnesium, Blood 1.8 mg/dL (1.6-2.4); Phosphorus, Blood 6.7 mg/dL (2.5-4.9); Potassium, Blood 4.2 mmol/L (3.5-5.5); Sodium, Blood 132 mmol/L (136-145)
[2025-02-25 09:16] LABS: Creatinine, Blood 8.68 mg/dL (0.60-1.20)
[2025-02-25 15:21] VITALS: BP 168/93
[2025-02-25 16:35] VITALS: BP 171/98
--- NOTE | 2025-02-25 18:08 | NUR ---
SHIFT SUMMARY- DR DIA CAME TO SEE THE PT TODAY AND STATED THE PLAN IS FOR DIALYSIS TOMORROW. HE REQUESTED THAT THE PT BE SENT TO SNF AFTER DC TO HELP DEVELOPE A ROUTINE IN ATTENDING DIALYSIS TO PREVENT FURTHER ADMISSIONS FOR NOT ATTENDING DIALYSIS. PT HAS NO IV ACCESS, DISCUSSED WITH DR JIANG THIS AM. BP WAS ELEVATED THIS AM. MORNING PO MEDS WERE GIVEN A LITTLE EARLY AND THE PT BP IMPROVED. PT HAS EATEN T/O THE DAY ALL MEALS PROVIDED AND HE IS AWARE OF HIS FLUID LIMITATION. PT IS CURRENTLY IN BED, CALL LIGHT IN REACH NO S&S OF DISTRESS NOTED.
[2025-02-25 19:28] VITALS: BP 166/99
[2025-02-26] VITALS (15 sets, daily range): BP systolic 155–195; BP diastolic 83–113
--- NOTE | 2025-02-26 06:16 | NUR ---
SHIFT SUMMARY: Pt is admitted for ESRD and is a full code. Is alert and able to make needs known. ADLs have been SBA. pain has been managed with routine medications. Permacath to right chest in place with dressing that is CDI.
--- NOTE | 2025-02-26 07:35 | NUR ---
ASSUMED CARE OF PT- BEDSIDE REPORT COMPLETED WITH NIGHT RN. PER REPORT THE PT BP WAS ELEVATED AND PRN HYDRALIZINE PO WAS GIVEN. AGAIN IT HAD NO EFFECT. THIS AM BP WAS HIGHER. PT WAS TAKEN TO DIALYSIS AT 0730. SBP 190'S BUT HIS HR WAS 52. SPOKE TO ANALYSIS ENGINEER. SHE IS AWARE THE PT HAS BP MEDS SCHEDULED AT 0900, ONCE HIS HR INCREASES THEN HE CAN GET THE COREG. PT ALERT AND IRRITATED HE WANTED HIS COFFEE AND BREAKFAST BEFORE DIALYSIS. BREAKFAST HAS NOT YET ARRIVED, HE WAS REASSURED HE CAN HAVE BREAKFAST IN DIALYSIS.
[2025-02-26 11:46] LABS: Hematocrit 32.0 % (37.0-53.0); Hemoglobin 10.4 g/dL (13.5-17.5)
[2025-02-26 12:10] LABS: Albumin, Blood 3.2 g/dL (3.4-5.0); Anion Gap 12 mmol/L (3-11); Blood Urea Nitrogen 55 mg/dL (8-24); CO2, Blood 31 mmol/L (21-32); Calcium, Blood 8.1 mg/dL (8.5-10.1); Chloride, Blood 93 mmol/L (98-108); Creatinine, Blood 7.00 mg/dL (0.60-1.20); Glucose, Blood 108 mg/dL (70-99); Magnesium, Blood 1.9 mg/dL (1.6-2.4); Phosphorus, Blood 3.9 mg/dL (2.5-4.9); Potassium, Blood 3.5 mmol/L (3.5-5.5); Sodium, Blood 132 mmol/L (136-145)
--- NOTE | 2025-02-26 18:08 | NUR ---
SHIFT SUMMARY- PT ALERT AND ORIENTED, BP HAS BEEN ELEVATED ALL SHIFT, DESPITE THE PT HAVING DIALYSIS TODAY. SPOKE TO DR CORMIER ABOUT THE PT HR BEING 50 THIS AM, COREG HELD. THIS EVENING HIS HR WAS 53, PARAMETERS SAY HOLD FOR HR LESS THAN 55. SPOKE TO THE PT HAS NO IV. IV HYDRALIZINE DC'D AND CHANGED TO PO HYDRALIZINE 25MG PO Q4P. THIS MED WAS GIVEN. FOLLOW UP BP WILL BE AT THE START OF COTTAGE SUPERVISOR. WILL PASS ON TO NIGHT RN IN REPORT.
[2025-02-27] VITALS (16 sets, daily range): BP systolic 129–190; BP diastolic 88–109
--- NOTE | 2025-02-27 04:31 | NUR ---
SHIFT SUMMARY 59 YR M ADMITTED ON 02/22/25. FULL CODE. NO ACUTE CHANGES THIS SHIFT. PT IS ON A FLUID RESTRICTION AND HAS STAYED WITHIN THE LIMIT OF 1000 ML/DAY. BP WAS ELEVATED AND HR WAS PEDRO @ 55. PRN HYDROLYZINE AVAILABLE BUT WITH NO PERAMETERS SO HELD FOR NOW. PT IS A&O X 4, PLEASANT AND COOPERATIVE WITH CARE. MEDICATED FOR PAIN PER EMAR. HE IS ABLE TO MAKE HIS NEEDS KNOWN. BED IN LOW POSITION AND CALL LIGHT IN REACH.
[2025-02-27 06:05] LABS: Hematocrit 32.0 % (37.0-53.0); Hemoglobin 10.1 g/dL (13.5-17.5)
[2025-02-27 06:36] LABS: Magnesium, Blood 2.0 mg/dL (1.6-2.4)
[2025-02-27 06:40] LABS: Albumin, Blood 3.1 g/dL (3.4-5.0); Anion Gap 15 mmol/L (3-11); Blood Urea Nitrogen 81 mg/dL (8-24); CO2, Blood 27 mmol/L (21-32); Calcium, Blood 7.6 mg/dL (8.5-10.1); Chloride, Blood 94 mmol/L (98-108); Glucose, Blood 103 mg/dL (70-99); Phosphorus, Blood 5.7 mg/dL (2.5-4.9); Potassium, Blood 4.2 mmol/L (3.5-5.5); Sodium, Blood 132 mmol/L (136-145)
[2025-02-27 06:42] LABS: Creatinine, Blood 9.13 mg/dL (0.60-1.20)
--- NOTE | 2025-02-27 08:02 | NUR ---
ASSUMED CARE OF PT- PT AGGITATED THIS MORNING; WANTS A SODA NOW "OR I AM LEAVING!" PT WAS INFORMED THAT HE IS NOT A PRISONER HERE, HE IS WELCOME TO LEAVE AGAINST MEDICAL ADVICE. HE WAS ASKED TO STOP THREATENING STAFF TO TRY TO GET THINGS HE WANTS. THIS RN DISCUSSED HIS FLUID RESTRICTION WITH HIM, HE WAS IRRITABLE "YEA, YEAH! I JUST WANT A SODA! I DON'T WANT COFFEE." THE PT ALREADY HAD COFFEE PRIOR TO THE SHIFT CHANGE. HE WAS PROVIDED WITH THE REQUESTED SODA IN A HALF A CUP VOLUME. WHEN HE COMPLETES THAT HE WILL HAVE CONSUMED 1/2 OF HIS FLUID ALLOWANCE FOR THE ENTIRE DAY. IT IS 8 AM.
--- NOTE | 2025-02-27 17:52 | NUR ---
SHIFT SUMMARY- PT ALERT AND ORIENTED. HE IS NON-COMPLIANT WITH THE FLUID RESTRICTION SET BY THE DOCTORS. HE HAD DIALYSIS AGAIN TODAY HIS USUAL DAYS ARE M,W,F. PLAN IS TO DC TO SNF, [facility] AND [facility] HAVE BOTH DECLINED TO TAKE THE PT BACK. CARE MANAGEMENT IS SEARCHING FOR AN OUT OF AREA FACILITY. PT IS SITTING UP IN BED EATING DINNER, NO S&S OF DISTRESS NOTED.
[2025-02-28] VITALS (16 sets, daily range): BP systolic 111–175; BP diastolic 72–114
--- NOTE | 2025-02-28 05:33 | NUR ---
SHIFT SUMMARY 59 YR M ADMITTED ON 02/22/25. FULL CODE. NO ACUTE CHANGES THIS SHIFT. PT HAS NOT ASKED FOR ANYTHING TO DRINK THIS SHIFT. HE HAS SLEPT FOR MOST OF THE NIGHT. HE IS PLEASANT AND COOPERATIVE WITH CARE. NO NEW CHANGES TO REPORT. BED IN LOW POSITION AND CALL LIGHT IN REACH.
[2025-02-28] MEDS ORDERED: CloNIDine 0.3 MG Tab PO SCH (08:00)
[2025-03-01] VITALS (15 sets, daily range): BP systolic 98–166; BP diastolic 70–90
--- NOTE | 2025-03-01 04:39 | NUR ---
SHIFT SUMMARY 59 YR M ADMITTED ON 02/22/25. FULL CODE. NO ACUTE CHANGES THIS SHIFT. PT HAS BEEN PLEASANT AND COOPERATIVE. HE APPEARS TO HAVE SLEPT WELL THROUGH THE NIGHT. FLUID RESTRICTION IN PLACE AND PT IS COOPERATING WITH IT. NO NEW CHANGES TO REPORT. BED IN LOW POSITION AND CALL LIGHT IN REACH.
[2025-03-01 04:43] LABS: Hematocrit 36.5 % (37.0-53.0); Hemoglobin 11.4 g/dL (13.5-17.5)
[2025-03-01 05:11] LABS: Albumin, Blood 3.3 g/dL (3.4-5.0); Anion Gap 11 mmol/L (3-11); Blood Urea Nitrogen 72 mg/dL (8-24); CO2, Blood 31 mmol/L (21-32); Calcium, Blood 8.0 mg/dL (8.5-10.1); Chloride, Blood 98 mmol/L (98-108); Creatinine, Blood 7.83 mg/dL (0.60-1.20); Glucose, Blood 113 mg/dL (70-99); Magnesium, Blood 2.1 mg/dL (1.6-2.4); Phosphorus, Blood 5.6 mg/dL (2.5-4.9); Potassium, Blood 4.1 mmol/L (3.5-5.5); Sodium, Blood 136 mmol/L (136-145)
[2025-03-02 03:26] VITALS: BP 167/100
--- NOTE | 2025-03-02 03:45 | NUR ---
SHIFT SUMMARY ADMITTED FOR ESRD, NEEDING DIALYSIS. FULL CODE. PLAN IS FOR PLACEMENT IN A REHAB FACILITY IN [place], WHERE HE CAN ALSO GET HD. PERMACATH IN RIGHT CHEST WALL. 1000 ML FLUID RESTRICTION. RENAL DIET. ON RA. HE IS ON ELIQUIS. HE IS A&O X3, INDEPENDENT IN ROOM. RENAL CONSULT IS DR. DIA.
[2025-03-02 04:35] LABS: Hematocrit 34.1 % (37.0-53.0); Hemoglobin 10.9 g/dL (13.5-17.5)
[2025-03-02 04:53] LABS: Albumin, Blood 3.4 g/dL (3.4-5.0); Anion Gap 11 mmol/L (3-11); Blood Urea Nitrogen 70 mg/dL (8-24); CO2, Blood 29 mmol/L (21-32); Calcium, Blood 8.2 mg/dL (8.5-10.1); Chloride, Blood 98 mmol/L (98-108); Creatinine, Blood 7.36 mg/dL (0.60-1.20); Glucose, Blood 89 mg/dL (70-99); Magnesium, Blood 2.1 mg/dL (1.6-2.4); Phosphorus, Blood 5.1 mg/dL (2.5-4.9); Potassium, Blood 4.4 mmol/L (3.5-5.5); Sodium, Blood 134 mmol/L (136-145)
[2025-03-02 08:08] VITALS: BP 181/94
[2025-03-02 12:55] VITALS: BP 147/89
[2025-03-02 15:56] VITALS: BP 168/95
--- NOTE | 2025-03-02 16:35 | NUR ---
SHIFT SUMMARY PT AOX4, COOPERATIVE, ABLE TO MAKE NEEDS KNOWN. PT BEEN SLIGHTLY EMOTIONALLY LABILE THIS SHIFT ABOUT BELONGINGS BEING AT [facility] AND HAVING NO WAY OF OBTAINING SAID ITEMS. SUPPOSED TO GO UP TO [place] FOR TRX, BED NOT AVAILABLE [place], CASE MANAGMENT WORKING ON SITUATION. TOLERATING MEDICAITON, ON 1000ML RESTRICITON PER DAY, PT NEEDS REINFORCMEENT ON CALCULATIONS. IND IN ROOM. ON ROOM AIR. BED IN LOWETS POSITION, CALL LIGHT WITHIN REACH.
[2025-03-02 19:37] VITALS: BP 151/86
[2025-03-02 23:08] VITALS: BP 150/98
[2025-03-03] VITALS (18 sets, daily range): BP systolic 91–202; BP diastolic 64–93
[2025-03-03 04:59] LABS: Hematocrit 31.4 % (37.0-53.0); Hemoglobin 9.8 g/dL (13.5-17.5)
[2025-03-03 05:21] LABS: Magnesium, Blood 2.2 mg/dL (1.6-2.4)
[2025-03-03 05:29] LABS: Albumin, Blood 3.1 g/dL (3.4-5.0); Anion Gap 14 mmol/L (3-11); Blood Urea Nitrogen 91 mg/dL (8-24); CO2, Blood 27 mmol/L (21-32); Calcium, Blood 7.7 mg/dL (8.5-10.1); Chloride, Blood 97 mmol/L (98-108); Creatinine, Blood 9.25 mg/dL (0.60-1.20); Glucose, Blood 95 mg/dL (70-99); Phosphorus, Blood 6.2 mg/dL (2.5-4.9); Potassium, Blood 4.8 mmol/L (3.5-5.5); Sodium, Blood 133 mmol/L (136-145)
--- NOTE | 2025-03-03 06:10 | NUR ---
SHIFT SUMMARY PT A&Ox4 AND PLEASANT. MEDICATED PER EMAR FOR PAIN. CONTINUING 24HR FLUID RESTRICTION. BP ELEVATED BUT HYDRALAZINE GIVEN PER ORDERS. BED IN LOWEST POSITION AND CALL LIGHT IN REACH.
--- NOTE | 2025-03-03 07:48 | NUR ---
NOTIFIED DR. CORMIER OF ELEVATED B/P THIS MORNING. TO BE GOING TO DIALYSIS THIS AM. TO GIVE SCHEDULED MEDS LISTED.
[2025-03-03] MEDS ORDERED: Darbepoetin Alfa In Albumn Sol 40 MCG/0.4 ML SC ONE (16:00)
[2025-03-04 03:45] VITALS: BP 140/88
[2025-03-04 06:20] LABS: Hematocrit 32.3 % (37.0-53.0); Hemoglobin 10.0 g/dL (13.5-17.5)
--- NOTE | 2025-03-04 06:45 | NUR ---
SUMMARY: PT A/OX4, ENDORSES NEEDS AND IS PLEASANT AND COOPERATIVE W/CARE. HE'S AWARE OF LIMITATIONS AND IS INDEPENDENT IN ROOM. PT ON 1L FREE WATER FLUID RESTRICT AND IS OLIGURIC ON DIALYSIS W/R.CW PERMCATH INTACT. PT MEDICATED W/SCHEDULED TYLENOL AND PRN OXYCODONE FOR TOLERABLE RELIEF OF GENERALIZED PAIN. NO ACUTE CHANGES, VSS/AFEBRILE. WILL REPORT TO DAY RN.
[2025-03-04 06:49] LABS: Magnesium, Blood 2.3 mg/dL (1.6-2.4)
[2025-03-04 07:05] LABS: Albumin, Blood 3.1 g/dL (3.4-5.0); Anion Gap 13 mmol/L (3-11); Blood Urea Nitrogen 76 mg/dL (8-24); CO2, Blood 27 mmol/L (21-32); Calcium, Blood 7.7 mg/dL (8.5-10.1); Chloride, Blood 95 mmol/L (98-108); Creatinine, Blood 8.48 mg/dL (0.60-1.20); Glucose, Blood 85 mg/dL (70-99); Phosphorus, Blood 6.3 mg/dL (2.5-4.9); Potassium, Blood 4.6 mmol/L (3.5-5.5); Sodium, Blood 130 mmol/L (136-145)
[2025-03-04 08:12] VITALS: BP 175/89
[2025-03-04 14:31] VITALS: BP 135/78; BP 175/88
[2025-03-04 15:57] VITALS: BP 132/84
--- NOTE | 2025-03-04 18:10 | NUR ---
SUMMARY DR. DIA ROUNDED THIS AM, NO DIALYSIS TODAY. PT PENDING LTC PLACEMENT AND CHAIR TIME SETUP. CALLED [facility] PT WAS AT THIS FACILITY PRIOR AND HAS BELONGINGS THERE, PT HAS NO FAMILY OR FRIENDS IN THE AREA TO PICKUP AND BRING THESE TO HIM. [facility] NURSE STATED THEY WILL CLEAR WITH THEIR MACHINE SPLITTER TOMORROW IF A CARRIER COULD BRING PT'S TWO BAGS OF BELONGINGS TOMORROW AT SOME POINT. PT TOOK ALL SCHEDULED MEDS PRESCRIBED. TOOK A NAP TODAY.
[2025-03-04 19:44] VITALS: BP 150/86
[2025-03-05] VITALS (17 sets, daily range): BP systolic 113–179; BP diastolic 70–95
[2025-03-05 04:45] LABS: Hematocrit 30.0 % (37.0-53.0); Hemoglobin 9.6 g/dL (13.5-17.5)
[2025-03-05 05:17] LABS: Magnesium, Blood 2.3 mg/dL (1.6-2.4)
[2025-03-05 05:25] LABS: Albumin, Blood 3.1 g/dL (3.4-5.0); Anion Gap 15 mmol/L (3-11); Blood Urea Nitrogen 98 mg/dL (8-24); CO2, Blood 25 mmol/L (21-32); Calcium, Blood 7.5 mg/dL (8.5-10.1); Chloride, Blood 95 mmol/L (98-108); Creatinine, Blood 9.96 mg/dL (0.60-1.20); Glucose, Blood 85 mg/dL (70-99); Phosphorus, Blood 7.8 mg/dL (2.5-4.9); Potassium, Blood 4.9 mmol/L (3.5-5.5); Sodium, Blood 130 mmol/L (136-145)
--- NOTE | 2025-03-05 06:00 | NUR ---
SUMMARY: PT A/OX4, ENDORSES NEEDS AND IS PLEASANT AND COOPERATIVE W/CARE. HE'S AWARE OF LIMITATIONS AND UP AD LOR BUT CALLS APPROPRIATELY FOR ASSIST PRN. 1L FLUID RESTRICT MAINTAINED AND PERMCATH REMAINS INTACT TO R.CW. CREAT WAS CRITICAL THIS AM, NOW 9.96 (WAS 8.48) AND PT WAS SLIGHTLY HYPERTENSIVE TONIGHT BUT HE REMAINED ASYMPTOMATIC OF CARDIAC DISTRESS AND PLAN IS FOR DIALYSIS TODAY. SCHEDULED TYLENOL AND PRN OXYCODONE RECEIVED FOR TOLERABLE RELIEF OF HIP AND SCIATICA PAIN. NO ACUTE CHANGES, VSS/AFEBRILE. WILL REPORT TO DAY RN.
--- NOTE | 2025-03-05 14:39 | NUR ---
PT HAS BEEN TELLING THIS RN THAT HE DOES NOT WANT TO LEAVE [facility]. DIRECTOR INDUSTRIAL RELATIONS STATED THE LOCAL LTC WILL NOT ACCEPT HIM DUE TO HIM LEAVING [place]. PT AWARE OF SITUATION. WILL NEED CHAIR TIME SET UP LOCALLY IF PT ADAMENT ON GOING HOME. NOT WILLING TO GO UP TO [place].
--- NOTE | 2025-03-05 17:09 | NUR ---
SUMMARY PT PENING LTC PLACEMENT, WAS ACCEPTED TO FACILITY IN [place]. HOWEVER NO DIALYSIS CHAIR TIME IS AVAILABLE. PT HAS BEEN SAYING ALL WEEKEND THAT HE DOES NOT WANT TO GO TO [place], WANTS TO STAY IN [facility] HOWEVER PT HAS BEEN DENIED FROM RETURNING TO LOCAL SNF'S. PT STATES HE HAS A HOUSE HE CAN GO TO HOWEVER PT'S BLOOD PRESSURES GO FROM VERY HIGH'S TO LOWS ESPECIALLY ON DIALYSIS DAYS. PROBABLY NOT SAFE FOR HIM TO RETURN HOME ALONE. DISCUSSED WITH PATIENT THESE CONCERNS AND PT STATES HE DOES NOT WANT TO LEAVE [facility], HAS THESE HE NEEDS TO FIGURE OUT FIRST. OPEN TO GOING TO LTC IN A COUPLE MONTHS. DR. CORMIER WAS MADE AWARE WELL COORDINATOR. UNSURE OF PLAN, PT STILL NEEDS CHAIR TIME HERE LOCALLY IF HE REFUSES LTC. A/OX4. PRETTY COMPLIANT WITH FLUID RESTRICITON. PT WENT TO DIALYSIS TODAY WHERE THEY REMOVED 2L. HELD ALL B/P MEDS PRIOR TO DILAYSIS PER DIALYSIS NURSE, AND TOLERATED WELL.
[2025-03-06 05:05] VITALS: BP 186/101
[2025-03-06 05:33] LABS: Hematocrit 31.4 % (37.0-53.0); Hemoglobin 9.7 g/dL (13.5-17.5)
--- NOTE | 2025-03-06 05:49 | NUR ---
PT A&OX4, INDEPENDENT IN RM WITH FWW. PT C/0 PAIN DURING THIS SHIFT. PAIN MEDICATION WERE GIVEN RX. PT DID NOT SLEEP DURING THIS SHIFT.
[2025-03-06 06:02] LABS: Magnesium, Blood 2.3 mg/dL (1.6-2.4)
[2025-03-06 06:20] LABS: Albumin, Blood 3.3 g/dL (3.4-5.0); Anion Gap 13 mmol/L (3-11); Blood Urea Nitrogen 82 mg/dL (8-24); CO2, Blood 29 mmol/L (21-32); Calcium, Blood 7.9 mg/dL (8.5-10.1); Chloride, Blood 95 mmol/L (98-108); Creatinine, Blood 8.72 mg/dL (0.60-1.20); Glucose, Blood 86 mg/dL (70-99); Phosphorus, Blood 6.8 mg/dL (2.5-4.9); Potassium, Blood 4.5 mmol/L (3.5-5.5); Sodium, Blood 132 mmol/L (136-145)
[2025-03-06 07:28] VITALS: BP 167/98
[2025-03-06] MEDS ORDERED: Amlodipine Bes2.5 MG PO (13:03)
[2025-03-06] MEDS ORDERED: HYDRA25 PO (13:04)
[2025-03-06] MEDS ORDERED: JARDIANCE10 MG PO (13:05)
[2025-03-06] MEDS ORDERED: SEVEC800 PO (13:12)
[2025-03-06 14:19] VITALS: BP 173/91
--- NOTE | 2025-03-06 15:32 | NUR ---
PATIENT D/C'D TO HOME VIA [employer] [facility]. DC INSTRUCTIONS AND EDUCATION DISCUSSED WITH PATIENT AND COPY PROVIDED. RX MEDICATIONS FAXED TO [facility]. DIALYSIS SCHEDULED FOR 1000 TOMORROW, CARE MANAGEMENT SET UP A RIDE TOO PICK PATIENT UP FOR THIS APPOINTMENT AT 0915 TOMMORROW. PATIENT DENIES ANY FURTHER QUESTIONS OR CONCERNS.
== END 2025-03-06 14:48 | disposition home health service (06) | DRG 640 ==
LOC: ER 16:10 → PCU 16:11 → ERHOLD 16:11 → PCU 22:08 → MEDS 02-22 09:45
PROVIDERS: Internal Medicine Nephrology; Nurse Practitioner Acute Care; Student in an Organized Health Care Education/Training Program; ADMIT Student in an Organized Health Care Education/Training Program
PROC: 5A1D70Z Performance of Urinary Filtration, Intermittent, Less than 6 Hours Per Day (ICD-10-PCS; principal; 2025-02-21)
DX: E87.5 Hyperkalemia (principal); N18.6 End stage renal disease; Q61.2 Polycystic kidney, adult type; Q44.6 Cystic disease of liver; F11.20 Opioid dependence, uncomplicated; I82.C21 Chronic embolism and thrombosis of right internal jugular vein; I13.2 Hypertensive heart and chronic kidney disease with heart failure and with stage 5 chronic kidney disease, or end stage renal disease; I50.22 Chronic systolic (congestive) heart failure; I42.8 Other cardiomyopathies; E87.1 Hypo-osmolality and hyponatremia; E87.20 Acidosis, unspecified; G89.4 Chronic pain syndrome; K21.9 Gastro-esophageal reflux disease without esophagitis; E11.22 Type 2 diabetes mellitus with diabetic chronic kidney disease; Z99.2 Dependence on renal dialysis; F17.200 Nicotine dependence, unspecified, uncomplicated; E87.70 Fluid overload, unspecified; E83.51 Hypocalcemia; M48.061 Spinal stenosis, lumbar region without neurogenic claudication; E88.09 Other disorders of plasma-protein metabolism, not elsewhere classified; E66.9 Obesity, unspecified; D63.1 Anemia in chronic kidney disease; R60.0 Localized edema; R00.1 Bradycardia, unspecified; I16.0 Hypertensive urgency; Z79.01 Long term (current) use of anticoagulants; Z88.8 Allergy status to other drugs, medicaments and biological substances; Z91.158 Patient's noncompliance with renal dialysis for other reason; Z91.148 Patient's other noncompliance with medication regimen for other reason; Z68.26 Body mass index [BMI] 26.0-26.9, adult
CPT/HCPCS: 36415; 71046; 80053; 80069; 82803; 82947; 83735; 83880; 84100; 84484; 85014; 85018; 85025; 93005; 93010; 94760; 96374; 97110; 97116; 97162; 99285-25; A9270; G0257; G0378; J0360; J0612; J0881; J1200; J1815; J2997; J7512

== ENCOUNTER 2025-03-26 11:25 | Inpatient (IN) | payer MEDICARE, OTHER ==
[2025-03-26] VITALS (13 sets, daily range): BP systolic 85–197; BP diastolic 52–102
[~2025-03-26] VITALS: Ht 167.6 cm; Wt 75.8 kg
[~2025-03-26 11:25] MED LIST changes: +Amlodipine Bes2.5 MG PO; +JARDIANCE10 MG PO; +SEVEC800 PO
[2025-03-26 13:16] LABS: BASOPHILS ABSOLUTE AUTO 0.06 K/mm3 (0.00-0.23); BASOPHILS PERCENT AUTO 1 % (0-2); EOSINOPHILS ABSOLUTE AUTO 0.28 K/mm3 (0.00-0.68); EOSINOPHILS PERCENT AUTO 4 % (0-6); Hematocrit 41.7 % (37.0-53.0); Hemoglobin 13.0 g/dL (13.5-17.5); IMMATURE GRAN ABSOLUTE AUTO 0.04 K/mm3 (0.00-0.10); IMMATURE GRAN PERCENT AUTO 1 % (0-1); LYMPHOCYTES ABSOLUTE AUTO 1.25 K/mm3 (0.84-5.20); LYMPHOCYTES PERCENT AUTO 15 % (21-46); MONOCYTES ABSOLUTE AUTO 0.62 K/mm3 (0.16-1.47); MONOCYTES PERCENT AUTO 8 % (4-13); Mean Corpuscular HGB Conc 31.2 g/dL (31.5-36.5); Mean Corpuscular Volume 91 fL (80-100); NEUTROPHILS ABSOLUTE AUTO 5.86 K/mm3 (1.96-9.15); NEUTROPHILS PERCENT AUTO 72 % (41-73); NRBC ABSOLUTE 0.00 K/mm3 (0.00-0.02); NRBC Auto 0.0 /100 WBC (0.0-0.2); Platelet Count 403 K/mm3 (150-400); RDW Coefficient Variation 18.1 % (11.7-14.2); RDW Standard Deviation 57.1 fL (35.1-46.3)
[2025-03-26 14:15] LABS: Alanine Aminotransfer (ALT/SGP 18.0 U/L (12-78); Albumin, Blood 3.6 g/dL (3.4-5.0); Albumin/Globulin Ratio 0.9 (0.8-1.8); Anion Gap 14.0 mmol/L (3-11); Aspartate Aminotrans (AST/SGOT 22.0 U/L (12-37); Bilirubin, Total 0.5 mg/dL (0.1-1.0); Blood Urea Nitrogen 74.0 mg/dL (8-24); CO2, Blood 30.0 mmol/L (21-32); Calcium, Blood 8.5 mg/dL (8.5-10.1); Chloride, Blood 94.0 mmol/L (98-108); Creatinine, Blood 13.5 mg/dL (0.60-1.20); Globulin, Blood 3.8 g/dL (2.2-4.0); Glucose, Blood 96.0 mg/dL (70-99); Potassium, Blood 6.4 mmol/L (3.5-5.5); Sodium, Blood 132.0 mmol/L (136-145); Total Protein, Blood 7.4 g/dL (6.4-8.2)
[2025-03-26] MEDS ORDERED: Calcium Gluconate 10% 100 MG/ML INJ IV ONE (15:00)
[2025-03-26] MEDS ORDERED: Insulin Regular 100 Unit/ML 1ML Dose IV ONE (15:00)
[2025-03-26] MEDS ORDERED: Albuterol 2.5 MG/3 ML VIAL INH SCH (15:00)
[2025-03-26] MEDS ORDERED: CALCIUM GLUC IN NACL, ISO-OSM 50 ML IV ONE (15:20)
[2025-03-26] MEDS ORDERED: HydrALAZINE HCl 20 MG / ML 1ML Vial IV PRN (16:35)
[2025-03-26] MEDS ORDERED: FLU VACC TS2025-26(6MOS UP)/PF 45 MCG/0.5 ML SYRINGE IM SCH (16:35)
[2025-03-26] MEDS ORDERED: CloNIDine 0.3 MG Tab PO SCH (17:00)
[2025-03-26] MEDS ORDERED: Darbepoetin (Pharmacy Consult) SC SCH (20:00)
[2025-03-26] MEDS ORDERED: CATAPRES-TTS 21 EAC1 PO (20:01)
[2025-03-26] MEDS ORDERED: CATAPRES0.2 M1 PO (20:05)
[2025-03-26] MEDS ORDERED: BENADRYL25 MG IV (20:27)
[2025-03-26] MEDS ORDERED: ONDA4 IV (20:28)
[2025-03-26] MEDS ORDERED: FentaNYL Citrate 50 MCG/ML 2 ML Injection ONE (20:28)
[2025-03-26] MEDS ORDERED: TUBERSOL5 TUB UNIT ID (20:29)
[2025-03-26] MEDS ORDERED: FentaNYL Citrate 50 MCG/ML 2 ML Injection IV PRN (20:30)
[2025-03-26] MEDS ORDERED: CATAPRES0.1 MG PO (20:32)
[2025-03-26] MEDS ORDERED: ENTRESTO 24 MG1 EACH PO (20:34)
[2025-03-26] MEDS ORDERED: METO25 PO (20:37)
[2025-03-26] MEDS ORDERED: Heparin Sodium,Porcine 5,000 UNIT/0.5 ML SDV SC SCH (21:00)
[2025-03-26] MEDS ORDERED: FentaNYL Citrate 50 MCG/ML 2 ML Injection IV ONE (21:45)
[2025-03-27] VITALS (16 sets, daily range): BP systolic 98–180; BP diastolic 52–109
--- NOTE | 2025-03-27 03:57 | NUR ---
NURSE NOTE [facility]. ARRIVED IN HIS PERSONAL WHEEL CHAIR FROM THE ER. PT WAS HYPERTENSIVE UPON ARRIVAL (SEE VITALS). O2 SATS >94% ON RA. PT DENIES FEELING SOB, BREATHING EVEN AND UNLABORED. DENIES CHEST PAIN OR PRESSURE. PATIENT DID HOWEVER ENDORSE BACK PAIN AND STATE HE WAS HUNGRY ON ARRIVAL. DR. STEPHENS ARRIVED A SHORT TIME LATER TO PLACE EMERGENT TRIALYSIS CATH TO R GROIN FOR PATIENT TO RECIEVE DIALYSIS TONIGHT. AFTER CATH WAS PLACED PATIENT WAS PROVIDED A SNACK AND DRINK AND WENT TO DIALYSIS. PATIENT WAS IN DIALYSIS FOR A LITTLE OVER AN HOUR. ONCE HE ARRIVED BACK TO THE UNIT, VSS NO LONGER HYPERTENSIVE. ANOTHER SNACK WAS PROVIDED. PT HAS BEEN NPO SINCE 0000. PT HAS BEEN RESTING SINCE ARRIVING BACK TO PCU. BED IN LOWEST POSTION, CALL LIGHT IN [facility]. [facility], WILL REPORT TO ONCOMING RN.
[2025-03-27 05:43] LABS: Hematocrit 38.9 % (37.0-53.0); Hemoglobin 11.7 g/dL (13.5-17.5)
[2025-03-27 06:24] LABS: Magnesium, Blood 2.3 mg/dL (1.6-2.4)
[2025-03-27 06:25] LABS: Albumin, Blood 3.4 g/dL (3.4-5.0); Anion Gap 16 mmol/L (3-11); Blood Urea Nitrogen 59 mg/dL (8-24); CO2, Blood 23 mmol/L (21-32); Calcium, Blood 8.1 mg/dL (8.5-10.1); Chloride, Blood 96 mmol/L (98-108); Creatinine, Blood 9.84 mg/dL (0.60-1.20); Glucose, Blood 76 mg/dL (70-99); Phosphorus, Blood 5.9 mg/dL (2.5-4.9); Potassium, Blood 5.7 mmol/L (3.5-5.5); Sodium, Blood 129 mmol/L (136-145)
[2025-03-27] MEDS ORDERED: FentaNYL Citrate 50 MCG/ML 2 ML Injection IV PRN ×2 (08:45→12:55)
[2025-03-27] MEDS ORDERED: Metoclopramide HCl 5MG / ML 2ML Vial IV PRN (08:51)
[2025-03-27] MEDS ORDERED: Metoclopramide HCl 5MG / ML 2ML Vial IV SCH (12:00)
[2025-03-27] MEDS ORDERED: Heparin Sodium 1000 Units/ML 10ML MDV ONE (15:18)
[2025-03-27] MEDS ORDERED: NS 250 ML IV ONE (15:19)
[2025-03-27] MEDS ORDERED: NS 500 ML IV ONE (15:36)
[2025-03-27] MEDS ORDERED: Midazolam HCl 1MG / ML 2ML Vial ONE (15:45)
[2025-03-27] MEDS ORDERED: FentaNYL Citrate 50 MCG/ML 2 ML Injection ONE (15:45)
[2025-03-27] MEDS ORDERED: NS 100 ML IV ONE (15:56)
[2025-03-27] MEDS ORDERED: CeFAZolin Sodium 2,000 MG VIAL ONE (15:56)
[2025-03-27] MEDS ORDERED: CefTRIAXone Sodium 1,000 MG in NS 100 ML IV SCH (16:52)
[2025-03-27] MEDS ORDERED: Vancomycin (Pharmacy Consult) IV SCH (17:00)
--- NOTE | 2025-03-27 18:47 | NUR ---
SHIFT SUMMARY PT A&OX4, FOLLOWING COMMANDS, ALVAREZ. TOLERATING PO INTAKE. AMBULATORY TO W/C. NO BM TODAY. CKD, MINIMAL URINE OUTPUT. PT C/O CHRONIC BACK PAIN T/O DAY, MEDICATED WITH PRN IV PAIN MEDS WITH ADEQUATE RELIEF. PT WENT FOR DIALYSIS CATHETER PLACEMENT TODAY BUT UNABLE TO PROCEED DUE TO SIGNS OF INFECTION AT CATHETER SITE. R TRIALYSIS CATHETER REMAINS IN PLACE UNTIL PERMACATH PLACEMENT. NO OTHER ACUTE CHANGES TODAY.
--- NOTE | 2025-03-27 22:59 | NUR ---
SHIFT SUMMARY: PT A&OX4 OCCASIONALLY IRRITABLE BUT REDIRECTABLE AND COOPERATIVE. VSS ON RA. PT C/O 5 OUT 10 HEADACHE AND BACK PAIN. MEDICATED PER EMAR. ACHS. TOLERATING RENAL DIET. NO HEMATOMA FORMATION AT R GROIN SITE. PT REPORTS USES WHEELCHAIR AT BASELINE. 1 PERSON SBA TO [facility]. HAD TWO BM TODAY. RECEIVING IV ABX. CONTINUE WITH CURRENT PLAN OF CARE. REPORT GIVEN TO MEDICAL FLOOR NURSE. PT TRANSFERRED TO MEDICAL FLOOR AT 2250.
--- NOTE | 2025-03-27 23:20 | NUR ---
ASSUMED CARE AT 2250. A/Ox4, RA. PT DENIES PAIN AT THIS TIME. TRANSFERRED FROM WC TO BED WITH SBA. PT'S PERSONAL WC IS IN ROOM. CALL LIGHT IN REACH, NO FURTHER NEEDS AT THIS TIME.
[2025-03-28] VITALS (17 sets, daily range): BP systolic 100–155; BP diastolic 63–783
--- NOTE | 2025-03-28 06:21 | NUR ---
A/Ox4, VSS ON RA. NO ACUTE CHANGES OVERNIGHT. PT APPEARED TO SLEEP COMFORTABLY. SAFETY PRECAUTIONS IN PLACE.
[2025-03-28 09:32] LABS: Vancomycin, Random 28.9 ug/mL
[2025-03-28] MEDS ORDERED: NS 250 ML IV PRN (17:30)
--- NOTE | 2025-03-28 18:03 | NUR ---
SUMMARY PT TAKEN DOWN TO DIALYSIS AT 0840. UNABLE TO DRAW LABS FROM PIG TAIL FEMORAL CATH. LABS DRAWN IN DIALYSIS. 1.7 L REMOVED IN DIALYSIS. PENDING CULTURE RESULTS. ON IV ANTIBIOTICS. WILL NEED NEGATIVE BLOOD CULTURES PRIOR TO INTERVENTIONAL RADIOLOGY PLACING NEW PERMACATH. PRN FENTANUL GIVEN ONCE THIS SHIFT FOR CHRONIC LOW BACK PAIN. PRN TYELNOL GIVEN THIS EVENING DUE TO SOFT B/P. ALL MEDS HELD PRIOR TO DIALYSIS PT TENDS TO DROP HYPOTENSIVELY IF GIVEN PRIOR. PT TOLERATED WELL. TOOK A LONG NAP AFTER DIALYSIS. PO INTAKE ADEQUATE. CALLING APPROPRIATELY. NONSKID SOCKS AND BED ALARM IN PLACE.
[2025-03-29] VITALS (18 sets, daily range): BP systolic 80–130; BP diastolic 58–96
[2025-03-29 05:41] LABS: Vancomycin, Random 21.0 ug/mL
--- NOTE | 2025-03-29 06:17 | NUR ---
SHIFT SUMMARY A/Ox4, VSS ON RA. PT REPORTS CHRONIC LOW BACK PAIN, MANAGED PER MAR. NO ACUTE CHANGES OVERNIGHT. ONE SMALL SOFT BM, PT DESCRIBES "LOOSE". PT APPEARED TO SLEEP COMFORTABLY. SAFETY PRECAUTIONS IN PLACE, CALL LIGHT IN REACH.
--- NOTE | 2025-03-29 19:44 | NUR ---
SHIFT SUMARY- PT ALERT AND ORIENTED, SPOKE TO ABOUT PARAMETERS FOR THE CLONIDINE. BP WAS ON THE LOW END. ORDER CHANGED TO INCLUDE HOLD FOR SBP LESS THAN 110. PT IN BED AT THETIME OF SHIFT CHANGE, HE IS CURRENTLY RECIEVING IV ROCEPHEN THROUGHT HIS TRIALYSIS CENTRAL LINE. HIS PERIPHERAL IV FLUSHES WELL BUT IS LEAKING. PASSED ON TO NIGHT RN THAT IT NEEDS A DRESSING CHANGE. PT IN BED, CALL LIGHT IN REACH NO S&S OF DISTRESS NOTED AT THE TIME OF REPORT.
[2025-03-29] MEDS ORDERED: Lactobacil 2-S.Thermo-Bifido 1 1 Cap PO SCH (21:00)
[2025-03-30] VITALS (15 sets, daily range): BP systolic 103–150; BP diastolic 68–103
[2025-03-30 05:35] LABS: Hematocrit 36.5 % (37.0-53.0); Hemoglobin 11.4 g/dL (13.5-17.5)
[2025-03-30 06:06] LABS: Magnesium, Blood 2.2 mg/dL (1.6-2.4)
[2025-03-30 06:11] LABS: Albumin, Blood 3.2 g/dL (3.4-5.0); Anion Gap 15 mmol/L (3-11); Blood Urea Nitrogen 57 mg/dL (8-24); CO2, Blood 24 mmol/L (21-32); Calcium, Blood 8.0 mg/dL (8.5-10.1); Chloride, Blood 95 mmol/L (98-108); Creatinine, Blood 8.30 mg/dL (0.60-1.20); Glucose, Blood 83 mg/dL (70-99); Phosphorus, Blood 7.9 mg/dL (2.5-4.9); Potassium, Blood 5.4 mmol/L (3.5-5.5); Sodium, Blood 129 mmol/L (136-145); Vancomycin, Random 28.3 ug/mL
--- NOTE | 2025-03-30 07:11 | NUR ---
SHIFT SUMMARY A/Ox4, PLEASANT. VARIABLE BP, OTHER VSS ON RA. CHRONIC LOW BACK PAIN MANAGED PER SEP. NO ACUTE CHANGES OVERNIGHT. LAB REPORTS CRITICAL CREATININE VALUE 8.3. SAFETY PRECAUTIONS IN PLACE, CALL LIGHT IN REACH.
--- NOTE | 2025-03-30 18:33 | NUR ---
SHIFT SUMMARY A/OX4, PLEASANT AND COOPERATIVE WITH CARE. DIALYSIS COMPLETED TODAY. TRIALYSIS CATH TO R. GROAMISH. MEDICATED FOR PAIN PER EMAR. PLAN IS FOR DIALYSIS CATH TO BE PLACED ONCE BLOOD CULTURES ARE BACK. NO ACUTE CHANGES AT THIS TIME.
[2025-03-31 04:23] VITALS: BP 119/88
--- NOTE | 2025-03-31 06:30 | NUR ---
AIR DEFENSE ARTILLERY OFFICER SUMMARY NO ACUTE EVENTS. PT ABLE TO MAKE NEEDS KNOWN. REGULAR INTERVAL ROUNDING T/O SHIFT. PT C/O OF BACK PAIN--MEDS PER SEP. RT THIGH TRIALYSIS CATH ASSESSED; STABILIZED WITH A STAT LOCK. CALL LIGHT ACCESSIBLE. CARE ONGOING.
[2025-03-31 06:34] LABS: Hematocrit 36.4 % (37.0-53.0); Hemoglobin 11.3 g/dL (13.5-17.5)
[2025-03-31 07:01] LABS: Albumin, Blood 3.2 g/dL (3.4-5.0); Anion Gap 14 mmol/L (3-11); Blood Urea Nitrogen 62 mg/dL (8-24); CO2, Blood 23 mmol/L (21-32); Calcium, Blood 7.9 mg/dL (8.5-10.1); Chloride, Blood 96 mmol/L (98-108); Creatinine, Blood 7.81 mg/dL (0.60-1.20); Glucose, Blood 85 mg/dL (70-99); Magnesium, Blood 2.1 mg/dL (1.6-2.4); Phosphorus, Blood 7.4 mg/dL (2.5-4.9); Potassium, Blood 5.4 mmol/L (3.5-5.5); Sodium, Blood 128 mmol/L (136-145); Vancomycin, Random 21.3 ug/mL
[2025-03-31 07:40] VITALS: BP 142/88
[2025-03-31] MEDS ORDERED: Calcium Acetate 667 MG Gel Cap PO SCH (08:30)
[2025-03-31 17:21] VITALS: BP 111/82
--- NOTE | 2025-03-31 19:17 | NUR ---
SUMMARY NO ACUTE EVENTS. PT REQUESTING PHOSLO TO BE RESTARTED. DR. RHODES ORDERED TO RESTART HOME DOSE. PT HAD BEEN ITCHING THIS MORNING BUT AFTER PHOSLO WAS RESTARTED HE STATED THIS GOT BETTER. CHRONIC BACK PAIN MANAGED WITH IV FENT AND TYLENOL. DRESSING TO RIGHT CHEST CLEANSED AND REPLACED.
[2025-03-31 19:53] VITALS: BP 105/75
--- NOTE | 2025-03-31 22:02 | NUR ---
ZOOM CALL WITH RASHAD AT 2114 THIS RN FACILITATED ZOOM CALL WITH DR SOLORZANO, OFFICE DIRECTOR FILL IN FOR DR DIA. DR SOLORZANO ADVISED PATIENT HE WOULD REVIEW LABS IN THE MORNING AND DETERMINE IF DIALYSIS NEEDED. BLOOD CULTURES HAVE BEEN NEGATIVE. IF BLOOD CULTURES REMAIN NEGATIVE PT WILL HAVE NEW DIALYSIS CATH PLACED ON WEDNESDAY AND TRIALYSIS CATH REMOVED AT THAT TIME. PT HAD TO FURTHER QUESTIONS OR CONCERNS.
[2025-04-01] VITALS (22 sets, daily range): BP systolic 91–157; BP diastolic 45–108
--- NOTE | 2025-04-01 04:29 | NUR ---
SHIFT SUMMARY PATIENT IS ALERT AND ORIENTED. PATIENT HAS HAD NO ACUTE EVENTS THIS SHIFT. VITAL SIGNS REVIEWED. PATIENT HAS COMPLAINED OF BACK PAIN THIS SHIFT AND MEDICATED PER EMAR. PATIENT HAS NO COMPLAINTS OF SOB, NAUSEA OR VOMITTING. PATIENT HAS BEEN SLEEPING COMFORTABLY MOST OF SHIFT.
--- NOTE | 2025-04-01 09:17 | NUR ---
NOTE NO LABS ORDERED. CALLED DR. KIMBLE TO SEE IF HE WANTS TO ORDER LABS HE SAID "THE [facility] CAN ORDER THOSE, NO NEED TO ORDER IF THEY HAVNT ALREADY BEEN ORDERED." BOILER HOUSE MECHANIC NOTIFIED THIS RN PT WILL HAVE DIALYSIS TODAY. PT TRANSPORTED TO DIALYSIS. PT GOT AM MEDS, BOILER HOUSE MECHANIC SAID TO "HOLD COREGLUIS HARDY." PT REQUESTED TO HAVE [facility] POST DIALYSIS.
--- NOTE | 2025-04-01 16:43 | NUR ---
NOTE ZOOM CALL COMPLETED W DR. WASHINGTON. DR. WASHINGTON REPORTED "PT WILL HAVE DIALYSIS TOMORROW, WILL RECHECK LABS TOMORROW. PT NPO AT MIDNIGHT. TOMORROW IR WILL MOVE PERMA CATH. MAYBE GO HOME."
--- NOTE | 2025-04-01 19:54 | NUR ---
SHIFT SUMMARY PT A&OX4. PT ADMITTED DUE TO HYPERKALEMIA. PT HAS TRIALYSIS PORT AT FEMORAL SITE. PLAN IS FOR PT TO BE NPO AT MIDNIGHT FOR NEW PORT SITE FOR DIALYSIS TOMORROW WITH IR. VSS. PT HAD DIALYSIS TODAY. TOP ICER REPORTED "TOOK 2 L OFF." PT EATS ADEQUATE. IS CONT. PT REPORTS NO CHEST PAIN/SOB, PT IS SBA WITH FWW, HAS PERSONAL WHEELCHAIR IN ROOM. PT REPORTS CHRONIC BACK PAIN, PAIN MANAGED PER EMAR. PT IN BED, BED IN LOWEST POSITION, CALL LIGHT IN REACH,
[2025-04-02] VITALS (17 sets, daily range): BP systolic 116–159; BP diastolic 62–110
[2025-04-02 05:42] LABS: Hematocrit 34.8 % (37.0-53.0); Hemoglobin 10.8 g/dL (13.5-17.5)
[2025-04-02 06:09] LABS: Albumin, Blood 3.1 g/dL (3.4-5.0); Anion Gap 12 mmol/L (3-11); Blood Urea Nitrogen 63 mg/dL (8-24); CO2, Blood 26 mmol/L (21-32); Calcium, Blood 7.9 mg/dL (8.5-10.1); Chloride, Blood 95 mmol/L (98-108); Creatinine, Blood 6.73 mg/dL (0.60-1.20); Glucose, Blood 88 mg/dL (70-99); Magnesium, Blood 2.0 mg/dL (1.6-2.4); Phosphorus, Blood 7.0 mg/dL (2.5-4.9); Potassium, Blood 5.3 mmol/L (3.5-5.5); Sodium, Blood 128 mmol/L (136-145)
--- NOTE | 2025-04-02 06:09 | NUR ---
SHIFT SUMMARY; PT A/O X4, PLEASANT, AND COOPERATIVE WITH CARE. PT HAS HISTORY OF CHRONIC PAIN- REPORTS BACK AND HIP PAIN THROUGHOUT THE NIGHT. PT MEDICATED PER EMAR WITH 25 MCG FENTANYL AND TYNENOL. PT NPO AFTER MIDNIGHT PT WILL HAVE A DIALYSIS CATHETER REPLACEMENT PROCEDURE TOMORROW. VSS. CALL LIGHT WITHIN REACH AND BED IN LOW POSITION.
[2025-04-02] MEDS ORDERED: Heparin Sodium 1000 Units/ML 10ML MDV ONE (10:12)
[2025-04-02] MEDS ORDERED: NS 250 ML IV ONE (10:13)
[2025-04-02] MEDS ORDERED: Midazolam HCl 1MG / ML 2ML Vial ONE (10:21)
[2025-04-02] MEDS ORDERED: FentaNYL Citrate 50 MCG/ML 2 ML Injection ONE ×2 (10:21→11:23)
[2025-04-02] MEDS ORDERED: NS 500 ML IV ONE (10:21)
[2025-04-02] MEDS ORDERED: Heparin Sodium 10,000 Units/ML 1ML MDV ONE ×2 (11:36→11:37)
[2025-04-02] MEDS ORDERED: BENADRYL25 MG PO (14:39)
--- NOTE | 2025-04-02 18:24 | NUR ---
SHIFT SUMMARY: PATIENT A+O X4 AND ABLE TO MAKE NEEDS KNOWN. PATIENT HAD NEW DAILYSIS CATH PLACED THIS SHIFT. INCISION ATTEMPTED ON JOSE LUIS NEAR NECK. UNSUCESSFUL AND WAS CHANGED TO GROIN ON RLE. INCISION NEAR THE NECK HAS SATURATED TWO DRESSINGS. DR. KIMBLE NOTIFED OF OBSERVATION AND HELD DISCHARGE FOR NOW. PATIENT HAD DAILYSIS THIS SHIFT. GROIN SITE WITH NEW CATHETER IS NOTED TO HAVE LIGHT BLOODY OUTPUT. 5 POUND WEIGHTS APPLIED TO BOTH AREAS TO HELP CEASE BLEEDING. CHARGE NURSE JIMMY NOTIFIED. PATIENT HAD HEPARIN INJECTIONS HELD THIS SHIFT D/T THE RISK OF BLEEDING. DISCHARGE ALSO HELD D/T NO RIDES SCHEDULED PER ANIMAL TECHNICIAN NOTATION. BL LUNGS CLEAR, S1 S2 HEARD ON ASCULTATION. SKIN IS INTACT. PATIENT DID NOT HAVE BOWEL MOVEMENT THIS SHIFT. PLAN TO GO BACK TO PRIOR LIVING SITUATION ONCE STABLE AND FOLLOW-UP WITH DIALYSIS OUTPATIENT.
[2025-04-02] MEDS ORDERED: OxyCODONE 5 mg/Acetamin 325 mg TABLET PO PRN (19:35)
[2025-04-02] MEDS ORDERED: FentaNYL Citrate 50 MCG/ML 2 ML Injection IV ONE (20:05)
[2025-04-02] MEDS ORDERED: LORazepam 2 MG/ML 1ML Injection IV ONE (20:05)
[2025-04-02] MEDS ORDERED: NS IV ONE ×2 (21:45→21:50)
[2025-04-02] MEDS ORDERED: DESMOPRESSIN ACETATE IV ONE ×2 (21:45→21:50)
[2025-04-02 21:50] LABS: Hematocrit 36.6 % (37.0-53.0); Hemoglobin 11.3 g/dL (13.5-17.5)
[2025-04-02 22:14] LABS: Prothrombin Time Results 11.1 Sec (9.7-11.5)
[2025-04-02] MEDS ORDERED: NS 250 ML IV PRN (22:50)
[2025-04-03 00:33] VITALS: BP 147/114
--- NOTE | 2025-04-03 03:41 | NUR ---
SHIFT SUMMARY: PT HAD A PERMACATH PLACED IN THE FEMORAL VEIN ON DAY SHIFT. UPON STARTING SHIFT THIS EVENING THE PAITENT HAD A 5 LB BAG PLACED ON THE LEFT UPPER CHEST WHERE AN ATTEMPT TO PLACE A NEW CATH WAS MADE AND ALSO ON THE FEMORAL VEIN WAS A 5 LB BAG. THE BANDAGE WAS SOAKED WITH BLOOD AND CHANGED BY THE CHARGE NURSE ON THE LEFT UPPER CHEST SITE AND WHILE THAT WAS HAPPENING A CALL WAS PLACED TO THE PROVIDER. A FEMCATH WAS PLACED BY ICU NURSE LAWANDA AND SHE ALSO CHANGED THE DRESSING FOR THE FEMORAL PERMACATH. PT HAD A CT DONE OF THE FEMORAL CATH WELL. BLEEDING STOPPED AND 5 LB BAGS AND FEMCATH WAS REMOVED. PT SLEPT MOST OF THE NIGHT. JUAN CARLOS IS PLACED ON PT.
[2025-04-03 05:26] LABS: BASOPHILS ABSOLUTE AUTO 0.06 K/mm3 (0.00-0.23); BASOPHILS PERCENT AUTO 1 % (0-2); EOSINOPHILS ABSOLUTE AUTO 0.16 K/mm3 (0.00-0.68); EOSINOPHILS PERCENT AUTO 3 % (0-6); Hematocrit 32.5 % (37.0-53.0); Hemoglobin 10.3 g/dL (13.5-17.5); IMMATURE GRAN ABSOLUTE AUTO 0.01 K/mm3 (0.00-0.10); IMMATURE GRAN PERCENT AUTO 0 % (0-1); LYMPHOCYTES ABSOLUTE AUTO 0.61 K/mm3 (0.84-5.20); LYMPHOCYTES PERCENT AUTO 12 % (21-46); MONOCYTES ABSOLUTE AUTO 0.53 K/mm3 (0.16-1.47); MONOCYTES PERCENT AUTO 11 % (4-13); Mean Corpuscular HGB Conc 31.7 g/dL (31.5-36.5); Mean Corpuscular Volume 92 fL (80-100); NEUTROPHILS ABSOLUTE AUTO 3.65 K/mm3 (1.96-9.15); NEUTROPHILS PERCENT AUTO 73 % (41-73); NRBC ABSOLUTE 0.00 K/mm3 (0.00-0.02); NRBC Auto 0.0 /100 WBC (0.0-0.2); Platelet Count 199 K/mm3 (150-400); RDW Coefficient Variation 17.2 % (11.7-14.2); RDW Standard Deviation 58.1 fL (35.1-46.3)
[2025-04-03 05:47] LABS: Albumin, Blood 3.3 g/dL (3.4-5.0); Anion Gap 10 mmol/L (3-11); Blood Urea Nitrogen 51 mg/dL (8-24); CO2, Blood 27 mmol/L (21-32); Calcium, Blood 8.5 mg/dL (8.5-10.1); Chloride, Blood 94 mmol/L (98-108); Creatinine, Blood 6.95 mg/dL (0.60-1.20); Glucose, Blood 97 mg/dL (70-99); Magnesium, Blood 2.0 mg/dL (1.6-2.4); Phosphorus, Blood 6.3 mg/dL (2.5-4.9); Potassium, Blood 5.2 mmol/L (3.5-5.5); Sodium, Blood 126 mmol/L (136-145)
[2025-04-03 07:23] VITALS: BP 160/94
[2025-04-03 11:42] VITALS: BP 93/68
[2025-04-03 16:15] VITALS: BP 115/75
--- NOTE | 2025-04-03 18:18 | NUR ---
END OF SHIFT. PATIENT STAYED IN BED TODAY, DUE TO A DIFFICULT DAY YESTERDAY. COMPLIANT WITH CARE AND PAIN MANAGED WELL, HOPING TO D/C TOMORROW. NO BLEEDING ISSUES TODAY WITH PERMCATH PLACEMENTS. BLOOD PRESSURE STABLE, NO BM TODAY REPORTED, ADEQUATE DIET AND FLUID INTAKE, MINIMAL OUTPUT.
[2025-04-03 19:27] VITALS: BP 110/58
[2025-04-04] VITALS (13 sets, daily range): BP systolic 119–179; BP diastolic 72–104
--- NOTE | 2025-04-04 03:53 | NUR ---
SHIFT SUMMARY ADMITTED FOR HYPERKALEMIA. FULL CODE. HD PATIENT. PLAN IS FOR HD, THEN DC HOME. TEMPORARY FEMORAL CATH IN RIGHT GROIN. PERMACATH IN LEFT CHEST. VA PT. RENAL DIET. 1 ASSIST W/FWW - BRP. A&O X3-4. ON RA. RENAL CONSULT IS DR. DIA. TELEMETRY: NSR @ 72 BPM. PAIN MEDICATION GIVEN THIS SHIFT.
[2025-04-04 06:17] LABS: Hematocrit 30.8 % (37.0-53.0); Hemoglobin 9.5 g/dL (13.5-17.5)
[2025-04-04 08:52] LABS: Albumin, Blood 3.2 g/dL (3.4-5.0); Anion Gap 23 mmol/L (3-11); Blood Urea Nitrogen 78 mg/dL (8-24); CO2, Blood 25 mmol/L (21-32); Calcium, Blood 8.5 mg/dL (8.5-10.1); Chloride, Blood 88 mmol/L (98-108); Glucose, Blood 76 mg/dL (70-99); Magnesium, Blood 2.1 mg/dL (1.6-2.4); Potassium, Blood 5.8 mmol/L (3.5-5.5); Sodium, Blood 130 mmol/L (136-145)
[2025-04-04 09:20] LABS: Creatinine, Blood 8.80 mg/dL (0.60-1.20); Phosphorus, Blood 8.7 mg/dL (2.5-4.9)
--- NOTE | 2025-04-04 14:58 | NUR ---
D/C NOTE PATIENT D/C TO HOME. DIALYSIS WAS SET UP WITH A CHAIR TIME AND TRANSPORTATION WELL WITH CARE MANAGEMENT. PATIENT IS AWARE OR PLAN AND AGREEABLE. PATIENT D/C IN WHEELCHAIR WITH RIDE ASSIST. D/C PAPER WORK AND MEDICATIONS DISUCSSED, PAITNET DENIED ANY QUESTIONS OR CONCERNS.
== END 2025-04-04 14:59 | disposition home or self-care (01) | DRG 698 ==
LOC: ER 11:25 → PCU 11:26 → MEDS 03-27 14:57 → PCU 03-27 14:58 → MEDS 03-27 22:53
PROVIDERS: Internal Medicine; Internal Medicine Nephrology; Nurse Practitioner Acute Care; Physician Assistant; ADMIT Internal Medicine
PROC: 0J2WXYZ Change Other Device in Lower Extremity Subcutaneous Tissue and Fascia, External Approach (ICD-10-PCS; principal; 2025-03-26)
PROC: 02HV33Z Insertion of Infusion Device into Superior Vena Cava, Percutaneous Approach (ICD-10-PCS; 2025-03-26)
PROC: 5A1D70Z Performance of Urinary Filtration, Intermittent, Less than 6 Hours Per Day (ICD-10-PCS; 2025-03-26)
DX: T82.41XA Breakdown (mechanical) of vascular dialysis catheter, initial encounter (principal); N18.6 End stage renal disease; E87.1 Hypo-osmolality and hyponatremia; I50.22 Chronic systolic (congestive) heart failure; I13.2 Hypertensive heart and chronic kidney disease with heart failure and with stage 5 chronic kidney disease, or end stage renal disease; N25.81 Secondary hyperparathyroidism of renal origin; I42.9 Cardiomyopathy, unspecified; Y84.1 Kidney dialysis as the cause of abnormal reaction of the patient, or of later complication, without mention of misadventure at the time of the procedure; Z99.2 Dependence on renal dialysis; E87.5 Hyperkalemia; D63.1 Anemia in chronic kidney disease; F10.20 Alcohol dependence, uncomplicated; G89.4 Chronic pain syndrome; E11.22 Type 2 diabetes mellitus with diabetic chronic kidney disease; Z79.899 Other long term (current) drug therapy; Z98.890 Other specified postprocedural states; Z88.8 Allergy status to other drugs, medicaments and biological substances; E83.39 Other disorders of phosphorus metabolism; Z79.01 Long term (current) use of anticoagulants; F15.10 Other stimulant abuse, uncomplicated; T36.0X5A Adverse effect of penicillins, initial encounter
CPT/HCPCS: 36415; 36556; 73706; 76937; 80053; 80069; 80202; 82947; 83735; 84132; 85014; 85018; 85025; 85610; 85730; 87040; 87070; 87077; 87186; 93005; 93010; 96372; 96374; 96375; 96376; 99152; 99153; 99285-25; A9270; C1750; C1752; C1769; C1894; G0257; G0378; J0360; J0612; J0690; J0696; J1644; J1815; J2060; J2250; J2597; J2765; J3010; J3373; J7040; J7050; Q9967

== ENCOUNTER 2025-06-25 11:30 | Observation (INO) | payer MEDICARE, OTHER ==
[~2025-06-25] VITALS: Ht 172.7 cm; Wt 77.5 kg
[~2025-06-25 11:30] MED LIST changes: +BENADRYL25 MG IV; +BENADRYL25 MG PO; +CATAPRES-TTS 21 EAC1 PO; +CATAPRES0.2 M1 PO; +ONDA4 IV; +TUBERSOL5 TUB UNIT ID
[2025-06-25 13:18] LABS: BASOPHILS ABSOLUTE AUTO 0.10 K/mm3 (0.00-0.23); BASOPHILS PERCENT AUTO 1 % (0-2); EOSINOPHILS ABSOLUTE AUTO 0.41 K/mm3 (0.00-0.68); EOSINOPHILS PERCENT AUTO 4 % (0-6); Hematocrit 40.7 % (37.0-53.0); Hemoglobin 12.7 g/dL (13.5-17.5); IMMATURE GRAN ABSOLUTE AUTO 0.04 K/mm3 (0.00-0.10); IMMATURE GRAN PERCENT AUTO 0 % (0-1); LYMPHOCYTES ABSOLUTE AUTO 0.94 K/mm3 (0.84-5.20); LYMPHOCYTES PERCENT AUTO 10 % (21-46); MONOCYTES ABSOLUTE AUTO 0.82 K/mm3 (0.16-1.47); MONOCYTES PERCENT AUTO 9 % (4-13); Mean Corpuscular HGB Conc 31.2 g/dL (31.5-36.5); Mean Corpuscular Volume 91 fL (80-100); NEUTROPHILS ABSOLUTE AUTO 7.26 K/mm3 (1.96-9.15); NEUTROPHILS PERCENT AUTO 76 % (41-73); NRBC ABSOLUTE 0.00 K/mm3 (0.00-0.02); NRBC Auto 0.0 /100 WBC (0.0-0.2); Platelet Count 279 K/mm3 (150-400); RDW Coefficient Variation 16.9 % (11.7-14.2); RDW Standard Deviation 54.9 fL (35.1-46.3)
[2025-06-25 14:11] LABS: Alanine Aminotransfer (ALT/SGP 16.0 U/L (12-78); Albumin, Blood 3.2 g/dL (3.4-5.0); Albumin/Globulin Ratio 0.8 (0.8-1.8); Anion Gap 18.0 mmol/L (3-11); Aspartate Aminotrans (AST/SGOT 16.0 U/L (12-37); Bilirubin, Total 0.5 mg/dL (0.1-1.0); Blood Urea Nitrogen 79.0 mg/dL (8-24); CO2, Blood 22.0 mmol/L (21-32); Calcium, Blood 8.2 mg/dL (8.5-10.1); Chloride, Blood 98.0 mmol/L (98-108); Creatinine, Blood 12.0 mg/dL (0.60-1.20); Globulin, Blood 3.8 g/dL (2.2-4.0); Glucose, Blood 82.0 mg/dL (70-99); Potassium, Blood 6.2 mmol/L (3.5-5.5); Sodium, Blood 132.0 mmol/L (136-145); Total Protein, Blood 7.0 g/dL (6.4-8.2)
[2025-06-25] MEDS ORDERED: CARVEDILOL6.25 MG PO (14:16)
[2025-06-25] MEDS ORDERED: Calcium Gluconate 10% 2,000 MG in NS 50 ML IV ONE (14:25)
--- NOTE | 2025-06-25 15:00 | NUR ---
DIALYSIS NOTE FISH PACKER RESPONDED TO ASSESS A RIGHT FEMORAL CVC REPORTED TO BE DYSFUNCTIONAL. UPON ARRIVAL TO THE PATIENTS ROOM, THE PATIENT STATED THAT HE ACCIDENTALLY PULLED ON THE CATHETER WHILE SHOWERING EARLIER THIS MORNING. UPON ASSESSMENT OF THE CVC EXIT SITE, APPROXIMATELY 1 INCH OF THE CUFF WAS VISIBLY EXPOSED. FINDINGS WERE IMMEDIATELY REPORTED TO THE PATIENT'S PRIMARY RN AND THE ED PROVIDER. EDUCATION AND NOTIFICATION WERE PROVIDED REGARDING THE INCREASED RISK FOR CAHERTER DISLODGEMENT AND INFECTION. THE ED PROVIDER WAS INFORMED THAT THE CATHERTER WOULD REQUIRE REPLACEMENT AND THAT THIS RN WOULD NOT SEFLY BE ABLE TO ACCESS OR USE THE CATHERER FOR DIALYSIS TREATMENT AT THIS TIME.
[2025-06-25] MEDS ORDERED: FLU VACC TS2025-26(6MOS UP)/PF 45 MCG/0.5 ML SYRINGE IM SCH (15:05)
[2025-06-25] MEDS ORDERED: OXYC5 PO (15:58)
[2025-06-25] MEDS ORDERED: LOKELMA10 GM (15:59)
[2025-06-25] MEDS ORDERED: CARVEDILOL12.5 MG PO (15:59)
[2025-06-25] MEDS ORDERED: LOSA50 PO (16:00)
[2025-06-25] MEDS ORDERED: CLON.2 (16:00)
[2025-06-25] MEDS ORDERED: HydrALAZINE HCl 20 MG / ML 1ML Vial IV STA (16:09)
[2025-06-25] MEDS ORDERED: HydrALAZINE HCl 20 MG / ML 1ML Vial IV PRN (17:00)
--- NOTE | 2025-06-25 17:11 | NUR ---
1650 DR DIA CALLED. REQUEST SECOND DOSE OF 10 GM LOKELMA STAT NOW. PT STILL IN ER, BUT PLACED ORDER. CALLED PROGRAMS DIRECTOR. WILL TRY TO GIVE. ALSO TO ATTEMPT TO GET B/P <200 PRIOR TO SHIPPING TO FLOOR. 1710 GOT REPORT FROM RN. ATTEMPTING TO GET B/P DOWN. WILL TRY TO GET LOKELMA STAT. EXPECTING SR [facility] [address] [address] DIALYSIS CATH TOMORROW.
[2025-06-25 17:37] VITALS: BP 189/111
[2025-06-25] MEDS ORDERED: Darbepoetin (Pharmacy Consult) SC SCH (18:10)
--- NOTE | 2025-06-25 18:13 | NUR ---
PT ADMIT TO ROOM 1745. DENIES PAIN. NO NOTED BLEEDING OR HEMATOMA AT GROIN SITE. LUNGS CLEAR AFTER COUGH, H/R REG, NO MURMUR NOTED. EXPLAINED TO PT EXPECTING DIALYSIS PORT PLACED TOMORROW. SO WILL MAKE NPO MIDNITE. BED IN LOW POSITION, CALL LITE IN REACH, CALLS APPROP
[2025-06-25 19:38] VITALS: BP 120/72
[2025-06-25] MEDS ORDERED: Heparin Sodium,Porcine 5,000 UNIT/0.5 ML SDV SC SCH (21:00)
[2025-06-26] VITALS (16 sets, daily range): BP systolic 91–199; BP diastolic 41–133
--- NOTE | 2025-06-26 05:13 | NUR ---
SHIFT SUMMARY NPO SINCE MIDNIGHT. ANTICIPATED REPLACEMENT OF DISLODGED R FEMORAL DIALYSIS CATHETER THIS AM WITH IR. HEMODIALYSIS AFTERWARD. CREATININE IS 12.0, K+ IS 6.2 AND ASYMPTOMATIC. TELE: SR, RATE OF 62. REQUIRED DOSE OF HYDRALAZINE IN ED PRIOR TO ADMISSION FOR BP 204/121. IV IN RFA. A&OX4, MUMBLED SPEECH. AMBULATES WELL WITH FWW USE, DOES USE HIS OWN WHEELCHAIR FOR LONGER DISTANCES. STANDBY ASSIST. NO IMPULSIVITY NOTED. DOES REPORT SOME CHRONIC LOW BACK PAIN, BUT DECLINES MEDICATION PER EMAR DUE TO FEAR OF NEGATIVE IMPACT RELATED TO HIS ESRD. NONPHARMACOLOGIC INTERVENTIONS IMPLEMENTED.
[2025-06-26 06:10] LABS: Hematocrit 40.9 % (37.0-53.0); Hemoglobin 13.0 g/dL (13.5-17.5)
[2025-06-26 06:44] LABS: Magnesium, Blood 2.3 mg/dL (1.6-2.4)
[2025-06-26 07:28] LABS: Albumin, Blood 3.3 g/dL (3.4-5.0); Anion Gap 21 mmol/L (3-11); Blood Urea Nitrogen 91 mg/dL (8-24); CO2, Blood 19 mmol/L (21-32); Calcium, Blood 7.9 mg/dL (8.5-10.1); Chloride, Blood 97 mmol/L (98-108); Creatinine, Blood 13.40 mg/dL (0.60-1.20); Glucose, Blood 86 mg/dL (70-99); Phosphorus, Blood 10.8 mg/dL (2.5-4.9); Potassium, Blood 5.9 mmol/L (3.5-5.5); Sodium, Blood 131 mmol/L (136-145)
[2025-06-26] MEDS ORDERED: Calcium Acetate 667 MG Gel Cap PO SCH (08:30)
--- NOTE | 2025-06-26 11:21 | NUR ---
Upon receiving a referral for spiritual care, I visited the patient. He talks about his medical issues, his friend patti and his dog, Vasile, who usually goes with him wherever he goes. He talks about the frustration of all the congestion in his head and chest and also welcomes prayer. I gladly supply prayer and encouragement. The patient voices his appreciation for the visit.
--- NOTE | 2025-06-26 13:39 | NUR ---
THIS RN WAS TOLD IN AM REPORT THAT PATIENT WOULD BE GOING TO HAVE HIS DIALYSIS PORT REPLACED SO PATIENT COULD HAVE DIALYSIS. MULTIPLE CALLS AND VOICE MAILS LEFT WITH [facility]/INSPECTOR PLUMBING AND TOOL DESIGN ENGINEER STAFF TO SEE IF PATIENT WAS ON SCHEDULE. NOTIFIED AND REACHED OUT TO IR FOR UPDATE. WAITING TO HEAR BACK.PATIENT UPDATED ON NEWS
[2025-06-26] MEDS ORDERED: NS 1,000 ML IV ONE ×2 (14:06→14:12)
[2025-06-26] MEDS ORDERED: Midazolam HCl 1MG / ML 2ML Vial ONE (14:11)
[2025-06-26] MEDS ORDERED: FentaNYL Citrate 50 MCG/ML 2 ML Injection ONE (14:12)
[2025-06-26] MEDS ORDERED: CeFAZolin Sodium 2,000 MG VIAL ONE (14:23)
[2025-06-26] MEDS ORDERED: NS 50 ML IV ONE (14:23)
[2025-06-26] MEDS ORDERED: Heparin Sodium 1000 Units/ML 10ML MDV ONE (14:34)
--- NOTE | 2025-06-26 14:54 | NUR ---
PATIENT BACK FROM [facility] POST PORT EXCHANGE. 2 GRAMS OF ANTIBIOTICS ADMINISTERED DURING PROCEDURE. PROFESSOR OF PUBLIC ADMINISTRATION IN ROUTE TO DO TREATMENT. PATIENT SLEEPING AT THIS TIME.
--- NOTE | 2025-06-26 16:55 | NUR ---
PATIENT ABLE TO HAVE DIALYSIS TODAY. CURRENTLY IN THAT DEPARTMENT. PATIENT STILL SLEEPY FROM PROCEDURE BUT AROUSES EASILY AND ANSWERS QUESTIONS. NO QUESTIONS OR CONCERNS FROM PATIENT.
[2025-06-27] VITALS (17 sets, daily range): BP systolic 109–176; BP diastolic 71–108
--- NOTE | 2025-06-27 04:36 | NUR ---
PT ALERT AND ORIENTED. PLEASANT AND COOPERATIVE WITH CARES. ABLE TO MAKE NEEDS KNOWN. SLEPT MOST OF THE SHIFT. UP INDEPENDENTLY TO THE BATHROOM. TELE, SINUS RHYTHM. SLIGHTLY ELEVATED BP AT TIMES, OTHERWISE VSS. BED IN LOWEST POSITION. CALL LIGHT IN REACH.
[2025-06-27 05:39] LABS: Hematocrit 38.6 % (37.0-53.0); Hemoglobin 12.4 g/dL (13.5-17.5)
[2025-06-27 06:13] LABS: Magnesium, Blood 2.3 mg/dL (1.6-2.4)
[2025-06-27 06:15] LABS: Albumin, Blood 3.1 g/dL (3.4-5.0); Anion Gap 20 mmol/L (3-11); Blood Urea Nitrogen 79 mg/dL (8-24); CO2, Blood 20 mmol/L (21-32); Calcium, Blood 7.8 mg/dL (8.5-10.1); Chloride, Blood 95 mmol/L (98-108); Creatinine, Blood 12.30 mg/dL (0.60-1.20); Glucose, Blood 98 mg/dL (70-99); Phosphorus, Blood 10.1 mg/dL (2.5-4.9); Potassium, Blood 5.5 mmol/L (3.5-5.5); Sodium, Blood 129 mmol/L (136-145)
[2025-06-27] MEDS ORDERED: CATAPRES0.1 MG PO (13:12)
[2025-06-27] MEDS ORDERED: SEVEC800 (13:12)
[2025-06-27] MEDS ORDERED: Calcium Acetat667 MG PO (13:13)
== END 2025-06-27 15:51 | disposition home or self-care (01) ==
LOC: ER 11:30 → MEDS 11:31
PROVIDERS: Internal Medicine Nephrology; Student in an Organized Health Care Education/Training Program; ADMIT Internal Medicine
DX: T82.42XA Displacement of vascular dialysis catheter, initial encounter (principal); I13.2 Hypertensive heart and chronic kidney disease with heart failure and with stage 5 chronic kidney disease, or end stage renal disease; E11.22 Type 2 diabetes mellitus with diabetic chronic kidney disease; N18.6 End stage renal disease; I50.22 Chronic systolic (congestive) heart failure; D63.1 Anemia in chronic kidney disease; F10.10 Alcohol abuse, uncomplicated; E87.5 Hyperkalemia; F15.10 Other stimulant abuse, uncomplicated; Q61.2 Polycystic kidney, adult type; Q44.6 Cystic disease of liver; G89.4 Chronic pain syndrome; I42.8 Other cardiomyopathies; F17.210 Nicotine dependence, cigarettes, uncomplicated; E87.1 Hypo-osmolality and hyponatremia; E11.10 Type 2 diabetes mellitus with ketoacidosis without coma; E83.39 Other disorders of phosphorus metabolism; Z79.01 Long term (current) use of anticoagulants; Z79.899 Other long term (current) drug therapy; Z88.8 Allergy status to other drugs, medicaments and biological substances; Z99.2 Dependence on renal dialysis; Y81.1 Therapeutic (nonsurgical) and rehabilitative general- and plastic-surgery devices associated with adverse incidents
CPT/HCPCS: 36415; 80053; 80069; 83735; 85014; 85018; 85025; 93005; 93010; 96372; 96374; 96375; 96376; 99152; 99285-25; A9270; C1750; C1769; G0257; G0378; J0360; J0612; J0690; J1644; J2250; J3010; J7030

== ENCOUNTER 2025-07-06 08:05 | Inpatient (IN) | payer MEDICARE, OTHER ==
[~2025-07-06] VITALS: Ht 172.7 cm; Wt 78.0 kg
[2025-07-06] VITALS (44 sets, daily range): BP systolic 124–216; BP diastolic 74–183
[~2025-07-06 08:05] MED LIST changes: +CARVEDILOL12.5 MG PO; +CARVEDILOL6.25 MG PO; +CLON.2; +LOKELMA10 GM
[2025-07-06 08:24] LABS: pH Blood Venous 7.13 (7.34-7.37)
[2025-07-06] MEDS ORDERED: Insulin Regular 100 Unit/ML 1ML Dose IV ONE (08:30)
[2025-07-06] MEDS ORDERED: Sodium Bicarb 8.4% 50 mEq Syringe IV ONE (08:30)
[2025-07-06] MEDS ORDERED: Calcium Gluconate 10% 100 MG/ML INJ IV ONE (08:30)
[2025-07-06 08:31] LABS: Calcium, Ionized (POC) 0.75 mmol/L (1.10-1.46); Chloride (POC) 104 mmol/L (98-108); Creatinine (POC) 18.2 mg/dL (0.8-1.3); Glucose (ISTAT POC) 69 mg/dL (70-99); Hematocrit (POC) 44.0 % (41.0-53.0); Hemoglobin (POC) 15.0 g/dL (13.5-17.5); Potassium (POC) >9.0 mmol/L (3.5-5.5); Sodium (POC) 133 mmol/L (135-148); Total CO2 (POC) 17 mmol/L (21-32)
[2025-07-06 08:34] LABS: BASOPHILS ABSOLUTE AUTO 0.14 K/mm3 (0.00-0.23); BASOPHILS PERCENT AUTO 1 % (0-2); EOSINOPHILS ABSOLUTE AUTO 0.21 K/mm3 (0.00-0.68); EOSINOPHILS PERCENT AUTO 2 % (0-6); Hematocrit 41.4 % (37.0-53.0); Hemoglobin 13.1 g/dL (13.5-17.5); IMMATURE GRAN ABSOLUTE AUTO 0.02 K/mm3 (0.00-0.10); IMMATURE GRAN PERCENT AUTO 0 % (0-1); LYMPHOCYTES ABSOLUTE AUTO 0.97 K/mm3 (0.84-5.20); LYMPHOCYTES PERCENT AUTO 10 % (21-46); MONOCYTES ABSOLUTE AUTO 0.65 K/mm3 (0.16-1.47); MONOCYTES PERCENT AUTO 7 % (4-13); Mean Corpuscular HGB Conc 31.6 g/dL (31.5-36.5); Mean Corpuscular Volume 90 fL (80-100); NEUTROPHILS ABSOLUTE AUTO 7.88 K/mm3 (1.96-9.15); NEUTROPHILS PERCENT AUTO 80 % (41-73); NRBC ABSOLUTE 0.00 K/mm3 (0.00-0.02); NRBC Auto 0.0 /100 WBC (0.0-0.2); Platelet Count 341 K/mm3 (150-400); RDW Coefficient Variation 17.6 % (11.7-14.2); RDW Standard Deviation 58.7 fL (35.1-46.3)
[2025-07-06] MEDS ORDERED: Sodium Bicarb 8.4% 1 MEQ/ML 50 ML Vial IV ONE (08:35)
[2025-07-06] MEDS ORDERED: CALCIUM GLUC IN NACL, ISO-OSM 50 ML IV ONE ×2 (08:45→16:50)
[2025-07-06 09:13] LABS: Influenza A, PCR NEGATIVE (NEGATIVE); Influenza B, PCR NEGATIVE (NEGATIVE); Resp Syncytial Virus, PCR NEGATIVE (NEGATIVE); SARS-Cov-2 (COVID-19) PCR, MMC NEGATIVE (NEGATIVE)
[2025-07-06 09:42] LABS: Alanine Aminotransfer (ALT/SGP 10.0 U/L (12-78); Albumin, Blood 4.0 g/dL (3.4-5.0); Albumin/Globulin Ratio 0.9 (0.8-1.8); Anion Gap 27.0 mmol/L (3-11); Aspartate Aminotrans (AST/SGOT 27.0 U/L (12-37); Bilirubin, Total 0.8 mg/dL (0.1-1.0); Blood Urea Nitrogen 146.0 mg/dL (8-24); CO2, Blood 15.0 mmol/L (21-32); Calcium, Blood 7.4 mg/dL (8.5-10.1); Chloride, Blood 96.0 mmol/L (98-108); Globulin, Blood 4.3 g/dL (2.2-4.0); Glucose, Blood 156.0 mg/dL (70-99); Sodium, Blood 130.0 mmol/L (136-145); Total Protein, Blood 8.3 g/dL (6.4-8.2)
[2025-07-06 09:44] LABS: Creatinine, Blood 17.5 mg/dL (0.60-1.20); Potassium, Blood 8.2 mmol/L (3.5-5.5)
[2025-07-06] MEDS ORDERED: HydrALAZINE HCl 20 MG / ML 1ML Vial IV PRN (09:45)
[2025-07-06] MEDS ORDERED: FLU VACC TS2025-26(6MOS UP)/PF 45 MCG/0.5 ML SYRINGE IM SCH (09:45)
[2025-07-06] MEDS ORDERED: Darbepoetin (Pharmacy Consult) SC SCH (10:50)
[2025-07-06] MEDS ORDERED: Heparin Sodium,Porcine 5,000 UNIT/0.5 ML SDV SC SCH (14:00)
[2025-07-06] MEDS ORDERED: Alteplase Recombinant 2 MG / Vial IV PRN (14:15)
--- NOTE | 2025-07-06 15:32 | NUR ---
PALLIATIVE CONSULT RECEIVED AND PROCESSED. PT'S POLST ON CHART, FULL CODE, READMISSION.
[2025-07-06] MEDS ORDERED: Calcium Gluconate 10% 1,000 MG in NS 50 ML IV ONE (16:50)
[2025-07-06] MEDS ORDERED: Calcium Acetate 667 MG Gel Cap PO SCH (17:30)
--- NOTE | 2025-07-06 18:03 | NUR ---
SUMMARY PT ADMITTED TO ICU 14 FROM ER THIS AM. PT HAS MUMBLED SPEECH AND IS DIFFICULT TO UNDERSTAND BUT CAN MAKE NEEDS KNOWN. FOLLOWS COMMANDS. MOVES SELF IN BED. HAS DIALYSIS CATH TO R FEMORAL. HAD DIALYSIS SHORTLY AFTER ARRIVAL TO UNIT WITH 3L OFF. HYPERTENSIVE, HYDRALAZINE GIVEN 2X. PT SITTING UP EATING DINNER TONIGHT WITHOUT ISSUE.
--- NOTE | 2025-07-06 20:00 | NUR ---
ASSUMPTION OF CARE: ASSUMED CARE AT START OF SHIFT (1899). REPORT RECEIVED FROM DAY SHIFT RN. PT IS DOING WELL AND RESTING IN BED. PT IS ALERT AND FOLLOWING COMMANDS. PT DENIES ANY PAIN, CP, OR SOB AT THIS TIME. ON O2 @ 5LPM VIA NC, SPO2 >95%. SINUS RYTHM WITH SBP: 150-170'S MAP >65 HR: 80-90'S. IV: PERMA CATHETER IN R GROIN, PERIPHERAL IV IN L WRIST. LINES AND CORDS PLACED OUT OF REACH. CALL LIGHT PLACED WITHIN REACH, BED PLACED IN LOWEST POSITION.
[2025-07-07] VITALS (60 sets, daily range): BP systolic 108–220; BP diastolic 66–141
[2025-07-07] MEDS ORDERED: DEXTROMETHORPHAN/BENZOCAINE 1 EACH LOZENGE MT PRN (03:15)
[2025-07-07 03:45] LABS: BASOPHILS ABSOLUTE AUTO 0.00 K/mm3 (0.00-0.23); BASOPHILS PERCENT AUTO 0 % (0-2); EOSINOPHILS ABSOLUTE AUTO 0.00 K/mm3 (0.00-0.68); EOSINOPHILS PERCENT AUTO 0 % (0-6); Hematocrit 37.7 % (37.0-53.0); Hemoglobin 12.3 g/dL (13.5-17.5); IMMATURE GRAN ABSOLUTE AUTO 0.02 K/mm3 (0.00-0.10); IMMATURE GRAN PERCENT AUTO 0 % (0-1); LYMPHOCYTES ABSOLUTE AUTO 0.20 K/mm3 (0.84-5.20); LYMPHOCYTES PERCENT AUTO 4 % (21-46); MONOCYTES ABSOLUTE AUTO 0.21 K/mm3 (0.16-1.47); MONOCYTES PERCENT AUTO 4 % (4-13); Mean Corpuscular HGB Conc 32.6 g/dL (31.5-36.5); Mean Corpuscular Volume 87 fL (80-100); NEUTROPHILS ABSOLUTE AUTO 5.00 K/mm3 (1.96-9.15); NEUTROPHILS PERCENT AUTO 92 % (41-73); NRBC ABSOLUTE 0.00 K/mm3 (0.00-0.02); NRBC Auto 0.0 /100 WBC (0.0-0.2); Platelet Count 249 K/mm3 (150-400); RDW Coefficient Variation 17.2 % (11.7-14.2); RDW Standard Deviation 54.5 fL (35.1-46.3)
[2025-07-07 04:15] LABS: Magnesium, Blood 2.5 mg/dL (1.6-2.4)
[2025-07-07 04:58] LABS: Albumin, Blood 3.6 g/dL (3.4-5.0); Anion Gap 19 mmol/L (3-11); Blood Urea Nitrogen 116 mg/dL (8-24); CO2, Blood 23 mmol/L (21-32); Calcium, Blood 7.7 mg/dL (8.5-10.1); Chloride, Blood 95 mmol/L (98-108); Creatinine, Blood 14.70 mg/dL (0.60-1.20); Glucose, Blood 109 mg/dL (70-99); Phosphorus, Blood 10.2 mg/dL (2.5-4.9); Potassium, Blood 6.4 mmol/L (3.5-5.5); Sodium, Blood 131 mmol/L (136-145)
--- NOTE | 2025-07-07 07:19 | NUR ---
SHIFT SUMMARY: PT IS DOING WELL AND RESTING IN BED. NO ACUTE CHANGES THROUGHOUT THE SHIFT. PT IS ALERT AND FOLLOWING COMMANDS. PT DID HAVE SOME BACK PAIN BUT NO CP OR SOB DURING THE NIGHT. PT WAS GIVEN TYLENOL PER EMR ORDERS. PT CONTINUES TO BE HYPERTENSIVE AND WAS GIVEN MEDICATION PER EMR ORDERS. THE REST OF THE VITALS REMAIN STABLE. PT WAS OFFERED BIPAP TO WHILE THEY TRIED TO SLEEP BUT PT REFUSED AND REMAINED ON NASAL CANNULA. IV: PERIPHERAL IN L FORERAM AND PERMA CATH IN R GROIN. PT IS SUPPOSED TO RECEIVE DIALYSIS LATER TODAY. LINES AND CORDS PLACED OUT OF REACH. CALL LIGHT PLACED WITHIN REACH.
--- NOTE | 2025-07-07 08:27 | NUR ---
[facility] Pt A&O to self, place, & date except for year, stating year "[birth year]24" multiple times when nurse requestioning. Pt then laughing when told 2024. Pt BP continues to be elevated. Dialysis nurse requesting BP medications be held prior to dialysis & will reassess need to be given during dialysis treatment this morning. Spo2 > 92% on RA.
[2025-07-07] MEDS ORDERED: Vitamin B Cmplx/Vit C/Folic Ac 1 Tab PO SCH (09:00)
--- NOTE | 2025-07-07 09:10 | NUR ---
Pt now PCU status. Gone to dialysis.
--- NOTE | 2025-07-07 12:40 | NUR ---
Pt back from dialysis. BP remains elevated. Pharmacist w/ okay to give morning coreg dose now (that was held this AM per dialysis nurse instruction) & give 1700 dose after dinner this evening. Pt sitting up eating lunch at this time. Monitor showing SR, HR 80s. Spo2 > 92% on RA.
--- NOTE | 2025-07-07 18:14 | NUR ---
End of Shift Pt PCU status. A&O x4. VSS. Monitor showing SR, HR 70s-80s. BP improved. Spo2 > 92% on RA. Pt w/ brief, nonsustained, desat episodes to 85% then right back up to spo2 > 92% while sleeping. Pt refusing BIPAP/CPAP. Pt sleeping intermittently t/o shift. Dialysis done today.
[2025-07-08] VITALS (27 sets, daily range): BP systolic 101–191; BP diastolic 78–115
[2025-07-08 03:24] LABS: BASOPHILS ABSOLUTE AUTO 0.05 K/mm3 (0.00-0.23); BASOPHILS PERCENT AUTO 1 % (0-2); EOSINOPHILS ABSOLUTE AUTO 0.16 K/mm3 (0.00-0.68); EOSINOPHILS PERCENT AUTO 2 % (0-6); Hematocrit 37.8 % (37.0-53.0); Hemoglobin 12.3 g/dL (13.5-17.5); IMMATURE GRAN ABSOLUTE AUTO 0.02 K/mm3 (0.00-0.10); IMMATURE GRAN PERCENT AUTO 0 % (0-1); LYMPHOCYTES ABSOLUTE AUTO 1.00 K/mm3 (0.84-5.20); LYMPHOCYTES PERCENT AUTO 15 % (21-46); MONOCYTES ABSOLUTE AUTO 0.68 K/mm3 (0.16-1.47); MONOCYTES PERCENT AUTO 10 % (4-13); Mean Corpuscular HGB Conc 32.5 g/dL (31.5-36.5); Mean Corpuscular Volume 89 fL (80-100); NEUTROPHILS ABSOLUTE AUTO 4.92 K/mm3 (1.96-9.15); NEUTROPHILS PERCENT AUTO 72 % (41-73); NRBC ABSOLUTE 0.00 K/mm3 (0.00-0.02); NRBC Auto 0.0 /100 WBC (0.0-0.2); Platelet Count 231 K/mm3 (150-400); RDW Coefficient Variation 17.6 % (11.7-14.2); RDW Standard Deviation 57.8 fL (35.1-46.3)
[2025-07-08 04:27] LABS: Albumin, Blood 3.4 g/dL (3.4-5.0); Anion Gap 13 mmol/L (3-11); Blood Urea Nitrogen 82 mg/dL (8-24); CO2, Blood 29 mmol/L (21-32); Calcium, Blood 7.5 mg/dL (8.5-10.1); Chloride, Blood 93 mmol/L (98-108); Creatinine, Blood 10.70 mg/dL (0.60-1.20); Glucose, Blood 101 mg/dL (70-99); Phosphorus, Blood 9.2 mg/dL (2.5-4.9); Potassium, Blood 5.2 mmol/L (3.5-5.5); Sodium, Blood 130 mmol/L (136-145)
--- NOTE | 2025-07-08 05:52 | NUR ---
SHIFT SUMMARY PT ALERT AND ORIENTED X4 WHEN AWAKE, PT SPEAKS IN MUMBLED SPEECH BUT CAN EASILY BE UNDERSTOOD WITH CLARIFICATION. PT IS ABLE TO MAKE NEEDS KNOWN AND FOLLOWS COMMANDS. PT IS ON 2L/NC T/O THE NIGHT DUE TO OCASSIONAL DESATTING, PT DENIES SOB. SBP IN THE 130-180'S HR IN THE 70'S NSR. PT TOLERATING PO INTAKE WELL. PT ABLE TO AMBULATE TO THE IN-ROOM TOILET WITH WALKER AND NURSE ASSIST. AM LABS SHOWED IMPROVEMENT; LEVELS TRENDING DOWN APPROPRIATELY. PT HAS L ARM PIV SALINE LOCKED. BED IN LOWEST POSITION, CALL LIGHT WIHTIN REACH. NO IMMEDIATE CONCERNS OR NEEDS NOTED AT THIS TIME. WILL REPORT TO ONCOMING RN
--- NOTE | 2025-07-08 09:26 | NUR ---
AM NOTE... ASSUMED CARE OF PT AT 0700, PT IS A&Ox4. HE IS IN SR INN THE 70'S-80'S BP IS HYPERTENSIVE WITH SBPs IN THE 140'S-160'S. NO SWELLING OR EDEMA NOTED DURING THIS ASSESSMENT. PT DENIES CHEST PAIN BUT DOES HAVE SOB WITH ACTIVITY. PT IS ON 2L NC WHILE SLEEPING D/T SERA. L/S EXP WHEEZES T/O DIM IN THE BASES. BT PRESENT AND NORMOACTIVE. ABD IS LARGE AND SOFT TO PALPATION. DR. DIA ASSESSED THE PT THIS AM, PT IS NOW ON A 1L FLUID RESTRICTION PER DR. DIA ORDERES. PT WAS TAKEN DOWN TO DIALYSIS AT 0830.
--- NOTE | 2025-07-08 17:11 | NUR ---
SHIFT SUMMARY.... NO ACUTE NEGATIVE CHANGES NOTED THIS SHIFT. PT HAD DIALYSIS THIS AM AND 2L WAS REMOVED PER KALSOMINER REPORT. PT'S VS HAVE BEEN STABLE T/O THIS SHIFT. PT HAS NOT VOIDED OR HAD A BM. PT NEEDS 2L NC WHILE SLEEPING D/T DESAT EVENTS DOWN TO THE LOW 80'S. PT HAS SLEPT OFF AND ON T/O THIS SHIFT.
[2025-07-09] VITALS (11 sets, daily range): BP systolic 109–175; BP diastolic 47–110
[2025-07-09 03:16] LABS: Hematocrit 37.4 % (37.0-53.0); Hemoglobin 11.8 g/dL (13.5-17.5)
[2025-07-09 03:40] LABS: Magnesium, Blood 2.0 mg/dL (1.6-2.4)
[2025-07-09 03:52] LABS: Albumin, Blood 3.3 g/dL (3.4-5.0); Anion Gap 13 mmol/L (3-11); Blood Urea Nitrogen 83 mg/dL (8-24); CO2, Blood 28 mmol/L (21-32); Calcium, Blood 7.5 mg/dL (8.5-10.1); Chloride, Blood 95 mmol/L (98-108); Glucose, Blood 99 mg/dL (70-99); Potassium, Blood 4.2 mmol/L (3.5-5.5); Sodium, Blood 132 mmol/L (136-145)
[2025-07-09 03:53] LABS: Creatinine, Blood 9.93 mg/dL (0.60-1.20); Phosphorus, Blood 8.1 mg/dL (2.5-4.9)
--- NOTE | 2025-07-09 05:42 | NUR ---
SHIFT SUMMARY PT A&O X4, MAKES NEEDS KNOWN AND FOLLOWS COMMANDS. PT ON RA OVERNIGHT WITH SPO2 >95% AND DENIES SOB. SBP IN THE 130-170'S, HR IN THE 70-80'S NSR AND PT DENIES CHEST PAIN/PRESSURE. PT AMBULATING TO TOILET WIH WALKER AND STANDBY ASSIST, VOIDED X1 AND NO BM THIS SHIFT. PT HAS X1 PIV SALINE LOCKED. TOLERATING PO MEDS WELL. 1L FLUID RESTRICTION STILL IN EFFECT. BED IN LOWEST POSITION, CALL LIGHT WITHIN REACH, NO IMMEDIATE NEEDS OR CONCERNS NOTED AT THIS TIME. WILL REPORT TO ONCOMING RN.
--- NOTE | 2025-07-09 07:52 | NUR ---
ASSUMPTION OF CARE BEDSIDE REPORT RECEIVED FROM [facility] NURSES. PT NOW MED c TELE STATUS. PT A&OX4, CALM & COOPERATIVE, NO COMPLAINTS FROM PATIENT. AMBULATES WITH WALKER TO COMMODE. TOLERATING PO INTAKE. THIS RN DISCUSSED NEED FOR PT TO NOT MISS DIALYSIS. PT STATES HE HAS A PLAN TO CALL DIALYSIS CENTER FOR ASSISTANCE WITH TRANSPORTATION. WE WILL GO OVER PLANS WITH CASE MANAGEMENT TODAY.
--- NOTE | 2025-07-09 11:55 | NUR ---
ATTEMPTED VISIT TODAY AT 0915. PT SNORING LOUDLY. REQUESTED PRIMARY RN TO CALL WHEN PT AWAKE.
[2025-07-10] VITALS (12 sets, daily range): BP systolic 104–164; BP diastolic 78–106
--- NOTE | 2025-07-10 01:59 | NUR ---
ASSUMED CARE OF PT AT 0145 FROM [facility]. PT AXOX4 AND ABLE TO USE CALL LIGHT APPROPRIATELY. RESTING COMFORTABLY ON RA. ALL VSS.
[2025-07-10 03:35] LABS: Hematocrit 39.0 % (37.0-53.0); Hemoglobin 12.4 g/dL (13.5-17.5)
[2025-07-10 04:31] LABS: Magnesium, Blood 2.5 mg/dL (1.6-2.4)
[2025-07-10 04:38] LABS: Albumin, Blood 3.5 g/dL (3.4-5.0); Anion Gap 14 mmol/L (3-11); Blood Urea Nitrogen 94 mg/dL (8-24); CO2, Blood 26 mmol/L (21-32); Calcium, Blood 7.9 mg/dL (8.5-10.1); Chloride, Blood 93 mmol/L (98-108); Creatinine, Blood 10.10 mg/dL (0.60-1.20); Glucose, Blood 95 mg/dL (70-99); Phosphorus, Blood 7.8 mg/dL (2.5-4.9); Potassium, Blood 4.3 mmol/L (3.5-5.5); Sodium, Blood 129 mmol/L (136-145)
--- NOTE | 2025-07-10 05:42 | NUR ---
PT AXOX4 AND ABLE TO CALL APPROPRIATELY. PT OOB WITH WALKER AND STANDBY ASSIST. PT OLIGURIC. SYS BP IN THE 170S. ALL OTHER VSS. AM LAB VALUES REPORTED TO . NO NEW ORDERS AT THIS TIME. PT MAY HAVE DIALYSIS DONE TODAY PER . REMAINS ON A 1L FLUID RESTRICTION. BED IN LOWEST POSITION AND CALL LIGHT WITHIN REACH.
[2025-07-10] MEDS ORDERED: AMLO5 PO (12:35)
[2025-07-10] MEDS ORDERED: B-COMPLEX WITH1 EAC2 PO (12:37)
--- NOTE | 2025-07-10 16:23 | NUR ---
DISCHARGE NOTE A&Ox 3 (DISORIENTED TO DATE), AFEBRILE, PERRLA. SPEECH MUMBLED BUT COMPREHENSIBLE. MAINTAINS >92% ON RA, SLIGHT EXPIRATORY WHEEZE ON AUSCULTATION. BP RANGES FROM 120-150'S W/ MAP >65, HR RANGES 70-90'S. BOWEL SOUNDS ACTIVE, ABDOMEN FIRM ON PALPATION. NO UOP D/T DIALYSIS/ESRD. DIALYSIS CATHETER SITE WNL. ATTENDED DIALYSIS THIS AM. SEE SHIFT ASSESSMENT. PROVIDED DISCHARGE EDUCATION WITH TEACH BACK. SENT HOME WITH ALL BELONGINGS AND NEW COAT, PANTS, AND SOCKS. PIV REMOVED WITHOUT ISSUE. TAKEN TO [place] VIA WHEELCHAIR. AMBULATED INTO CAR WITH MINIMAL ASSISTANCE.
--- NOTE | 2025-07-10 17:22 | NUR ---
Upon request I assisted the patient in supplying a jacket and sweatpants and socks. The patient voiced appreciation.
== END 2025-07-10 14:10 | disposition home or self-care (01) | DRG 640 ==
LOC: ER 08:05 → ERHOLD 09:43 → ICUE 09:43
PROVIDERS: Emergency Medicine; Internal Medicine Nephrology; ADMIT Internal Medicine
PROC: 5A1D70Z Performance of Urinary Filtration, Intermittent, Less than 6 Hours Per Day (ICD-10-PCS; principal; 2025-07-07)
PROC: 3E03317 Introduction of Other Thrombolytic into Peripheral Vein, Percutaneous Approach (ICD-10-PCS; 2025-07-07)
DX: E87.5 Hyperkalemia (principal); G92.8 Other toxic encephalopathy; N18.6 End stage renal disease; N17.9 Acute kidney failure, unspecified; I13.2 Hypertensive heart and chronic kidney disease with heart failure and with stage 5 chronic kidney disease, or end stage renal disease; I50.22 Chronic systolic (congestive) heart failure; I16.1 Hypertensive emergency; E87.70 Fluid overload, unspecified; E87.1 Hypo-osmolality and hyponatremia; J44.9 Chronic obstructive pulmonary disease, unspecified; E87.22 Chronic metabolic acidosis; I44.4 Left anterior fascicular block; K21.9 Gastro-esophageal reflux disease without esophagitis; D63.1 Anemia in chronic kidney disease; G89.4 Chronic pain syndrome; E11.22 Type 2 diabetes mellitus with diabetic chronic kidney disease; F10.10 Alcohol abuse, uncomplicated; E83.39 Other disorders of phosphorus metabolism; E66.9 Obesity, unspecified; Z99.2 Dependence on renal dialysis; Z91.158 Patient's noncompliance with renal dialysis for other reason; Z79.01 Long term (current) use of anticoagulants; Z79.899 Other long term (current) drug therapy; Z98.890 Other specified postprocedural states; Z88.8 Allergy status to other drugs, medicaments and biological substances
CPT/HCPCS: 36415; 71045; 80047; 80053; 80069; 82140; 82330; 82803; 83605; 83735; 83880; 84484; 85014; 85018; 85025; 87040; 87637; 93005; 93010; 94660; 94760; 96374; 96375; 99285-25; A9270; J0360; J0612; J1644; J1815; J2997